=== PATIENT | female | born 1965 | race Caucasian/White ===

== ENCOUNTER → 2020-05-11 14:03 | Outpatient (BNVA) | payer OTHER, SELFPAY | PROVIDERS: PCP Internal Medicine Geriatric Medicine; Referring Provider Internal Medicine Geriatric Medicine; Visit Provider Nurse Practitioner | DX: K31.84 Gastroparesis (principal); K21.9 Gastro-esophageal reflux disease without esophagitis; K58.2 Mixed irritable bowel syndrome; R13.10 Dysphagia, unspecified; R63.4 Abnormal weight loss; R63.0 Anorexia; Z79.899 Other long term (current) drug therapy | CPT/HCPCS: 99213 ==

== ENCOUNTER → 2020-06-22 12:51 | Outpatient (BNVA) | payer OTHER, SELFPAY | PROVIDERS: PCP Internal Medicine Geriatric Medicine; Visit Provider Nurse Practitioner | DX: K31.84 Gastroparesis (principal); K21.9 Gastro-esophageal reflux disease without esophagitis; K58.2 Mixed irritable bowel syndrome; F12.90 Cannabis use, unspecified, uncomplicated; F17.200 Nicotine dependence, unspecified, uncomplicated; Z86.73 Personal history of transient ischemic attack (TIA), and cerebral infarction without residual deficits | CPT/HCPCS: Q3014 ==

== ENCOUNTER → 2020-09-20 15:29 | Outpatient (BNVA) | payer OTHER, SELFPAY | PROVIDERS: PCP Internal Medicine Geriatric Medicine; Visit Provider Nurse Practitioner | DX: Z76.89 Persons encountering health services in other specified circumstances (principal) | CPT/HCPCS: Q3014 ==

== ENCOUNTER → 2021-02-01 14:52 | Outpatient (BNVA) | payer OTHER, SELFPAY | PROVIDERS: PCP Internal Medicine Geriatric Medicine; Visit Provider Surgery | DX: K80.20 Calculus of gallbladder without cholecystitis without obstruction (principal) | CPT/HCPCS: 99202 ==

== ENCOUNTER 2021-02-13 13:33 | Outpatient (REF) | payer OTHER, SELFPAY ==
--- NOTE | ~2021-02-13 | US_ITS ---
EXAMINATION: US ABDOMEN LIMITED CLINICAL INFORMATION: Calculus of gallbladder without cholecystitis. COMPARISON: CT abdomen pelvis 10/12/2014. Ultrasound abdomen 05/07/2010 and 04/29/2008. TECHNIQUE: Real-time imaging of the right upper quadrant abdominal viscera. FINDINGS: PANCREAS: Normal. LIVER: Normal. The liver is normal in size. The liver contour is normal. Parenchymal echogenicity is normal. No focal hepatic lesion. There is no intrahepatic biliary duct dilatation seen. GALLBLADDER: There is minimal echogenic debris or sludge seen in the gallbladder. The gallbladder is physiologically distended without evidence of stones, sludge, polyps, or wall thickening. COMMON BILE DUCT: Upper normal in caliber measuring 0.76 cm in diameter. RIGHT KIDNEY: Normal. No hydronephrosis. No renal calculi or focal parenchymal lesions. The kidney measures 10.3 cm in maximum dimension. FREE FLUID: None. US/US abdomen limited IMPRESSION: No gallstones seen. Minimal echogenic debris or sludge seen in the gallbladder. Upper normal-size common bile duct.
== END 2021-02-13 13:34 | disposition home or self-care (01) ==
LOC: HO.HMGCX 13:33
PROVIDERS: PCP Internal Medicine Geriatric Medicine; Visit Provider Surgery
DX: K80.20 Calculus of gallbladder without cholecystitis without obstruction (principal)
CPT/HCPCS: 76705

== ENCOUNTER → 2021-02-27 13:34 | Outpatient (BNVA) | payer OTHER, SELFPAY | PROVIDERS: PCP Internal Medicine Geriatric Medicine; Referring Provider Internal Medicine Geriatric Medicine; Visit Provider Surgery | DX: K92.1 Melena (principal); R11.0 Nausea | CPT/HCPCS: 99212 ==

== ENCOUNTER 2021-08-24 13:07 | Outpatient (REF) | payer OTHER, SELFPAY | END 2021-08-24 13:08 | disposition home or self-care (01) | LOC: HO.LAB 13:07 | PROVIDERS: PCP Internal Medicine Geriatric Medicine; Referring Provider Internal Medicine Geriatric Medicine; Visit Provider Nurse Practitioner | DX: K21.9 Gastro-esophageal reflux disease without esophagitis (principal); K31.84 Gastroparesis; K58.2 Mixed irritable bowel syndrome; K80.20 Calculus of gallbladder without cholecystitis without obstruction; Z80.0 Family history of malignant neoplasm of digestive organs | CPT/HCPCS: 99212 ==

== ENCOUNTER 2021-08-25 09:04 | Outpatient (REF) | payer OTHER, SELFPAY ==
[2021-08-25 09:15] LABS: MANUAL DIFF FLAG NO
[2021-08-25 09:46] LABS: Basophils Percent Auto 0.6 % (0-2); Eosinophils Absolute Auto 0.8 X10*3/uL (0.0-0.4); Eosinophils Percent Auto 11.4 % (0-4); Hematocrit 41.8 % (37.0-47.0); Hemoglobin 13.6 g/dl (12.0-16.0); Imm Gran Abs Auto 0.02 X10*3/uL (0.00-0.03); Imm Gran Pct Auto 0.3 % (0.0-0.4); Lymphocytes Absolute Auto 1.2 X10*3/uL (1.2-4.9); Lymphocytes Percent Auto 17.7 % (20-40); Mean Corpuscular HGB Conc 32.5 g/dl (31.0-35.0); Mean Corpuscular Volume 101.5 fL (80.0-98.0); Mean Platelet Volume 10.6 fL (9.4-12.3); Monocytes Absolute Auto 0.7 X10*3/uL (0.1-1.2); Monocytes Percent Auto 10.4 % (2-11); Neutrophils Absolute Auto 4.1 x10*3/uL (2.0-8.3); Neutrophils Percent Auto 59.6 % (45-73); Platelet Count 184 X10*3/uL (160-400); Red Blood Count 4.12 X10*6/uL (4.20-5.50); White Blood Count 6.9 X10*3/uL (4.8-10.8)
[2021-08-25 10:12] LABS: Alanine Aminotransferase 10 U/L (0-31); Alkaline Phosphatase 94 U/L (39-117); Anion Gap 12 (12-20); Aspartate Amino Transferase 16 U/L (5-31); Bilirubin Total < 0.2 mg/dL (0.0-1.0); Blood Urea Nitrogen 22 mg/dL (9-16); Calcium 9.4 mg/dL (8.4-10.2); Carbon Dioxide 34 mmol/L (22-29); Chloride 101 mmol/L (96-108); Estimated Glomerular Filt Rate > 60; Glucose Random 90 mg/dL (60-115); Potassium 4.8 mmol/L (3.3-5.1); Sodium 142 mmol/L (135-145); Total Protein 7.1 g/dL (6.5-8.0)
== END 2021-08-25 09:05 | disposition home or self-care (01) ==
LOC: HO.LAB 09:04
PROVIDERS: PCP Internal Medicine Geriatric Medicine; Visit Provider Nurse Practitioner
DX: Z80.0 Family history of malignant neoplasm of digestive organs (principal)
CPT/HCPCS: 36415; 80053; 85025

== ENCOUNTER 2021-09-13 09:16 | Outpatient (REF) | payer OTHER, SELFPAY ==
--- NOTE | ~2021-09-13 | XR_ITS ---
EXAMINATION: XR ABDOMEN KUB CLINICAL INDICATION: Irritable bowel syndrome COMPARISON: None TECHNIQUE: 2 views of the abdomen. FINDINGS: Large volume of stool present throughout the right colon and transverse colon. Less stool present within the left colon and rectum. No obstruction. No unusual soft tissue calcifications. No acute or suspicious osseous abnormalities. XR/XR KUB IMPRESSION: Moderate constipation, predominantly right and transverse colon. No evidence of obstruction.
== END 2021-09-13 09:17 | disposition home or self-care (01) ==
LOC: HO.XRAY 09:16
PROVIDERS: PCP Internal Medicine Geriatric Medicine; Visit Provider Nurse Practitioner
DX: K58.2 Mixed irritable bowel syndrome (principal)
CPT/HCPCS: 74018

== ENCOUNTER 2021-12-21 13:49 | Outpatient (REF) | payer OTHER, SELFPAY ==
--- NOTE | ~2021-12-21 | CT_ITS ---
EXAMINATION: CT CHEST SCREENING CLINICAL INFORMATION: Nicotine dependence. COMPARISON: None. TECHNIQUE: Multidetector volumetric CT imaging of the chest is performed without contrast using low dose technique. Additional 2D coronal and sagittal reformatted images and axial 3D maximum intensity projection (MIP) images are generated on the CT workstation. This CT examination was performed using dose optimization techniques as appropriate, variously including the following: *Automated exposure control *Adjustment of mA and/or kV according to patient size (this includes techniques or standardized protocols for targeted exams where dose is matched to indication/reason for exam; i.e. extremities or head) *Use of iterative reconstruction technique DLP: 230 mGy-cm FINDINGS: LUNGS: There is centrilobular emphysematous changes with groundglass density right medial apex and bandlike atelectasis left lower lobe and right upper lobe anterior segment. 2 mm calcified nodule left lung apex image 64/7. No additional pulmonary nodules visualized. There is no acute consolidation or mass seen. MEDIASTINUM: The thyroid lobes are symmetrical and normal. The central trachea and the bronchi are widely patent. The heart size and the great vessels are normal caliber. There are small shotty pretracheal lymph nodes. There is no pericardial effusion. PLEURA: There is no pleural effusion. No pleural mass or thickening. AXILLA: Small shotty lymph nodes are seen in bilateral axilla. UPPER ABDOMEN: Visualized liver, spleen, pancreas and bilateral adrenal glands are unremarkable. OSSEOUS STRUCTURES: There is a compression fracture deformity T8 vertebra with approximately 50% loss of height. There is cement augmentation of T6 vertebra for compression fracture. Mild superior endplate deformity of T5, T4 and T3 vertebra is noted, question age. CT/CT lung screening IMPRESSION: Centrilobular emphysema with a punctate calcified 2 mm nodule left lung apex. Atelectatic changes left lower lobe and right upper lobe with small bilateral apical parenchymal scarring. Compression fractures of thoracic spine as described above. ASSESSMENT: Lung-RADS category 2: Benign RECOMMENDATION: Low-dose annual CT chest
== END 2021-12-21 13:50 | disposition home or self-care (01) ==
LOC: HO.CT 13:49
PROVIDERS: PCP Internal Medicine Geriatric Medicine; Visit Provider Physician Assistant Medical
DX: Z12.2 Encounter for screening for malignant neoplasm of respiratory organs (principal); F17.210 Nicotine dependence, cigarettes, uncomplicated
CPT/HCPCS: 71271; G0296

== ENCOUNTER 2022-03-14 08:02 | Day surgery (SDC) | payer OTHER, SELFPAY ==
[2022-03-07 14:23] VITALS: BMI 31.0
[2022-03-07 14:45] VITALS: BMI 31.0
--- NOTE | 2022-03-13 12:49 | HO.ANESPROP2 ---
Documented by User: Annelise Garcia NP 03/13/22 12:50 HPI - Anesthesia Eval Consult details Narrative: 56yo F for Colonoscopy MS on Ticfed[employer] PMFSH Active Problems Active Problems: All Active Problems (Updated 03/07/22 @ 14:59 by Elvia Nunez RN) GERD (gastroesophageal reflux disease) (Acute) Gastroparesis (Acute) Irritable bowel syndrome with both constipation and diarrhea (Acute) Depression with anxiety (Acute) PTSD (post-traumatic stress disorder) (Acute) Fibromyalgia (Acute) Dementia (Acute) NIDDY (non-insulin dependent diabetes mellitus in young) (Acute) Spinal stenosis (Acute) Dysphagia (Acute) Cholelithiasis (Acute) Family history of colon cancer (Acute) Chronic idiopathic constipation (Acute) Multiple sclerosis (Acute ~2009) Personal history of nicotine dependence (Acute) Osteoporosis (Acute ~2018) Past Medical History Medical History COPD (chronic obstructive pulmonary disease) History of CVA (cerebrovascular accident) Hyperlipidemia Menorrhagia Multiple sclerosis (~2009) Osteoporosis (~2017) Personal history of nicotine dependence Pulmonary emphysema Seizure disorder Family History Family History Mother Stroke Colon cancer Father Stroke Surgical History Surgical History History of colonoscopy History of ear surgery History of total hysterectomy with bilateral salpingo-oophorectomy (BSO) (~2006) Social History Social History (Updated 03/14/22 @ 08:57 by Paty Clifton MD) Alcohol intake: current Alcohol intake frequency: does not drink Patient Tobacco Use Status: Current everyday Tobacco user Tobacco use type: Cigarette Cigarettes Per Day: 15 Years Smoked: 41 Smoked in Last 30 Days: Yes Substance Use Type: Marijuana Substance Use Frequency: Daily Last Used Substance: Hours (ago) Advance Directives: Yes Advance Directives Information Provided: Yes Advance Directives on File: Yes Advance Directives Date on File: 11/20/19 Meds Allergies Allergy/AdvReac Type Severity Reaction Status Date / Time fingolimod [From Gilenya] Allergy Severe brain Verified 03/07/22 14:54 swelling glatiramer (copolymer 1) Allergy Intermediate Nausea and Verified 03/07/22 14:54 [From Copaxone] Vomiting alendronate sodium AdvReac Intermediate Gastrointestinal Verified 03/07/22 14:54 Upset Home Medications Medication Instructions Recorded Confirmed Last Taken Type aspirin 81 mg tablet,delayed 81 mg PO DAILY 05/11/20 03/07/22 Unknown History release (Adult Aspirin Regimen) clonazepam 1 mg tablet 1 mg PO QID 05/11/20 03/07/22 03/14/22 History polyethylene glycol 3350 17 17 g PO DAILY 05/11/20 03/07/22 Unknown History gram/dose oral powder (Miralax) acetaminophen 500 mg tablet 1,000 mg PO Q6H PRN pain 09/20/20 03/07/22 Unknown History atorvastatin 20 mg tablet 20 mg PO DAILY 09/20/20 03/07/22 Unknown History cholecalciferol (vitamin D3) 25 25 mcg PO BID 09/20/20 03/07/22 Unknown History mcg (1,000 unit) tablet clonazepam 2 mg tablet 2 mg PO BID PRN Anxiety 09/20/20 03/07/22 Unknown History dimethyl fumarate 240 mg 240 mg PO BID 09/20/20 02/02/21 Unknown History capsule,delayed release divalproex 250 mg tablet,delayed 500 mg PO BID 09/20/20 03/07/22 03/14/22 History release furosemide 20 mg tablet 20 mg PO DAILY 09/20/20 03/07/22 Unknown History gabapentin 600 mg tablet 600 mg PO TID 09/20/20 03/07/22 03/14/22 History oxycodone 15 mg tablet,crush 15 mg PO BID 09/20/20 03/07/22 03/14/22 History resistant,extended release 12 hr perphenazine 8 mg tablet 8 mg PO BID 09/20/20 03/07/22 Unknown History sertraline 100 mg tablet 300 mg PO Q OTHER DAY 09/20/20 03/07/22 Unknown History simethicone 180 mg capsule 180 mg PO TID 09/20/20 03/07/22 Unknown History umeclidinium 62.5 mcg/actuation 1 inh inhalation DAILY 09/20/20 03/07/22 Unknown History blister powder for inhalation Exam Exam Date and Time: March 13, 2022 1249 Height,Weight and Vital Signs: Height 5 ft 4 in Weight 82.1 kg Pertinent Lab Results Pertinent Lab Results: Laboratory Tests 08/25/21 08/25/21 09:13 09:13 WBC 6.9 Hgb 13.6 Hct 41.8 Plt Count 184 Sodium 142 Potassium 4.8 Chloride 101 Carbon Dioxide 34 H BUN 22 H Creatinine 0.77 Assessment and Plan Assessment Anesthesia Assessment: Chart Reviewed Documented by User: Paty Clifton MD 03/14/22 09:01 HPI - Anesthesia Eval Consult details Narrative: 56yo F for Colonoscopy MS on Tecfider[employer] PMFSH Active Problems Active Problems: All Active Problems (Updated 03/07/22 @ 14:59 by Elvia Nunez RN) GERD (gastroesophageal reflux disease) (Acute) Gastroparesis (Acute) Irritable bowel syndrome with both constipation and diarrhea (Acute) Depression with anxiety (Acute) PTSD (post-traumatic stress disorder) (Acute) Fibromyalgia (Acute) Dementia (Acute) NIDDY (non-insulin dependent diabetes mellitus in young) (Acute) Spinal stenosis (Acute) Dysphagia (Acute) Cholelithiasis (Acute) Family history of colon cancer (Acute) Chronic idiopathic constipation (Acute) Multiple sclerosis (Acute ~2009). Recent flare ups due to heat Personal history of nicotine dependence (Acute) Osteoporosis (Acute ~2018) Denies STEPHANIE O2 sats at base line down to 87%. Lungs CTAB. Increased to 96% with deep breathing Past Medical History Medical History COPD (chronic obstructive pulmonary disease) History of CVA (cerebrovascular accident) Hyperlipidemia Menorrhagia Multiple sclerosis (~2009) Osteoporosis (~2018) Personal history of nicotine dependence Pulmonary emphysema Seizure disorder Functional capacity: uses cane/walker Family History Family History Mother Stroke Colon cancer Father Stroke Family history of problems with anesthesia: No Surgical History Surgical History History of colonoscopy History of ear surgery History of total hysterectomy with bilateral salpingo-oophorectomy (BSO) (~2006) History of Problems with Anesthesia: No Social History Social History (Updated 03/14/22 @ 08:57 by Paty Clifton MD) Alcohol intake: current Alcohol intake frequency: does not drink Patient Tobacco Use Status: Current everyday Tobacco user Tobacco use type: Cigarette Cigarettes Per Day: 15 Years Smoked: 41 Smoked in Last 30 Days: Yes Substance Use Type: Marijuana Substance Use Frequency: Daily Last Used Substance: Hours (ago) Advance Directives: Yes Advance Directives Information Provided: Yes Advance Directives on File: Yes Advance Directives Date on File: 11/20/19 Meds Allergies Allergy/AdvReac Type Severity Reaction Status Date / Time fingolimod [From Gilenya] Allergy Severe brain Verified 03/07/22 14:54 swelling glatiramer (copolymer 1) Allergy Intermediate Nausea and Verified 03/07/22 14:54 [From Copaxone] Vomiting alendronate sodium AdvReac Intermediate Gastrointestinal Verified 03/07/22 14:54 Upset Home Medications Medication Instructions Recorded Confirmed Last Taken Type aspirin 81 mg tablet,delayed 81 mg PO DAILY 05/11/20 03/07/22 Unknown History release (Adult Aspirin Regimen) clonazepam 1 mg tablet 1 mg PO QID 05/11/20 03/07/22 03/14/22 History polyethylene glycol 3350 17 17 g PO DAILY 05/11/20 03/07/22 Unknown History gram/dose oral powder (Miralax) acetaminophen 500 mg tablet 1,000 mg PO Q6H PRN pain 09/20/20 03/07/22 Unknown History atorvastatin 20 mg tablet 20 mg PO DAILY 09/20/20 03/07/22 Unknown History cholecalciferol (vitamin D3) 25 25 mcg PO BID 09/20/20 03/07/22 Unknown History mcg (1,000 unit) tablet clonazepam 2 mg tablet 2 mg PO BID PRN Anxiety 09/20/20 03/07/22 Unknown History dimethyl fumarate 240 mg 240 mg PO BID 09/20/20 02/02/21 Unknown History capsule,delayed release divalproex 250 mg tablet,delayed 500 mg PO BID 09/20/20 03/07/22 03/14/22 History release furosemide 20 mg tablet 20 mg PO DAILY 09/20/20 03/07/22 Unknown History gabapentin 600 mg tablet 600 mg PO TID 09/20/20 03/07/22 03/14/22 History oxycodone 15 mg tablet,crush 15 mg PO BID 09/20/20 03/07/22 03/14/22 History resistant,extended release 12 hr perphenazine 8 mg tablet 8 mg PO BID 09/20/20 03/07/22 Unknown History sertraline 100 mg tablet 300 mg PO Q OTHER DAY 09/20/20 03/07/22 Unknown History simethicone 180 mg capsule 180 mg PO TID 09/20/20 03/07/22 Unknown History umeclidinium 62.5 mcg/actuation 1 inh inhalation DAILY 09/20/20 03/07/22 Unknown History blister powder for inhalation Exam Height,Weight and Vital Signs: Height 5 ft 4 in Weight 82.1 kg Vital Signs Temp Pulse Resp BP Pulse Ox O2 Del Method 03/14/22 08:36 97.4 F 72 16 97/47 L 89 L Room Air Airway Mallampati Class: II TM Dist: >3cm Neck ROM: Full Partial: Upper and Lower Loose/Missing/Broken Teeth: No (No broken or loose) Heart: RRR Lungs: CTAB Assessment and Plan Assessment Anesthesia Assessment: Anesthesia Plan Discussed Final Anesthetic Review Family History of Problems with Anesthesia: No History of Problems with Anesthesia: No NPO: Yes ASA Class: III Final Preanesthetic Review: No Changes in Pt Med Stat, Meds/Allgs Chart Reviewed, Consent Obtained/Reviewed and Anes Risks/Benef Reviewed Patient Risk: Intermediate Procedure Risk: Low Assessment/Block/Sedation in SS: Assess/Block/Sedation-SS Anesthetic Plan Anesthetic Plan: MAC: Disposition: Standard PACU
[2022-03-14 08:36] VITALS: BP 97/47; PULSE 72; RESP 16; TEMP 36.3; O2SAT 89
--- NOTE | 2022-03-14 08:38 | MHC.SHP ---
Pre-Procedural Eval Section A Date of Service: 03/14/22 Section B Chief Complaint: screening Details of Present Illness: maternal hx of CRC Relevant Family History (Specify if Yes): Yes Relevant Social History: Other (specify) (THC use and smoker) Present Medications: see Short Stay Collaborative assessment Medical History: Significant History (History of CVA (cerebrovascular accident) Hyperlipidemia Menorrhagia Multiple sclerosis (~2009) Osteoporosis (~2018) Personal history of nicotine dependence Pulmonary emphysema Seizure disorder) History of Previous Operations: Relevant previous surgery/procedure and date(s) (History of colonoscopy History of ear surgery History of total hysterectomy with bilateral salpingo-oophorectomy (BSO) (~2006)) Allergies: Allergies Allergy/AdvReac Type Severity Reaction Status Date / Time fingolimod [From Gilenya] Allergy Severe brain Verified 03/07/22 14:54 swelling glatiramer (copolymer 1) Allergy Intermediate Nausea and Verified 03/07/22 14:54 [From Copaxone] Vomiting alendronate sodium AdvReac Intermediate Gastrointestinal Verified 03/07/22 14:54 Upset Review of Systems Sugical H&P ROS: Negative: Constitution, Cardiovascular, Respiratory, Neurological, Psychiatric, Hem-Onc, Allergic/Immunologic, Gastrointestinal, Genitourinary, Musculoskeletal, Integumentary, Endocrine and Eyes/Ears/Nose/Throat Exam Surgical H&P Exam: Normal: HEENT, Normal: Heart, Normal: Lungs, Normal: Extremities, Normal: Abdomen, Normal: Skin and Normal: Neurological Plan Diagnosis/Plan: Unchanged I have reviewed the history and physical and performed a pertinent physical examination on my patient. No changes have occurred unless specified.
[2022-03-14] MEDS: Lactated Ringers 1,000 ML 100 ML IVCONT (08:47)
--- NOTE | 2022-03-14 09:19 | P.OP_ITS ---
Operative Note Operative Note Date of Service: 03/14/22 Narrative: Operative Information Procedure Description: Colonoscopy Indication: FH of CRC, screening Anesthesia: MAC COLONOSCOPY Instrument: Olympus variable stiffness pediatric scope 190L Colonoscopy Monitoring: Vital signs and clinical assessment, continuous EKG monitoring, Pulse oximetry, Carbon Dioxide monitoring and blood pressure monitoring were done throughout the procedure. Colon withdrawal time was 13 minutes. Procedure: The patient was placed in the left lateral decubitis position and pre-procedure medications were administered. After a digital rectal examination of the ano-rectum, the video colonoscope was inserted into the rectum and advanced through the colon to the cecum/TI. The colonoscope was slowly withdrawn in a retrograde panoramic fashion and the colon mucosa was carefully examined including a retroflexed view of the rectum. Findings and interventions are described below. Procedure Difficulty: mdoerate due to looping, reduced motility of colonic mucosa noted Findings: Terminal Ileum- superficially intubated and normal Cecum: 3-4 mm sessile polyp removed with cold forceps Ascending Colon: normal, prior tattoo jasmin noted, nothing abnormal noted Transverse Colon -normal Descending Colon: 8-10 mm sessile polyp removed with cold snare Sigmoid Colon: midl diverticulosis noted Rectum: Retroflexion with small internal hemorrhoids, grade I Anorectum - normal Colon preparation: [place] Bowel Preparation Scale Right colon; 2 Transverse colon: 1-2 Left colon; 1-2 (0 = Unprepared colon segment with mucosa not seen due to solid stool that cannot be cleared. 1 = Portion of mucosa of the colon segment seen, but other areas of the colon segment not well seen due to staining, residual stool and/or opaque liquid. 2 = Minor amount of residual staining, small fragments of stool and/or opaque liquid, but mucosa of colon segment seen well. 3 = Entire mucosa of colon segment seen well with no residual staining, small fragments of stool or opaque liquid) Impression and Post Procedure Diagnosis: polyps internal hemorrhoids diverticular disease Plan: High fiber diet leaflet Avoid straining at stool, epsom salts and sitz bath, anusol supps or cream Repeat Colonoscopy in 3 years due to fair prep or earlier if clinically indicated Above findings were reviewed with the patient and relevant handouts were provided if indicated.
[2022-03-14 09:20] VITALS: BP 92/53; PULSE 66; RESP 16; TEMP 36.1; O2SAT 95
[2022-03-14 09:35] VITALS: BP 82/62; PULSE 70; RESP 18; TEMP 36.1; O2SAT 93
[2022-03-14 09:50] VITALS: BP 102/51; PULSE 64; RESP 18; TEMP 36.1; O2SAT 95
--- NOTE | 2022-03-14 10:38 | PC.NURSE ---
PATIENT LEFT AND WENT DOWNSTAIRS BY HERSELF. THIS RN CALLED AND PATIENT STATED HER MANDATE [employer]CH[employer] WAS DOWNSTAIRS AND WAS BRINGING HER HOME. THIS RN SPOKE WITH THE MANDATE [employer]AIL SERVICE MERCHANDISER, MICHELE DIAZ, WHO STATED HE WAS THE MANDATE RETAIL SERVICE MERCH[employer]ER AND WAS WITH THE PATIENT DOWNSTAIRS. PT LEFT WITHOUT HER DC PAPERS AND ANOTHER RN BROUGHT THE DC PAPERS DOWNSTAIRS TO THE MANDATE RETAIL SERVICE MERCHANDISER.
== END 2022-03-14 10:56 | disposition home or self-care (01) ==
PROVIDERS: PCP Internal Medicine Geriatric Medicine; Visit Provider Internal Medicine Gastroenterology
PROC: 0DJD8ZZ Inspection of Lower Intestinal Tract, Via Natural or Artificial Opening Endoscopic (ICD-10-PCS; CPT 45378; principal; 2022-03-14 08:50)
DX: Z12.11 Encounter for screening for malignant neoplasm of colon (principal); Z86.010 Personal history of colon polyps; Z80.0 Family history of malignant neoplasm of digestive organs; D12.4 Benign neoplasm of descending colon; K63.5 Polyp of colon; K57.30 Diverticulosis of large intestine without perforation or abscess without bleeding; K64.0 First degree hemorrhoids; K58.2 Mixed irritable bowel syndrome; K21.9 Gastro-esophageal reflux disease without esophagitis; K31.84 Gastroparesis; G35 Multiple sclerosis; G40.909 Epilepsy, unspecified, not intractable, without status epilepticus; E78.5 Hyperlipidemia, unspecified; J43.9 Emphysema, unspecified; M81.0 Age-related osteoporosis without current pathological fracture; N92.0 Excessive and frequent menstruation with regular cycle; Z79.899 Other long term (current) drug therapy; Z88.8 Allergy status to other drugs, medicaments and biological substances; Z86.73 Personal history of transient ischemic attack (TIA), and cerebral infarction without residual deficits; Z90.710 Acquired absence of both cervix and uterus; F17.210 Nicotine dependence, cigarettes, uncomplicated; F12.90 Cannabis use, unspecified, uncomplicated
CPT/HCPCS: 45385; 45380; 88305

== ENCOUNTER → 2022-03-29 09:58 | Outpatient (BNVA) | payer OTHER, SELFPAY | PROVIDERS: PCP Internal Medicine Geriatric Medicine; Visit Provider Nurse Practitioner | DX: K21.9 Gastro-esophageal reflux disease without esophagitis (principal); D12.6 Benign neoplasm of colon, unspecified; K31.84 Gastroparesis; K58.2 Mixed irritable bowel syndrome; D75.89 Other specified diseases of blood and blood-forming organs; Z80.0 Family history of malignant neoplasm of digestive organs | CPT/HCPCS: 99212 ==

== ENCOUNTER → 2022-09-27 10:21 | Outpatient (BNVA) | payer OTHER, SELFPAY | PROVIDERS: PCP Internal Medicine Geriatric Medicine; Visit Provider Nurse Practitioner | DX: K21.9 Gastro-esophageal reflux disease without esophagitis (principal); K31.84 Gastroparesis; K58.2 Mixed irritable bowel syndrome | CPT/HCPCS: 99212 ==

== ENCOUNTER → 2022-10-18 11:01 | Outpatient (BNVA) | payer OTHER, SELFPAY | PROVIDERS: PCP Internal Medicine Geriatric Medicine; Visit Provider Nurse Practitioner | DX: K58.2 Mixed irritable bowel syndrome (principal); K21.9 Gastro-esophageal reflux disease without esophagitis; K31.84 Gastroparesis | CPT/HCPCS: 99212 ==

== ENCOUNTER 2022-11-11 11:00 | Outpatient (REF) | payer OTHER, SELFPAY ==
--- NOTE | ~2022-11-11 | XR_ITS ---
EXAMINATION: XR HIP, RIGHT CLINICAL INFORMATION: Pain. COMPARISON: None available. TECHNIQUE: AP and frog-leg lateral views of the right hip. FINDINGS: Bones and soft tissues are normal. No fracture. Alignment is anatomic. Hip joint space is maintained. XR/XR hip RT min 2V IMPRESSION: Normal right hip.
== END 2022-11-11 11:01 | disposition home or self-care (01) ==
LOC: HO.XRAY 11:00
PROVIDERS: PCP Internal Medicine Geriatric Medicine; Visit Provider Internal Medicine Geriatric Medicine
DX: M25.551 Pain in right hip (principal)
CPT/HCPCS: 73502

== ENCOUNTER 2022-12-23 09:56 | Outpatient (REF) | payer OTHER, SELFPAY ==
--- NOTE | ~2022-12-23 | CT_ITS ---
EXAMINATION: CT CHEST SCREENING CLINICAL INFORMATION: Current smoker. 40 pack year history. COMPARISON: Previous chest CT most recent December 2021 TECHNIQUE: Multidetector volumetric CT imaging of the chest is performed without contrast using low dose technique. Additional 2D coronal and sagittal reformatted images and axial 3D maximum intensity projection (MIP) images are generated on the CT workstation. This CT examination was performed using dose optimization techniques as appropriate, variously including the following: *Automated exposure control *Adjustment of mA and/or kV according to patient size (this includes techniques or standardized protocols for targeted exams where dose is matched to indication/reason for exam; i.e. extremities or head) *Use of iterative reconstruction technique DLP: 48 mGy-cm FINDINGS: LUNGS: Paraseptal emphysema. Mild scarring or chronic subsegmental atelectasis at the lung bases. The lungs are otherwise Clear. No pulmonary nodule. MEDIASTINUM: The mediastinum is normal. CORONARY ARTERY CALCIFICATION: None visualized on this study. PLEURA: There is no pleural effusion. No pleural mass or thickening. AXILLA: No lymphadenopathy. UPPER ABDOMEN: Unremarkable OSSEOUS STRUCTURES: T6 kyphoplasty. Multiple old compression fractures of the thoracic spine similar to previous exam. CT/CT lung screening IMPRESSION: Paraseptal emphysema. ASSESSMENT: Lung-RADS category 1: Negative RECOMMENDATION: Annual low-dose chest CT follow-up recommended
== END 2022-12-23 09:57 | disposition home or self-care (01) ==
LOC: HO.CT 09:56
PROVIDERS: PCP Internal Medicine Geriatric Medicine; Visit Provider Physician Assistant Medical
DX: Z12.2 Encounter for screening for malignant neoplasm of respiratory organs (principal); F17.210 Nicotine dependence, cigarettes, uncomplicated
CPT/HCPCS: 71271

== ENCOUNTER → 2022-12-27 09:03 | Outpatient (BNVA) | payer OTHER, SELFPAY | PROVIDERS: PCP Internal Medicine Geriatric Medicine; Visit Provider Nurse Practitioner | DX: K58.2 Mixed irritable bowel syndrome (principal); K21.9 Gastro-esophageal reflux disease without esophagitis; K31.84 Gastroparesis; Z79.899 Other long term (current) drug therapy | CPT/HCPCS: 99212 ==

== ENCOUNTER 2023-01-24 07:23 | Outpatient (REF) | payer OTHER, SELFPAY | END 2023-01-24 07:24 | disposition home or self-care (01) | LOC: HO.HOSX 07:23 | PROVIDERS: Visit Provider Physician Assistant | DX: Z13.89 Encounter for screening for other disorder (principal) ==

== ENCOUNTER → 2023-02-19 10:39 | Outpatient (BNVA) | payer OTHER, SELFPAY | PROVIDERS: PCP Internal Medicine Geriatric Medicine; Visit Provider Nurse Practitioner | DX: K21.9 Gastro-esophageal reflux disease without esophagitis (principal); K58.2 Mixed irritable bowel syndrome; K31.84 Gastroparesis; D12.6 Benign neoplasm of colon, unspecified | CPT/HCPCS: 99212 ==

== ENCOUNTER 2023-02-19 10:40 | Outpatient (AMB) | payer OTHER, SELFPAY ==
--- NOTE | 2023-02-19 10:39 | MHC.OFFVIS ---
Intake Vital Signs 02/19/23 10:47 Height 5 ft 4 in Weight 180 lb 5.41 oz BMI 31.0 BP 112/55 L Blood Pressure Location Lt brachial Position Sitting Pulse 68 Intake Visit Reasons: 8 week follow up Intake Note: Patient follow up for GERD and constipation. Patient cc: Patient states she continues to have some bloating and constipation but the fiber helps. She states she no longer have the leaky bowel and that the medication she gave me helped with that . Denies other GI symptoms today. 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 Accompanied by: Self / Same As Patient Allergies fingolimod [From Gilenya] Allergy (Severe, Verified 02/19/23 10:51) brain swelling glatiramer (copolymer 1) [From Copaxone] Allergy (Intermediate, Verified 02/19/23 10:51) Nausea and Vomiting alendronate sodium Adverse Reaction (Intermediate, Verified 02/19/23 10:51) Gastrointestinal Upset HPI 8 week follow up HPI Details Assessment & Plan (1) Irritable bowel syndrome with both constipation and diarrhea: ?Code(s): K58.2 - Mixed irritable bowel syndrome ?Plan: The changing weather and season is hard on her, she is very fatigued and has more pain. However, the bentyl has helped with her fecal incontinence. She is finding that she is having a lot of flatulence and gas. We had stopped the creon in the past because she thought it was not doing anything but I think we need to restart it. The lansoprazole twice a day is still still working well for her GERD, she is taking fiber bid. We will keep the simethicone 180mg tid in the mix. She IS having some CIC with her oxycodone but she finds it resolves with eating oatmeal in the am.? I let her know that if this fails we can talk about other strategies to manage constipation but the natural ways best as long as he keeps working. ROV 8 weeks to evaluate the Creon. 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 ?Code(s): K31.84 - Gastroparesis ? ? ? Medications: New oxkhrc-asvntzma-iw ylase 36,000-114,0 00- 180,000 unit ( Creon) ?? administ er with meals and/ or snacks 1 cap? PO QID 120 caps 6RF K58.2 - Mixed irri table bowel syndro me ? Refilled dicyclomine 20 mg? PO .after B M in am 30 days 30 tabs 6RF K58.2 - Mixed irri table bowel syndro me ? lansoprazole 30 mg? PO BID 60 c aps 6RF K21.9 - Gastro-eso phageal reflux dis ease without esoph agitis ? simethicone 180 mg? PO TID 90 caps 6RF ? ? Resumed methylcellulose (l axative) 1,000 mg (2 x 500 mg) PO DAILY 60 ta bs 11RF ? ? TODAY'S VISIT She asks her PCP RE: weight loss pill and it is not practical in terms of insurance coverage but may be a future option for her. She is now doing well with the addition of the creon to her bentyl, lansoprazole and simethicone. She is happy with her GI regimen and has had no more episodes. ROV 3 mos. PFSH Medical History COPD (chronic obstructive pulmonary disease) History of CVA (cerebrovascular accident) Hyperlipidemia Menorrhagia Multiple sclerosis (~2009) Osteoporosis (~2018) Personal history of nicotine dependence Pulmonary emphysema Seizure disorder Surgical History History of colonoscopy History of ear surgery History of total hysterectomy with bilateral salpingo-oophorectomy (BSO) (~2006) Family History Mother Stroke Colon cancer Father Stroke Social History Alcohol intake: current Alcohol intake frequency: does not drink Patient Tobacco Use Status: Current everyday Tobacco user Tobacco use type: Cigarette Cigarettes Per Day: 15 Years Smoked: 41 Substance Use Type: Marijuana Advance Directives Date on File: 11/20/19 Review of Systems Const Denies fatigue, Denies fever(s), Denies night sweats, Denies poor appetite and Denies weight loss Eyes Details: glasses Reports requires corrective lenses ENT Reports Normal hearing present, Denies dental pain, Denies dysphagia, Denies hearing loss, Denies mouth pain, Denies odynophagia, Denies throat swelling, Denies tongue swelling and Reports other (Dentition adequate) Card Reports no additional complaints Resp Reports no additional complaints GI Denies abdominal pain, Denies melena, Reports bloating, Denies hematochezia, Reports constipation, Denies GI cramping, Denies dysphagia, Denies excessive flatus, Reports early satiety, Reports heartburn, Reports diarrhea, Denies nausea, Denies odynophagia, Denies vomiting and Denies hematemesis Musc Reports abnormal gait Skin/Breast Denies pruritus, Denies lesions, Denies rash and Denies jaundice Neuro Reports Normal hearing present, Denies Abnormal speech present and Reports abnormal gait Endo Denies fatigue Aller/Immun Denies throat swelling and Denies tongue swelling Physical Exam Vital Signs: Last Vital Signs Pulse 68 02/19/23 10:47 BP 112/55 L 02/19/23 10:47 BMI result Body Mass Index 31.0 Const General: cooperative, no acute distress, well developed and well groomed Nutritional Appearance: well nourished and overweight Orientation/consciousness: oriented to person, oriented to place and oriented to time Limitations: No language barrier and ambulation with cane HEENT Head: Yes normocephalic and Yes atraumatic Eyes General: appearance normal, both eyes and all related structures Pupils: Equal, round and reactive pupils present Neck Neck: Yes normal visual inspection and Yes no lymphadenopathy Thyroid: Thyroid normal Resp Effort & Inspection: normal respiratory effort and able to speak in complete sentences Auscultation: clear to auscultation bilaterally Cardio Rate: regular rate Rhythm: regular rhythm Heart sounds: Normal, physiologic split S2 sound present Peripheral pulses: radial pulses present and posterior tibial pulses present GI Inspection: No distended, No Abdominal panniculus present and Yes obesity Palpation (GI): Soft to palpation, nontender, no guarding, not rigid and No hepatosplenomegaly present Percussion: Yes normal to percussion Auscultation: normal bowel sounds Rectal Exam - Female: deferred Skin General skin exam: no rashes or lesions noted, turgor normal, skin not dry, no jaundice, No spider nevi and no striae Rashes: no rashes Nails: normal Neuro General: oriented to person, oriented to place and oriented to time Cranial nerves: Yes Equal, round and reactive pupils present and Yes Normal hearing present Speech: No Abnormal speech present Extrem General: Yes normal to inspection, No clubbing, No cyanosis and No edema Psych Appearance: grossly normal and well kempt Mental Status: mental status grossly normal Speech and movement: Normal speech and movement present Affect: normal affect Attitude: cooperative Thought process: Normal thought process present and not confabulating Thought content: Normal thought content present Insight: Limited insight present (Psych) Judgement: Limited judgement present (Psych) Assessment & Plan Assessment & Plan (1) GERD (gastroesophageal reflux disease): Code(s): K21.9 - Gastro-esophageal reflux disease without esophagitis Plan: She asks her PCP RE: weight loss pill and it is not practical in terms of insurance coverage but may be a future option for her. She is now doing well with the addition of the creon to her bentyl, lansoprazole and simethicone. She is happy with her GI regimen and has had no more episodes. ROV 3 mos. 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 Code(s): K31.84 - Gastroparesis (4) Cholelithiasis: Comment: Minimal debris as of US 02/2021, she saw surgeries we did not think cholecystectomy was indicated Code(s): K80.20 - Calculus of gallbladder without cholecystitis without obstruction (5) Tubular adenoma of colon: Comment: 2021 scope= multiple large TA is a repeat in 3 years he aeb Code(s): D12.6 - Benign neoplasm of colon, unspecified Medications: Refilled methylcellulose (laxative) 1,000 mg (2 x 500 mg) PO DAILY 60 tabs 11RF Coding Level of Care Code Est Pt Level 3 (73754) Diagnoses GERD (gastroesophageal reflux disease) K21.9 Irritable bowel syndrome with both constipation and diarrhea K58.2 Gastroparesis K31.84 Cholelithiasis K80.20 Tubular adenoma of colon D12.6
[2023-02-19 10:47] VITALS: BP 112/55; PULSE 68; BMI 31.0
== END 2023-02-19 11:28 | disposition home or self-care (01) ==
PROVIDERS: PCP Internal Medicine Geriatric Medicine; Visit Provider Nurse Practitioner
DX: K21.9 Gastro-esophageal reflux disease without esophagitis (principal); K58.2 Mixed irritable bowel syndrome; K31.84 Gastroparesis; K80.20 Calculus of gallbladder without cholecystitis without obstruction; D12.6 Benign neoplasm of colon, unspecified
CPT/HCPCS: 99213

== ENCOUNTER 2023-03-07 | Outpatient (REF) | payer OTHER, SELFPAY ==
--- NOTE | ~2023-03-07 | XR_ITS ---
EXAMINATION: XR PELVIS CLINICAL INFORMATION: Pain COMPARISON: 11/11/2022 TECHNIQUE: AP view of the pelvis. FINDINGS: No fracture. Hip joint spaces are maintained. Alignment is anatomic. Sacroiliac joints and pubic symphysis are normal. No abnormal soft tissue calcifications. XR/XR pelvis 1-2V IMPRESSION: Normal pelvis.
== END 2023-03-07 00:01 | disposition home or self-care (01) ==
LOC: HO.HOSX
PROVIDERS: Visit Provider Physician Assistant
DX: M70.61 Trochanteric bursitis, right hip (principal)
CPT/HCPCS: 20610; 72170; 99202; J1040

== ENCOUNTER 2023-03-07 11:25 | Outpatient (AMB) | payer OTHER, SELFPAY ==
--- NOTE | 2023-03-07 11:28 | A.OFFVIS_ITS ---
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 Patient reports ongoing pain for many years and it has gotten worse these couple months. She states that her pain is on the lateral aspect of the hip. Hx of injections. Hx of PT. Pain is worse when sleeping, walking, standing and using stairs. 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 The patient chronic pain for many years, which has increased in the last few months. She confirms her pain is on the lateral aspect of the right hip. She reports an increase in pain when sleeping, ambulating, standing, and with use of stairs. Patient has a history of cortisone injections. [facility] Medical History COPD (chronic obstructive pulmonary disease) History of CVA (cerebrovascular accident) Hyperlipidemia Menorrhagia Multiple sclerosis (~2009) Osteoporosis (~2018) Personal history of nicotine dependence Pulmonary emphysema Seizure disorder Surgical History History of colonoscopy History of ear surgery History of total hysterectomy with bilateral salpingo-oophorectomy (BSO) (~2006) Family History Mother Stroke Colon cancer Father Stroke Social History Alcohol intake: current Alcohol intake frequency: does not drink Patient Tobacco Use Status: Current everyday Tobacco user Tobacco use type: Cigarette Cigarettes Per Day: 15 Years Smoked: 41 Substance Use Type: Marijuana Advance Directives Date on File: 11/20/19 Review of Systems Const All systems reviewed & are unremarkable except as noted in HPI and below Physical Exam Const General: cooperative and no acute distress Orientation/consciousness: patient oriented x3 Resp Effort & Inspection: normal respiratory effort and able to speak in complete sentences Cardio Peripheral pulses: Peripheral pulses 2+ throughout Skin General skin exam: no rashes or lesions noted Neuro General: patient oriented x3 Extrem Other: Right hip: Able to perform straight leg raise with weakness. Tenderness to palpation over the greater trochanteric bursa. Good internal and external rotation. Baseline weakness due to a stroke that affects her right side. Office Procedures Joint Injection/Drain Joint Injection/Drain Primary Site: other (right hip greater trochanteric bursa ) Prep: site was prepped using aseptic technique, ethochloride spray was applied and injection warnings given Injected: 80 mg of, DepoMedrol, with 8 mL of (2% plain lido ) and other (greater troch bursa ) Approach Used: other (lateral) Procedure: The patient tolerated the procedure well, but had some pain with the injection and there was some relief with the local anesthesia Coding 18996 - Glenohumeral/Tronchanteric Bursa/Intraarticular Procedure code (CPT) selection complete Results Reviewed Results Reviewed: 03/07/23 11:46 Lidocaine HCl 2 % MPF [Xylocaine 2 % MPF] 5 ml .ROUTE .STK-MED ONE methylPREDNISolone acetate [DEPO-MedroL] 80 mg .ROUTE .STK-MED ONE Assessment & Plan Assessment & Plan (1) Greater trochanteric bursitis of right hip: Code(s): M70.61 - Trochanteric bursitis, right hip Plan Ms. Edgar is a 57-year-old female who presents in the office today, as a new patient, for an evaluation of right hip pain. The patient chronic pain for many years, which has increased in the last few months. She confirms her pain is on the lateral aspect of the right hip. She reports an increase in pain when sleeping, ambulating, standing, and with use of stairs. Patient has a history of cortisone injections. The patient was offered a cortisone injection in the right greater trochanteric with 80 mg of DepoMedrol. The patient was explained the risk, benefits, and alternatives to receiving this injection. After receiving consent for the injection, the patient had the procedure done while in office today. The patient tolerated the procedure well with no complications. X-rays of the right hip which were obtained while in the office today and were reviewed by me, Michelle Reyes PA-C, revealed no evidence of acute fracture or dislocation. Orders: Orders XR pelvis 1-2V Today M25.559 - Pain in unspecified hip Patient Instructions: Scribed for Michelle Reyes PA-C by Chrissie Martinez adjunct faculty for medical terminology, on 03/07/2023 at 11:25 am, EST. Coding Level of Care Code New Pt Level 3 (02991) Diagnoses Greater trochanteric bursitis of right hip M70.61 CPT Codes Coding - Joint 7: 35838 - Glenohumeral/Tronchanteric Bursa/Intraarticular ([id number])
== END 2023-03-07 11:59 | disposition home or self-care (01) ==
LOC: HO.HOS 11:25
PROVIDERS: PCP Internal Medicine Geriatric Medicine; Visit Provider Physician Assistant
DX: M70.61 Trochanteric bursitis, right hip (principal)
CPT/HCPCS: 20610; 99203

== ENCOUNTER 2023-05-20 10:19 | Outpatient (AMB) | payer OTHER, SELFPAY ==
--- NOTE | 2023-05-20 10:24 | A.OFFVIS_ITS ---
Intake Vital Signs 05/20/23 10:26 Height 5 ft 4 in Weight 175 lb 7.807 oz BMI 30.1 BP 107/43 L Blood Pressure Location Rt brachial Position Sitting Pulse 71 Intake Visit Reasons: 3 month ibs gerd Intake Note: Patient follow up for GERD and constipation. CC: Patient reports doing well today and denies having any new GI symptoms or concerns today. 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 Accompanied by: Self / Same As Patient Allergies fingolimod [From Gilenya] Allergy (Severe, Verified 05/20/23 10:28) brain swelling glatiramer (copolymer 1) [From Copaxone] Allergy (Intermediate, Verified 05/20/23 10:28) Nausea and Vomiting alendronate sodium Adverse Reaction (Intermediate, Verified 05/20/23 10:28) Gastrointestinal Upset PFSH Medical History COPD (chronic obstructive pulmonary disease) Pulmonary emphysema Seizure disorder Hyperlipidemia History of CVA (cerebrovascular accident) Personal history of nicotine dependence Menorrhagia Osteoporosis (~2017) Multiple sclerosis (~2009) Surgical History History of colonoscopy History of ear surgery History of total hysterectomy with bilateral salpingo-oophorectomy (BSO) (~2006) Family History Mother Stroke Colon cancer Father Stroke Social History Alcohol intake: current Alcohol intake frequency: does not drink Patient Tobacco Use Status: Current everyday Tobacco user Tobacco use type: Cigarette Cigarettes Per Day: 15 Years Smoked: 41 Substance Use Type: Marijuana Advance Directives Date on File: 11/20/19 Coding
--- NOTE | 2023-05-20 10:24 | MHC.OFFVIS ---
Intake Vital Signs 05/20/23 10:26 Height 5 ft 4 in Weight 175 lb 7.807 oz BMI 30.1 BP 107/43 L Blood Pressure Location Rt brachial Position Sitting Pulse 71 Intake Visit Reasons: 3 month ibs gerd Allergies fingolimod [From Gilenya] Allergy (Severe, Verified 05/20/23 10:28) brain swelling glatiramer (copolymer 1) [From Copaxone] Allergy (Intermediate, Verified 05/20/23 10:28) Nausea and Vomiting alendronate sodium Adverse Reaction (Intermediate, Verified 05/20/23 10:28) Gastrointestinal Upset HPI 3 month ibs gerd HPI Details Assessment & Plan (1) GERD (gastroesophageal reflux disease): Code(s): K21.9 - Gastro-esophageal reflux disease without esophagitis Plan: She asks her PCP RE: weight loss pill and it is not practical in terms of insurance coverage but may be a future option for her. She is now doing well with the addition of the creon to her bentyl, lansoprazole and simethicone. She is happy with her GI regimen and has had no more episodes. ROV 3 mos. 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 Code(s): K31.84 - Gastroparesis (4) Cholelithiasis: Comment: Minimal debris as of US 02/2021, she saw surgeries we did not think cholecystectomy was indicated Code(s): K80.20 - Calculus of gallbladder without cholecystitis without obstruction (5) Tubular adenoma of colon: Comment: 2021 scope= multiple large TA is a repeat in 3 years he aeb Code(s): D12.6 - Benign neoplasm of colon, unspecified Medications: Refilled methylcellulose (l axative) 1,000 mg (2 x 500 mg) PO DAILY 60 ta bs 11RF TODAY'S VISIT She continues to do well. doing well with the addition of the creon to her bentyl, lansoprazole and simethicone and fiber. My leaky gut is no longer leaky! She is very satisfied with her GI regimen. Her MS makes her always subjectively cold. She saw a concert with Sandoval Chakraborty and Santosh Finn! She likes the song Chao. ROV 6 mos. [facility] Medical History COPD (chronic obstructive pulmonary disease) Pulmonary emphysema Seizure disorder Hyperlipidemia History of CVA (cerebrovascular accident) Personal history of nicotine dependence Menorrhagia Osteoporosis (~2017) Multiple sclerosis (~2009) Surgical History (Updated 05/20/23 @ 10:42 by HILDA Alfaro) History of colonoscopy History of ear surgery History of total hysterectomy with bilateral salpingo-oophorectomy (BSO) (~2006) Family History Mother Stroke Colon cancer Father Stroke Social History Alcohol intake: current Alcohol intake frequency: does not drink Patient Tobacco Use Status: Current everyday Tobacco user Tobacco use type: Cigarette Cigarettes Per Day: 15 Years Smoked: 41 Substance Use Type: Marijuana Advance Directives Date on File: 11/20/19 Review of Systems Const Denies fatigue, Denies fever(s), Denies night sweats, Denies poor appetite and Denies weight loss Eyes Details: glasses Reports requires corrective lenses ENT Reports Normal hearing present, Denies dental pain, Denies dysphagia, Denies hearing loss, Denies mouth pain, Denies odynophagia, Denies throat swelling, Denies tongue swelling and Reports other (Dentition adequate) Card Reports no additional complaints Resp Reports no additional complaints GI Denies abdominal pain, Denies melena, Denies bloating, Denies hematochezia, Reports constipation, Denies GI cramping, Denies dysphagia, Denies excessive flatus, Denies early satiety, Reports heartburn, Denies diarrhea, Denies nausea, Denies odynophagia, Denies vomiting and Denies hematemesis Skin/Breast Denies pruritus, Denies lesions, Denies rash and Denies jaundice Neuro Reports Normal hearing present, Denies Abnormal speech present, Reports focal weakness and Reports paresthesias Endo Reports cold intolerance and Denies fatigue Aller/Immun Denies throat swelling and Denies tongue swelling Physical Exam Vital Signs: Last Vital Signs Pulse 71 05/20/23 10:26 BP 107/43 L 05/20/23 10:26 BMI result Body Mass Index 30.1 Const General: cooperative, no acute distress, well developed and well groomed Nutritional Appearance: well nourished and obese Orientation/consciousness: oriented to person, oriented to place and oriented to time Limitations: No language barrier and ambulation with cane HEENT Head: Yes normocephalic and Yes atraumatic Eyes General: appearance normal, both eyes and all related structures Pupils: Equal, round and reactive pupils present Neck Neck: Yes normal visual inspection and Yes no lymphadenopathy Thyroid: Thyroid normal Resp Effort & Inspection: normal respiratory effort and able to speak in complete sentences Auscultation: clear to auscultation bilaterally Cardio Rate: regular rate Rhythm: regular rhythm Heart sounds: Normal, physiologic split S2 sound present Peripheral pulses: radial pulses present and posterior tibial pulses present GI Inspection: No distended, No Abdominal panniculus present and Yes obesity Palpation (GI): Soft to palpation, nontender, no guarding, not rigid and No hepatosplenomegaly present Percussion: Yes normal to percussion Auscultation: normal bowel sounds Rectal Exam - Female: deferred Skin General skin exam: no rashes or lesions noted, turgor normal, skin not dry, no jaundice, No spider nevi and no striae Rashes: no rashes Nails: normal Neuro General: oriented to person, oriented to place and oriented to time Cranial nerves: Yes Equal, round and reactive pupils present and Yes Normal hearing present Speech: No Abnormal speech present Extrem General: Yes normal to inspection, No clubbing, No cyanosis and No edema Psych Appearance: grossly normal and well kempt Mental Status: mental status grossly normal Speech and movement: Normal speech and movement present Affect: normal affect Attitude: cooperative Thought process: Normal thought process present and not confabulating Thought content: Normal thought content present Insight: Limited insight present (Psych) Judgement: Limited judgement present (Psych) Assessment & Plan Assessment & Plan (1) GERD (gastroesophageal reflux disease): Code(s): K21.9 - Gastro-esophageal reflux disease without esophagitis Plan: She continues to do well. doing well with the addition of the creon to her bentyl, lansoprazole and simethicone and fiber. My leaky gut is no longer leaky! She is very satisfied with her GI regimen. Her MS makes her always subjectively cold. She saw a concert with Sandoval Chakraborty and Santosh Finn! She likes the song [employer]. ROV 6 mos. 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 Code(s): K31.84 - Gastroparesis (4) Tubular adenoma of colon: Comment: 2021 scope= multiple large TA is a repeat in 3 years he aeb Code(s): D12.6 - Benign neoplasm of colon, unspecified Coding Level of Care Code Est Pt Level 3 (87517) Diagnoses GERD (gastroesophageal reflux disease) K21.9 Irritable bowel syndrome with both constipation and diarrhea K58.2 Gastroparesis K31.84 Tubular adenoma of colon D12.6
[2023-05-20 10:26] VITALS: BP 107/43; PULSE 71; BMI 30.1
== END 2023-05-20 10:48 | disposition home or self-care (01) ==
PROVIDERS: PCP Internal Medicine Geriatric Medicine; Visit Provider Nurse Practitioner
DX: K21.9 Gastro-esophageal reflux disease without esophagitis (principal); K58.2 Mixed irritable bowel syndrome; K31.84 Gastroparesis; D12.6 Benign neoplasm of colon, unspecified
CPT/HCPCS: 99213

== ENCOUNTER → 2023-05-20 10:19 | Outpatient (BNVA) | payer OTHER, SELFPAY | PROVIDERS: PCP Internal Medicine Geriatric Medicine; Visit Provider Nurse Practitioner | DX: K21.9 Gastro-esophageal reflux disease without esophagitis (principal); K58.2 Mixed irritable bowel syndrome; K31.84 Gastroparesis; K80.20 Calculus of gallbladder without cholecystitis without obstruction; D12.6 Benign neoplasm of colon, unspecified | CPT/HCPCS: 99212 ==

== ENCOUNTER 2023-11-19 09:53 | Outpatient (AMB) | payer OTHER, SELFPAY ==
[2023-11-19 09:54] VITALS: BP 106/60; PULSE 63; BMI 27.1
--- NOTE | 2023-11-19 09:54 | A.OFFVIS_ITS ---
Intake Vital Signs 11/19/23 09:54 Height 5 ft 4 in Weight 157 lb 13.616 oz BMI 27.1 BP 106/60 Blood Pressure Location Lt brachial Position Sitting Pulse 63 Intake Visit Reasons: 6 month follow up Gerd Intake Note: pt reports having a lump on the inside of her left mouth cheek. 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 doing well with the addition of the creon to her bentyl, lansoprazole and simethicone and fiber. My leaky gut is no longer leaky! She is very satisfied with her GI regimen. Her MS makes her always subjectively cold. She saw a concert with Sandoval Chakraborty and Santosh Finn! She likes the song [employer]. ROV 6 mos. 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 Code(s): K31.84 - Gastroparesis (4) Tubular adenoma of colon: Comment: 2021 scope= multiple large TA is a repea t in 3 years he aeb Code(s): D12.6 - Benign neoplasm of colon, unspecified TODAY'S VISIT She continues to do well on her GI regimen. She continues on her creon to her bentyl, lansoprazole and simethicone and fiber. ROV 6 mos, she is going to see Sandoval Chakraborty again at [facility]. [facility] Medical History COPD (chronic obstructive pulmonary disease) Pulmonary emphysema Seizure disorder Hyperlipidemia History of CVA (cerebrovascular accident) Personal history of nicotine dependence Menorrhagia Osteoporosis (~2017) Multiple sclerosis (~2009) Surgical History History of colonoscopy History of ear surgery History of total hysterectomy with bilateral salpingo-oophorectomy (BSO) (~2006) Family History Mother Stroke Colon cancer Father Stroke Social History Alcohol intake: current Alcohol intake frequency: does not drink Patient Tobacco Use Status: Current everyday Tobacco user Tobacco use type: Cigarette Cigarettes Per Day: 15 Years Smoked: 41 Substance Use Type: Marijuana Advance Directives Date on File: 11/20/19 Review of Systems Const Denies fatigue, Denies fever(s), Denies night sweats, Denies poor appetite and Denies weight loss ENT Reports Normal hearing present, Denies dysphagia, Denies odynophagia, Denies throat swelling and Denies tongue swelling Card Reports no additional complaints Resp Reports no additional complaints GI Details: Denies abdominal pain, Denies melena, Reports bloating, Denies hematochezia, Reports constipation, Reports GI cramping, Denies dysphagia, Denies excessive flatus, Denies early satiety, Reports heartburn, Denies diarrhea, Denies nausea, Denies odynophagia, Denies vomiting and Denies hematemesis Musc Reports abnormal gait Skin/Breast Denies pruritus, Denies lesions, Denies rash and Denies jaundice Neuro Reports Normal hearing present, Denies Abnormal speech present, Reports abnormal gait, Reports focal weakness and Reports paresthesias Endo Denies fatigue Aller/Immun Denies throat swelling and Denies tongue swelling Physical Exam Vital Signs: Last Vital Signs Pulse 63 11/19/23 09:54 BP 106/60 11/19/23 09:54 BMI result Body Mass Index 27.1 Const General: cooperative, no acute distress, well developed and well groomed Nutritional Appearance: well nourished and overweight Orientation/consciousness: oriented to person, oriented to place and oriented to time Limitations: No language barrier and ambulation with cane HEENT Head: Yes normocephalic and Yes atraumatic Eyes General: appearance normal, both eyes and all related structures Pupils: Equal, round and reactive pupils present Neck Neck: Yes normal visual inspection and Yes no lymphadenopathy Thyroid: Thyroid normal Resp Effort & Inspection: normal respiratory effort and able to speak in complete sentences Auscultation: clear to auscultation bilaterally Cardio Rate: regular rate Rhythm: regular rhythm Heart sounds: Normal, physiologic split S2 sound present Peripheral pulses: radial pulses present and posterior tibial pulses present GI Inspection: No distended and No Abdominal panniculus present Palpation (GI): Soft to palpation, nontender, no guarding, not rigid and No hepatosplenomegaly present Percussion: Yes normal to percussion Auscultation: normal bowel sounds Rectal Exam - Female: deferred Skin General skin exam: no rashes or lesions noted, turgor normal, skin not dry, no jaundice, No spider nevi and no striae Rashes: no rashes Nails: normal Neuro General: oriented to person, oriented to place and oriented to time Cranial nerves: Yes Equal, round and reactive pupils present and Yes Normal hearing present Speech: No Abnormal speech present Extrem General: Yes normal to inspection, No clubbing, No cyanosis and No edema Psych Appearance: grossly normal and well kempt Mental Status: mental status grossly normal Speech and movement: Normal speech and movement present Affect: normal affect Attitude: cooperative Thought process: Normal thought process present and not confabulating Thought content: Normal thought content present Insight: Limited insight present (Psych) Judgement: Limited judgement present (Psych) Assessment & Plan Assessment & Plan (1) GERD (gastroesophageal reflux disease): Code(s): K21.9 - Gastro-esophageal reflux disease without esophagitis (2) Gastroparesis: Comment: DX 2011 with gastric emptying study, patient went off of Reglan because she said it caused her appetite to be too good and she gained too much weight, she has adamantly declined to be put back on this medication very much limiting my ability to control her GERD since 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 Code(s): K31.84 - Gastroparesis (3) Irritable bowel syndrome with both constipation and diarrhea: Code(s): K58.2 - Mixed irritable bowel syndrome Plan She continues to do well on her GI regimen. She continues on her creon to her bentyl, lansoprazole and simethicone and fiber. ROV 6 mos, she is going to see Sandoval Chakraborty again at [facility]. Medications: Refilled [id number] 36,000-114,000- 180,000 unit (Creon) 1 cap PO QID 120 caps 6RF K58.2 - Mixed irritable bowel syndrome methylcellulose (laxative) 1,000 mg (2 x 500 mg) PO DAILY 60 tabs 11RF simethicone 180 mg PO TID 90 caps 6RF calcium polycarbophil (Fiber-Lax) 1,250 mg (2 x 625 mg) PO DAILY 60 tabs 7RF dicyclomine 20 mg PO QAM 30 tabs 6RF K58.2 - Mixed irritable bowel syndrome lansoprazole 30 mg PO BID 60 caps 6RF K21.9 - Gastro-esophageal reflux disease without esophagitis Coding Level of Care Code Est Pt Level 3 (06974) Diagnoses GERD (gastroesophageal reflux disease) K21.9 Gastroparesis K31.84 Irritable bowel syndrome with both constipation and diarrhea K58.2
== END 2023-11-19 10:12 | disposition home or self-care (01) ==
PROVIDERS: PCP Internal Medicine Geriatric Medicine; Visit Provider Nurse Practitioner
DX: K21.9 Gastro-esophageal reflux disease without esophagitis (principal); K31.84 Gastroparesis; K58.2 Mixed irritable bowel syndrome
CPT/HCPCS: 99213

== ENCOUNTER → 2023-11-19 09:53 | Outpatient (BNVA) | payer OTHER, SELFPAY | PROVIDERS: PCP Internal Medicine Geriatric Medicine; Visit Provider Nurse Practitioner | DX: K21.9 Gastro-esophageal reflux disease without esophagitis (principal); K31.84 Gastroparesis; K58.2 Mixed irritable bowel syndrome | CPT/HCPCS: 99212 ==

== ENCOUNTER 2024-03-29 13:37 | Outpatient (REF) | payer OTHER, SELFPAY ==
[2024-03-29 16:43] LABS: Anion Gap 13 (12-20); Blood Urea Nitrogen 14 mg/dL (9-16); Calcium 9.2 mg/dL (8.4-10.2); Carbon Dioxide 24 mmol/L (22-29); Chloride 108 mmol/L (96-108); Estimated Glomerular Filt Rate > 60; Glucose Random 90 mg/dL (60-115); Potassium 4.3 mmol/L (3.3-5.1); Sodium 141 mmol/L (135-145)
== END 2024-03-29 13:38 | disposition home or self-care (01) ==
LOC: HO.HHCL 13:37
PROVIDERS: Visit Provider Family Medicine
DX: E87.6 Hypokalemia (principal); Z91.81 History of falling
CPT/HCPCS: 36415; 80048

== ENCOUNTER 2024-05-19 10:15 | Outpatient (AMB) | payer OTHER, SELFPAY ==
[2024-05-19 10:27] VITALS: BP 84/49; PULSE 66; O2SAT 97; BMI 23.9
--- NOTE | 2024-05-19 10:27 | A.OFFVIS_ITS ---
Vital Signs 05/19/24 10:27 Height 5 ft 4 in Weight 139 lb BMI 23.9 BP 84/49 L Blood Pressure Location Lt brachial Position Sitting Pulse 66 Pulse Source Pulse Oximeter Pulse Oximetry (%) 97 Oxygen Delivery Method Room Air Intake Visit Reasons: 6 months IBS, Gerd Intake Note: Patient in 6 months follow up of IBS and GERD. CC: Patient reports that the lansoprazole works good for her symptoms. She states that sometimes when she has a BM she gets rectal pain and is hard for the stool to come out. 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 Accompanied by: Self / Same As Patient Allergies fingolimod [From Gilenya] Allergy (Severe, Verified 05/19/24 10:30) brain swelling glatiramer (copolymer 1) [From Copaxone] Allergy (Intermediate, Verified 05/19/24 10:30) Nausea and Vomiting alendronate sodium Adverse Reaction (Intermediate, Verified 05/19/24 10:30) Gastrointestinal Upset HPI HPI 6 months IBS, Gerd: Details: Assessment & Plan (1) GERD (gastroesophageal reflux disease): Code(s): K21.9 - Gastro-esophageal reflux disease without esophagitis (2) Gastroparesis: Comment: DX 2011 with gastric emptying study, patient went off of Reglan because she said it caused her appetite to be too good and she gained too much weight, she has adamantly declined to be put back on this medication very much limiting my ability to control her GERD since 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 Code(s): K31.84 - Gastroparesis (3) Irritable bowel syndrome with both constipation and diarrhea: Code(s): K58.2 - Mixed irritable bowel syndrome Plan She continues to do well on her GI regimen. She continues on her creon to her bentyl, lansoprazole and simethicone and fiber. ROV 6 mos, she is going to see Sandoval Chakraborty again at [facility]. Medications: Refilled [id number] 36,000-114,000- 180,000 unit (Creon) 1 cap PO QID 120 caps 6RF K58.2 - Mixed irritable bowel syndrome methylcellulose (laxative) 1,000 mg (2 x 500 mg) PO DAILY 60 tabs 11RF simethicone 180 mg PO TID 90 caps 6RF calcium polycarbophil (Fiber-Lax) 1,250 mg (2 x 625 mg) PO DAILY 60 tabs 7RF dicyclomine 20 mg PO QAM 30 tabs 6RF K58.2 - Mixed irritable bowel syndrome lansoprazole 30 mg PO BID 60 caps 6RF K21.9 - Gastro-esophageal reflux disease without esophagitis TODAY'S VISIT She says she has a lot of negative energy in my living situation. She says she has a lack of appetite and is losing weight. She has confirmed gastroparesis but declines reglan because it gave me too good of an appetite. She does not want any more pills right now, so I encourage smaller more frequent meals as she does report early satiety. She has lost about 35lbs over the past year. She is reporting loose stools and fecal smearing and rectal incontinence. We discuss medication for decreasing stool frequency vs pelvis floor therapy as she says my muscles are loose. She opts for medication. We will start with 1/2 2mg imodium a day and see if this helps. She is also struggling with urinary incontinence that is r/t her MS. She just had a MRI of the brain at [facility] r/t gait problems. It has not yet been read. She continues on her creon to her bentyl, lansoprazole and simethicone and fiber. ROV 6 weeks. [facility] Medical History (Updated 05/19/24 @ 17:50 by HILDA Alfaro) Nicotine dependence, cigarettes, uncomplicated COPD (chronic obstructive pulmonary disease) Pulmonary emphysema Seizure disorder Hyperlipidemia History of CVA (cerebrovascular accident) Menorrhagia Osteoporosis (~2017) Multiple sclerosis (~2009) Surgical History History of colonoscopy History of ear surgery History of total hysterectomy with bilateral salpingo-oophorectomy (BSO) (~2006) Family History Mother Stroke Colon cancer Father Stroke Social History Alcohol intake: current Alcohol intake frequency: does not drink Patient Tobacco Use Status: Current everyday Tobacco user Tobacco use type: Cigarette Cigarettes Per Day: 15 Years Smoked: 41 Substance Use Type: Marijuana Advance Directives Date on File: 11/20/19 Review of Systems Const Denies fatigue, Denies fever(s), Denies night sweats, Reports poor appetite and Reports weight loss ENT Reports Normal hearing present, Denies dental pain, Denies dysphagia, Denies hearing loss, Denies mouth pain, Denies odynophagia, Denies throat swelling, Denies tongue swelling and Reports other (Dentition adequate) Card Reports no additional complaints Resp Reports no additional complaints GI Details: fecal incontince Denies abdominal pain, Denies melena, Denies bloating, Denies hematochezia, Denies constipation, Denies GI cramping, Denies dysphagia, Denies excessive flatus, Denies early satiety, Reports heartburn, Denies diarrhea, Reports loose stools, Denies nausea, Denies odynophagia, Denies vomiting and Denies hematemesis Reports urinary incontinence Musc Reports abnormal gait, Reports myalgias, Reports arthralgias and Reports muscle weakness Skin/Breast Denies pruritus, Denies lesions, Denies rash and Denies jaundice Neuro Reports Normal hearing present, Denies Abnormal speech present and Reports abnormal gait Psych Reports difficulty concentrating Endo Denies fatigue Aller/Immun Denies throat swelling and Denies tongue swelling Physical Exam Vital Signs: Last Vital Signs Pulse 66 05/19/24 10:27 BP 84/49 L 05/19/24 10:27 Pulse Ox 97 05/19/24 10:27 Oxygen Delivery Method Room Air 05/19/24 10:27 BMI result Body Mass Index 23.9 Const General: cooperative, no acute distress, well developed and well groomed Nutritional Appearance: well nourished and thin Orientation/consciousness: oriented to person, oriented to place and oriented to time Limitations: No language barrier, ambulation with cane and other limitations HEENT Head: Yes normocephalic and Yes atraumatic Eyes General: appearance normal, both eyes and all related structures Pupils: Equal, round and reactive pupils present Neck Neck: Yes normal visual inspection and Yes no lymphadenopathy Thyroid: Thyroid normal Resp Effort & Inspection: normal respiratory effort and able to speak in complete sentences Auscultation: clear to auscultation bilaterally Cardio Rate: regular rate Rhythm: regular rhythm Heart sounds: Normal, physiologic split S2 sound present Peripheral pulses: radial pulses present and posterior tibial pulses present GI Inspection: No distended and No Abdominal panniculus present Palpation (GI): Soft to palpation, nontender, no guarding, not rigid and No hepatosplenomegaly present Percussion: Yes normal to percussion Auscultation: normal bowel sounds Rectal Exam - Female: deferred Skin General skin exam: no rashes or lesions noted, turgor normal, skin not dry, no jaundice, No spider nevi and no striae Rashes: no rashes Nails: normal Neuro General: oriented to person, oriented to place and oriented to time Cranial nerves: Yes Equal, round and reactive pupils present and Yes Normal hearing present Speech: No Abnormal speech present Extrem General: Yes normal to inspection, No clubbing, No cyanosis and No edema Psych Appearance: grossly normal and well kempt Mental Status: mental status grossly normal Speech and movement: Slowed speech present (Psych) Affect: Labile affect present Attitude: cooperative Thought process: not confabulating and Tangential thought process present Thought content: Normal thought content present Insight: Limited insight present (Psych) Judgement: Limited judgement present (Psych) Assessment & Plan Assessment & Plan (1) GERD (gastroesophageal reflux disease): Code(s): K21.9 - Gastro-esophageal reflux disease without esophagitis Category: Medical (2) Irritable bowel syndrome with both constipation and diarrhea: Code(s): K58.2 - Mixed irritable bowel syndrome Category: Medical (3) Fecal incontinence: Comment: Most likely some element of pelvic floor dysfunction related to MS but the patient has declined pelvic floor physical therapy for now Code(s): R15.9 - Full incontinence of feces Category: Medical (4) Gastroparesis: Comment: DX 2011 with gastric emptying study, patient went off of Reglan because she said it caused her appetite to be too good and she gained too much weight, she has adamantly declined to be put back on this medication very much limiting my ability to control her GERD since 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 Code(s): K31.84 - Gastroparesis Category: Medical (5) Weight loss, unintentional: Code(s): R63.4 - Abnormal weight loss Category: Medical Plan She says she has a lot of negative energy in my living situation. She says she has a lack of appetite and is losing weight. She has confirmed gastroparesis but declines reglan because it gave me too good of an appetite. She does not want any more pills right now, so I encourage smaller more frequent meals as she does report early satiety. She has lost about 35lbs over the past year. I let her know that we will try to do it her way for now but if she loses too much weight we will probably have to reconsider and revisit the Reglan therapy. She is reporting loose stools and fecal smearing and rectal incontinence. We discuss medication for decreasing stool frequency vs pelvis floor therapy as she says my muscles are loose. She opts for medication. We will start with 1/2 2mg imodium a day and see if this helps. She is also struggling with urinary incontinence that is r/t her MS. She just had a MRI of the brain at [facility] r/t gait problems. It has not yet been read. She continues on her creon to her bentyl, lansoprazole and simethicone and fiber. ROV 6 weeks. Medications: New loperamide (Imodium A-D) 1 mg (1/2 x 2 mg) PO DAILY 30 tabs 3RF loose stool K58.2 - Mixed irritable bowel syndrome Refilled [id number] 36,000-114,000- 180,000 unit (Creon) 1 cap PO QID 120 caps 6RF K58.2 - Mixed irritable bowel syndrome simethicone 180 mg PO TID 90 caps 6RF lansoprazole 30 mg PO BID 60 caps 6RF K21.9 - Gastro-esophageal reflux disease without esophagitis dicyclomine 20 mg PO QAM 30 tabs 6RF K58.2 - Mixed irritable bowel syndrome methylcellulose (laxative) 1,000 mg (2 x 500 mg) PO DAILY 60 tabs 11RF Coding Level of Care Code Est Pt Level 4 (09439) Diagnoses GERD (gastroesophageal reflux disease) K21.9 Irritable bowel syndrome with both constipation and diarrhea K58.2 Fecal incontinence R15.9 Gastroparesis K31.84 Weight loss, unintentional R63.4 Time Spent (min) 38
== END 2024-05-19 11:13 | disposition home or self-care (01) ==
PROVIDERS: PCP Internal Medicine Geriatric Medicine; Visit Provider Nurse Practitioner
DX: K21.9 Gastro-esophageal reflux disease without esophagitis (principal); K58.2 Mixed irritable bowel syndrome; R15.9 Full incontinence of feces; K31.84 Gastroparesis; R63.4 Abnormal weight loss
CPT/HCPCS: 99214

== ENCOUNTER → 2024-05-19 10:15 | Outpatient (BNVA) | payer OTHER, SELFPAY | PROVIDERS: PCP Internal Medicine Geriatric Medicine; Visit Provider Nurse Practitioner | DX: K21.9 Gastro-esophageal reflux disease without esophagitis (principal); K58.2 Mixed irritable bowel syndrome; K31.84 Gastroparesis; R15.9 Full incontinence of feces; R63.4 Abnormal weight loss | CPT/HCPCS: 99212 ==

== ENCOUNTER 2024-05-31 10:30 | Outpatient (REF) | payer OTHER, SELFPAY | END 2024-05-31 10:31 | disposition home or self-care (01) | LOC: HO.CT 10:30 | PROVIDERS: PCP Internal Medicine Geriatric Medicine; Visit Provider Physician Assistant Medical | DX: Z12.2 Encounter for screening for malignant neoplasm of respiratory organs (principal); F17.210 Nicotine dependence, cigarettes, uncomplicated | CPT/HCPCS: 71271 ==

== ENCOUNTER 2024-06-30 10:06 | Outpatient (AMB) | payer OTHER, SELFPAY ==
--- NOTE | 2024-06-30 10:10 | MHC.OFFVIS ---
Vital Signs 06/30/24 10:11 Height 5 ft 4 in Weight 135 lb 5.821 oz BMI 23.2 BP 101/50 L Blood Pressure Location Lt brachial Position Sitting Pulse 63 Intake Visit Reasons: IBS/GERD Allergies fingolimod [From Gilenya] Allergy (Severe, Verified 06/30/24 10:15) brain swelling glatiramer (copolymer 1) [From Copaxone] Allergy (Intermediate, Verified 06/30/24 10:15) Nausea and Vomiting Seasonal Allergies Allergy (Intermediate, Verified 06/30/24 10:15) Cough alendronate sodium Adverse Reaction (Intermediate, Verified 06/30/24 10:15) Gastrointestinal Upset HPI HPI IBS/GERD: Details: Assessment & Plan (1) GERD (gastroesophageal reflux disease): Code(s): K21.9 - Gastro-esophageal reflux disease without esophagitis Category: Medical (2) Irritable bowel syndrome with both constipation and diarrhea: Code(s): K58.2 - Mixed irritable bowel syndrome Category: Medical (3) Fecal incontinence: Comment: Most likely some element of pelvic floor dysfunction related to MS but the patient has declined pelvic floor physical therapy for now Code(s): R15.9 - Full incontinence of feces Category: Medical (4) Gastroparesis: Comment: DX 2011 with gastric emptying study, patient went off of Reglan because she said it caused her appetite to be too good and she gained too much weight, she has adamantly declined to be put back on this medication very much limiting my ability to control her GERD since 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 Code(s): K31.84 - Gastroparesis Category: Medical (5) Weight loss, unintentional: Code(s): R63.4 - Abnormal weight loss Category: Medical Plan She says she has a lot of negative energy in my living situation. She says she has a lack of appetite and is losing weight. She has confirmed gastroparesis but declines reglan because it gave me too good of an appetite. She does not want any more pills right now, so I encourage smaller more frequent meals as she does report early satiety. She has lost about 35lbs over the past year. I let her know that we will try to do it her way for now but if she loses too much weight we will probably have to reconsider and revisit the Reglan therapy. She is reporting loose stools and fecal smearing and rectal incontinence. We discuss medication for decreasing stool frequency vs pelvis floor therapy as she says my muscles are loose. She opts for medication. We will start with 1/2 2mg imodium a day and see if this helps. She is also struggling with urinary incontinence that is r/t her MS. She just had a MRI of the brain at [facility] r/t gait problems. It has not yet been read. She continues on her creon to her bentyl, lansoprazole and simethicone and fiber. ROV 6 weeks. Medications: New loperamide (Imodium A-D) 1 mg (1/2 x 2 mg) PO DAILY 30 tabs 3RF loose stool K58.2 - Mixed irritable bowel syndrome Refilled [id number] 36,000-114,000- 180,000 unit (Creon) 1 cap PO QID 120 caps 6RF K58.2 - Mixed irritable bowel syndrome simethicone 180 mg PO TID 90 caps 6RF lansoprazole 30 mg PO BID 60 caps 6RF K21.9 - Gastro-esophageal reflux disease without esophagitis dicyclomine 20 mg PO QAM 30 tabs 6RF K58.2 - Mixed irritable bowel syndrome methylcellulose (laxative) 1,000 mg (2 x 500 mg) PO DAILY 60 tabs 11RF TODAYS VISIT She continues on her creon to her bentyl, lansoprazole and simethicone and fiber. She no longer has a visiting nurse to do her medications and she is trying to convert everything to a pill pack via [employer] but this is a work in progress. She is unsure if she is getting her loperimide. We will bring her back with her pill pack. She continues on her creon to her bentyl, lansoprazole and simethicone and fiber - at least so far as we can tell. Her fecal incontinence continues. ROV 8 weeks. [facility] Medical History (Updated 06/30/24 @ 10:11 by HILDA Alfaro) Family history of colon cancer Nicotine dependence, cigarettes, uncomplicated COPD (chronic obstructive pulmonary disease) Pulmonary emphysema Seizure disorder Hyperlipidemia History of CVA (cerebrovascular accident) Menorrhagia Osteoporosis (~2017) Multiple sclerosis (~2009) Surgical History History of colonoscopy History of ear surgery History of total hysterectomy with bilateral salpingo-oophorectomy (BSO) (~2006) Family History Mother Stroke Colon cancer Father Stroke Social History Alcohol intake: current Alcohol intake frequency: does not drink Patient Tobacco Use Status: Current everyday Tobacco user Tobacco use type: Cigarette Cigarettes Per Day: 15 Years Smoked: 41 Substance Use Type: Marijuana Advance Directives Date on File: 11/20/19 Review of Systems Const Denies fatigue, Denies fever(s), Denies night sweats, Denies poor appetite and Denies weight loss ENT Reports Normal hearing present, Denies dental pain, Denies dysphagia, Denies hearing loss, Denies mouth pain, Denies odynophagia, Denies throat swelling, Denies tongue swelling and Reports other (Dentition adequate) Card Reports no additional complaints Resp Reports no additional complaints GI Details: Denies abdominal pain, Denies melena, Reports bloating, Denies hematochezia, Denies constipation, Denies GI cramping, Denies dysphagia, Denies excessive flatus, Denies early satiety, Reports heartburn, Reports diarrhea, Reports loose stools, Denies nausea, Denies odynophagia, Denies vomiting and Denies hematemesis Musc Reports abnormal gait Skin/Breast Denies pruritus, Denies lesions, Denies rash and Denies jaundice Neuro Reports Normal hearing present, Denies Abnormal speech present, Reports abnormal gait, Reports lack of coordination and Reports memory loss Psych Reports memory loss Endo Denies fatigue Aller/Immun Denies throat swelling and Denies tongue swelling Physical Exam Vital Signs: Last Vital Signs Pulse 63 06/30/24 10:11 BP 101/50 L 06/30/24 10:11 BMI result Body Mass Index 23.2 Const General: cooperative, no acute distress, well developed and well groomed Nutritional Appearance: average body habitus and well nourished Orientation/consciousness: oriented to person, oriented to place and oriented to time Limitations: No language barrier and ambulation with cane HEENT Head: Yes normocephalic and Yes atraumatic Eyes General: appearance normal, both eyes and all related structures Pupils: Equal, round and reactive pupils present Neck Neck: Yes normal visual inspection and Yes no lymphadenopathy Thyroid: Thyroid normal Resp Effort & Inspection: normal respiratory effort and able to speak in complete sentences Auscultation: clear to auscultation bilaterally Cardio Rate: regular rate Rhythm: regular rhythm Heart sounds: Normal, physiologic split S2 sound present Peripheral pulses: radial pulses present and posterior tibial pulses present GI Inspection: No distended and No Abdominal panniculus present Palpation (GI): Soft to palpation, nontender, no guarding, not rigid and No hepatosplenomegaly present Percussion: Yes normal to percussion Auscultation: normal bowel sounds Rectal Exam - Female: deferred Skin General skin exam: no rashes or lesions noted, turgor normal, skin not dry, no jaundice, No spider nevi and no striae Rashes: no rashes Nails: normal Neuro General: oriented to person, oriented to place and oriented to time Cranial nerves: Yes Equal, round and reactive pupils present and Yes Normal hearing present Speech: No Abnormal speech present Gait exam (Neuro): Ataxic gait present Extrem General: Yes normal to inspection, No clubbing, No cyanosis and No edema Psych Appearance: grossly normal and well kempt Mental Status: mental status grossly normal Speech and movement: Normal speech and movement present Affect: normal affect Attitude: cooperative Thought process: Circumstantial thought process present and not confabulating Thought content: Normal thought content present Insight: Limited insight present (Psych) Judgement: Limited judgement present (Psych) Assessment & Plan Assessment & Plan (1) Fecal incontinence: Comment: Most likely some element of pelvic floor dysfunction related to MS but the patient has declined pelvic floor physical therapy for now Code(s): R15.9 - Full incontinence of feces Category: Medical (2) Irritable bowel syndrome with both constipation and diarrhea: Code(s): K58.2 - Mixed irritable bowel syndrome Category: Medical (3) GERD (gastroesophageal reflux disease): Code(s): K21.9 - Gastro-esophageal reflux disease without esophagitis Category: Medical (4) Gastroparesis: Comment: DX 2011 with gastric emptying study, patient went off of Reglan because she said it caused her appetite to be too good and she gained too much weight, she has adamantly declined to be put back on this medication very much limiting my ability to control her GERD since 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 Code(s): K31.84 - Gastroparesis Category: Medical Plan She continues on her creon to her bentyl, lansoprazole and simethicone and fiber. She no longer has a visiting nurse to do her medications and she is trying to convert everything to a pill pack via [facility] but this is a work in progress. She is unsure if she is getting her loperimide. We will bring her back with her pill pack. She continues on her creon to her bentyl, lansoprazole and simethicone and fiber - at least so far as we can tell. Her fecal incontinence continues. ROV 8 weeks. Coding Level of Care Code Est Pt Level 3 (23855) Diagnoses Fecal incontinence R15.9 Irritable bowel syndrome with both constipation and diarrhea K58.2 GERD (gastroesophageal reflux disease) K21.9 Gastroparesis K31.84
[2024-06-30 10:11] VITALS: BP 101/50; PULSE 63; BMI 23.2
--- NOTE | 2024-06-30 10:11 | A.OFFVIS_ITS ---
Vital Signs 06/30/24 10:11 Height 5 ft 4 in Weight 135 lb 5.821 oz BMI 23.2 BP 101/50 L Blood Pressure Location Lt brachial Position Sitting Pulse 63 Intake Visit Reasons: IBS/GERD Intake Note: Eva presents in office today in follow up of GERD. CC: Patient continues to have fecal incontinence and it happens about 3 times a month per Pt. She also states that she can't eat too much because she gets full quickly. Counseling Program Leader Required: No Accompanied by: Self / Same As Patient Allergies fingolimod [From Gilenya] Allergy (Severe, Verified 06/30/24 10:15) brain swelling glatiramer (copolymer 1) [From Copaxone] Allergy (Intermediate, Verified 06/30/24 10:15) Nausea and Vomiting Seasonal Allergies Allergy (Intermediate, Verified 06/30/24 10:15) Cough alendronate sodium Adverse Reaction (Intermediate, Verified 06/30/24 10:15) Gastrointestinal Upset PFSH Medical History (Updated 06/30/24 @ 10:11 by HILDA Alfaro) Family history of colon cancer Nicotine dependence, cigarettes, uncomplicated COPD (chronic obstructive pulmonary disease) Pulmonary emphysema Seizure disorder Hyperlipidemia History of CVA (cerebrovascular accident) Menorrhagia Osteoporosis (~2017) Multiple sclerosis (~2009) Surgical History History of colonoscopy History of ear surgery History of total hysterectomy with bilateral salpingo-oophorectomy (BSO) (~2006) Family History Mother Stroke Colon cancer Father Stroke Social History Alcohol intake: current Alcohol intake frequency: does not drink Patient Tobacco Use Status: Current everyday Tobacco user Tobacco use type: Cigarette Cigarettes Per Day: 15 Years Smoked: 41 Substance Use Type: Marijuana Advance Directives Date on File: 11/20/19 Coding
== END 2024-06-30 11:59 | disposition home or self-care (01) ==
PROVIDERS: PCP Internal Medicine Geriatric Medicine; Visit Provider Nurse Practitioner
DX: R15.9 Full incontinence of feces (principal); K58.2 Mixed irritable bowel syndrome; K21.9 Gastro-esophageal reflux disease without esophagitis; K31.84 Gastroparesis
CPT/HCPCS: 99213

== ENCOUNTER → 2024-06-30 10:06 | Outpatient (BNVA) | payer OTHER, SELFPAY | PROVIDERS: PCP Internal Medicine Geriatric Medicine; Visit Provider Nurse Practitioner | DX: K58.2 Mixed irritable bowel syndrome (principal); K21.9 Gastro-esophageal reflux disease without esophagitis; K31.84 Gastroparesis; R15.9 Full incontinence of feces | CPT/HCPCS: 99212 ==

== ENCOUNTER 2024-10-13 12:19 | Outpatient (REF) | payer OTHER, SELFPAY ==
[2024-10-13 13:54] LABS: Appearance Urine Cloudy; Color Urine Yellow; Glucose Urine UA Negative (Negative); Leukocyte Esterase Urine Large (3+) (Negative); Nitrite Urine Negative (Negative); PH 7.5 (5.0-9.0); Specific Gravity - Urine 1.015 (1.005-1.025); UMIC TRIGGER UACC YES; Urine Blood Negative (Negative); Urine Ketones Negative (Negative); Urine Protein Negative (Neg-Trace)
[2024-10-13 14:13] LABS: Bacteria Urine 1+ (None Seen); Hyaline Casts Urine 0-2 /LPF (0-2); RBC Urine 0-2 /HPF (0-2); Squamous Epithelial Cell Urine >20 /HPF (0-2); UACC Culture Trigger YES; WBC Urine 21-50 /HPF (0-5)
== END 2024-10-13 12:20 | disposition home or self-care (01) ==
LOC: HO.HHCL 12:19
PROVIDERS: Visit Provider Internal Medicine Geriatric Medicine
DX: R82.90 Unspecified abnormal findings in urine (principal)
CPT/HCPCS: 81001; 87086; 87088; 87186

== ENCOUNTER 2024-11-01 12:09 | Outpatient (REF) | payer OTHER, SELFPAY ==
[2024-11-01 13:49] LABS: MANUAL DIFF FLAG NO
--- OUTSIDE RECORDS SUMMARY | 2024-11-01 13:50 | XMS_ITS | Encounter Summary ---
Author Organization [employer] Address [address] [place] [address] [address] [place] [address] Care Team Providers Care Carbon Coater Machine Operator Name Role Phone Name, Rocky CHAUDHARI Primary Care Provider [phone] Jim Ram Unavailable Unavailable Encounter Details Date Type Department Care Team (Late st Contact Info) Description 01/22/2023 Abstract [facility] [address] [place], [place] [phone] Name, MD Rocky [address] [place], [place] [phone] Social History Tobacco Use Types Packs/Day Years Used Date Smoking Tobacco: Every Day Cigarettes Alcohol Use Standard Drinks/Week Comments Not Currently 0 (1 standard drink = 0.6 oz pur e alcohol) Depression Answer Date Recorded Patient Health Questionnaire-9 Score 6 12/24/2022 Depression Answer Date Recorded Patient Health Questionnaire-2 Score 1 12/24/2022 Comments Unknown Sex and Gender Information Value Date Recorded Sex Assigned at Female 06/03/2022 10:16 AM EDT Legal Sex Female 10:16 AM EDT Gender Identity Female 06/03/2022 10:16 AM EDT Sexual Orientation Lesbian or Nieto 06/03/2022 10 :16 AM EDT COVID-19 Exposure Response Date Recorded In the last 10 days, have yo u been in contact with someone who was confirmed or suspected to have Coronavirus/COVID-19? No / Unsure 12/24/2022 11:11 AM EDT documented as of this encounter Plan of Treatment Upcoming Encounters Date Type Department Care Team (Late st Contact Info) Description 12/06/2024 11:00 AM EDT Office Visit [facility] [address] [place] [address] Dara Rock, OD [address] [place] [address] 01/07/2025 9:30 AM EDT Telemedicine [facility] [address] [place] [address] Keri Guan, RN documented as of this encounter Visit Diagnoses Not on filedocumented in this encounter Additional Health Concerns Assessment Noted Time PHQ-9 Depression Total Score: 6 12/25/19 11:32 AM EDT documented as of this encounter Care Teams Carbon Coater Machine Operator Relationship Specialty Start Date End Date Name, MD Rocky [address] [place] [id number] PCP - General Family Medicine 12/03/16 Jim Ram FNP [address] [place] [id number] Nurse Practitioner Family Medicine 07/08/23 documented as of this encounter
--- OUTSIDE RECORDS SUMMARY | 2024-11-01 13:50 | XMS_ITS | Encounter Summary ---
Author Organization [employer] Address [address] [place] [address] [address] [place] [address] Care Team Providers Care Industrial Machine Operator Name Role Phone Name, Rocky CHAUDHARI Primary Care Provider [phone] Jim Ram Unavailable Unavailable Encounter Details Date Type Department Care Team (Late st Contact Info) Description 11/01/2024 11:15 AM EDT Office Visit [facility] [address] [place], [place] [phone] Patience Rodríguez NP [address] [place], [place] [phone] Urinary tract infection symptoms (Primary Dx); Vaginal discharge; Right lower quadrant abdominal pain Social History Tobacco Use Types Packs/Day Years Used Date Smoking Tobacco: Every Day Cigarettes Alcohol Use Standard Drinks/Week Comments Not Currently 0 (1 standard drink = 0.6 oz pur e alcohol) Alcohol Answer Date Recorded Frequency of Alcohol Consumption Not on file 03/05/2024 Average Number of Drinks Not on file 024 Frequency of Binge Drinking Not on file 0809/2023 Score 0 03/05/2024 Depression Answer Date Recorded Patient Health Questionnaire-9 Score 11 01/26/2024 Patient Health Questionnaire-9 Score 11 01/26/2024 Last PHQ-9: Questionnaire Data Not on file 0 01/26/2024 Housing Stability Answer Date Recorded What is your housing situation today? I have destinee chou 10/21/[address] you li ve. Do you have problems with any of the following? None of the above 10/21/2023 Food Insecurity Answer Date Recorded Within the past 12 months, y ou worried that your food would run out before you got money to buy more: Never True 10/21/2023 Within the past 12 months,th e food you bought just didn't last and you didn't have enough money to get more: Never True Transportation Answer Date Recorded In the past 12 months, has l ack of transportation kept you from medical appts, meetings, work or from getting things needed for daily living? No 10/21/2023 Utilities Answer Date Recorded In the past 12 months, has t he electric, gas, oil or water company threatened to shut off services in your home? No 10/21/2023 Depression Answer Date Recorded Patient Health Questionnaire-2 Score 3 01/26/2024 Comments Unknown Sex and Gender Information Value Date Recorded Sex Assigned at Female 06/03/2022 10:16 AM EDT Legal Sex Female 10:16 AM EDT Gender Identity Female 06/03/2022 10:16 AM EDT Sexual Orientation Lesbian or Nieto 06/03/2022 10 :16 AM EDT documented as of this encounter Last Filed Vital Signs Vital Sign Reading Time Taken Comments Blood Pressure 98/60 11/01/2024 11:26 AM EDT Pulse 66 11/01/2024 11:26 AM EDT Temperature 37.7 ??C (99.9 ??F) 11/01/2024 11:26 AM E DT Respiratory Rate 18 11/01/2024 11:26 AM EDT Oxygen Saturation 96% 11/01/2024 11:26 AM EDT Inhaled Oxygen Concentration - - Weight 63 kg (139 lb) 11/01/2024 11:26 AM EDT Height 157.5 cm (5' 2 ) 11/01/2024 11:26 AM EDT Body Mass Index 25.42 11/01/2024 11:26 AM EDT documented in this encounter Plan of Treatment Upcoming Encounters Date Type Department Care Team (Late st Contact Info) Description 12/06/2024 11:00 AM EDT Office Visit [facility] [address] [place] [address] Pranav, Dara, OD [address] [place], [place] [phone] 01/07/2025 9:30 AM EDT Telemedicine [facility] [address] [place] [address] Keri Guan RN Scheduled Orders Name Type Priority Associated Diagnoses Orde r Schedule Culture, Urine, Routine Microbiology Routine Urinary tract infection symptoms Expected: 11/01/2024 (Approximate), Expires: 11/01/2025 Urinalysis Complete Lab Routine Urinary tract infection symptoms Expected: 11/01/2024 (Approximate), Expires: 11/01/2025 Bacterial Vaginosis Microbiology Routine Vaginal discharge Expected: 11/01/2024 (Approximate), Expires: 11/01/2025 CBC auto differential Lab Routine Right lower quadrant abdominal pain Expected: 11/01/2024 (Approximate), Expires: 11/01/2025 Basic Metabolic Panel Lab Routine Right lower quadrant abdominal pain Expected: 11/01/2024 (Approximate), Expires: 11/01/2025 documented as of this encounter Procedures Procedure Name Priority Date/Time Associated Diagnosis Comments POCT URINALYSIS DIPSTICK Routine 11/01/2024 11:40 AM EDT Urinary tract infection symptoms documented in this encounter Results * POCT Urinalysis (11/01/2024 11:40 AM EDT) Color, UA Yellow Clarity, UA Clear Glucose, UA Negative Bilirubin, UA Negative Ketones, UA Negative Spec Grav, UA 1.010 Blood, UA Negative Negative, None Detected pH, UA 7.0 Protein, UA Negative Urobilinogen, UA 0.2 Leukocytes, UA Negative Negative, Rare, Trace Nitrite, UA Negative Negative, None Detected Appearance, UA clear QC Media Lot # [id number] Lot# Expiration Date Urine 11/01/2024 11:4 0 AM EDT us Patience Rodríguez NP POINT OF CARE TEST ENTER/EDIT O RDERABLES Final Result documented in this encounter Visit Diagnoses Diagnosis Urinary tract infection symptoms- Primary Vaginal discharge Leukorrhea, not specified as infective Right lower quadrant abdominal pain documented in this encounter Additional Health Concerns Assessment Noted Time PHQ-9 Depression Total Score: 11 024 11:18 AM EDT documented as of this encounter Care Teams Industrial Machine Operator Relationship Specialty Start Date End Date Name, MD Rocky [address] [place] [address] PCP - General Family Medicine 12/03/16 Jim Ram FNP [address] [place] [address] Nurse Practitioner Family Medicine 07/08/23 documented as of this encounter
--- OUTSIDE RECORDS SUMMARY | 2024-11-01 13:50 | XMS_ITS | Encounter Summary ---
Author Organization [employer] Address [address] [place] [address] [address] [place] [address] Care Team Providers Care Purchaser Name Role Phone Name, Rocky CHAUDHARI Primary Care Provider [phone] Jim Ram Unavailable Unavailable Reason for Visit * Reason Comments Med Refill Encounter Details Date Type Department Care Team (Late st Contact Info) Description 04/16/2023 Refill [facility] [address] [place] [address] Name, MD Rocky [address] [place] [address] Chronic back pain, unspecified back location, unspecified back pain laterality; Multiple sclerosis (CMS/HCC) Social History Tobacco Use Types Packs/Day Years [...] Description 12/06/2024 11:00 AM EDT Office Visit [facility] [address] [place] [address] Dara Rock, OD [address] [place] [address] 01/07/2025 9:30 AM EDT Telemedicine [facility] [address] [place] [address] Keri Guan RN documented as of this encounter Visit Diagnoses Diagnosis Chronic back pain, unspecified back location, unspecified back pain laterality Multiple sclerosis (CMS/HCC) Multiple sclerosis documented in this encounter Additional Health Concerns Assessment Noted Time PHQ-9 Depression Total Score: 6 12/25/19 11:32 AM EDT documented as of this encounter Care Teams Purchaser Relationship Specialty Start Date End Date Name, MD Rocky [address] [place] [id number] PCP - General Family Medicine 12/03/16 Jim Ram FNP [address] [place] [id number] Nurse Practitioner Family Medicine 07/08/23 documented as of this encounter
--- OUTSIDE RECORDS SUMMARY | 2024-11-01 13:50 | XMS_ITS | Data Portability ---
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 Evaluation in the field was performed by my video game programmer colleague, as noted above, I provided real-time direction and supervision for this visit. The evaluation revealed 58y F with recent clelulitis treated with bactrim, finished course today. Redness, warmth gone, no fevers, pain improved. Was supposed to take a second abx but not clear that this is needed given the resolution of sxs. Encouraged to obs, elevate, and f/u w PCP Impression: resolving cellulitis Plan: observation, supportive care Primary care, consider f/u in 3-5 d if possible Disposition: We discussed the diagnostic uncertainty of home visits and the risk associated with this. In this case, the patient and I felt this to be an acceptable and reasonable amount of risk given the benefit of avoiding an ED visit. We discussed the need to seek care urgently/emergen tly in the setting of any new or worsening serious symptoms, particularly fever, worsening pain, redness, discharge, confusion, falls, malalise [email or web address] Not available 06/17/2024 18:06:19 10/06/2024 10/06/2024 Mrs. Leal presents for evaluation of irritative voiding symptoms in the setting of prior UTI, neurogenic bladder and MS. She is afebrile with no signs or symptoms to suggest sepsis, ascending infection or infected stone. Her most recent urine culture and sensitivity data was reviewed from last month revealing pansensitive e. coli. She was treated with cephalexin successfully. Given this I think it is reasonable to treat her with a five-day course of cephalexin. We will also send out a urine culture. She otherwise appears safe to remain at home with outpatient follow-up as needed. I provided real -time medical direction via phone for this encounter, and was available for additional phone based assistance as needed. I have reviewed and agree with the Assessment and Plan as documented by the Internet Researcher. We discussed the diagnostic uncertainty of home visits and the risk associated with this. In this case the patient and I felt this to be an acceptable and reasonable amount of risk given the benefit of avoiding an ED visit. The patient given the opportunity to ask questions. Advised if develops CP/severe SOB/turning blue/uncontrolle d n/v/d or black/bloody emesis or stool/ AMS/ syncope/ hi fever unresponsive to APAP to call 911- verbalized understanding of instruction [email or web address] Not available 10/06/2024 15:43:32 Plan of Treatment Reminders Order Date Submit Date Provider Last Modified By Organization Details Last Modified Time Details Appointments None recorded. Lab BMP, serum or plasma 2024 025 [facility], [address] [place] [address], [id number], 22:09:44 urinalysis, dipstick 2024 025 [facility], [address] [place] [address], [id number], 22:09:43 culture, urine 2024 025 [facility] (Centralized Electronic Ordering - All Locations), Patient Can Go To The Location Of Their Choice, [address] 06:07:50 urinalysis, dipstick 2024 025 [facility], [address] [place] [address], [phone], 17:28:02 culture, urine 2024 025 [facility] (Centralized Electronic Ordering - All Locations), Patient Can Go To The Location Of Their Choice, [address] 01/17/202 5 22:05:50 urinalysis, dipstick 2024 025 [facility], [address] [place] [address], [id number], 5 16:11:34 culture, urine 2023 024 [facility] (Centralized Electronic Ordering - All Locations), Patient Can Go To The Location Of Their Choice, [facility] 4 10:06:19 urinalysis, dipstick 2023 024 [facility], [address] [place], [phone], 4 01:50:26 Referral None recorded. Procedures None recorded. Surgeries None recorded. Imaging None recorded. Medication Orders sodium chloride 0.9 % intravenous solution 2024 025 [id number] [address] [place] [address], [address], 5 22:09:43 cephalexin 500 mg capsule 2024 025 [email or web address] [facility] #[id number], [address] [place] [address], [address], 5 15:37:05 cephalexin 500 mg capsule 2024 025 [facility] #[id number], [address] [place], [address], 5 15:37:08 cephalexin 500 mg capsule 2024 025 [facility] #[id number], [address] [place], [address], 5 13:18:14 cephalexin 500 mg capsule 2024 025 [email or web address] [facility] #[id number], [address] [place], [address], 5 13:18:10 sulfamethox azole 800 mg-trimetho prim 160 mg tablet 2023 024 [email or web address] [id number], [address] [place], [address], 4 11:49:51 Bactrim DS 800 mg-160 mg tablet 2023 024 [facility], [address] [place], [address], 4 11:49:53 Patient TargetsNo targets recorded. Patient InstructionsNo instructions recorded. Reason for Referral None Reported. Results Created Date Observation Date Name Description Value Unit Range Abnormal Flag Note LastModifiedBy Organization Detail LastModifiedTime 06/09/2006/11/2024 URINE CULTU RE,CO MPREH ENSIV E urine culture,comp rehensive Final report Not Available [facility] ([facility]) [address] [place], [address], 06/11/2024 10:06:36 06/09/20 24 06/11/2024 URINE CULTU RE,CO MPREH ENSIV E result 1 COMMEN T More than 3 organ isms recov ered, none predo minan t. Pleas e submi t anoth er cultu re if clini jacqueline indic ated. Not Available [facility] ([facility]) [address] [place], [address], 06/11/2024 10:06:36 07/18/20 24 07/20/2024 URINE CULTU RE,CO MPREH ENSIV E urine culture,comp rehensive Final report Not Available [facility] ([facility]) [address] [place], [address], 07/20/2024 10:06:19 07/18/20 24 07/20/2024 URINE CULTU RE,CO MPREH ENSIV E result 1 COMMEN T Mixed uroge nital annmarie 10,00 0-25, 000 colon y formi ng units per mL Not Available [facility] ([facility]) [address] [place], [address], 07/20/2024 10:06:19 08/19/19 25 08/21/2024 URINE CULTU RE,CO MPREH ENSIV E urine culture,comp rehensive Final report abnormal Not Available [facility] ([facility]) [address] [facility], [place], [address], 08/21/2024 14:06:16 08/19/1908/21/2024 URINE CULTU RE,CO MPREH ENSIV E result 1 Escher ichia coli abnormal Great er than 100,0 00 colon y formi ng units per mL Cefaz jj <=4 ug/mL Cefaz jj with an ARTIS <=16 predi cts susce ptibi lity to the oral agent s cefac yosef, cefdi nataliya, cefpo doxim e, cefpr ozil, cefur oxime , cepha lexin , and lorac arbef when used for thera py of uncom plica nirmala urina ry tract infec tions due to E. coli, Klebs iella pneum oniae , and Prote us mirab ilis. Not Available [facility] ([facility]) [address] [facility], [place], [address], 08/21/2024 14:06:16 08/19/1908/21/2024 URINE CULTU RE,CO MPREH ENSIV E antimicrobia l susceptibili ty Commen t S = Susce ptibl e; I = Inter media te; R = Resis tant P = Posit rona; N = Negat rona MICS are expre ssed in micro grams per mL Antib iotic RSLT# 1 RSLT# 2 RSLT# 3 RSLT# 4 Amoxi cilli n/Cla vulan ic Acid S Ampic illin S Cefep hernan S Ceftr iaxon e S Cefur oxime S Cipro floxa tavon S Ertap enem S Genta micin S Imipe nem S Levof loxac in S Merop enem S Nitro furan toin S Piper acill in/Ta zobac faust S Tetra cycli ne S Tobra mycin S Trime thopr im/Rueda lfa S Not Available [facility] ([facility]) [address] [facility], [place], [address], 08/21/2024 14:06:16 10/07/19 25 10/09/2024 URINE CULTU RE,CO MPREH ENSIV E urine culture,comp rehensive Final report abnormal Not Available [facility] ([facility]) [address] [facility], [place], [address], 10/09/2024 16:05:58 10/07/19 25 10/09/2024 URINE CULTU RE,CO MPREH ENSIV E result 1 Escher ichia coli abnormal Cefaz jj with an ARTIS <=16 predi cts susce ptibi lity to the oral agent s cefac yosef, cefdi nataliya, cefpo doxim e, cefpr ozil, cefur oxime , cepha lexin , and lorac arbef when used for thera py of uncom plica nirmala urina ry tract infec tions due to E. coli, Klebs iella pneum oniae , and Prote us mirab ilis. Great er than 100,0 00 colon y formi ng units per mL Not Available [facility] ([facility]) [address] [facility], [place], [address], 10/09/2024 16:05:58 10/07/19 25 10/09/2024 URINE CULTU RE,CO MPREH ENSIV E antimicrobia l susceptibili ty Commen t S = Susce ptibl e; I = Inter media te; R = Resis tant P = Posit rona; N = Negat rona MICS are expre ssed in micro grams per mL Antib iotic RSLT# 1 RSLT# 2 RSLT# 3 RSLT# 4 Amoxi cilli n/Cla vulan ic Acid S Ampic illin S Cefaz jj S Cefep hernan S Cefox itin S Cefpo doxim e S Ceftr iaxon e S Cipro floxa tavon S Ertap enem S Genta micin S Levof loxac in S Merop enem S Nitro furan toin S Piper acill in/Ta zobac faust S Tetra cycli ne S Tobra mycin S Trime thopr im/Rueda lfa S Not Available [facility] ([facility]) [address] [facility], [place], [address], 10/09/2024 16:05:58 Result Notes None recorded. Problems Name Problem SNOMED Code Status Onset Date Resolution Date Notes Provider Name and Address Organization Details Recorded Time Acute urinary tract infection 537271538 Active 023 Ochoa Banegas MD [address] [facility],[address], [place], [address], [employer] 3 15:54:41 Problem Notes None recorded. Medical Equipment None Reported. Allergies Allergen ID Allergen Name Allergen Category Reaction Reaction Severity Criticality Documentation Date Start Date Code Code System Note Provider Name and Address Organization Details Recorded Time 5816 fingolimo d medicatio n Not available Not available Not available 03/11/2024 26576 92 RxNorm Not Available [facility] 4 16:54:30 5817 alendrona te sodium medicatio n Not available Not available Not available 03/11/2024 64130 2 RxNorm Not Available [facility] 4 16:54:30 5818 glatirame r Not available Not available Not available Not available 03/11/2024 56556 2 RxNorm Not Available [facility] 4 16:54:30 5819 interfero n beta-1a medicatio n Not available Not available Not available 03/11/2024 98024 RxNorm Not Available [facility] 4 16:54:30 Medications Name Sig Start Date Stop Date Status Note LastModified by Organization Details LastModified Time celecoxib 200 mg capsule TAKE 1 CAPSULE BY MOUTH EVERY DAY NEEDED FOR PAIN active Not Available Not Available No t Available Anti-Diarrhe al (loperamide) 2 mg tablet TAKE 1/2 TABLET BY MOUTH DAILY FOR LOOSE STOOL active Not Available Not Available No t Available nystatin 100,000 unit/mL oral suspension active Not Available Not Available N ot Available oxybutynin chloride ER 15 mg tablet,exten ded release 24 hr TAKE 1 TABLET BY MOUTH EVERY DAY active Not Available Not Available No t Available atorvastatin 20 mg tablet TAKE 1 TABLET BY MOUTH EVERY DAY active Not Available Not Available No t Available divalproex 250 mg tablet,delay ed release TAKE 1 TABLET BY MOUTH TWICE DAILY FOR 1 WEEK THEN 1 TABLET ONCE DAILY FOR 1 WEEK active Not Available Not Available No t Available cefpodoxime 200 mg tablet TAKE 1 TABLET BY MOUTH EVERY 12 HOURS FOR 7 DAYS, FOR UTI. active Not Available Not Available No t Available oxybutynin chloride ER 10 mg tablet,exten ded release 24 hr TAKE 1 TABLET BY MOUTH ONCE DAILY active Not Available Not Available No t Available simethicone 180 mg capsule TAKE 1 CAPSULE BY MOUTH TWICE DAILY AFTER MEALS AND AT BEDTIME active Not Available Not Available N ot Available sertraline 100 mg tablet TAKE 1.5 TABLETS BY MOUTH ONCE DAILY active Not Available Not Available No t Available clonazepam 1 mg tablet TAKE 1 TABLET BY MOUTH EVERY 8 HOURS NEEDED FOR ANXIETY active Not Available Not Available No t Available sulfamethoxa zole 800 mg-trimethop rim 160 mg tablet TAKE 1 TABLET BY MOUTH TWICE A DAY FOR 10 DAYS active Not Available Not Available No t Available aspirin 81 mg tablet,delay ed release TAKE 1 TABLET BY MOUTH ONCE DAILY active Not Available Not Available No t Available acetaminophe n 500 mg tablet TAKE 2 TABLETS BY MOUTH EVERY 6 HOURS NEEDED FOR PAIN active Not Available Not Available No t Available triamcinolon e acetonide 0.1 % topical cream APPLY TOPICALLY IF NEEDED IN THE MORNING AND AT BEDTIME (ITCHING AND FLAKING FOR UP TO 14 DAYS). active Not Available Not Available No t Available oxycodone 15 mg tablet TAKE 1 TABLET (15 MG) BY MOUTH EVERY 8 HOURS IF NEEDED FOR SEVERE PAIN FOR UP TO 28 DAYS. active Not Available Not Available No t Available magnesium oxide 400 mg (241.3 mg magnesium) tablet TAKE 1/2 TABLET BY MOUTH ONCE DAILY active Not Available Not Available No t Available dicyclomine 20 mg tablet TAKE 1 TABLET BY MOUTH EVERY MORNING active Not Available Not Available No t Available cephalexin 500 mg capsule TAKE 1 CAPSULE BY MOUTH 4 TIMES A DAY FOR 7 DAYS active Not Available Not Available N ot Available nitrofuranto in macrocrystal 100 mg capsule TAKE 1 CAPSULE BY MOUTH EVERY DAY AFTER SEXUAL ACTIVITY FOR uti prevention active Not Available Not Available N ot Available lansoprazole 30 mg capsule,fahad yed release TAKE 1 CAPSULE BY MOUTH TWICE A DAY active Not Available Not Available No t Available gabapentin 300 mg capsule TAKE 1 CAPSULE BY MOUTH 3 TIMES DAILY active Not Available Not Available Not Available levofloxacin 500 mg tablet TAKE 1 TABLET BY MOUTH EVERY DAY FOR SIX DAYS active Not Available Not Available No t Available albuterol sulfate HFA 90 mcg/actuatio n aerosol inhaler INHALE 2 PUFFS ORALLY EVERY 4-6 HOURS NEEDED active Not Available Not Available No t Available perphenazine 8 mg tablet TAKE 1 TABLET BY MOUTH TWICE DAILY active Not Available Not Available No t Available ketoconazole 2 % topical cream APPLY TOPICALLY ONCE PER DAY FOR 14 DAYS. active Not Available Not Available No t Available clindamycin 1 % lotion APPLY TO AFFECTED AREA TWICE A DAY active Not Available Not Available No t Available Vitamin D3 25 mcg (1,000 unit) tablet TAKE 1 TABLET BY MOUTH 2 TIMES DAILY active Not Available Not Available Not Available Premarin 0.625 mg/gram vaginal cream INSERT 1G INTO THE VAGINA ONCE PER DAY active Not Available Not Available No t Available topiramate 50 mg tablet TAKE 1 TABLET BY MOUTH TWICE A DAY active Not Available Not Available No t Available nitrofuranto in monohydrate/ macrocrystal s 100 mg capsule TAKE 1 CAPSULE BY MOUTH TWICE A DAY FOR 5 DAYS active Not Available Not Available No t Available Advair HFA 230 mcg-21 mcg/actuatio n aerosol inhaler INHALE 2 PUFFS BY MOUTH TWICE DAILY IN THE MORNING AND IN THE EVENING RINSE MOUTH AFTER USING. active Not Available Not Available No t Available Fiber (calcium polycarbophi l) 625 mg tablet TAKE 2 TABLETS BY MOUTH EVERY DAY active Not Available Not Available No t Available diclofenac 1 % topical gel APPLY 2 GRAMS TOPICALLY TO AFFECTED AREA(S) (HIP) TWICE DAILY active Not Available Not Available No t Available Fiber Laxative (methylcellu lose) 500 mg tablet TAKE 2 TABLETS BY MOUTH DAILY active Not Available Not Available Not Available Creon 24,000-76,00 0-120,000 unit capsule,fhaad yed release TAKE 1 CAPSULE BY MOUTH FOUR TIMES DAILY active Not Available Not Available Not Available Myrbetriq 25 mg tablet,exten ded release TAKE 1 TABLET BY MOUTH EVERY DAY. DO NOT BREAK, CRUSH, DISSOLVE OR CHEW active Not Available Not Available No t Available Myrbetriq 50 mg tablet,exten ded release TAKE 1 TABLET BY MOUTH ONCE DAILY active Not Available Not Available No t Available dimethyl fumarate 240 mg capsule,fahad yed release active Not Available Not Available Not Available Crenuiba 36,000 unit-114,000 unit-180,000 unit capsule,fahad yed release TAKE 1 CAPSULE BY MOUTH 4 TIMES A DAY active Not Available Not Available Not Available OxyContin 15 mg tablet,crush resistant,ex tended release TAKE 1 TABLET BY MOUTH EVERY TWELVE HOURS FOR 28 DAYS, DO NOT BREAK, CRUSH, DISSOLVE OR CHEW active Not Available Not Available No t Available naloxone 4 mg/actuation nasal spray FOR SUSPECTED OPIOID OVERDOSE. SPRAY 0.1mL IN ONE NOSTRIL. REPEAT IN ALTERNATE NOSTRIL 2-3 MINUTES IF NEEDED. SEEK MEDICAL ATTENTION IMMEDIATELY EVEN IF PATIENT RESPONDS. active Not Available Not Available No t Available Bafiertam 95 mg capsule,fahad yed release active Not Available Not Available Not Available Vitals Date Recorded Oxygen saturation Oxygen saturation in Arterial blood by Pulse oximetry Body temperature Heart rate Respiratory rate Systolic blood pressure Diastolic blood pressure Provider Name and Address Organization Details Last Updated DateTime 4 97 % 97 % 97.8 [degF] 85 /min 16 /min 132 mm[Hg] 70 mm[Hg] Not Available [facility] 4 17:56:58 Date Recorded Respiratory rate Body weight Body temperature Body height Oxygen saturation Oxygen saturation in Arterial blood by Pulse oximetry Heart rate Systolic blood pressure Diastolic blood pressure Provider Name and Address Organization Details Last Updated DateTime 4 16 /min 81556.9 2 g 98.2 [degF] 154.94 cm 100 % 100 % 65 /min 126 mm[Hg] 61 mm[Hg] Not Available [facility] 4 11:19:29 Date Recorded Heart rate Respiratory rate Body temperature Oxygen saturation Oxygen saturation in Arterial blood by Pulse oximetry Systolic blood pressure Diastolic blood pressure Provider Name and Address Organization Details Last Updated DateTime 5 60 /min 16 /min 98.3 [degF] 97 % 97 % 116 mm[Hg] 62 mm[Hg] Not Available [facility] 5 13:12:15 Date Recorded Body temperature Respiratory rate Oxygen saturation Oxygen saturation in Arterial blood by Pulse oximetry Heart rate Systolic blood pressure Diastolic blood pressure Provider Name and Address Organization Details Last Updated DateTime 5 98.7 [degF] 16 /min 97 % 97 % 74 /min 116 mm[Hg] 62 mm[Hg] Not Available [facility] 15:33:15 Date Recorded Body weight Respiratory rate Body temperature Body height Heart rate Oxygen saturation Oxygen saturation in Arterial blood by Pulse oximetry Systolic blood pressure Diastolic blood pressure Provider Name and Address Organization Details Last Updated DateTime 5 80891.1 44 g 18 /min 98 [degF] 154.94 cm 70 /min 95 % 95 % 105 mm[Hg] 68 mm[Hg] Not Available [facility] 20:06:05 Social History None recorded. Functional Status None recorded. Mental Status None recorded. Family History Nothing Reported. Medical History No medical history recorded. Gynecological HistoryNo gynecological history recorded. Obstetrics History GPAL:G 0 P 0 0 0 0 Past Encounters Encounter ID Performer Location Encounter Start Date Encounter Closed Date Diagnosis/Indication Diagnosis SNOMED-CT Code Diagnosis ICD10 Code Diagnosis Note [id number] Ochoa Banegas MD [facility] [address] [place] [phone] 07/24/2023 15:48:50 07/26/2023 17:08:52 Acute urinary tract infection [id number] N39.0 This 57-year-ol d female who is bedridden has had urinary symptoms for the past week. Her U/A is positive. I ordered a U/C to be sent to [facility] and Levaquin 500 mg daily for five days. She will follow-up with her PCP. The patient agreed with this plan. Urinary symptoms 2723080 08 R39.9 [id number] Kathe Nuno MD [facility] [address] [place] [phone] 10/10/2023 19:27:52 10/12/2023 16:28:29 Thoracic back pain 659790751 M54.6 [id number] Kathe Nuno MD [facility] [address] [place] [id number] 10/17/2023 16:27:41 10/18/2023 12:10:31 Urinary symptoms [id number] R39.9 [id number] Kaci Montero MD [facility] [address] [place] [phone] 11/16/2023 14:32:51 11/17/2023 19:01:31 Acute urinary tract infection 557128198 N39.0 Advised to stay well-hydra nirmala and follow-up with PCP this week. Will treat with same antibiotic that she was treated with the last 2 times. Patient requests prescripti ons go to [facility] in [place] [id number] Julita Bravo MD [facility] [address] [place] [phone] 12/08/2023 20:29:18 12/09/2023 11:57:50 Urinary symptoms [id number] R39.9 [id number] Bonifacio Vincent MD [facility] [address] [place] [phone] 02/15/2024 12:32:16 02/15/2024 22:21:27 Acute urinary tract infection 016208583 N39.0 Acute on chronic UTI symptoms; tolerated Levofloxac in in the past with culture results showing sensitivit y to this. Will give 1x Levo now and rx total of 7 day course with urine culture sent to [facility]. Discussed red flag signs for which to seek higher level of care. [id number] OSMEL OVALLES MD [facility] [address] [place] [phone] 02/26/2024 18:03:49 02/27/2024 08:37:00 Weakness present [id number] M62.81 Low blood pressure 18868 003 I95.9 [id number] Jackson Stokes MD [facility] [address] [place] [phone] 03/09/2024 17:22:38 03/10/2024 11:50:05 Acute urinary tract infection 645431231 N39.0 recurrent within 1 week of treatment. may need urology referral in the future. for now, will treat with cefpodoxim e. [id number] SHELLY CASTILLO MD [facility] [address] [place] [phone] 03/17/2024 16:53:46 03/17/2024 23:58:14 Syncope and collapse [id number] R55 Evaluation in the field was performed by my video game programmer colleague, as noted above. I was called after the patient was en route to [facility] via ambulance. The evaluation revealed a 58-year-ol d female with a history of cerebral and aortic aneurysm, as reported by the patient. She is status post (S/P) an unwitnesse d fall with loss of consciousn ess (tripped) at [facility] 4:00 AM this morning. She woke up around 8:00 AM with complaints of headache, neck/back pain, and right-side d flank/hip pain (the patient is not on anticoagul ation). The patient was favoring her right side but reported that this has been ongoing for a while, along with numbness/t ingling in her hands. Initially, the patient refused to go to the ED when friends advised it, so she contacted [facility]. Per discussion with the video game programmer, the patient was found being assisted into her home by friends. She was conscious, alert, and oriented to person, place, time, and situation (CAOx4). Her airway was open and patent, her breathing was non-labore d, and she was able to speak in full sentences. Her abdomen was soft, non-tender , and non-disten ded. Pupils were equal, round, and reactive to light , and +CMSx4. Her blood glucose was 114. Given her history, presentati on, and loss of consciousn ess, the video game programmer decided to call 911. The patient was transporte d to [facility]. Impression :Fall with LOC Plan:Pt was transporte d to [facility] ER for further evaluation and treatment Primary care, consider__ _ Dispositio n:Pt was transporte d to [facility] ER for further evaluation and treatment [id number] Vince Field MD [facility] [address] [place] [id number] 04/17/2024 13:49:23 04/17/2024 18:23:06 Urinary symptoms [id number] R39.9 [id number] Bonifacio Vincent MD [facility] [address] [place] [phone] 05/09/2024 17:03:40 05/10/2024 13:28:45 Impairment of balance 869056817 R26.89 Stating that has head tilting to one side which is subacute (unclear duration, per history weeks to months), and minor impairment in her balance. BMP unremarkbl e. No unilateral acute weakness, new facial drooping or change in speech to suggest stroke or TIA. Suggested get in touch with neurologis t to expedite MRI (history of MS and due for MRI), and to set up in-person appointmen t with PCP to determine whether musculoske letal etiology for head tilt (no pain, though potentiall y has muscle tightness) . Discussed red flag signs for which to seek higher level of care. [id number] Luisa Slaughter MD Main - [facility] [address] [place] [address] [phone] 06/17/2024 17:56:24 06/17/2024 19:31:04 Cellulitis [id number] L03.90 [id number] Bonifacio Vincent MD Main - [facility] [address] [place] [address] [phone] 07/18/2024 11:13:14 07/19/2024 11:53:57 Urinary symptoms [id number] R39.9 S/s of UTI; leuk positive on U/A though negative nitrite. In the past has had infections with Klebseilla which are pansenstiv e except for Macrobid. Has been rx Cefpoxodim e and Bactrim in the past. Requesting Bactrim. WIll give 1x dose now and send to pharmacy. Will tailor antibiotic s to culture results. Discussed red flag signs and symptoms to present for higher level of care. [id number] Johnathan Viveros MD Main - [facility] [address] [place] [address] [phone] 08/19/2024 13:12:12 08/19/2024 20:15:11 Urinary symptoms [id number] R39.9 As noted, we were called to see this patient regarding concerns of urinary sx in a patient with frequent infections and risk factors including neurogenic bladder. Evaluation in the field was performed by my video game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
--- OUTSIDE RECORDS SUMMARY | 2024-11-01 13:50 | XMS_ITS | Encounter Summary ---
Author Organization [employer] Address [address] [place] [address] [address] [place] [address] Care Team Providers Care Translator Name Role Phone Name, Rocky CHAUDHARI Primary Care Provider [phone] Jim Ram Unavailable Unavailable Reason for Visit * Reason Comments Med Refill Encounter Details Date Type Department Care Team (Late st Contact Info) Description 08/27/2024 Refill [facility] [address] [place] [address] April Marti NP [address] [place], [place] [phone] Major depressive disorder with psychotic features (CMS/HCC) Social History Tobacco Use Types Packs/Day Years Used Date Smoking Tobacco: Every Day Cigarettes Alcohol Use Standard Drinks/Week Comments Not Currently 0 (1 standard drink = 0.6 oz pur e alcohol) Alcohol Answer Date Recorded Frequency of Alcohol Consumption Not on file 03/05/2024 Average Number of Drinks Not on file 024 Frequency of Binge Drinking Not on file 09/2023 Score 0 03/05/2024 Depression Answer Date Recorded [...] Description 12/06/2024 11:00 AM EDT Office Visit [facility] [address] [place] [address] Pranav, Dara, OD 230 [place] [address] 01/07/2025 9:30 AM EDT Telemedicine [facility] [address] [place] [address] Keri Guan, JENNIFER documented as of this encounter Visit Diagnoses Diagnosis Major depressive disorder with psychotic features (CMS/HCC) documented in this encounter Additional Health Concerns Assessment Noted Time PHQ-9 Depression Total Score: 11 024 11:18 AM EDT documented as of this encounter Care Teams Translator Relationship Specialty Start Date End Date Name, MD Rocky 230 [place] [address] PCP - General Family Medicine 12/03/16 Jim Ram FNP [address] [place] [address] Nurse Practitioner Family Medicine 07/08/23 documented as of this encounter
--- OUTSIDE RECORDS SUMMARY | 2024-11-01 13:50 | XMS_ITS | Encounter Summary ---
Author Organization [employer] Address [address] [place] [address] 7 [place] [address] Care Team Providers Care Electrode Cleaner Name Role Phone Name, Rocky CHAUDHARI Primary Care Provider [phone] Jim Ram Unavailable Unavailable Reason for Visit * Reason Comments Med Refill Encounter Details Date Type Department Care Team (Late st Contact Info) Description 12/31/2022 Refill [facility] [address] [place], [place] [phone] Name, MD Rocky [address] [place], [place] [phone] Chronic back pain, unspecified back location, unspecified [...] Description 12/06/2024 11:00 AM EDT Office Visit [facility] [address] [place] [address] Pranav, Dara, OD 230 [place] [address] 01/07/2025 9:30 AM EDT Telemedicine [facility] [address] [place] [address] Keri Guan RN documented as of this encounter Visit Diagnoses Diagnosis Chronic back pain, unspecified back location, unspecified back pain laterality Multiple sclerosis (CMS/HCC) Multiple sclerosis documented in this encounter Additional Health Concerns Assessment Noted Time PHQ-9 Depression Total Score: 6 12/25/19 11:32 AM EDT documented as of this encounter Care Teams Electrode Cleaner Relationship Specialty Start Date End Date Name, MD Rocky [address] [place] [address] PCP - General Family Medicine 12/03/16 Jim Ram FNP [address] [place] [address] Nurse Practitioner Family Medicine 07/08/23 documented as of this encounter
--- OUTSIDE RECORDS SUMMARY | 2024-11-01 13:50 | XMS_ITS | Encounter Summary ---
Author Organization [employer] Address [address] [facility] 7t [place] [address] Care Team Providers Care Admitting Officer Name Role Phone Name, Rocky CHAUDHARI Primary Care Provider [phone] Jim Ram Unavailable Unavailable Encounter Details Date Type Department Care Team (Latest Contact Info) Description 11/01/2024 Travel Social History Tobacco Use Types Packs/Day Years [...] Description 12/06/2024 11:00 AM EDT Office Visit [facility] [address] [place] [address] Dara Rock, OD 230 [place] [address] 01/07/2025 9:30 AM EDT Telemedicine [facility] 230 [place] [address] Keri Guan, JENNIFER documented as of this encounter Visit Diagnoses Not on filedocumented in this encounter Additional Health Concerns Assessment Noted Time PHQ-9 Depression Total Score: 11 024 11:18 AM EDT documented as of this encounter Care Teams Admitting Officer Relationship Specialty Start Date End Date Name, MD Rocky [address] [place] [address] PCP - General Family Medicine 12/03/16 Jim Ram FNP [address] [place] [address] Nurse Practitioner Family Medicine 07/08/23 documented as of this encounter
--- OUTSIDE RECORDS SUMMARY | 2024-11-01 13:50 | XMS_ITS | Clinical Summary ---
Author Organization [facility] Address [address] [place] [address] Care Team Providers Care Thread Milling Machine Set Up Operator Name Role Phone Annika Kessler PA-C Primary Care Provider [phone] Source Comments PLEASE NOTE, if this patient is a minor, it may be UNLAWFUL to discuss sensitive information that is contained in these records (such as FAMILY PLANNING, MENTAL HEALTH or SUBSTANCE ABUSE) with the minor patient's parent or other person without the patient's specific authorization.[facility] Immunizations Immunization Administration Dates Next Due Flu, Multi Dose 0.5 ML 05/12/2017 INFLUENZA, SEASONAL, INJECTABLE 06/20/20 16,08/29/2015,05/23/2014, 3 PNEUMOCOCCAL CONJUGATE PCV 13 03/29/2015 PNEUMOCOCCAL POLYSACCHARIDE PPV23 06/20/2016, TDAP 12/27/2016 Social History Tobacco Use Types Packs/Day Years Used Date Smoking Tobacco: Never Assessed Social Connections Answer Date Recorded Social Connections and Isolation 0 03/28/2019 Financial Resource Strain Answer Date R ecorded Financial Resource Strain 0 2018 Stress Answer Date Recorded Stress 0 03/28/2019 Physical Activity Answer Date Recorded Physical Activity 0 03/28/2019 Food Insecurity Answer Date Recorded Food 0 03/28/2019 Transportation Needs Answer Date Record ed Transportation 0 03/28/2019 Housing Stability Answer Date Recorded Housing 0 03/28/2019 Safety and Environment Answer Date Mando rded Safety 0 03/28/2019 Utilities Answer Date Recorded Utilities 0 03/28/2019 Employment Answer Date Recorded Employment 0 03/28/2019 Comments Unknown Sex and Gender Information Value Date Recorded Sex Assigned at Not on file Legal Sex Female 6:55 AM PDT Gender Identity Not on file Sexual Orientation Not on file Plan of Treatment Not on file Insurance [facility] Member Subscriber Plan / Payer (Ef fective 2016-Present) Name:Eva Edgar Relation to Subscriber:Self Name:Eva Edgar Payer ID:[id number] Group ID:Not on file Type:Indemnisusan Address: [place] [address] [place] [address] Care Teams Thread Milling Machine Set Up Operator Relationship Specialty Start Date End Date Annika Kessler PA-C [address] [place] [address] PCP - General 09/29/18
--- OUTSIDE RECORDS SUMMARY | 2024-11-01 13:50 | XMS_ITS | Encounter Summary ---
Author Organization [employer] Address [address] [place] [address] 7 [place] [address] Care Team Providers Care Bartenders Name Role Phone Name, Rocky CHAUDHARI Primary Care Provider [phone] Jim Ram Unavailable Unavailable Encounter Details Date Type Department Care Team (Late Contact Info) Description 09/12/2022 Abstract [facility] [address] [place] [address] Name, MD Rocky [address] [place] [address] Social History Tobacco Use Types Packs/Day Years Used Date Smoking Tobacco: Never Assessed Comments Unknown Sex and Gender Information Value Date Recorded Sex Assigned at Female 06/03/2022 10:16 AM EDT Legal Sex Female 10:16 AM EDT Gender Identity Female 06/03/2022 10:16 AM EDT Sexual Orientation Lesbian or Nieto 06/03/2022 10 :16 AM EDT documented as of this encounter Plan of Treatment Upcoming Encounters Date Type Department Care Team (Late Contact Info) Description 12/06/2024 11:00 AM EDT Office Visit [facility] [address] [place], [place] [phone] Dara Rock, OD 230 [place] [address] 01/07/2025 9:30 AM EDT Telemedicine [facility] [address] [place] [address] Keri Guan, RN documented as of this encounter Visit Diagnoses Not on filedocumented in this encounter Additional Health Concerns Assessment Noted Time PHQ-9 Depression Total Score: 6 08/22/19 23 10:50 AM EST documented as of this encounter Care Teams Bartenders Relationship Specialty Start Date End Date Name, MD Rocky [address] [place] [address] PCP - General Family Medicine 12/03/16 Jim Ram FNP [address] [place] [address] Nurse Practitioner Family Medicine 07/08/23 documented as of this encounter
--- OUTSIDE RECORDS SUMMARY | 2024-11-01 13:50 | XMS_ITS | Encounter Summary ---
Author Organization [employer] Address [address] [place] [address] 7t [place] [address] Care Team Providers Care Vba Developer Name Role Phone Name, Rocky CHAUDHARI Primary Care Provider [phone] Jim Ram Unavailable Unavailable Reason for Visit * Reason Comments Med Refill Encounter Details Date Type Department Care Team (Late st Contact Info) Description 05/20/2023 Refill [facility] [address] [place], [place] [phone] Name, MD Rocky [address] [place], [place] [phone] Chronic back pain, unspecified back location, unspecified back pain laterality; Multiple sclerosis (CMS/HCC) Social History Tobacco Use Types Packs/Day Years Used Date Smoking Tobacco: Every Day Cigarettes Alcohol Use Standard Drinks/Week Comments Not Currently 0 (1 standard drink = 0.6 oz pur e alcohol) Depression Answer Date Recorded Patient Health Questionnaire-9 Score 6 12/24/2022 Housing Stability Answer Date Recorded What is your housing situation today? I have destinee chou 05/20/[address] you li ve. Do you have problems with any of the following? None of the above 05/20/2023 Food Insecurity Answer Date Recorded Within the past 12 months, y ou worried that your food would run out before you got money to buy more: Never True 05/20/2023 Within the past 12 months,th e food you bought just didn't last and you didn't have enough money to get more: Never True Transportation Answer Date Recorded In the past 12 months, has l ack of transportation kept you from medical appts, meetings, work or from getting things needed for daily living? No 05/20/2023 Utilities Answer Date Recorded In the past 12 months, has t he electric, gas, oil or water company threatened to shut off services in your home? No 05/20/2023 Depression Answer Date Recorded Patient Health Questionnaire-2 Score 1 12/24/2022 Comments Unknown Sex and Gender Information Value Date Recorded Sex Assigned at Female 06/03/2022 10:16 AM EDT Legal Sex Female 10:16 AM EDT Gender Identity Female 06/03/2022 10:16 AM EDT Sexual Orientation Lesbian or Nieto 06/03/2022 10 :16 AM EDT documented as of this encounter Miscellaneous Notes * Telephone Encounter - Rocky Jain MD - 05/20/2023 12:51 PM EDT I send this already * Telephone Encounter - Maureen King RN - 05/20/2023 12:46 PM EDT Med. Que to PCP for approval. documented in this encounter Plan of Treatment Upcoming Encounters Date Type Department Care Team (Late st Contact Info) Description 12/06/2024 11:00 AM EDT Office Visit [facility] [address] [place] [address] Dara Rock, OD [address] [place] [address] 01/07/2025 9:30 AM EDT Telemedicine [facility] [address] [place] [address] Keri Guan RN documented as of this encounter Visit Diagnoses Diagnosis Chronic back pain, unspecified back location, unspecified back pain laterality Multiple sclerosis (CMS/HCC) Multiple sclerosis documented in this encounter Additional Health Concerns Assessment Noted Time PHQ-9 Depression Total Score: 6 12/25/19 11:32 AM EDT documented as of this encounter Care Teams Vba Developer Relationship Specialty Start Date End Date Name, MD Rocky [address] [place] [address] PCP - General Family Medicine 12/03/16 Jim Ram FNP [address] [place] [address] Nurse Practitioner Family Medicine 07/08/23 documented as of this encounter
--- OUTSIDE RECORDS SUMMARY | 2024-11-01 13:50 | XMS_ITS | Encounter Summary ---
Author Organization [employer] Address [address] [place] [address] 7t [place] [address] Care Team Providers Care Solar Water Heater Installer Name Role Phone Name, Rocky CHAUDHARI Primary Care Provider [phone] Jim Ram Unavailable Unavailable Reason for Visit * Reason Comments Med Refill Encounter Details Date Type Department Care Team (Late st Contact Info) Description 04/08/2024 Refill [facility] [address] [place], [place] [phone] Name, MD Rocky [address] [place], [place] [phone] Chronic back pain, unspecified back location, unspecified back pain laterality Social History Tobacco Use Types Packs/Day Years [...] Description 12/06/2024 11:00 AM EDT Office Visit [facility] [address] [place] [address] Pranav, Dara, OD [address] [place] [address] 01/07/2025 9:30 AM EDT Telemedicine [facility] [address] [place] [address] Keri Guan RN documented as of this encounter Visit Diagnoses Diagnosis Chronic back pain, unspecified back location, unspecified back pain laterality documented in this encounter Additional Health Concerns Assessment Noted Time PHQ-9 Depression Total Score: 11 024 11:18 AM EDT documented as of this encounter Care Teams Solar Water Heater Installer Relationship Specialty Start Date End Date Name, MD Rocky 230 [place] [address] PCP - General Family Medicine 12/03/16 Jim Ram FNP [address] [place] [address] Nurse Practitioner Family Medicine 07/08/23 documented as of this encounter
--- OUTSIDE RECORDS SUMMARY | 2024-11-01 13:50 | XMS_ITS | Encounter Summary ---
Author Organization [employer] Address [address] [place] [address] 7 [place] [address] Care Team Providers Care Welder/Fabricator Name Role Phone Name, Rocky CHAUDHARI Primary Care Provider [phone] Jim Ram Unavailable Unavailable Encounter Details Date Type Department Care Team (Late Contact Info) Description 09/16/2022 Abstract [facility]INE [address] [place] [address] Name, MD Rocky [address] [place] [address] Social History Tobacco Use Types Packs/Day Years [...] Description 12/06/2024 11:00 AM EDT Office Visit [facility] [address] [place], [place] [phone] Dara Rock, OD [address] [place] [address] 01/07/2025 9:30 AM EDT Telemedicine [facility] [address] [place] [address] Keri Guan, RN documented as of this encounter Visit Diagnoses Not on filedocumented in this encounter Additional Health Concerns Assessment Noted Time PHQ-9 Depression Total Score: 6 08/22/19 23 10:50 AM EST documented as of this encounter Care Teams Welder/Fabricator Relationship Specialty Start Date End Date Name, MD Rocky [address] [place] [address] PCP - General Family Medicine 12/03/16 Jim Ram FNP [address] [place] [address] Nurse Practitioner Family Medicine 07/08/23 documented as of this encounter
--- OUTSIDE RECORDS SUMMARY | 2024-11-01 13:50 | XMS_ITS | Encounter Summary ---
Author Organization [employer] Address [address] [place] [address] 7 [place] [address] Care Team Providers Care Senior Unix Administrator Name Role Phone Name, Rocky CHAUDHARI Primary Care Provider [phone] Jim Ram Unavailable Unavailable Reason for Visit * Reason Onset Date Comments Med Refill 07/01/2023 Encounter Details Date Type Department Care Team (Late st Contact Info) Description 07/01/2023 Telephone [facility] [address] [place], [place] [phone] Name, MD Rocky [address] [place], [place] [phone] Med Refill Social History Tobacco Use Types Packs/Day Years Used Date Smoking Tobacco: Every Day Cigarettes Alcohol Use Standard Drinks/Week Comments Not Currently 0 (1 standard drink = 0.6 oz pur e alcohol) Depression Answer Date Recorded Patient Health Questionnaire-9 Score 6 05/26/2023 Patient Health Questionnaire-9 Score 6 05/26/2023 Last PHQ-9: Questionnaire Data Not on file 1 Housing Stability Answer Date Recorded What is [...] Answer Date Recorded Patient Health Questionnaire-2 Score 0 05/26/2023 Comments Unknown Sex and Gender Information Value Date Recorded Sex Assigned at Female 06/03/2022 10:16 AM EDT Legal Sex Female 10:16 AM EDT Gender Identity Female 06/03/2022 10:16 AM EDT Sexual Orientation Lesbian or Nieto 06/03/2022 10 :16 AM EDT documented as of this encounter Miscellaneous Notes * Telephone Encounter - Chyna Orozco LPN - 07/01/2023 2:45 PM EST Medication pended to PCP. * Telephone Encounter - Joy Dougherty - 07/01/2023 2:39 PM EST Tc from pt requesting medication refill on celecoxib (CeleBREX) 200 MG capsule to be sent to [facility] - [place], [place] - [address] [place] [address] documented in this encounter Plan of Treatment Upcoming Encounters Date Type Department Care Team (Late st Contact Info) Description 12/06/2024 11:00 AM EDT Office Visit [facility] [address] [place] [address] Dara Rock, TUSHAR [address] [place] [address] 01/07/2025 9:30 AM EDT Telemedicine [facility] [address] [place], [place] [phone] Keri Guan RN documented as of this encounter Visit Diagnoses Not on filedocumented in this encounter Additional Health Concerns Assessment Noted Time PHQ-9 Depression Total Score: 6 05/26/20 23 11:14 AM EDT documented as of this encounter Care Teams Senior Unix Administrator Relationship Specialty Start Date End Date Name, MD Rocky [address] [place] [address] PCP - General Family Medicine 12/03/16 Jim Ram FNP [address] [place] [address] Nurse Practitioner Family Medicine 07/08/23 documented as of this encounter
--- OUTSIDE RECORDS SUMMARY | 2024-11-01 13:50 | XMS_ITS | Encounter Summary ---
Author Organization [employer] Address [address] [place] [address] [address]t [place] [address] Care Team Providers Care Boiler Out Name Role Phone Name, Rocky CHAUDHARI Primary Care Provider [phone] Jim Ram Unavailable Unavailable Reason for Visit * Reason Comments Med Refill Encounter Details Date Type Department Care Team (Late st Contact Info) Description 08/02/2024 Refill [facility] [address] [place], [place] [phone] Name, MD Rocky [address] [place], [place] [phone] Major depressive disorder with psychotic features (CMS/HCC) [...] Description 12/06/2024 11:00 AM EDT Office Visit [facility] OPT[facility] [address] [place] [address] Pranav, Dara, OD [address] [place] [address] 01/07/2025 9:30 AM EDT Telemedicine [facility] [address] [place] [address] Keri Guan, JENNIFER documented as of this encounter Visit Diagnoses Diagnosis Major depressive disorder with psychotic features (CMS/HCC) documented in this encounter Additional Health Concerns Assessment Noted Time PHQ-9 Depression Total Score: 11 024 11:18 AM EDT documented as of this encounter Care Teams Boiler Out Relationship Specialty Start Date End Date Name, MD Rocky [address] [place] [address] PCP - General Family Medicine 12/03/16 Jim Ram FNP [address] [place] [address] Nurse Practitioner Family Medicine 07/08/23 documented as of this encounter
--- OUTSIDE RECORDS SUMMARY | 2024-11-01 13:50 | XMS_ITS | Clinical Summary ---
Author Organization [employer] Address [address] [place] [address] [address] [place] [address] Care Team Providers Care Campaign Management Specialist Name Role Phone Name, Rocky CHAUDHARI Primary Care Provider [phone] Jim Ram Unavailable Unavailable Allergies Active Allergy Reactions Criticality Noted Date Comments Alendronate 09/20/2021 Other reaction(s): Epigastric discomfort Fingolimod High 10/05/2018 Other reaction(s): brain swelling Glatiramer 10/05/2018 Other reaction(s): Nausea / Vomiting Interferon Beta-1a 08/22/2022 Medications Dimethyl Fumarate 240 MG capsule delayed-release Take 1 capsule by mouth every 12 (twelve) hours. 10/03/19 19 Active famotidine (Pepcid) 40 MG tablet Take 1 tablet by mouth every 12 (twelve) hours. 01/31/20 20 Active Methylcellulose , Laxative, (Citrucel) 500 MG tablet Take by mouth every 12 (twelve) hours. 08/24/19 20 Active Umeclidinium [place] (Incruse Ellipta) 62.5 MCG/ACT aerosol powder Inhale 1 puff at bed time. 06/04/20 21 Active naloxone (Narcan) 4 mg/0.1 mL nasal sprayIndication s:Chronic, continuous use of opioids Administer 1 spray (4 mg) into affected nostril(s) if needed for opioid reversal. 2 each 1 08/22/19 23 Active Fiber-Lax 625 MG tablet Take 2 tablets by mouth in the morning. 02/15/20 23 Active dicyclomine (Bentyl) 20 MG tablet TAKE 1 TABLET BY MOUTH DAILY IN THE MORNING AFTER BOWEL MOVEMENT 02/14/20 23 Active Myrbetriq 50 MG 24 hr tablet Take 50 mg by mouth in the morning. 02/01/20 23 Active Creon 11827-046514 units capsule delayed-release particles capsule TAKE 1 CAPSULE FOUR TIMES DAILY WITH MEALS OR SNACKS 02/26/20 23 Active perphenazine 8 MG tabletIndicatio ns:Major depressive disorder with psychotic features (CMS/HCC) Take 1 tablet (8 mg) by mouth 2 times daily. 180 tablet 3 01/26/20 24 Active sertraline (Zoloft) 100 MG tabletIndicatio ns:Major depressive disorder with psychotic features (CMS/HCC) Take 1.5 tablets (150 mg) by mouth Once daily. 135 tablet 3 01/26/20 24 Active magnesium oxide (Mag-Ox) 400 (240 Mg) MG tablet Take 0.5 tablets by mouth Once per day. 02/10/20 24 Active nitrofurantoin (Macrodantin) 100 MG capsule Take 1 capsule by mouth Once per day. After sexual activity for UTI prevention Active oxybutynin XL (Ditropan-XL) 10 MG 24 hr tablet Take 1 tablet by mouth Once per day. 01/20/20 24 Active fluticasone-luly meterol (Advair HFA) 230-21 MCG/ACT inhalerIndicati ons:Pulmonary emphysema, unspecified emphysema type (CMS/HCC) Inhale 2 puffs in the morning and at bedtime. Rinse mouth with water after use to reduce aftertaste and incidence of candidiasis. Do not swallow. 12 g 1 03/17/20 24 Active aspirin (Aspirin Adult Low Strength) 81 MG EC tabletIndicatio ns:Chronic back pain, unspecified back location, unspecified back pain laterality Take 1 tablet (81 mg) by mouth Once per day. 90 tablet 3 03/17/20 24 Active Diclofenac Sodium 1 % gelIndications: Chronic back pain, unspecified back location, unspecified back pain laterality APPLY 2 GRAMS TOPICALLY TO THE affected HIP TWICE DAILY 100 g 1 03/17/20 24 Active gabapentin (Neurontin) 300 MG capsuleIndicati ons:Chronic back pain, unspecified back location, unspecified back pain laterality,Weig ht gain Take 1 capsule (300 mg) by mouth 3 times daily. 90 capsule 11 03/17/20 24 Active atorvastatin (Lipitor) 20 MG tabletIndicatio ns:High cholesterol TAKE 1 TABLET BY MOUTH ONCE DAILY 90 tablet 1 04/19/20 24 Active dextran 70-hypromellose (artificial tears) 0.1-0.3 % ophthalmic solution Administer 1 drop into both eyes 3 times daily. 15 mL 11 06/07/20 24 025 Active cholecalciferol (Vitamin D-3) 25 MCG tabletIndicatio ns:Age-related osteoporosis with current pathological fracture, initial encounter Take 1 tablet (25 mcg) by mouth 2 times daily. 180 tablet 3 06/10/20 24 Active topiramate 50 MG tablet TAKE 1 TABLET BY MOUTH TWICE DAILY 168 tablet 1 06/16/20 24 Active albuterol 108 (90 Base) MCG/ACT inhalerIndicati ons:Pulmonary emphysema, unspecified emphysema type (CMS/HCC) INHALE 2 PUFFS ORALLY EVERY 4-6 HOURS NEEDED 8.5 g 3 06/16/20 24 Active triamcinolone (Kenalog) 0.1 % creamIndication s:Eczema intertrigo Apply topically if needed in the morning and at bedtime (itching and flaking for up to 14 days). 30 g 2 07/05/20 24 Active acetaminophen (Tylenol) 500 MG tabletIndicatio ns:Chronic low back pain, unspecified back pain laterality, unspecified whether sciatica present Take 2 tablets (1,000 mg) by mouth every 6 (six) hours if needed for mild pain. 112 tablet 08/02/20 24 Active simethicone (Simethicone Ultra Strength) 180 MG capsuleIndicati ons:Chronic back pain, unspecified back location, unspecified back pain laterality TAKE 1 CAPSULE BY MOUTH TWICE DAILY AFTER MEALS AND AT BEDTIME 180 capsule 1 08/02/20 24 Active lansoprazole (Prevacid) [address] capsule TAKE 1 CAPSULE BY MOUTH TWICE A DAY 168 capsule 2 08/30/19 25 Active clindamycin (Cleocin T) 1 % lotion Apply topically 2 times daily. 60 mL 5 10/14/19 25 026 Active Monomethyl Fumarate (Bafiertam) 95 MG capsule delayed-release Take by mouth. Active oxyCODONE (Roxicodone) 15 MG immediate release tabletIndicatio ns:Chronic back pain, unspecified back location, unspecified back pain laterality,Mult iple sclerosis (CMS/HCC) Take 1 tablet (15 mg) by mouth every 8 (eight) hours if needed (severe pain) for up to 28 days. Do not start before October 21, 2024. 84 tablet 10/22/19 25 025 Active celecoxib (CeleBREX) 200 MG capsuleIndicati ons:Chronic back pain, unspecified back location, unspecified back pain laterality TAKE 1 CAPSULE BY MOUTH EVERY DAY NEEDED FOR PAIN 28 capsule 1 10/30/19 25 Active clonazePAM (KlonoPIN) 1 MG tabletIndicatio ns:Major depressive disorder with psychotic features (CMS/HCC) Take 1 tablet (1 mg) by mouth every 8 (eight) hours if needed for anxiety for up to 28 days. 84 tablet 11/02/19 25 025 Active celecoxib (CeleBREX) 200 MG capsuleIndicati ons:Chronic back pain, unspecified back location, unspecified back pain laterality TAKE 1 CAPSULE BY MOUTH EVERY DAY NEEDED FOR BACK PAIN 28 capsule 1 08/27/19 25 025 Discontinued clonazePAM (KlonoPIN) 1 MG tabletIndicatio ns:Major depressive disorder with psychotic features (CMS/HCC) TAKE 1 TABLET (1 MG) BY MOUTH EVERY 8 (EIGHT) HOURS IF NEEDED FOR ANXIETY FOR UP TO 28 DAYS. 84 tablet 09/07/19 25 025 Discontinued oxyCODONE (Roxicodone) 15 MG immediate release tabletIndicatio ns:Chronic back pain, unspecified back location, unspecified back pain laterality,Mult iple sclerosis (CMS/HCC) Take 1 tablet (15 mg) by mouth every 8 (eight) hours if needed (severe pain) for up to 28 days. 84 tablet 09/22/19 25 025 Discontinued(R eorder (will not trigger notification to Pharmacy)) clonazePAM (KlonoPIN) 1 MG tabletIndicatio ns:Major depressive disorder with psychotic features (CMS/HCC) Take 1 tablet (1 mg) by mouth every 8 (eight) hours if needed for anxiety for up to 28 days. Do not start before October 07, 2024. 84 tablet 10/08/19 25 025 Discontinued(R eorder (will not trigger notification to Pharmacy)) sulfamethoxazol e-trimethoprim (Bactrim DS) 800-160 MG tablet Take 1 tablet by mouth 2 times daily for 10 days. 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 10/02 Long-term current use of benzodiazepine 10/16/19 25 Edema 07/05/2024 Assessment & Plan (07/10/2024 2:04 PM EST): Yaritza's negative, Encouraged elevation, edema improves in morning No constitutional symptoms Compression stockings ordered Eczema intertrigo 07/05/2024 Assessment & Plan (07/10/2024 2:04 PM EST): Encouraged hydration, emollient cream Prn topical steroid for itch, Treat groin with ketoconazole nightly Cellulitis and abscess of right lower extremity 06/14/2024 Assessment & Plan (06/14/2024 12:12 PM EST): R extremity is erythematous, edematous, and is warm today, pt is afebrile however an infection is evidently present. Pt will receive IM 500 mg Ceftriaxone today Pt will continue on cephalexin as prescribed and will start Bactrim TID with meals. Educated pt on GI side effects associated with antibx treatment and encouraged to take each med with food. Also encouraged pt initiating probiotics to protect gut while being treated on antibx. Pt will have f/u call with nurses on 06/16 to assess response to treatment, at this time will consider pt need to be seen in the office. Acute urinary tract infection 07/24/2023 Class 1 obesity 02/17/2023 Current smoker 02/17/2023 Gastroesophageal reflux disease 02/17/2023 Hypothyroidism 02/17/2023 Post traumatic stress disorder (PTSD) 02/17/2023 History of hysterectomy 10/14/2022 Major depression with psychotic features 023 Cholelithiasis without obstruction 07/15/2022 Mixed incontinence 07/15/2022 Tubular adenoma 03/18/2022 Overview (10/14/2022): 03/2022 Repeat in 3 years recommended [place] [facility] [place] Chronic back pain 11/06/2018 Mean red blood cell volume increased 11/06/2018 Other spondylosis with radiculopathy, lumbar reg ion 08/04/2018 06/11/2023 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 Continues with Oxycontin 15 mg BID (has Narcan available). She is doing well emotionally, and will continue current medications: Perphenazine 8 mg BID, Sertraline 100 mg 1.5 tabs daily, Clonazepam 1 mg TID. She also has Topiramate 50 mg BID from Neuro, and Gabapentin 300 mg TID from PCP. She is still not interested in counseling. As this provider will be retiring, patient is now referred back to her PCP for further medication management. She is also followed by [facility]. Any issues or concerns, contact [facility]. All her questions were answered and I have wished her well. She agrees with the plan. Assessment & Plan (11/24/2023 1:43 PM EDT): Pt has complicated psychiatric and medical picture with significant risk for drug-drug, and drug-disease interactions. Continues with Oxycontin 15 mg BID (has Narcan available). She is doing well emotionally, and will continue current medications: Perphenazine 8 mg BID, Sertraline 100 mg 1.5 tabs daily, Clonazepam 1 mg TID. She also has Topiramate 50 mg BID from Neuro, and Gabapentin 300 mg TID from PCP. She is still not interested in counseling. This provider will be retiring soon, so we will have one final visit in 2 months, at which time we will review plans for continuity of care. She agrees with the plan. Assessment & Plan (09/23/2023 12:43 PM EST): Pt has complicated psychiatric and medical picture with significant risk for drug-drug, and drug-disease interactions. Continues with Oxycontin 15 mg BID (has Narcan available). She is doing well emotionally, and will continue current medications: Perphenazine 8 mg BID, Sertraline 100 mg 1.5 tabs daily, Clonazepam 1 mg TID. She also has Topiramate 50 mg BID from Neuro, and Gabapentin 300 mg TID from PCP. She is still not interested in counseling. On 05/26/2023 provider informed pt that I would be retiring within the next year or so, but we would make every effort to ensure smooth transition of care. Meanwhile, F/U with me in 2 months. She agrees with the plan.. Assessment & Plan (07/22/2023 11:39 AM EST): Pt has complicated psychiatric and medical picture with significant risk for drug-drug, and drug-disease interactions. Continues with Oxycontin 15 mg BID (has Narcan available). She is doing very well emotionally, and will continue current medications: Perphenazine 8 mg BID, Sertraline 100 mg 1.5 tabs daily, Clonazepam 1 mg TID. She also has Topiramate 50 mg BID from Neuro, and Gabapentin 300 mg TID from PCP. She is still not interested in counseling. On 05/26/2023 provider informed pt that I would be retiring within the next year or so, but we would make every effort to ensure smooth transition of care. Meanwhile, F/U with me in 2 months. She agrees with the plan.. Assessment & Plan (05/26/2023 12:15 PM EDT): Pt has complicated psychiatric and medical picture with significant risk for drug-drug, and drug-disease interactions. Continues with Oxycontin 15 mg BID (has Narcan available). She will continue current medications: Perphenazine 8 mg BID, Sertraline 100 mg 1.5 tabs daily, Clonazepam 1 mg TID. She also has Topiramate 50 mg BID from Neuro.. Today 05/26/2023 provider informed pt that I would be retiring within the next year or so, but we would make every effort to ensure smooth transition of care. F/U with me in 2 months. She agrees with the plan.. Assessment & Plan (03/10/2023 12:34 PM EDT): Pt has complicated psychiatric and medical picture with significant risk for drug-drug, and drug-disease interactions. Continues with Oxycontin 15 mg BID (has Narcan available). She will continue current medications: Perphenazine 8 mg BID, Sertraline 100 mg 1.5 tabs daily, Clonazepam 1 mg TID. She also has Topiramate 50 mg BID from Neuro.. F/U with me in 2 months. She agrees with the plan.. Assessment & Plan (12/24/2022 12:42 PM EDT): Pt has complicated psychiatric and medical picture with significant risk for drug-drug, and drug-disease interactions. Continues with Oxycontin 15 mg BID (has Narcan available). She will continue current medications: Perphenazine 8 mg BID, Sertraline 100 mg 1.5 tabs daily, Clonazepam 1 mg TID. She also has Topiramate 50 mg BID from Neuro.. F/U with me in 2 months. She agrees with the plan.. Assessment & Plan (10/22/2022 4:28 PM EDT): Pt has complicated psychiatric and medical picture with significant risk for drug-drug, and drug-disease interactions. Continues with Oxycontin 15 mg BID (has Narcan available). She will continue current medications. F/U with me in 2 months. She agrees with the plan.. Assessment & Plan (08/22/2022 12:18 PM EST): Pt has complicated psychiatric and medical picture with significant risk for drug-drug, and drug-disease interactions. Continues with Oxycontin 15 mg BID (has Narcan available). She will continue current medications. F/U with me in 2 months. She agrees with the plan.. F/U with me in 2 months. She agrees with the plan Weight gain 03/10/2018 Irritable bowel syndrome without diarrhea 2017 Osteoporosis 11/05/2017 Venous insufficiency (chronic) (peripheral) 03/04 Abnormal mammogram 02/28/2017 Left leg pain 12/09/2016 Other amnesia 12/09/2016 Multiple sclerosis 12/09/2016 Paraparesis 12/09/2016 Emphysema, unspecified 12/09/2016 Epilepsy, unspecified, not i ntractable, without status epilepticus 12/09/2016 Prsnl hx of TIA (TIA), and cereb infrc w/o resid deficits 12/09/2016 06/11/2023 Resolved Problems Problem Noted Date Diagnosed Date Resolved Date Recurrent major depression i n partial remission 12/09/2016 08/22/2022 Encounters Date Type Department Care Team Description 11/01/2024 11:15 AM EDT Office Visit [facility] [address] [place] [address] Patience Rodríguez NP Urinary tract infection symptoms (Primary Dx); Vaginal discharge; Right lower quadrant abdominal pain 11/01/2024 Travel 10/29/2024 Refill [facility] [address] [place] [address] Rocky Jain MD Major depressive disorder with psychotic features (CMS/HCC) 10/29/2024 Refill [facility] [address] [place] [address] Rocky Jain MD Major depressive disorder with psychotic features (CMS/HCC); Chronic back pain, unspecified back location, unspecified back pain laterality 10/25/2024 Refill [facility] [address] [place] [address] Rocky Jain MD Major depressive disorder with psychotic features (CMS/HCC); Chronic back pain, unspecified back location, unspecified back pain laterality 10/25/2024 Telephone [facility] [address] [place] [address] Rocky Jain MD Nurse Triage 10/23/2024 Refill [facility] [address] [place] [address] Rocky Jain MD Major depressive disorder with psychotic features (CMS/HCC); Chronic back pain, unspecified back location, unspecified back pain laterality 10/22/2024 Refill [facility] [address] [place] [address] Rocyk Jain MD Chronic back pain, unspecified back location, unspecified back pain laterality 10/19/2024 Refill [facility] [address] [place] [address] Keri Guan RN Chronic back pain, unspecified back location, unspecified back pain laterality; Multiple sclerosis ([facility]) 10/15/2024 9:30 AM EDT Telemedicine [address] [address] Keri Guan RN Chronic back pain, unspecified back location, unspecified back pain laterality (Primary Dx); terminal carman (current) use of opiate analgesic; Long-term current use of benzodiazepine 10/15/[address] [address] Rocky Jain MD Call Back Request; POt to bring in police report of oxycodone theft 10/15/[address] [address] Keri Guan RN Oxy count discrepany, BPI & YEE scoring 10/15/2024 Travel 10/14/[address] [address] Lola Spears RN 10/14/[address] [address] Lola Spears, JENNIFER 10/13/2024 11:00 AM EDT Office Visit [address] [address] Rocky Jain MD Foul smelling urine (Primary Dx); Scalp pain; Multiple sclerosis ([facility]) 10/13/2024 Travel 10/06/2024 Refill [facility] [address] [place] [address] Rocky Jain MD Major depressive disorder with psychotic features ([facility]) 09/21/2024 Refill [facility] [address] [place] [phone] Rocky Jain MD Chronic back pain, unspecified back location, unspecified back pain laterality; Multiple sclerosis ([facility]) 09/03/2024 Refill [facility] [address] [place] [phone] April Marti, MEIR Major depressive disorder with psychotic features ([facility]/HCC) 08/30/2024 Refill [facility] [address] [place] [address] Rocky Jain MD 08/30/2024 Refill [facility] [address] [place] [address] Rocky Jain MD Chronic back pain, unspecified back location, unspecified back pain laterality; Multiple sclerosis ([facility]) 08/27/2024 Refill [facility] [address] [facility] [place] [address] Rocky Jain MD Chronic back pain, unspecified back location, unspecified back pain laterality; Multiple sclerosis ([facility]) 08/27/2024 Refill [facility] [address] [place] [address] April Marti, MEIR Major depressive disorder with psychotic features (CMS/HCC) 08/27/2024 Refill [facility] [address] [place] [address] Rocky Jain MD Chronic back pain, unspecified back location, unspecified back pain laterality 08/17/2024 Telephone [facility] [address] [place] [address] Rocky Jain MD Durable Medical Equipment 08/10/2024 Telephone [facility] [address] [place] [address] Hamida Rivera MA Feb recalls 08/05/2024 Refill [facility] [address] [place] [address] Rocky Jain MD Major depressive disorder with psychotic features ([facility]) from Last 3 Months Immunizations Name Administration Dates Next Due Influenza injectable quadriv alent IIV4 with preservative 05/31/2019,05/05/2018,05/12/2017 Influenza injectable quadriv alent preservative free 06/11/2023,04/12/2022,09/11/2021,08/11 Influenza, IIV3, injectable 06/20/2016,0 08/29/2015,05/23/2014,06/17 Influenza, seasonal, injecta ble, preservative free 06/04/2024 Moderna Covid-19 Vaccine 12+ 01/15/2022, 09/11/2021,02/06/2021,01/09 Pfizer Covid-19 Vaccine 12+ 06/04/2024, Pneumococcal Conjugate PCV 13 03/29/2015 Pneumococcal Polysaccharide PPSV23 06/20/2016, Rabies Immune Globulin 06/17/2021 Rabies, IM Diploid Cell Culture 07/01/20 21,06/24/2021,06/20/2021,06/17 Tdap 06/17/2021,12/27/2016 Zoster, Recombinant 12/24/2022,10/22/2022 Family History Medical History Relation Name Comments Melanoma Father Colon cancer Mother Relation Name Status Comments Father Mother Social History Tobacco Use Types Packs/Day Years Used Date Smoking Tobacco: Every Day Cigarettes Tobacco Cessation:Ready to Q uit: Not Asked; Counseling Given: Not Answered Alcohol Use Standard Drinks/Week Comments Not Currently 0 (1 standard drink = 0.6 oz pur e alcohol) Alcohol Answer Date Recorded Frequency of Alcohol Consumption Not on file 03/05/2024 Average Number of Drinks Not on file Frequency of Binge Drinking Not on file [...] or Nieto 06/03/2022 10 :16 AM EDT Last Filed Vital Signs Vital Sign Reading [...] Mass Index 25.42 11/01/2024 11:26 AM EDT Plan of Treatment Upcoming Encounters Date Type Department Care Team (Late st Contact Info) Description 12/06/2024 11:00 AM EDT Office Visit [facility] [address] [place] [address] Dara Rock, OD [address] [place] [address] 01/07/2025 9:30 AM EDT Telemedicine [facility] [address] [place] [address] Keri Guan, RN Health Maintenance Due Date Last Done Comments CT Colonography 1966 FIT DNA/Cologuard 1966 FIT 1966 FOBT 1966 HIV Screening 1966 Sigmoidoscopy 1966 Hepatitis B Vaccines (1 of 3 - 19+ 3-dose series) 1985 Pneumococcal Vaccine: 50+ Years (3 of 3 - PCV20 or PCV21) 06/20/2021 06/20/2016, 03/29/2015, 03/29/2015 Depression Monitoring (PHQ-9) 07/27/2024 01/26/2024, 01/26/2024 SDOH Screening 10/20/2024 10/21/2023 Pap Smear 11/26/2024 11/26/2021 Depression Screening 01/25/2025 01/26/2024, 01/26/20 Alcohol/Substance Use Screening 03/05/2025 03/05/2024 Colonoscopy 03/13/2025 03/13/2022 Colorectal Cancer Screening 03/13/2025 Mammogram 05/03/2025 05/03/2024, 04/05, 05/03/2022 Tobacco Screening 11/01/2025 11/01/2024 Cervical Cancer Screening 11/26/2026 HPV/Cotest 11/26/2026 11/26/2021 Lipid Panel 10/15/2027 10/14/2022, 10/23/2021 DTaP/Tdap/Td Vaccines (3 - Td or Tdap) 06/17/2031 06/17/2021, 12/27/2016 RSV Patients and Patients Aged 60 years or older (1 - 1-dose 75+ series) 2041 Hepatitis C Screening Completed 01/26/2015 Zoster Vaccines Completed 12/24/2022, 10/22/2022 COVID-19 Vaccine Completed 06/04/2024, 03/2023, 06/26/2022, Additional history exists Influenza Vaccine Completed 06/04/2024, , 04/12/2022, Additional history exists HIB Vaccines Aged Out No longer eligi ble based on patient's age to complete this topic HPV Vaccines Aged Out No longer eligi ble based on patient's age to complete this topic Hepatitis A Vaccines Aged Out No long er eligible based on patient's age to complete this topic IPV Vaccines Aged Out No longer eligi ble based on patient's age to complete this topic Meningococcal Vaccine Aged Out No asia aruna eligible based on patient's age to complete this topic RSV under 20 months Aged Out No longe r eligible based on patient's age to complete this topic Rotavirus Vaccines Aged Out No longer eligible based on patient's age to complete this topic Procedures Procedure Name Priority Date/Time Associated Diagnosis Comments POCT URINALYSIS DIPSTICK Routine 11/01/2024 11:40 AM EDT Urinary tract infection symptoms URINALYSIS, COMPLETE, WITH REFLEX TO CULTURE Routine 10/13/2024 12:22 PM EDT Foul smelling urine CULTURE, URINE, ROUTINE Routine 10/13/2024 12:00 AM EDT HM MAMMOGRAPHY Routine 05/03/2024 LIPID PANEL, STANDARD Routine 10/14/2022 12:17 PM EDT Screening for diabetes mellitus On statin therapy COLONOSCOPY Routine 03/13/2022 THINPREP IMAGING PAP AND HPV MRNA E6/E7 WITH REFLEX TO HPV 16,18/45 Routine 11/26/2021 9:41 AM EDT HEPATITIS C ANTIBODY Routine 01/26/2015 from Last 3 Months or Most Recently Relevant to Health Maintenance Results * POCT Urinalysis (11/01/2024 11:40 AM [...] 11/01/2024 11:4 0 AM EDT us Patience Rodrgíuez NP POINT OF CARE TEST ENTER/EDIT O RDERABLES Final Result * (ABNORMAL) Urinalysis, Complete, with Reflex to Culture (10/13/2024 12:22 PM EDT) Color Urine Yellow [facility] Appearance Urine Cloudy [facility] PH 7.5 5.0 - 9.0 [facility] Glucose Urine UA Negative Negative mg/dL [facility] Urine Blood Negative Negative [facility] Specific [place] - Urine 1.015 1.005 - 1.025 [facility] Urine Protein Negative Neg-Trace mg/dL [facility] Urine Ketones Negative Negative mg/dL [facility] Nitrite Urine Negative Negative [facility] Leukocyte Esterase Urine Large (3+)(A) Negative [facility] RBC Urine 0-2 0 - 2 /HPF [facility] Urine WBC 21-50(A) 0 - 5 /HPF [facility] Urine Squamous Epithelial Cell >20 0 - 2 /HPF [facility] Urine Bacteria 1+ None Seen [facility] Hyaline Casts, Urine 0-2 0 - 2 /LPF [facility] Urine 10/13/2024 12:2 2 PM EDT 10/13/2024 1:27 PM EDT Narrative [facility] - 10/13/2024 2:13 PM EDT Urine, Clean Catch us Rocky Name MD LAB URINE ORDERABLES Final Resul t [facility] [address] [place] [phone] * Culture, Urine, Routine (10/13/2024 12:00 AM EDT) Urine Urine specimen obtained by clean catch procedure / Unknown 10/13/2024 10/13/2024 Comment:[facility] - 10/15/2024 7:41 AM EDT Escherichia coli Quant > 100,000 cfu/mL Escherichia coli: Ampicillin <=2(S) Escherichia coli: Cefazolin (Urine) <=1(S) Escherichia coli: Cefepime <=0.12(S) Escherichia coli: Ceftriaxone <=0.25(S) Escherichia coli: Ciprofloxacin <=0.06(S) Escherichia coli: Gentamicin <=1(S) Escherichia coli: Nitrofurantoin <=16(S) Escherichia coli: Trimethoprim/Sulfamethoxazole <=20(S) Specimen Source: Urine clean catch us Rocky Jain MD LAB MICROBIOLOGY - GENERAL ORDER DAVE Final Result [facility] [address] [place] [phone] * Mammography (05/03/2024) Mammogram Normal Normal, Abnormal, BIRADS 1 , BIRADS 2 Anatomical Region Laterality Modality Other 05/03/2024 us Rocky Jain MD HEALTH MAINTENANCE Final Result * (ABNORMAL) Lipid Panel, Standard (10/14/2022 12:17 PM EDT) Pathologist [facility] Cholesterol, Total 143 <200 mg/dL [facility] HDL Cholesterol 46(L) > OR = 50 mg/dL [facility] Triglycerides 101 <150 mg/dL [facility] LDL Cholesterol 79 mg/dL (calc) [facility] [employer] [facility] Comment: Reference range: <100 Desirable range <100 mg/dL for primary prevention; ?? <70 mg/dL for patients with CHD or diabetic patients with > or = 2 CHD risk factors. LDL-C is now calculated using the Steve-Sudarshan calculation, which is a validated novel method providing better accuracy than the Friedewald equation in the estimation of LDL-C. Steve PEREIRA et al. MARY JO. 2013;310(19): 3342-3032 (http://education.The [employer] (AMI)/faq/HQH281) Chol/HDLC Ratio 3.1 <5.0 (calc) [facility] [employer] [facility] [facility] Non-HDL Cholesterol 97 <130 mg/dL (calc) [facility] Comment: For patients with diabetes plus 1 major ASCVD risk factor, treating to a non-HDL-C goal of <100 mg/dL (LDL-C of <70 mg/dL) is considered a therapeutic option. Blood Venous blood specimen / Unknown 10/14/2022 12:17 PM EDT 10/14/2022 12:18 PM EDT Narrative [facility] - 10/15/2022 1:11 AM EDT FASTING:NO FASTING: NO us Rockytejas Jain MD LAB BLOOD ORDERABLES Final Resul t [facility] [address], [place] [address] [facility] [address] [place] [address] * (ABNORMAL) Hm Colonoscopy (03/13/2022) Colonoscopy Abnormal( A) Normal Comment:repeat 3 years Historical Provider HEALTH MAINTENANCE Final Result * THINPREP TIS PAP AND HPV mRNA E6/E7 WITH REFLEX TO HPV 16,18/45 (11/26/2021 9:41 AM EDT) Clinical Information: S/P HYST [facility] COMMENT SEE COMMENT [facility] Comment: EXPLANATORY NOTE: ? The Pap is a screening test for cervical cancer. It is ?? not a diagnostic test and is subject to false negative ?? and false positive results. It is most reliable when a ?? satisfactory sample, regularly obtained, is submitted ?? with relevant clinical findings and history, and when ?? the Pap result is evaluated along with historic and ?? current clinical information. ?? COMMENT: This Pap test has been evaluated with computer assisted technology. [facility] Body Straightener: SEE COMMENT [facility] Comment: [facility], CT(ASCP) CT screening location: [address] ??[address] HPV nRNA E6/E7 Not Detected Not Detected [facility] Comment: Methodology: Oyster Harvester-Mediated Amplification This assay detects E6/E7 viral messenger RNA (mRNA) from 14 high-risk HPV types (16,18,31,33,35,39,45,51,52,56,58,59,66,68). ? The analytical performance characteristics of this assay have been determined by [facility]. The modifications have not been cleared or approved by the FDA. This assay has been validated pursuant to the CLIA regulations and is used for clinical purposes. ?? For additional information, please refer to http://education.MyRefers/faq/KYU253a6 (This link if provided for information/ educational purposes only.) Interpretation/Re sult: Negative for intraepithelial lesion or malignancy. [facility] LMP: NONE GIVEN [facility] Prev. BX: BSO @ 4O BC CX DYSPLASIA [facility] Prev. PAP: NONE GIVEN [facility] SOURCE: None given [facility] Statement Of Adequacy: SATISFACTORY FOR EVALUATION [facility] 11/26/2021 9:41 AM EDT Cristiana Villegas CNM LAB PATHOLOGY ORDERABLES Final Result Performing Organization Address City/State/[facility] Co de Phone Number [facility] [address] * HM Hepatitis C Antibody (01/26/2015) Hepatitis C Antibody Nonreactive Blood Rocky Jain MD HEALTH MAINTENANCE Final Result from Last 3 Months or Most Recently Relevant to Health Maintenance Insurance [facility] Care Teams Campaign Management Specialist Relationship Specialty Start Date End Date Name, MD Rocky [address] [place] [address] PCP - General Family Medicine 12/03/16 Jim Ram FNP [address] [place] [address] Nurse Practitioner Family Medicine 07/08/23
--- OUTSIDE RECORDS SUMMARY | 2024-11-01 13:50 | XMS_ITS | Encounter Summary ---
Author Organization [employer] Address [address] [place] [address] 7 [place] [address] Care Team Providers Care Doctor Of Optometry Name Role Phone Name, Rocky CHAUDHARI Primary Care Provider [phone] Jim Ram Unavailable Unavailable Reason for Visit * Reason Onset Date Comments Durable Medical Equipment 12/03/2022 Encounter Details Date Type Department Care Team (Late st Contact Info) Description 12/03/2022 Telephone [facility] [address] [place], [place] [phone] Name, MD Rocky [address] [place], [place] [phone] Durable Medical Equipment Social History Tobacco Use Types Packs/Day Years Used Date Smoking Tobacco: Every Day Cigarettes Alcohol Use Standard Drinks/Week Comments Not Currently 0 (1 standard drink = 0.6 oz pur e alcohol) Comments Unknown Sex and Gender Information Value Date Recorded Sex Assigned at Female 06/03/2022 10:16 AM EDT Legal Sex Female 10:16 AM EDT Gender Identity Female 06/03/2022 10:16 AM EDT Sexual Orientation Lesbian or Nieto 06/03/2022 10 :16 AM EDT documented as of this encounter Miscellaneous Notes * Telephone Encounter - Zofia Bonds - 12/03/2022 1:40 PM EDT Scripts for briefs and gloves generated for signature * Telephone Encounter - Yisel Lilly - 12/03/2022 12:00 PM EDT Tc from Jasmyne at [facility] requesting a new script for incontinence brief size XL, patient uses 2 a dayand is requesting 56 a month for 3 months. Goves size M/L 2 boxes a month for 3 months. Any furtherquestions please call [phone] or email: [email or web address]. documented in this encounter Plan of Treatment Upcoming Encounters Date Type Department Care Team (Late st Contact Info) Description 12/06/2024 11:00 AM EDT Office Visit [facility] OPTOMETRY [address] [place] [address] Dara Rock, OD [address] [place] [address] 01/07/2025 9:30 AM EDT Telemedicine [facility] [address] [place] [address] Keri Guan, JENNIFER documented as of this encounter Visit Diagnoses Not on filedocumented in this encounter Additional Health Concerns Assessment Noted Time PHQ-9 Depression Total Score: 8 10/23/19 23 3:20 PM EDT documented as of this encounter Care Teams Doctor Of Optometry Relationship Specialty Start Date End Date Name, MD Rocky [address] [place] [address] PCP - General Family Medicine 12/03/16 Jim Ram FNP [address] [place] [address] Nurse Practitioner Family Medicine 07/08/23 documented as of this encounter
--- OUTSIDE RECORDS SUMMARY | 2024-11-01 13:50 | XMS_ITS | Encounter Summary ---
Author Organization [employer] Address [address] [place] [address] 7t [place] [address] Care Team Providers Care Booth Manager Name Role Phone Name, Rocky CHAUDHARI Primary Care Provider [phone] Jim Ram Unavailable Unavailable Reason for Visit * Reason Comments Med Refill Encounter Details Date Type Department Care Team ([facility] st Contact Info) Description 01/09/2024 Refill [facility] MED & PEDS [address] [place] [address] Name, MD Rocky [address] [place], [place] [phone] Social History Tobacco Use Types Packs/Day Years Used Date Smoking Tobacco: Every Day Cigarettes Alcohol Use Standard Drinks/Week Comments Not Currently 0 (1 standard drink = 0.6 oz pur e alcohol) Depression Answer Date Recorded Patient Health Questionnaire-9 Score 5 11/24/2023 Patient Health Questionnaire-9 Score 5 11/24/2023 Last PHQ-9: Questionnaire Data Not on file 0 11/24/2023 Housing Stability Answer Date Recorded What is your housing situation today? I have destinee josé antonio 10/21/[address] you li [...] Date Recorded Patient Health Questionnaire-2 Score 1 11/24/2023 Comments Unknown Sex and Gender Information Value [...] 11:00 AM EDT Office Visit [facility] OPTOMETRY [address] [place] [address] Pranav, Dara, OD 230 [place] [address] 01/07/2025 9:30 AM EDT Telemedicine [facility] MEDICINE [address] [place] [address] Keri Guan, JENNIFER documented as of this encounter Visit Diagnoses Not on filedocumented in this encounter Additional Health Concerns Assessment Noted Time PHQ-9 Depression Total Score: 5 11/24/19 24 11:19 AM EDT documented as of this encounter Care Teams Booth Manager Relationship Specialty Start Date End Date Name, MD Rocky [address] [place] [address] PCP - General Family Medicine 12/03/16 Jim Ram FNP [address] [place] [address] Nurse Practitioner Family Medicine 07/08/23 documented as of this encounter
--- OUTSIDE RECORDS SUMMARY | 2024-11-01 13:50 | XMS_ITS | Encounter Summary ---
Author Organization [employer] Address [address] [facility] 7t [place] [address] Care Team Providers Care Aerospace Project Manager Name Role Phone Name, Rocky CHAUDHARI Primary Care Provider Jim Ram Unavailable Unavailable Reason for Visit * Reason Comments Med Refill Encounter Details Date Type Department Care Team ([facility] st Contact Info) Description 09/05/2023 Refill [facility] MED & PEDS [address] [place] [address] Name, MD Rocky 230 [place], [place] [phone] Chronic back pain, unspecified back location, unspecified [...] Description 12/06/2024 11:00 AM EDT Office Visit [facility] OPTOMETRY [address] [place] [address] Pranav, Dara, OD 230 [place] [address] 01/07/2025 9:30 AM EDT Telemedicine [facility] MEDICINE 230 [place] [address] Keri Guan RN documented as of this encounter Visit Diagnoses Diagnosis Chronic back pain, unspecified back location, unspecified back pain laterality Multiple sclerosis (CMS/HCC) Multiple sclerosis documented in this encounter Additional Health Concerns Assessment Noted Time PHQ-9 Depression Total Score: 6 05/26/20 11:14 AM EDT documented as of this encounter Care Teams Aerospace Project Manager Relationship Specialty Start Date End Date Name, MD Rocky [address] [place] [address] PCP - General Family Medicine 12/03/16 Jim Ram FNP [address] [place] [address] Nurse Practitioner Family Medicine 07/08/23 documented as of this encounter
--- OUTSIDE RECORDS SUMMARY | 2024-11-01 13:50 | XMS_ITS | Encounter Summary ---
Author Organization [employer] Address [address] [place] [address] 7t [place] [address] Care Team Providers Care Stitch Wheeler Name Role Phone Name, Rocky CHAUDHARI Primary Care Provider [phone] Jim Ram Unavailable Unavailable Reason for Visit * Reason Onset Date Comments Medication Question 10/29/2024 Encounter Details Date Type Department Care Team (Late st Contact Info) Description 10/29/2024 Refill [facility] [address] [place], [place] [phone] Name, MD Rocky [address] [place], [place] [phone] Major depressive disorder with psychotic features (CMS/HCC) [...] encounter Miscellaneous Notes * Telephone Encounter - Lary Smallwood RN - 10/30/2024 9:24 AM EDT Tc from pt requesting a call back. Pt stated she was advised by [facility] pharmacy script for clonazePAM (KlonoPIN) 1 MG tablet was denied. Contact pt at [phone] TC placed to [facility] to inquire why Rx was denied, pharmacy staff report that there is no refills on medication and they need a new Rx. TC placed to pt informed her that a med refill request will be sentto PCP. * Telephone Encounter - Arabella Patel - 10/29/2024 4:11 PM EDT Tc from pt requesting a call back. Pt stated she was advised by [facility] pharmacy script for clonazePAM (KlonoPIN) 1 MG tablet was denied. Contact pt at [phone] documented in this encounter Plan of Treatment Upcoming Encounters Date Type Department Care Team (Late st Contact Info) Description 12/06/2024 11:00 AM EDT Office Visit [facility] OPTOMETRY [address] [place] [address] Dara Rock, OD [address] [place], [place] 01/07/2025 9:30 AM EDT Telemedicine [facility] MED[facility]INE [address] [place] [address] Keri Guan, JENNIFER documented as of this encounter Visit Diagnoses Diagnosis Major depressive disorder with psychotic features (CMS/HCC) documented in this encounter Additional Health Concerns Assessment Noted Time PHQ-9 Depression Total Score: 11 024 11:18 AM EDT documented as of this encounter Care Teams Stitch Wheeler Relationship Specialty Start Date End Date Name, MD Rocky [address] [place] [address] PCP - General Family Medicine 12/03/16 Jim Ram FNP [address] [place] [address] Nurse Practitioner Family Medicine 07/08/23 documented as of this encounter
--- OUTSIDE RECORDS SUMMARY | 2024-11-01 13:50 | XMS_ITS | Encounter Summary ---
Author Organization [employer] Address [address] [place] [address] 7t [place] [address] Care Team Providers Care Good Humor Vendor Name Role Phone Name, Rocky CHAUDHARI Primary Care Provider [phone] Jim Ram Unavailable Unavailable Reason for Visit * Reason Comments Med Refill Encounter Details Date Type Department Care Team (Late st Contact Info) Description 07/29/2024 Refill [facility] MED[facility] [address] [place], [place] [phone] Name, MD Rocky [address] [place], [place] [phone] Chronic back pain, unspecified back location, unspecified back pain laterality; Major depressive disorder with psychotic features (CMS/HCC) [...] Description 12/06/2024 11:00 AM EDT Office Visit [facility] OPTOMETRY [address] [place] [address] Pranav, Dara, OD 230 [place] [address] 01/07/2025 9:30 AM EDT Telemedicine [facility] [address] [place] [address] Keri Guan RN documented as of this encounter Visit Diagnoses Diagnosis Chronic back pain, unspecified back location, unspecified back pain laterality Major depressive disorder with psychotic features (CMS/HCC) documented in this encounter Additional Health Concerns Assessment Noted Time PHQ-9 Depression Total Score: 11 024 11:18 AM EDT documented as of this encounter Care Teams Good Humor Vendor Relationship Specialty Start Date End Date Name, MD Rocky [address] [place] [address] PCP - General Family Medicine 12/03/16 Jim Ram FNP [address] [place] [address] Nurse Practitioner Family Medicine 07/08/23 documented as of this encounter
--- OUTSIDE RECORDS SUMMARY | 2024-11-01 13:50 | XMS_ITS | Encounter Summary ---
Author Organization [employer] Address [address] [place] [address] 7 [place] [address] Care Team Providers Care Spring Assembler Supervisor Name Role Phone Name, Rocky CHAUDHARI Primary Care Provider [phone] Jim Ram Unavailable Unavailable Reason for Visit * Reason Onset Date Comments Call Back Request 11/18/2023 Verbal Orders 11/18/2023 Encounter Details Date Type Department Care Team (Late st Contact Info) Description 11/18/2023 Telephone [facility] [address] [place], [place] [phone] Name, MD Rocky [address] [place], [place] [phone] Call Back Request; Verbal Orders Social History Tobacco Use Types Packs/Day Years Used Date Smoking Tobacco: Every Day Cigarettes Alcohol Use Standard Drinks/Week Comments Not Currently 0 (1 standard drink = 0.6 oz pur e alcohol) Depression Answer Date Recorded Patient Health Questionnaire-9 Score 9 09/23/2023 Patient Health Questionnaire-9 Score 9 09/23/2023 Last PHQ-9: Questionnaire Data Not on file 0 09/23/2023 Housing Stability Answer Date Recorded What is [...] Answer Date Recorded Patient Health Questionnaire-2 Score 2 09/23/2023 Comments Unknown Sex and Gender Information Value Date Recorded Sex Assigned at Female 06/03/2022 10:16 AM EDT Legal Sex Female 10:16 AM EDT Gender Identity Female 06/03/2022 10:16 AM EDT Sexual Orientation Lesbian or Nieto 06/03/2022 10 :16 AM EDT documented as of this encounter Miscellaneous Notes * Telephone Encounter - Maureen King RN - 11/21/2023 10:35 AM EDT T/C to S[facility]a [phone] for below message, No answer. LVM to call back on [phone]. * Telephone Encounter - Maureen King RN - 11/19/2023 2:39 PM EDT Please review and advise for verbal orders for Fdc visits 2x a week for 9 weeks. Medication records affiliation was completed. * Telephone Encounter - Edwin Pugh - 11/18/2023 3:47 PM EDT Tc from [facility] calling to request verbal orders for Fdc visits 2x a week for 9 weeks and would like a call back for medication records affiliations please call Saima at [phone] documented in this encounter Plan of Treatment Upcoming Encounters Date Type Department Care Team (Late st Contact Info) Description 12/06/2024 11:00 AM EDT Office Visit [facility] OPTOMETRY [address] [place], [place] [phone] Pranav Dara, OD [address] [place] [address] 01/07/2025 9:30 AM EDT Telemedicine [facility] [address] [place] [address] Keri Guan, JENNIFER documented as of this encounter Visit Diagnoses Not on filedocumented in this encounter Additional Health Concerns Assessment Noted Time PHQ-9 Depression Total Score: 9 09/23/19 24 11:22 AM EST documented as of this encounter Care Teams Spring Assembler Supervisor Relationship Specialty Start Date End Date Name, MD Rocky [address] [place] [address] PCP - General Family Medicine 12/03/16 Jim Ram FNP [address] [place] [address] Nurse Practitioner Family Medicine 07/08/23 documented as of this encounter
--- OUTSIDE RECORDS SUMMARY | 2024-11-01 13:50 | XMS_ITS | Encounter Summary ---
Author Organization [employer] Address [address] [place] [address] 7t [place] [address] Care Team Providers Care Video Journalist Name Role Phone Name, Rocky CHAUDHARI Primary Care Provider [phone] Jim Ram Unavailable Unavailable Reason for Visit * Reason Onset Date Comments Med Refill 04/02/2024 Encounter Details Date Type Department Care Team (Late st Contact Info) Description 04/02/[address] [facility] MED[facility]INE [address] [place], [place] [phone] Name, MD Rocky [address] [place], [place] [phone] Chronic back pain, unspecified back location, unspecified [...] Telephone Encounter - Chyna Orozco LPN - 04/02/2024 1:30 PM EDT PCP VAC. Next appointment 04/07/24. * Telephone Encounter - Edwin Pugh - 04/02/2024 1:19 PM EDT TC from pt requesting medication refill. Medications needing refill : celecoxib (CeleBREX) 200 MG capsule [facility] [place] [place] [facility] [address] [place] [address] documented in this encounter Plan of Treatment Upcoming Encounters Date Type Department Care Team (Late st Contact Info) Description 12/06/2024 11:00 AM EDT Office Visit [facility] OPTOMETRY [address] [place] [address] Dara Rock, OD [address] [place] [address] 01/07/2025 9:30 AM EDT Telemedicine [facility] MEDICINE [address] [place] [address] Keri Guan, JENNIFER documented as of this encounter Visit Diagnoses Diagnosis Chronic back pain, unspecified back location, unspecified back pain laterality documented in this encounter Additional Health Concerns Assessment Noted Time PHQ-9 Depression Total Score: 11 024 11:18 AM EDT documented as of this encounter Care Teams Video Journalist Relationship Specialty Start Date End Date Name, [place] [address] PCP - General Family Medicine 12/03/16 Jim Ram FNP [address] [place] [address] Nurse Practitioner Family Medicine 07/08/23 documented as of this encounter
--- OUTSIDE RECORDS SUMMARY | 2024-11-01 13:50 | XMS_ITS | Encounter Summary ---
Author Organization [employer] Address [address] [place] [address] 7 [place] [address] Care Team Providers Care Oven Dumper Name Role Phone Name, Rocky CHAUDHARI Primary Care Provider [phone] Jim Ram Unavailable Unavailable Encounter Details Date Type Department Care Team (Late st Contact Info) Description 08/01/2022 Orders Only [facility] MEDICINE [address] [place] [address] Alexandrea Barnard, JENNIFER Social History Tobacco Use Types Packs/Day Years [...] Description 12/06/2024 11:00 AM EDT Office Visit [facility] OPTOMETRY [address] [place], [place] [phone] Dara Rock, OD [address] [place], [place] [phone] 01/07/2025 9:30 AM EDT Telemedicine [facility] MEDICINE [address] [place] [address] Keri Guan, RN documented as of this encounter Visit Diagnoses Not on filedocumented in this encounter Additional Health Concerns Assessment Noted Time PHQ-9 Depression Total Score: 7 07/23/20 22 2:17 PM EST documented as of this encounter Care Teams Oven Dumper Relationship Specialty Start Date End Date Name, MD Rocky [address] [place] [address] PCP - General Family Medicine 12/03/16 Jim Ram FNP [address] [place] [address] Nurse Practitioner Family Medicine 07/08/23 documented as of this encounter
--- OUTSIDE RECORDS SUMMARY | 2024-11-01 13:51 | XMS_ITS | Encounter Summary ---
Author Organization [employer] Address [address] [place] [address] 7 [place] [address] Care Team Providers Care Supervisor Inspection And Testing Name Role Phone Name, Rocky CHAUDHARI Primary Care Provider [phone] Jim Ram Unavailable Unavailable Reason for Visit * Reason Onset Date Comments Nurse Triage 10/25/2024 Encounter Details Date Type Department Care Team (Late st Contact Info) Description 10/25/2024 Telephone [facility] MEDICINE [address] [place], [place] [phone] Name, MD Rocky 230 [place], [place] [phone] Nurse Triage Social History Tobacco Use Types Packs/Day Years [...] encounter Miscellaneous Notes * Telephone Encounter - Alana Pat RN - 10/25/2024 2:30 PM EDT Triage call Pt reports being seen by insted 10/22/24 and advised to have f/u apt with provider for possible kidney stones. Pt was seen in OV 10/13/24 for UTI. Pt has been taking prescribed Bactrim DS 2x/daily for 10 days finishing 10/24/24. Pt is calling due to RLQ cramps with urination and is wantingto check if any residual UTI present. Pt reports blood in urine has not been present since 10/22/24.Pt is advised to continue to drink 6-8 glasses liquid daily and agrees. Pt agrees with disposition.ASK apt 11/01/24 @ 1115am. Pt is offered apt this week of 10/25/24 but, is unable to come to apts this week. Insurance is verified as active prior to booking. Protocol Used: Urinary Symptoms (Adult) Protocol-Based Disposition: See in Office or Video Visit within 2 Weeks Positive Triage Question: * All other urine symptoms * All higher-acuity triage questions were negative Care Advice Discussed: * Reasons To Call Back - Fever occurs - Pain or burning with urination - You become worse * Telephone Encounter - Neptali Wilder - 10/25/2024 1:47 PM EDT Symptoms: Urine - Blood In, Abdominal Pain - Female - Not Outcome: Schedule an urgent appointment (within 1 hour) or talk to a nurse or provider soon Reason: Caller denied all higher acuity questions The caller accepted this outcome. Pt did talk to [facility] and they did go to her house to Take some blood for test and a Urine Sample. If any more questions contact pt at [phone] documented in this encounter Plan of Treatment Upcoming Encounters Date Type Department Care Team (Late st Contact Info) Description 12/06/2024 11:00 AM EDT Office Visit [facility] OPTOMETRY [address] [facility], [place] [phone] Dara Rock, OD 230 [place] [address] 01/07/2025 9:30 AM EDT Telemedicine [facility] MEDICINE [address] [place] [address] Keri Guan, JENNIFER documented as of this encounter Visit Diagnoses Not on filedocumented in this encounter Additional Health Concerns Assessment Noted Time PHQ-9 Depression Total Score: 11 024 11:18 AM EDT documented as of this encounter Care Teams Supervisor Inspection And Testing Relationship Specialty Start Date End Date Name, MD Rocky [address] [place] [address] PCP - General Family Medicine 12/03/16 Jim Ram FNP [address] [place] [address] Nurse Practitioner Family Medicine 07/08/23 documented as of this encounter
--- OUTSIDE RECORDS SUMMARY | 2024-11-01 13:51 | XMS_ITS | Encounter Summary ---
Author Organization [employer] Address [address] [place] [address] 7t [place] [address] Care Team Providers Care Melter Supervisor Electric Arc Furnace Name Role Phone Name, Rocky CHAUDHARI Primary Care Provider [phone] Jim Ram Unavailable Unavailable Reason for Visit * Reason Comments Med Refill Encounter Details Date Type Department Care Team (Late st Contact Info) Description 10/29/2024 Refill [facility] MEDICINE 230 [place], [place] [phone] Name, MD Rocky 230 [place], [place] [phone] Major depressive disorder with psychotic features (CMS/HCC); [...] 10:16 AM EDT Sexual Orientation Lesbian or Ineto 06/03/2022 10 :16 AM EDT documented as of this encounter Plan of Treatment Upcoming Encounters Date Type Department Care Team (Late st Contact Info) Description 12/06/2024 11:00 AM EDT Office Visit [facility] OPTOMETRY [address] [place] [address] Pranav, Dara, OD 230 [place] [address] 01/07/2025 9:30 AM EDT Telemedicine [facility] MEDICINE [address] [place] [address] Keri Guan RN documented as of this encounter Visit Diagnoses Diagnosis Major depressive disorder with psychotic features (CMS/HCC) Chronic back pain, unspecified back location, unspecified back pain laterality documented in this encounter Additional Health Concerns Assessment Noted Time PHQ-9 Depression Total Score: 11 024 11:18 AM EDT documented as of this encounter Care Teams Melter Supervisor Electric Arc Furnace Relationship Specialty Start Date End Date Name, MD Rocky [address] [place] [address] PCP - General Family Medicine 12/03/16 Jim Ram FNP [address] [place] [address] Nurse Practitioner Family Medicine 07/08/23 documented as of this encounter
--- OUTSIDE RECORDS SUMMARY | 2024-11-01 13:51 | XMS_ITS | Encounter Summary ---
Author Organization [employer] Address [address] [place] [address] 7 [place] [address] Care Team Providers Care Securities Teller Name Role Phone Name, Rocky CHAUDHARI Primary Care Provider [phone] Jim Ram Unavailable Unavailable Encounter Details Date Type Department Care Team (Late Contact Info) Description 05/05/2023 Abstract [facility] MEDICINE [address] [place] [address] Name, MD Rocky [address] [place] [address] Social History Tobacco Use Types Packs/Day Years [...] 12/06/2024 11:00 AM EDT Office Visit [facility] OPTOMETRY [address] [place] [address] Dara Rock, OD 230 [place] [address] 01/07/2025 9:30 AM EDT Telemedicine [facility] MEDICINE [address] [place] [address] Keri Guan, JENNIFER documented as of this encounter Procedures Procedure Name Priority Date/Time Associated Diagnosis Comments MAMMOGRAPHY Routine 04/30/2023 11:35 AM EDT documented in this encounter Results * Mammography (04/30/2023 11:35 AM EDT) Mammogram Bi-rads 2 Benign Comment:Bi-rads 2 Benign, re peat 1 year Anatomical Region Laterality Modality Other Rocky Jain MD HEALTH MAINTENANCE Final Result documented in this encounter Visit Diagnoses Not on filedocumented in this encounter Additional Health Concerns Assessment Noted Time PHQ-9 Depression Total Score: 6 12/25/19 11:32 AM EDT documented as of this encounter Care Teams Securities Teller Relationship Specialty Start Date End Date Name, MD Rocky [address] [place] [address] PCP - General Family Medicine 12/03/16 [place] [address] Nurse Practitioner Family Medicine 07/08/23 documented as of this encounter
--- OUTSIDE RECORDS SUMMARY | 2024-11-01 13:51 | XMS_ITS | Encounter Summary ---
Author Organization [employer] Address [address] [facility] 7t [place] [address] Care Team Providers Care Drainlayer Name Role Phone Name, Rocky CHAUDHARI Primary Care Provider [phone] Jim Ram Unavailable Unavailable Reason for Visit * Reason Onset Date Comments Call Back Request 10/15/2024 POt to bring in police report of oxycodone theft 10/15/2024 Encounter Details Date Type Department Care Team (Late st Contact Info) Description 10/15/2024 Telephone [facility] MEDICINE 230 [place], [place] [phone] Name, MD Rocky 230 [place], [place] [phone] Call Back Request; POt to bring in police report of oxycodone theft Social History Tobacco Use Types Packs/Day Years [...] encounter Miscellaneous Notes * Telephone Encounter - Keri Guan RN - 10/15/2024 3:24 PM EDT Return TC to patient, reviewed with her over the phone her police report. Explained again to pt, she would need to provide [facility] a copy of the police report before any consideration of early refill of her oxycodone. Pt states she will bring paperwork Friday or Friday. * Telephone Encounter - Neptali Wilder - 10/15/2024 3:21 PM EDT Tc from pt requesting a call back to Speak with Keri regarding something that was Mentioned in the Morning. Contact pt at [phone] documented in this encounter Plan of Treatment Upcoming Encounters Date Type Department Care Team (Late st Contact Info) Description 12/06/2024 11:00 AM EDT Office Visit [facility] OPTOMETRY [address] [place] [address] Dara Rock, OD 230 [place] [address] 01/07/2025 9:30 AM EDT Telemedicine [facility] MEDICINE [address] [place] [address] eKri Gaun, JENNIFER documented as of this encounter Visit Diagnoses Not on filedocumented in this encounter Additional Health Concerns Assessment Noted Time PHQ-9 Depression Total Score: 11 024 11:18 AM EDT documented as of this encounter Care Teams Drainlayer Relationship Specialty Start Date End Date Name, MD Rocky [address] [place] [address] PCP - General Family Medicine 12/03/16 Jim Ram FNP [address] [place] [address] Nurse Practitioner Family Medicine 07/08/23 documented as of this encounter
--- OUTSIDE RECORDS SUMMARY | 2024-11-01 13:51 | XMS_ITS | Encounter Summary ---
Author Organization [employer] Address [address] [place] [address] 7t [place] [address] Care Team Providers Care Program Services Assistant Name Role Phone Name, Rocky CHAUDHARI Primary Care Provider [phone] Jim Ram Unavailable Unavailable Reason for Visit * Reason Comments Med Refill Encounter Details Date Type Department Care Team (Late st Contact Info) Description 10/25/[address] [facility] MEDICINE 230 [place], [place] [phone] Name, MD Rocky [address] [place], [place] [phone] Major depressive disorder with psychotic features (CMS/HCC); [...] encounter Miscellaneous Notes * Telephone Encounter - Ciarra Herrmann - 10/26/2024 1:21 PM EDT Tc from [facility] requesting med refill. documented in this encounter Plan of Treatment Upcoming Encounters Date Type Department Care Team (Late st Contact Info) Description 12/06/2024 11:00 AM EDT Office [address] [facility] OPTOMETRY [address] [place] [address] Dara Rock, OD 230 [place] [address] 01/07/2025 9:[address] [facility] MEDICINE [address] [place] [address] Krei Guan RN documented as of this encounter Visit Diagnoses Diagnosis Major depressive disorder with psychotic features (CMS/HCC) Chronic back pain, unspecified back location, unspecified back pain laterality documented in this encounter Additional Health Concerns Assessment Noted Time PHQ-9 Depression Total Score: 11 024 11:18 AM EDT documented as of this encounter Care Teams Program Services Assistant Relationship Specialty Start Date End Date Name, MD Rocky 230 [place] [address] PCP - General Family Medicine 12/03/16 Jim Ram FNP [address] [place] [address] Nurse Practitioner Family Medicine 07/08/23 documented as of this encounter
--- OUTSIDE RECORDS SUMMARY | 2024-11-01 13:51 | XMS_ITS | Encounter Summary ---
Author Organization [employer] Address [address] [place] [address] 7t [place] [address] Care Team Providers Care Internist Medical Doctor Md Name Role Phone Name, Rocky CHAUDHARI Primary Care Provider Jim Ram Unavailable Unavailable Reason for Visit * Reason Comments Med Refill Encounter Details Date Type Department Care Team (Late st Contact Info) Description 10/23/2024 Refill [facility] MEDICINE [address] [place], [place] [phone] Name, MD Rocky 230 [place], [place] [phone] Major depressive disorder with psychotic features (CMS/HCC); [...] Description 12/06/2024 11:00 AM EDT Office Visit [facility] OPTOMETRY [address] [place] [address] Pranav, Dara, OD 230 [place] [address] 01/07/2025 9:30 AM EDT Telemedicine [facility] MEDICINE 230 [place] [address] Keri Guan RN documented as of this encounter Visit Diagnoses Diagnosis Major depressive disorder with psychotic features (CMS/HCC) Chronic back pain, unspecified back location, unspecified back pain laterality documented in this encounter Additional Health Concerns Assessment Noted Time PHQ-9 Depression Total Score: 11 024 11:18 AM EDT documented as of this encounter Care Teams Internist Medical Doctor Md Relationship Specialty Start Date End Date Name, MD Rocky [address] [place] [address] PCP - General Family Medicine 12/03/16 Jim Ram FNP [address] [place] [address] Nurse Practitioner Family Medicine 07/08/23 documented as of this encounter
--- OUTSIDE RECORDS SUMMARY | 2024-11-01 13:51 | XMS_ITS | Encounter Summary ---
Author Organization [employer] Address [address] [place] [address] 7t [place] [address] Care Team Providers Care Roof Panel Hanger Name Role Phone Name, Rocky CHAUDHARI Primary Care Provider [phone] Jim Ram Unavailable Unavailable Reason for Visit * Reason Comments Med Refill Encounter Details Date Type Department Care Team (Late st Contact Info) Description 10/22/2024 Refill [facility] MEDICINE [address] [place], [place] [phone] Name, MD Rocky 230 [place], [place] [phone] Chronic back pain, unspecified back location, unspecified [...] Description 12/06/2024 11:00 AM EDT Office Visit [facility] OPTOMETRY [address] [place] [address] Pranav, Dara, OD 230 [place] [address] 01/07/2025 9:30 AM EDT Telemedicine [facility] MEDICINE 230 [place] [address] Keri Guan RN documented as of this encounter Visit Diagnoses Diagnosis Chronic back pain, unspecified back location, unspecified back pain laterality documented in this encounter Additional Health Concerns Assessment Noted Time PHQ-9 Depression Total Score: 11 024 11:18 AM EDT documented as of this encounter Care Teams Roof Panel Hanger Relationship Specialty Start Date End Date Name, MD Rocky 230 [place] [address] PCP - General Family Medicine 12/03/16 Jim Ram FNP 230 [place] [address] Nurse Practitioner Family Medicine 07/08/23 documented as of this encounter
--- OUTSIDE RECORDS SUMMARY | 2024-11-01 13:51 | XMS_ITS | Encounter Summary ---
Author Organization [employer] Address [address] [place] [address] 7 [place] [address] Care Team Providers Care Accordion Maker Name Role Phone Name, Rocky CHAUDHARI Primary Care Provider [phone] Jim Ram Unavailable Unavailable Reason for Visit * Reason Onset Date Comments Medication Question 06/30/2024 Encounter Details Date Type Department Care Team ([facility] st Contact Info) Description 06/30/2024 Telephone [facility] MEDICINE 230 [place], [place] [phone] Name, MD Rocky 230 [place], [place] [phone] Medication Question Social History Tobacco Use Types Packs/Day Years [...] encounter Miscellaneous Notes * Telephone Encounter - Neptali Wilder - 06/30/2024 2:44 PM EST Tc from pt requesting for a nurse to call Pharmacy regarding med clonazePAM (KlonoPIN) 1 MG tablet Instructions If any questions Contact pt at [phone] documented in this encounter Plan of Treatment Upcoming Encounters Date Type Department Care Team (Late st Contact Info) Description 12/06/2024 11:00 AM EDT Office Visit [facility] OPTOMETRY [address] [place] [address] Pranav, Dara, OD 230 [place], [place] [phone] 01/07/2025 9:30 AM EDT Telemedicine [facility] MEDICINE 230 [place], [place] [phone] Keri Guan RN documented as of this encounter Visit Diagnoses Not on filedocumented in this encounter Additional Health Concerns Assessment Noted Time PHQ-9 Depression Total Score: 11 024 11:18 AM EDT documented as of this encounter Care Teams Accordion Maker Relationship Specialty Start Date End Date Name, MD Rocky 230 [place] [place] [address] PCP - General Family Medicine 12/03/16 Jim Ram FNP [address] [place] [address] Nurse Practitioner Family Medicine 07/08/23 documented as of this encounter
[2024-11-01 13:57] LABS: Basophils Percent Auto 0.4 % (0-2); Eosinophils Absolute Auto 0.2 X10*3/uL (0.0-0.4); Eosinophils Percent Auto 2.4 % (0-4); Hematocrit 37.8 % (37.0-47.0); Hemoglobin 12.2 g/dl (12.0-16.0); Imm Gran Abs Auto 0.03 X10*3/uL (0.00-0.03); Imm Gran Pct Auto 0.4 % (0.0-0.4); Lymphocytes Absolute Auto 1.1 X10*3/uL (1.2-4.9); Lymphocytes Percent Auto 13.9 % (20-40); Mean Corpuscular HGB Conc 32.3 g/dl (31.0-35.0); Mean Corpuscular Volume 99.2 fL (80.0-98.0); Mean Platelet Volume 10.3 fL (9.4-12.3); Monocytes Absolute Auto 0.5 X10*3/uL (0.1-1.2); Monocytes Percent Auto 6.7 % (2-11); Neutrophils Absolute Auto 5.8 x10*3/uL (2.0-8.3); Neutrophils Percent Auto 76.2 % (45-73); Platelet Count 200 X10*3/uL (160-400); Red Blood Count 3.81 X10*6/uL (4.20-5.50); Red Cell Distribution Width 14.6 % (11.0-16.0); White Blood Count 7.6 X10*3/uL (4.8-10.8)
[2024-11-01 14:37] LABS: Anion Gap 11 (12-20); Blood Urea Nitrogen 18 mg/dL (9-16); Calcium 8.8 mg/dL (8.4-10.2); Carbon Dioxide 25 mmol/L (22-29); Chloride 111 mmol/L (96-108); Estimated Glomerular Filt Rate > 60; Glucose Random 64 mg/dL (60-115); Potassium 3.7 mmol/L (3.3-5.1); Sodium 143 mmol/L (135-145)
[2024-11-01 18:21] LABS: Appearance Urine Clear; Color Urine Yellow; Glucose Urine UA Negative (Negative); Leukocyte Esterase Urine Negative (Negative); Nitrite Urine Negative (Negative); Urine Blood Negative (Negative); Urine Ketones Negative (Negative); Urine Protein Negative (Neg-Trace)
[2024-11-01 18:31] LABS: Bacteria Urine None Seen (None Seen); Hyaline Casts Urine 0-2 /LPF (0-2); RBC Urine 0-2 /HPF (0-2); Squamous Epithelial Cell Urine 0-2 /HPF (0-2); WBC Urine 0-5 /HPF (0-5)
[2024-11-02 13:44] LABS: Bacterial Vaginosis PCR NEGATIVE (Negative); Candida Group PCR NOT DETECTED (Not Detect); Candida glab krusei PCR NOT DETECTED (Not Detect); Trichomonas vaginalis PCR NOT DETECTED (Not Detect)
== END 2024-11-01 12:10 | disposition home or self-care (01) ==
LOC: HO.HHCL 12:09
PROVIDERS: Visit Provider Nurse Practitioner
DX: R10.31 Right lower quadrant pain (principal); R39.9 Unspecified symptoms and signs involving the genitourinary system; N89.8 Other specified noninflammatory disorders of vagina
CPT/HCPCS: 36415; 80048; 81001; 81515; 85025; 87086

== ENCOUNTER 2024-11-15 06:24 | Outpatient (REF) | payer OTHER, SELFPAY ==
--- NOTE | ~2024-11-15 | CT_ITS ---
EXAMINATION: CT ABDOMEN PELVIS WITH IV CONTRAST HISTORY: post void pain COMPARISON: Comparison is made with the prior examination dated 10/12/2014. TECHNIQUE: CT scan of the abdomen and pelvis was performed following administration of 85 mL Omnipaque 350 using standard departmental protocol. Coronal and sagittal reformatted images were generated and reviewed. The patient received oral contrast material. This CT exam was performed with one or more of the following dose reduction techniques: automated exposure control, adjustment of the mA and/or kV according to patient size, use of iterative reconstruction technique. DLP: 278 mGy-cm FINDINGS: LOWER CHEST: The visualized lung bases are clear. There is no pleural effusion. CARDIOVASCULATURE: The heart is normal in size. There is no pericardial effusion. LIVER: The liver is normal in size and contour. No liver mass is identified. The hepatic and portal veins are patent. GALLBLADDER / BILE DUCTS: The gallbladder is unremarkable. There is no intra or extrahepatic biliary ductal dilatation. SPLEEN: The spleen is normal in size. No focal splenic lesion is identified. PANCREAS: The pancreas is unremarkable in appearance. ADRENAL GLANDS: Within normal limits. KIDNEYS/RETROPERITONEUM: No renal calculi are identified. There is no hydronephrosis. No renal masses are identified. LYMPH NODES: No abdominal or pelvic lymphadenopathy. VASCULATURE: The abdominal aorta demonstrates atherosclerotic calcification, but is normal in caliber. MESENTERY/PERITONEUM: No free fluid. No masses. There is no free intraperitoneal gas. STOMACH: The stomach is distended with oral contrast material and debris. SMALL BOWEL: The small bowel is normal in caliber. COLON: There is a large amount of stool throughout the colon. APPENDIX: Normal. URINARY BLADDER/PELVIC ORGANS: The urinary bladder is collapsed, limiting evaluation. The patient is status post hysterectomy. BONES / SOFT TISSUES: There is severe degenerative disc disease at the L4-5 and L5-S1 levels. There is a severe compression fracture of T12, which was present on a chest CT dated 05/31/2024. CT/CT abdomen pelvis w IV con IMPRESSION: Large amount of stool throughout the colon. Electronically signed by: Lopez Matta MD 11/15/2024 10:09 AM EDT
--- OUTSIDE RECORDS SUMMARY | 2024-11-15 06:26 | XMS_ITS | Encounter Summary ---
Author Organization [employer] Address [address] [place] [address] 7t [place] [address] Care Team Providers Care Stone Setter Metal Optical Frames Name Role Phone Name, Rocky CHAUDHARI Primary Care Provider [phone] Jim Ram Unavailable Unavailable Reason for Visit * Reason Comments Med Refill Encounter Details Date Type Department Care Team (Late st Contact Info) Description 08/02/2024 Refill [facility] MEDICINE 230 [place], [place] [phone] Name, MD Rocky [address] [place], [place] [phone] Major depressive disorder with psychotic features (CMS/HCC) [...] Description 12/06/2024 11:00 AM EDT Office Visit [facility] OPTOMETRY [address] [place] [address] Dara Rock, OD 230 [place] [address] 01/07/2025 9:30 AM EDT Telemedicine [facility] MEDICINE [address] [place] [address] Keri Guan, JENNIFER 02/16/2025 11:15 AM EDT Office Visit [facility] MEDICINE [address] [place] [address] Name, MD Rocky [address] [place] [address] documented as of this encounter Visit Diagnoses Diagnosis Major depressive disorder with psychotic features (CMS/HCC) documented in this encounter Additional Health Concerns Assessment Noted Time PHQ-9 Depression Total Score: 11 024 11:18 AM EDT documented as of this encounter Care Teams Stone Setter Metal Optical Frames Relationship Specialty Start Date End Date Name, MD Rocky [address] [place] [address] PCP - General Family Medicine 12/03/16 Jim Ram FNP [address] [place] [address] Nurse Practitioner Family Medicine 07/08/23 documented as of this encounter
--- OUTSIDE RECORDS SUMMARY | 2024-11-15 06:26 | XMS_ITS | Encounter Summary ---
Author Organization [employer] Address [address] [facility] 7t [place] [address] Care Team Providers Care Provider Enrollment Specialist Name Role Phone Name, Rocky CHAUDHARI Primary Care Provider [phone] Jim Ram Unavailable Unavailable Reason for Visit * Reason Comments Med Refill Encounter Details Date Type Department Care Team ([facility] st Contact Info) Description 09/05/2023 Refill [facility] MED & PEDS [address] [place] [address] Name, MD Rocky [address] [place], [place] [phone] Chronic back pain, unspecified back location, unspecified [...] Description 12/06/2024 11:00 AM EDT Office Visit [facility] OPTOMETRY [address] [place] [address] Pranav, Dara, OD 230 [place] [address] 01/07/2025 9:30 AM EDT Telemedicine [facility] MEDICINE [address] [place] [address] Keri Guan RN 02/16/2025 11:15 AM EDT Office Visit [facility] MEDICINE [address] [place] [address] Rocky Jain MD [address] [place] [address] documented as of this encounter Visit Diagnoses Diagnosis Chronic back pain, unspecified back location, unspecified back pain laterality Multiple sclerosis (CMS/HCC) Multiple sclerosis documented in this encounter Additional Health Concerns Assessment Noted Time PHQ-9 Depression Total Score: 6 05/26/20 11:14 AM EDT documented as of this encounter Care Teams Provider Enrollment Specialist Relationship Specialty Start Date End Date Rocky Jain MD [address] [place] [address] PCP - General Family Medicine 12/03/16 Jim Ram FNP [address] [place] [address] Nurse Practitioner Family Medicine 07/08/23 documented as of this encounter
--- OUTSIDE RECORDS SUMMARY | 2024-11-15 06:26 | XMS_ITS | Encounter Summary ---
Author Organization [employer] Address [address] [place] [address] 7t [place] [address] Care Team Providers Care Trim Stencil Maker Name Role Phone Name, Rocky CHAUDHARI Primary Care Provider [phone] Jim Ram Unavailable Unavailable Reason for Visit * Reason Comments Med Refill Encounter Details Date Type Department Care Team (Late st Contact Info) Description 05/20/2023 Refill [facility] MEDICINE 230 [place], [place] [phone] Name, MD Rocky [address] [place], [place] [phone] Chronic back pain, unspecified back location, unspecified [...] Description 12/06/2024 11:00 AM EDT Office Visit [facility] OPTOMETRY 267 [place] [address] Dara Rock, OD 230 [place] [address] 01/07/2025 9:30 AM EDT Telemedicine [facility] MEDICINE [address] [place] [address] Keri Guan RN 02/16/2025 11:15 AM EDT Office Visit [facility] MEDICINE [address] [place] [address] Rocky Jain MD [address] [place] [address] documented as of this encounter Visit Diagnoses Diagnosis Chronic back pain, unspecified back location, unspecified back pain laterality Multiple sclerosis (CMS/HCC) Multiple sclerosis documented in this encounter Additional Health Concerns Assessment Noted Time PHQ-9 Depression Total Score: 6 12/25/19 23 11:32 AM EDT documented as of this encounter Care Teams Trim Stencil Maker Relationship Specialty Start Date End Date Name, MD Rocky [address] [place] [address] PCP - General Family Medicine 12/03/16 Jim Ram FNP [address] [place] [address] Nurse Practitioner Family Medicine 07/08/23 documented as of this encounter
--- OUTSIDE RECORDS SUMMARY | 2024-11-15 06:26 | XMS_ITS | Encounter Summary ---
Author Organization [employer] Address [address] [place] [address] 7t [place] [address] Care Team Providers Care Chief Drafter Name Role Phone Name, Rocky CHAUDHARI Primary Care Provider [phone] Jim Ram Unavailable Unavailable Reason for Visit * Reason Comments Med Refill Encounter Details Date Type Department Care Team (Late st Contact Info) Description 07/29/2024 Refill [facility] MEDICINE 230 [place], [place] [phone] Name, MD Rocky [address] [place], [place] [phone] Chronic back pain, unspecified back location, unspecified [...] 12/06/2024 11:00 AM EDT Office Visit [facility] OPTOMETRY [address] [place] [address] Pranav, Dara, OD 230 [place] [address] 01/07/2025 9:30 AM EDT Telemedicine [facility] MEDICINE [address] [place] [address] Keri Guan RN 02/16/2025 11:15 AM EDT Office Visit [facility] MEDICINE [address] [place] [address] Name, MD Rocky [address] [place] [address] documented as of this encounter Visit Diagnoses Diagnosis Chronic back pain, unspecified back location, unspecified back pain laterality Major depressive disorder with psychotic features (CMS/HCC) documented in this encounter Additional Health Concerns Assessment Noted Time PHQ-9 Depression Total Score: 11 024 11:18 AM EDT documented as of this encounter Care Teams Chief Drafter Relationship Specialty Start Date End Date Name, MD Rocky 230 [place] [address] PCP - General Family Medicine 12/03/16 Jim Ram FNP [address] [place] [address] Nurse Practitioner Family Medicine 07/08/23 documented as of this encounter
--- OUTSIDE RECORDS SUMMARY | 2024-11-15 06:26 | XMS_ITS | Encounter Summary ---
Author Organization [employer] Address [address] [place] [address] 7t [place] [address] Care Team Providers Care Satellite Instruction Facilitator Name Role Phone Name, Rocky CHAUDHARI Primary Care Provider [phone] Jim Ram Unavailable Unavailable Encounter Details Date Type Department Care Team (Late st Contact Info) Description 11/10/2024 Orders Only [facility] [address] [place], [place] [phone] Patience Rodríguez NP 230 [place], [place] [phone] Right lower quadrant abdominal pain (Primary Dx) Social History Tobacco Use Types Packs/Day Years [...] 11:00 AM EDT Office Visit [facility] [address] [place] [address] Dara Rock, OD 230 [place] [address] 01/07/2025 9:30 AM EDT Telemedicine [facility] [address] [place] [address] Keri Guan, JENNIFER 02/16/2025 11:15 AM EDT Office Visit [facility] [address] [place] [address] Name, MD Rocky [address] [place] [address] documented as of this encounter Visit Diagnoses Diagnosis Right lower quadrant abdominal pain- Primary documented in this encounter Additional Health Concerns Assessment Noted Time PHQ-9 Depression Total Score: 11 024 11:18 AM EDT documented as of this encounter Care Teams Satellite Instruction Facilitator Relationship Specialty Start Date End Date Name, MD Rocky 230 [place] [address] PCP - General Family Medicine 12/03/16 Jim Ram FNP 230 [place] [address] Nurse Practitioner Family Medicine 07/08/23 documented as of this encounter
--- OUTSIDE RECORDS SUMMARY | 2024-11-15 06:26 | XMS_ITS | Encounter Summary ---
Author Organization [employer] Address [address] [place] [address] 7t [place] [address] Care Team Providers Care Demo Coordinator Name Role Phone Name, Rocky CHAUDHARI Primary Care Provider [phone] Jim Ram Unavailable Unavailable Encounter Details Date Type Department Care Team (Late st Contact Info) Description 11/10/2024 Telephone [facility] 230 [place], [place] [phone] Name, MD Rocky 230 [place], [place] [phone] Social History Tobacco Use Types Packs/Day Years [...] Description 12/06/2024 11:00 AM EDT Office Visit [facility] OPTOMETRY [address] [place] [address] Dara Rock, OD 230 [place] [address] 01/07/2025 9:30 AM EDT Telemedicine [facility] [address] [place] [address] Keri Guan RN 02/16/2025 11:15 AM EDT Office Visit [facility] [address] [place] [address] Rocky Jain MD [address] [place] [address] documented as of this encounter Visit Diagnoses Not on filedocumented in this encounter Additional Health Concerns Assessment Noted Time PHQ-9 Depression Total Score: 11 024 11:18 AM EDT documented as of this encounter Care Teams Demo Coordinator Relationship Specialty Start Date End Date Rocky Jain MD [address] [place] [address] PCP - General Family Medicine 12/03/16 Jim Ram FNP [address] [place] [address] Nurse Practitioner Family Medicine 07/08/23 documented as of this encounter
--- OUTSIDE RECORDS SUMMARY | 2024-11-15 06:26 | XMS_ITS | Encounter Summary ---
Author Organization [employer] Address [address] [place] [address] 7 [place] [address] Care Team Providers Care Coordinator Of Placement Name Role Phone Name, Rocky CHAUDHARI Primary Care Provider [phone] Jim Ram Unavailable Unavailable Reason for Visit * Reason Onset Date Comments Medication Question 11/10/2024 Encounter Details Date Type Department Care Team (Late st Contact Info) Description 11/10/2024 Telephone [facility] 230 [place], [place] [phone] Name, MD Rocky 230 [place], [place] [phone] Medication Question Social History Tobacco Use Types [...] encounter Miscellaneous Notes * Telephone Encounter - Patience Rodríguez NP - 11/10/2024 8:05 PM EDT Thank you * Telephone Encounter - Zuri Campos RN - 11/10/2024 1:25 PM EDT TC placed to pt regarding oral contrast. Pt states she was advised to call her PCP office and request an order be sent for oral contrast due to pt being unable to come in earlier for contrast for CT due to transportation. Pt requesting oral contrast be sent to [facility] pharmacy on [facility] in [place], [place]. Message forwarded to ordering provider for review. Medical Transcription Supervisor spoke with ordering provider regarding pt. Provider does not feel comfortable prescribing the oral contrast due to possible risk for allergy. Provider asked if pt would be able to go to appointment if we provided uber. Medical Transcription Supervisor spoke with Olivia Jasso who got it approved. Olivia Jasso spoke with pt and pt declined uber services as they did not want to leave the house that early. Olivia Vasquezvised insurance underwriter sales to call [facility] radiology to see if they are able to provide pt with oral contrast the day before the procedure. TC placed to [facility] radiology to see if they can provide oral contrast the daybefore. [facility] states she needs to come in for the contrast and they are unable to provide oral contrast. TC placed to pt to inform of above messages. Asked pt again if they would like uber services. Ptstates I will use the uber since I don't really have any other choice. Advised pt a message will be sent to her phone at the confirmed number [phone]. Address confirmed with pt. Advised pt to click the link received to set up uber. Pt requesting transportation both ways as they do not have aride home. Pt denies further questions at this time. Medical Transcription Supervisor does not have uber access. Medical Transcription Supervisor consulted with Ronna Begum RN to set up uber for pt. * Telephone Encounter - Kevan Sullivanarez - 11/10/2024 12:20 PM EDT TC from pt reports having a CT scheduled for 11/15/24 at 8:30am . Pt reports facility wanting her to come in at 6:30am for oral contrast but pt unable to do so due to having to schedule transportation . Ct Facility recommended her tyo call pcp office to get oral contrast prescribed so she may picker at pharmacy, so she may drink it prior to her visit time . documented in this encounter Plan of Treatment Upcoming Encounters Date Type Department Care Team (Late st Contact Info) Description 12/06/2024 11:00 AM EDT Office Visit [facility] OPTOMET[facility] [address] [place] [address] Dara Rock, OD 230 [place] [address] 01/07/2025 9:30 AM EDT Telemedicine [facility] [address] [place] [address] Keri Guan RN 02/16/2025 11:15 AM EDT Office Visit [facility] [address] [place] [address] NameRocky MD 230 [place] [address] documented as of this encounter Visit Diagnoses Not on filedocumented in this encounter Additional Health Concerns Assessment Noted Time PHQ-9 Depression Total Score: 11 024 11:18 AM EDT documented as of this encounter Care Teams Coordinator Of Placement Relationship Specialty Start Date End Date Rocky Jain MD [address] [place] [address] PCP - General Family Medicine 12/03/16 Jim Ram FNP [address] [place] [address] Nurse Practitioner Family Medicine 07/08/23 documented as of this encounter
--- OUTSIDE RECORDS SUMMARY | 2024-11-15 06:27 | XMS_ITS | Encounter Summary ---
Author Organization [employer] Address [address] [place] [address] 7t [place] [address] Care Team Providers Care Licensed Optical Dispenser Name Role Phone Name, Rocky CHAUDHARI Primary Care Provider [phone] Jim Ram Unavailable Unavailable Reason for Visit * Reason Comments Med Refill Encounter Details Date Type Department Care Team (Late st Contact Info) Description 08/27/2024 Refill [facility] 230 [place] [address] April Marti NP 230 [place], [place] [phone] Major depressive disorder with psychotic features (CMS/HCC) [...] Description 12/06/2024 11:00 AM EDT Office Visit [facility] OPTOMETRY [address] [place] [address] Dara Rock, OD 230 [place] [address] 01/07/2025 9:30 AM EDT Telemedicine [facility] [address] [place] [address] Keri Guan, JENNIFER 02/16/2025 11:15 AM EDT Office Visit [facility] [address] [place] [phone] Name, MD Rocky 230 [place] [address] documented as of this encounter Visit Diagnoses Diagnosis Major depressive disorder with psychotic features (CMS/HCC) documented in this encounter Additional Health Concerns Assessment Noted Time PHQ-9 Depression Total Score: 11 024 11:18 AM EDT documented as of this encounter Care Teams Licensed Optical Dispenser Relationship Specialty Start Date End Date Name, MD Rocky 230 [place] [address] PCP - General Family Medicine 12/03/16 Jim Ram FNP 230 [place] [address] Nurse Practitioner Family Medicine 07/08/23 documented as of this encounter
--- OUTSIDE RECORDS SUMMARY | 2024-11-15 06:27 | XMS_ITS | Encounter Summary ---
Author Organization [employer] Address [address] [place] [address] 7 [place] [address] Care Team Providers Care Fly Finisher Name Role Phone Name, Rocky CHAUDHARI Primary Care Provider [phone] Jim Ram Unavailable Unavailable Reason for Visit * Reason Onset Date Comments Nurse Triage 10/25/2024 Encounter Details Date Type Department Care Team (Late st Contact Info) Description 10/25/2024 Telephone [facility]INE 230 [place], [place] [phone] Name, MD Rocky [address] [place], [place] [phone] Nurse Triage Social History Tobacco Use Types [...] If any more questions contact pt at [phone] documented in this encounter Plan of Treatment Upcoming Encounters Date Type Department Care Team (Late st Contact Info) Description 12/06/2024 11:00 AM EDT Office Visit [facility] OPTOMETRY [address] [place], [place] [phone] Dara Rock, OD 230 [place] [address] 01/07/2025 9:30 AM EDT Telemedicine [facility] MEDICINE [address] [place] [address] Keri Guan RN 02/16/2025 11:15 AM EDT Office Visit [facility] MEDICINE [address] [place] [address] NameRocky MD [address] [place] [address] documented as of this encounter Visit Diagnoses Not on filedocumented in this encounter Additional Health Concerns Assessment Noted Time PHQ-9 Depression Total Score: 11 024 11:18 AM EDT documented as of this encounter Care Teams Fly Finisher Relationship Specialty Start Date End Date Rocky Jain MD [address] [place] [address] PCP - General Family Medicine 12/03/16 Jim Ram FNP [address] [place] [address] Nurse Practitioner Family Medicine 07/08/23 documented as of this encounter
--- OUTSIDE RECORDS SUMMARY | 2024-11-15 06:27 | XMS_ITS | Encounter Summary ---
Author Organization [employer] Address [address] [place] [address] 7 [place] [address] Care Team Providers Care Switch Repairer Name Role Phone Name, Rocky CHAUDHARI Primary Care Provider [phone] Jim Ram Unavailable Unavailable Reason for Visit * Reason Onset Date Comments Durable Medical Equipment 12/03/2022 Encounter Details Date Type Department Care Team (Late st Contact Info) Description 12/03/2022 Telephone [facility] 230 [place], [place] [phone] Name, MD Rocky [address] [place], [place] [phone] Durable Medical Equipment Social History Tobacco Use [...] 12:00 PM EDT Tc from Jasmyne at [facility] requesting a new script for incontinence brief size XL, patient uses 2 a dayand is requesting 56 a month for 3 months. Goves size M/L 2 boxes a month for 3 months. Any furtherquestions please call [phone] or email: [email or web address]. documented in this encounter Plan of Treatment Upcoming Encounters Date Type Department Care Team (Late st Contact Info) Description 12/06/2024 11:00 AM EDT Office Visit [facility] OPTOMETRY [address] [place] [address] Dara Rock, OD 230 [place] [address] 01/07/2025 9:30 AM EDT Telemedicine [facility] [address] [place] [address] Keri Guan, JENNIFER 02/16/2025 11:15 AM EDT Office Visit [facility] [address] [place] [address] Name, MD Rocky [address] [place] [address] documented as of this encounter Visit Diagnoses Not on filedocumented in this encounter Additional Health Concerns Assessment Noted Time PHQ-9 Depression Total Score: 8 10/23/19 23 3:20 PM EDT documented as of this encounter Care Teams Switch Repairer Relationship Specialty Start Date End Date Name, MD Rocky [address] [place] [address] PCP - General Family Medicine 12/03/16 Jim Ram FNP [address] [place] [address] Nurse Practitioner Family Medicine 07/08/23 documented as of this encounter
--- OUTSIDE RECORDS SUMMARY | 2024-11-15 06:27 | XMS_ITS | Encounter Summary ---
Author Organization [employer] Address [address] [place] [address] 7 [place] [address] Care Team Providers Care Senior Fire Protection Engineer Name Role Phone Name, Rocky CHAUDHARI Primary Care Provider Jim Ram Unavailable Unavailable Encounter Details Date Type Department Care Team (Late Contact Info) Description 05/05/2023 Abstract [facility] [address] [place] [address] Name, MD Rocky 230 [place] [address] Social History Tobacco Use Types Packs/Day Years [...] Description 12/06/2024 11:00 AM EDT Office Visit [facility] OPTOMETRY [address] [place] [address] Dara Rock, OD [address] [place] [address] 01/07/2025 9:30 AM EDT Telemedicine [facility] [place] [phone] Keri Guan RN 02/16/2025 11:15 AM EDT Office Visit [facility] [place] [address] Name, MD Rocky [address] [facility] [place] [address] documented as of this encounter Procedures Procedure [...] as of this encounter Care Teams Senior Fire Protection Engineer Relationship Specialty Start Date End Date Name, MD Rocky [place] [facility] [place] [address] PCP - General Family Medicine 12/03/16 Jim [place] [address] Nurse Practitioner Family Medicine 07/08/23 documented as of this encounter
--- OUTSIDE RECORDS SUMMARY | 2024-11-15 06:27 | XMS_ITS | Encounter Summary ---
Author Organization [employer] Address [address] [place] [address] 7 [place] [address] Care Team Providers Care Supervisor Printing Shop Name Role Phone Name, Rocky CHAUDHARI Primary Care Provider [phone] Jim Ram Unavailable Unavailable Encounter Details Date Type Department Care Team (Late Contact Info) Description 09/12/2022 Abstract [facility] MED[facility] [address] [place] [address] Name, MD Rocky [address] [place] [address] Social History Tobacco Use Types Packs/Day Years [...] Visit [facility] OPTOMETRY [address] [place], [place] [phone] Dara Rock, OD 230 [place] [address] 01/07/2025 9:30 AM EDT Telemedicine [facility] [address] [place] [address] Keri Guan, RN 02/16/2025 11:15 AM EDT Office Visit [facility] 230 [place] [address] Name, [place] [address] documented as of this encounter Visit Diagnoses Not on filedocumented in this encounter Additional Health Concerns Assessment Noted Time PHQ-9 Depression Total Score: 6 08/22/19 23 10:50 AM EST documented as of this encounter Care Teams Supervisor Printing Shop Relationship Specialty Start Date End Date Name, [place] [address] PCP - General Family Medicine 12/03/16 Jim Ram FNP [address] [place] [address] Nurse Practitioner Family Medicine 07/08/23 documented as of this encounter
--- OUTSIDE RECORDS SUMMARY | 2024-11-15 06:27 | XMS_ITS | Encounter Summary ---
Author Organization [employer] Address [address] [place] [address] 7t [place] [address] Care Team Providers Care Resident Services Director Name Role Phone Name, Rocky CHAUDHARI Primary Care Provider [phone] Jim Ram Unavailable Unavailable Reason for Visit * Reason Comments Med Refill Encounter Details Date Type Department Care Team (Late st Contact Info) Description 04/08/2024 Refill [facility] 230 [place], [place] [phone] Name, MD Rocky 230 [place], [place] [phone] Chronic back pain, unspecified back location, unspecified [...] [facility] [address] [place] [address] Pranav, Dara, OD 230 [place] [address] 01/07/2025 9:30 AM EDT Telemedicine [facility] MED[facility] [address] [place] [address] Keri Guan RN 02/16/2025 11:15 AM EDT Office Visit [facility] [address] [place] [address] Name, MD Rocky 230 [place] [address] documented as of this encounter Visit Diagnoses Diagnosis Chronic back pain, unspecified back location, unspecified back pain laterality documented in this encounter Additional Health Concerns Assessment Noted Time PHQ-9 Depression Total Score: 11 024 11:18 AM EDT documented as of this encounter Care Teams Resident Services Director Relationship Specialty Start Date End Date Name, MD Rocky [address] [place] [address] PCP - General Family Medicine 12/03/16 Jim Ram FNP [address] [facility] [place] [address] Nurse Practitioner Family Medicine 07/08/23 documented as of this encounter
--- OUTSIDE RECORDS SUMMARY | 2024-11-15 06:27 | XMS_ITS | Data Portability ---
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 [employer]; Unable to interpret urine dip due to hematuria. [facility] consulted and orders Normal Saline 1 liter [...] flags discussed. Pt has no further questions. [facility] Lab Orders: BMP, serum or plasma: Performed [facility] Medication Orders: sodium chloride 0.9 % intravenous solution: Administered .................... .................... .................... .................... .................... .................... .................... . [facility] Consulted: Shelly Castillo .................... .................... .................... .................... .................... .................... .................... . Disposition: Dimas CASTILLO MD [address] [facility],[address], [place], [address], ARLINE - [employer] [facility] SolutionsEVELYN GARCIA 10/22/2024 22:10:34 OBGyn Episode No OBEpisode recorded.
--- OUTSIDE RECORDS SUMMARY | 2024-11-15 06:27 | XMS_ITS | Encounter Summary ---
Author Organization [employer] Address [address] [facility] 7t [place] [address] Care Team Providers Care Tank Cleaning Supervisor Name Role Phone Name, Rocky CHAUDHARI Primary Care Provider [phone] Jim Ram Unavailable Unavailable Reason for Visit * Reason Comments Med Refill Encounter Details Date Type Department Care Team ([facility] st Contact Info) Description 01/09/2024 Refill [facility] MED & PEDS [address] [place] Juarez [address] Name, MD Rocky 230 [place], [place] [phone] Social History Tobacco Use Types Packs/Day Years [...] Description 12/06/2024 11:00 AM EDT Office Visit [facility] OPTOMETRY [address] [place] [address] Dara Rock, OD 230 [place] [address] 01/07/2025 9:30 AM EDT Telemedicine [facility] MEDICINE [address] [place] [address] Keri Guan RN 02/16/2025 11:15 AM EDT Office Visit [facility] MEDICINE [address] [place] [address] NameRocky MD [address] [place] [address] documented as of this encounter Visit Diagnoses Not on filedocumented in this encounter Additional Health Concerns Assessment Noted Time PHQ-9 Depression Total Score: 5 11/24/19 24 11:19 AM EDT documented as of this encounter Care Teams Tank Cleaning Supervisor Relationship Specialty Start Date End Date Rocky Jain MD [address] [place] [address] PCP - General Family Medicine 12/03/16 Jim Ram FNP 230 [place] [address] Nurse Practitioner Family Medicine 07/08/23 documented as of this encounter
--- OUTSIDE RECORDS SUMMARY | 2024-11-15 06:27 | XMS_ITS | Encounter Summary ---
Author Organization [employer] Address [address] [place] [address] 7 [place] [address] Care Team Providers Care Processing Supervisor Name Role Phone Name, Rocky CHAUDHARI Primary Care Provider [phone] Jim Ram Unavailable Unavailable Reason for Visit * Reason Onset Date Comments Medication Question 06/30/2024 Encounter Details Date Type Department Care Team ([facility] st Contact Info) Description 06/30/2024 Telephone [facility] MEDICINE 230 [place], [place] [phone] Name, MD Rocky 230 [place], [place] [phone] Medication Question Social History Tobacco Use Types [...] Instructions If any questions Contact pt at [phone] documented in this encounter Plan of Treatment Upcoming Encounters Date Type Department Care Team (Late st Contact Info) Description 12/06/2024 11:00 AM EDT Office Visit [facility] OPTOMETRY [address] [place] [address] Dara Rock, OD 230 [place] [address] 01/07/2025 9:30 AM EDT Telemedicine [facility] MEDICINE [address] [place] [address] Keri Guan RN 02/16/2025 11:15 AM EDT Office Visit [facility] MEDICINE [address] [place] [address] Name, MD Rocky 230 [place] [address] documented as of this encounter Visit Diagnoses Not on filedocumented in this encounter Additional Health Concerns Assessment Noted Time PHQ-9 Depression Total Score: 11 024 11:18 AM EDT documented as of this encounter Care Teams Processing Supervisor Relationship Specialty Start Date End Date Name, [place] [address] PCP - General Family Medicine 12/03/16 Jim Ram FNP [address] [place] [address] Nurse Practitioner Family Medicine 07/08/23 documented as of this encounter
--- OUTSIDE RECORDS SUMMARY | 2024-11-15 06:27 | XMS_ITS | Encounter Summary ---
Author Organization [employer] Address [address] [place] [address] 7t [place] [address] Care Team Providers Care Acid Conditioning Worker Name Role Phone Name, Rocky CHAUDHARI Primary Care Provider [phone] Jim Ram Unavailable Unavailable Reason for Visit * Reason Comments Med Refill Encounter Details Date Type Department Care Team (Late st Contact Info) Description 10/22/2024 Refill [facility] MEDICINE 230 [place], [place] [phone] Name, MD Rocky 230 [place], [place] [phone] Chronic back pain, unspecified back location, unspecified [...] 12/06/2024 11:00 AM EDT Office Visit [facility] OPTOMETRY [address] [place] [address] Pranav, Dara, OD 230 [place] [address] 01/07/2025 9:30 AM EDT Telemedicine [facility] MEDICINE [address] [place] [address] Keri Guan RN 02/16/2025 11:15 AM EDT Office Visit [facility] MEDICINE [address] [place] [address] Name, MD Rocky 230 [place] [address] documented as of this encounter Visit Diagnoses Diagnosis Chronic back pain, unspecified back location, unspecified back pain laterality documented in this encounter Additional Health Concerns Assessment Noted Time PHQ-9 Depression Total Score: 11 024 11:18 AM EDT documented as of this encounter Care Teams Acid Conditioning Worker Relationship Specialty Start Date End Date Name, MD Rocky [address] [place] [address] PCP - General Family Medicine 12/03/16 Jim Ram FNP [address] [facility] [place] [address] Nurse Practitioner Family Medicine 07/08/23 documented as of this encounter
--- OUTSIDE RECORDS SUMMARY | 2024-11-15 06:27 | XMS_ITS | Encounter Summary ---
Author Organization [employer] Address [address] [place] [address] 7 [place] [address] Care Team Providers Care Soil Science Professor Name Role Phone Name, Rocky CHAUDHARI Primary Care Provider [phone] Jim Ram Unavailable Unavailable Encounter Details Date Type Department Care Team (Late Contact Info) Description 09/16/2022 Abstract [facility] MEDICINE [address] [place] [address] Name, MD Rocky [address] [place] [address] Social History Tobacco Use Types Packs/Day Years [...] Description 12/06/2024 11:00 AM EDT Office Visit [facility] OPTOMETRY [address] [place], [place] [phone] Dara Rock, OD 230 [place] [address] 01/07/2025 9:30 AM EDT Telemedicine [facility] MEDICINE [address] [place] [address] Keri Guan, RN 02/16/2025 11:15 AM EDT Office Visit [facility] MEDICINE 230 [place] [address] Name, [place] [address] documented as of this encounter Visit Diagnoses Not on filedocumented in this encounter Additional Health Concerns Assessment Noted Time PHQ-9 Depression Total Score: 6 08/22/19 23 10:50 AM EST documented as of this encounter Care Teams Soil Science Professor Relationship Specialty Start Date End Date Name, [place] [address] PCP - General Family Medicine 12/03/16 Jim Ram FNP [address] [place] [address] Nurse Practitioner Family Medicine 07/08/23 documented as of this encounter
--- OUTSIDE RECORDS SUMMARY | 2024-11-15 06:27 | XMS_ITS | Encounter Summary ---
Author Organization [employer] Address [address] [place] [address] 7 [place] [address] Care Team Providers Care Antisubmarine Weapons Officer Name Role Phone Name, Rocky CHAUDHARI Primary Care Provider [phone] Jim Ram Unavailable Unavailable Reason for Visit * Reason Comments Med Refill Encounter Details Date Type Department Care Team (Late st Contact Info) Description 04/16/2023 Refill [facility] MEDICINE 230 [place] [address] Name, MD Rocky 230 [place] [address] Chronic back pain, unspecified back location, unspecified [...] Description 12/06/2024 11:00 AM EDT Office Visit [facility] OPTOMETRY [address] [place] [address] PranavDara fernandez, OD 230 [place] [address] 01/07/2025 9:30 AM EDT Telemedicine [facility] MEDICINE [address] [place] [address] Keri Guan RN 02/16/2025 11:15 AM EDT Office Visit [facility] MEDICINE [address] [place] [address] Name, MD Rocky 230 [place] [address] documented as of this encounter Visit Diagnoses Diagnosis Chronic back pain, unspecified back location, unspecified back pain laterality Multiple sclerosis (CMS/HCC) Multiple sclerosis documented in this encounter Additional Health Concerns Assessment Noted Time PHQ-9 Depression Total Score: 6 12/25/19 11:32 AM EDT documented as of this encounter Care Teams Antisubmarine Weapons Officer Relationship Specialty Start Date End Date Name, MD Rocky [address] [place] [address] PCP - General Family Medicine 12/03/16 Jim Ram FNP [address] [place] [address] Nurse Practitioner Family Medicine 07/08/23 documented as of this encounter
--- OUTSIDE RECORDS SUMMARY | 2024-11-15 06:27 | XMS_ITS | Encounter Summary ---
Author Organization [employer] Address [address] [place] [address] 7t [place] [address] Care Team Providers Care Nurse Assessor Name Role Phone Name, Rocky CHAUDHARI Primary Care Provider [phone] Jim Ram Unavailable Unavailable Reason for Visit * Reason Onset Date Comments Med Refill 04/02/2024 Encounter Details Date Type Department Care Team (Late st Contact Info) Description 04/02/2024 Refill [facility] MEDICINE 230 [place], [place] [phone] Name, MD Rocky 230 [place], [place] [phone] Chronic back pain, unspecified back location, unspecified [...] 200 MG capsule [facility]: [facility] [place], [place] - [address] [place] [address] documented in this encounter Plan of Treatment Upcoming Encounters Date Type Department Care Team (Late st Contact Info) Description 12/06/2024 11:00 AM EDT Office Visit [facility] OPTOMETRY [address] [place] [address] Dara Rock, OD [address] [place] [address] 01/07/2025 9:30 AM EDT Telemedicine [facility] MEDICINE [address] [place] [address] [phone] Keri Guan, JENNIFER 02/16/2025 11:15 AM EDT Office Visit [address] [address] Name, MD Rocky [address] [place] [address] documented as of this encounter Visit Diagnoses Diagnosis Chronic back pain, unspecified back location, unspecified back pain laterality documented in this encounter Additional Health Concerns Assessment Noted Time PHQ-9 Depression Total Score: 11 024 11:18 AM EDT documented as of this encounter Care Teams Nurse Assessor Relationship Specialty Start Date End Date Name, MD Rocky [address] [place] [address] PCP - General Family Medicine 12/03/16 Jim Ram FNP [address] [place] [address] Nurse Practitioner Family Medicine 07/08/23 documented as of this encounter
--- OUTSIDE RECORDS SUMMARY | 2024-11-15 06:27 | XMS_ITS | Encounter Summary ---
Author Organization [employer] Address [address] [place] [address] 7t [place] [address] Care Team Providers Care [place] Rug Stretcher Name Role Phone Name, Rocky CHAUDHARI Primary Care Provider [phone] Jim Ram Unavailable Unavailable Encounter Details Date Type Department Care Team (Late st Contact Info) Description 01/22/2023 Abstract [facility] MEDICINE 230 [place], [place] [phone] Name, MD Rocky 230 [place], [place] [phone] Social History Tobacco Use Types Packs/Day Years [...] Description 12/06/2024 11:00 AM EDT Office Visit [facility] OPTOMETRY [address] [place] [address] Dara Rock, OD 230 [place] [address] 01/07/2025 9:30 AM EDT Telemedicine [facility] MEDICINE [address] [place] [address] Keri Guan, JENNIFER 02/16/2025 11:15 AM EDT Office Visit [facility] MEDICINE 230 [place] [address] Name, MD Rocky [address] [place] [address] documented as of this encounter Visit Diagnoses Not on filedocumented in this encounter Additional Health Concerns Assessment Noted Time PHQ-9 Depression Total Score: 6 12/25/19 11:32 AM EDT documented as of this encounter Care Teams [place] Rug Stretcher Relationship Specialty Start Date End Date Name, MD Rocky [address] [place] [address] PCP - General Family Medicine 12/03/16 Jim Ram FNP [address] [place] [address] Nurse Practitioner Family Medicine 07/08/23 documented as of this encounter
--- OUTSIDE RECORDS SUMMARY | 2024-11-15 06:27 | XMS_ITS | Encounter Summary ---
Author Organization [employer] Address [address] [place] [address] 7 [place] [address] Care Team Providers Care Die Repairer Trimmer Dies Name Role Phone Name, Rocky CHAUDHARI Primary Care Provider [phone] Jim Ram Unavailable Unavailable Reason for Visit * Reason Onset Date Comments Call Back Request 11/18/2023 Verbal Orders 11/18/2023 Encounter Details Date Type Department Care Team (Late st Contact Info) Description 11/18/2023 Telephone [facility] MEDICINE [address] [place], [place] [phone] Name, MD Rocky 230 [place], [place] [phone] Call Back Request; Verbal Orders Social History [...] 11/21/2023 10:35 AM EDT T/C to Saima [phone] for below message, No answer. LVM to call back on [phone]. * Telephone Encounter - Maureen King RN - 11/19/2023 2:39 PM EDT Please review and advise for verbal orders for Jail visits 2x a week for 9 weeks. Medication records affiliation was completed. * Telephone Encounter - Edwin Pugh - 11/18/2023 3:47 PM EDT Tc from [facility] calling to request verbal orders for Jail visits 2x a week for 9 weeks and would like a call back for medication records affiliations please call Saima at [phone] documented in this encounter Plan of Treatment Upcoming Encounters Date Type Department Care Team (Late st Contact Info) Description 12/06/2024 11:00 AM EDT Office Visit [facility] OPTOMETRY [address] [place], [place] [phone] Pranav Dara, OD 230 [place] [address] 01/07/2025 9:30 AM EDT Telemedicine [facility] MEDICINE [address] [place] [address] Keri Guan, JENNIFER 02/16/2025 11:15 AM EDT Office Visit [facility] MEDICINE [address] [place] [address] Name, MD Rocky 230 [place] [address] documented as of this encounter Visit Diagnoses Not on filedocumented in this encounter Additional Health Concerns Assessment Noted Time PHQ-9 Depression Total Score: 9 09/23/19 24 11:22 AM EST documented as of this encounter Care Teams Die Repairer Trimmer Dies Relationship Specialty Start Date End Date Name, MD Rocky [address] [place] [address] PCP - General Family Medicine 12/03/16 Jim Ram FNP [address] [place] [address] Nurse Practitioner Family Medicine 07/08/23 documented as of this encounter
--- OUTSIDE RECORDS SUMMARY | 2024-11-15 06:27 | XMS_ITS | Encounter Summary ---
Author Organization [employer] Address [address] [place] [address] 7 [place] [address] Care Team Providers Care Giver Name Role Phone Name, Rocky CHAUDHARI Primary Care Provider [phone] Jim Ram Unavailable Unavailable Reason for Visit * Reason Comments Med Refill Encounter Details Date Type Department Care Team (Late st Contact Info) Description 12/31/2022 Refill [facility] MEDICINE [address] [place], [place] [phone] Name, MD Rocky 230 [place], [place] [phone] Chronic back pain, unspecified back location, unspecified [...] 12/06/2024 11:00 AM EDT Office Visit [facility] OPTOMETRY [address] [place] [address] Pranav, Dara, OD 230 [place] [address] 01/07/2025 9:30 AM EDT Telemedicine [facility] MEDICINE [address] [place] [address] Keri Guan, JENNIFER 02/16/2025 11:15 AM EDT Office Visit [facility] MEDICINE [address] [place] [address] Name, MD Rocky [address] [place] [address] documented as of this encounter Visit Diagnoses Diagnosis Chronic back pain, unspecified back location, unspecified back pain laterality Multiple sclerosis (CMS/HCC) Multiple sclerosis documented in this encounter Additional Health Concerns Assessment Noted Time PHQ-9 Depression Total Score: 6 12/25/19 11:32 AM EDT documented as of this encounter Care Teams Giver Relationship Specialty Start Date End Date Rocky Jain MD [address] [place] [address] PCP - General Family Medicine 12/03/16 Jim Ram FNP [address] [place] [address] Nurse Practitioner Family Medicine 07/08/23 documented as of this encounter
--- OUTSIDE RECORDS SUMMARY | 2024-11-15 06:27 | XMS_ITS | Encounter Summary ---
Author Organization [employer] Address [address] [place] [address] 7t [place] [address] Care Team Providers Care Conference Center Manager Name Role Phone Name, Rocky CHAUDHARI Primary Care Provider [phone] Jim Ram Unavailable Unavailable Reason for Visit * Reason Comments Med Refill Encounter Details Date Type Department Care Team (Late st Contact Info) Description 10/25/2024 Refill [facility] MEDICINE 230 [place], [place] [phone] Name, MD Rocky 230 [place], [place] [phone] Major depressive disorder with psychotic features (CMS/HCC); [...] - 10/26/2024 1:21 PM EDT Tc from [facility] requesting med refill. documented in this encounter Plan of Treatment Upcoming Encounters Date Type Department Care Team (Late st Contact Info) Description 12/06/2024 11:00 AM EDT Office Visit [facility] OPTOMETRY [address] [place] [address] Dara Rock, OD 230 [place] [address] 01/07/2025 9:30 AM EDT Telemedicine [facility] MEDICINE 230 [place] [address] Keri Guan RN 02/16/2025 11:15 AM EDT Office Visit [facility] MEDICINE [address] [place] [address] Name, MD Rocky 230 [place] [address] documented as of this encounter Visit Diagnoses Diagnosis Major depressive disorder with psychotic features (CMS/HCC) Chronic back pain, unspecified back location, unspecified back pain laterality documented in this encounter Additional Health Concerns Assessment Noted Time PHQ-9 Depression Total Score: 11 024 11:18 AM EDT documented as of this encounter Care Teams Conference Center Manager Relationship Specialty Start Date End Date Name, MD Rocky 230 [place] [address] PCP - General Family Medicine 12/03/16 Jim Ram FNP 230 [place] [address] Nurse Practitioner Family Medicine 07/08/23 documented as of this encounter
--- OUTSIDE RECORDS SUMMARY | 2024-11-15 06:27 | XMS_ITS | Encounter Summary ---
Author Organization [employer] Address [address] [place] [address] 7 [place] [address] Care Team Providers Care Sprinkling Truck Driver Name Role Phone Name, Rocky CHAUDHARI Primary Care Provider Jim Ram Unavailable Unavailable Encounter Details Date Type Department Care Team (Late Contact Info) Description 08/01/2022 Orders Only [facility] MEDICINE [address] [place] [address] Alexandrea Barnard, JENNIFER Social History Tobacco Use [...] 11:00 AM EDT Office Visit [facility] OPTOMETRY [address] [place] [address] Dara Rock, OD 230 [place], [place] [phone] 01/07/2025 9:30 AM EDT Telemedicine [facility] MEDICINE [address] [place] [address] Keri Guan, JENNIFER 02/16/2025 11:15 AM EDT Office Visit [facility] MEDICINE 230 [place] [address] Name, MD [place] [address] documented as of this encounter Visit Diagnoses Not on filedocumented in this encounter Additional Health Concerns Assessment Noted Time PHQ-9 Depression Total Score: 7 07/23/20 22 2:17 PM EST documented as of this encounter Care Teams Sprinkling Truck Driver Relationship Specialty Start Date End Date Name, MD [place] [address] PCP - General Family Medicine 12/03/16 Jim Ram FNP [address] [place] [address] Nurse Practitioner Family Medicine 07/08/23 documented as of this encounter
--- OUTSIDE RECORDS SUMMARY | 2024-11-15 06:27 | XMS_ITS | Clinical Summary ---
Author Organization [facility] Address [address] [place] [address] Care Team Providers Care Staff Nurse Name Role Phone Annika Kessler PA-C Primary Care Provider [phone] Source Comments PLEASE NOTE, if this patient [...] Plan of Treatment Not on file Insurance [facility] Member Subscriber Plan / Payer (Ef fective 2016-Present) Name:Eva Edgar Relation to Subscriber:Self Name:Eva Edgar Payer ID:[id number] Group ID:Not on file Type:Indemnisusan Address: [place] [address] [place] [id number] Care Teams Staff Nurse Relationship Specialty Start Date End Date Annika Kessler PA-C [address] [place] [address] PCP - General 09/29/18
--- OUTSIDE RECORDS SUMMARY | 2024-11-15 06:27 | XMS_ITS | Clinical Summary ---
Author Organization [employer] Address [address] [place] [address] 7t [place] [address] Care Team Providers Care Laser/Electro Optics Technician Name Role Phone Name, Rocky CHAUDHARI Primary Care Provider [phone] Jim Ram Unavailable Unavailable Allergies Active Allergy [...] 12 (twelve) hours. 08/24/19 20 Active Umeclidinium Shelby (Incruse Ellipta) 62.5 MCG/ACT aerosol powder Inhale [...] in the morning. 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 She is also followed by [facility]. Any issues or concerns, contact [facility]. All her questions were answered and [...] Encounters Date Type Department Care Team Description 11/10/2024 Telephone [facility] [place] [address] Rocky Jain MD 11/10/2024 Orders Only [facility] [place] [address] Patience Rodríguez NP Right lower quadrant abdominal pain (Primary Dx) 11/10/2024 Telephone [facility] [place] [address] Rocky Jain MD Medication Question 11/02/2024 Telephone [facility] [place] [address] Lola Spears RN 11/01/2024 11:15 AM EDT Office Visit [facility] [address] [place] [address] Patience Rodríguez NP Right lower quadrant abdominal pain (Primary Dx); Urinary tract infection symptoms; Vaginal discharge 11/01/2024 Travel 10/29/2024 Refill [facility] [place] [address] Rocky Jain MD Major depressive disorder with psychotic features (CMS/HCC) 10/29/2024 Refill [facility] [place] [address] Rocky Jain MD Major depressive disorder with psychotic features (CMS/HCC); Chronic back pain, unspecified back location, unspecified back pain laterality 10/25/2024 Refill [facility] [place] [address] Rocky Jain MD Major depressive disorder with psychotic features (CMS/HCC); Chronic back pain, unspecified back location, unspecified back pain laterality 10/25/2024 Telephone [facility] [place] [address] Rocky Jain MD Nurse Triage 10/23/2024 Refill [facility] [place] [address] Rocky Jain MD Major depressive disorder with psychotic features (CMS/HCC); Chronic back pain, unspecified back location, unspecified back pain laterality 10/22/2024 Refill [facility] [address] [place] [address] Rocky Jain MD Chronic back pain, unspecified back location, unspecified back pain laterality 10/19/[address] [address] Keri Guan RN Chronic back pain, unspecified back location, unspecified back pain laterality; Multiple sclerosis ([facility]) 10/15/2024 9:30 AM EDT Telemedicine [address] [address] Keri Guan RN Chronic back pain, unspecified back location, unspecified back pain laterality (Primary Dx); jail (current) use of opiate analgesic; Long-term current use of benzodiazepine 10/15/[address] [address] Rocky Jain MD Call Back Request; POt to bring in police report of oxycodone theft 10/15/[address] [address] Keri Guan, JENNIFER Oxy count discrepany, BPI & YEE scoring 10/15/2024 Travel 10/14/[address] [address] Lola Spears, JENNIFER 10/14/[address] [address] Lola Spears RN 10/13/2024 11:00 AM EDT Office Visit [address] [address] Rocky Jain MD Foul smelling urine (Primary Dx); Scalp pain; Multiple sclerosis ([facility]) 10/13/2024 Travel 10/06/2024 Refill [facility] [address] [place] [address] Rocky Jain MD Major depressive disorder with psychotic features ([facility]/HCC) 09/21/2024 Refill [facility] [address] [place] [address] Rocky Jain MD Chronic back pain, unspecified back location, unspecified back pain laterality; Multiple sclerosis ([facility]) 09/03/2024 Refill [facility] [address] [place] [address] April Marti, TECHNICAL MANAGER Major depressive disorder with psychotic features ([facility]) 08/30/2024 Refill [facility] [address] [place] [address] Rocky Jani MD 08/30/2024 Refill [facility] [address] [place] [address] Rocky Jain MD Chronic back pain, unspecified back location, unspecified back pain laterality; Multiple sclerosis ([facility]) 08/27/2024 Refill [facility] [address] [place] [address] Rocky Jain MD Chronic back pain, unspecified back location, unspecified back pain laterality; Multiple sclerosis ([facility]) 08/27/2024 Refill [facility] [address] [place] [address] April Marti, TECHNICAL MANAGER Major depressive disorder with psychotic features ([facility]) 08/27/2024 Refill [facility] [address] [place] [address] Rocky Jain MD Chronic back pain, unspecified back location, unspecified back pain laterality 08/17/2024 Telephone [facility] [address] [place] [address] Rocky Jain MD Durable Medical Equipment from Last 3 Months Immunizations Name Administration [...] Description 12/06/2024 11:00 AM EDT Office Visit [facility] [address] [place] [address] Dara Rock, OD [address] [place] [address] 01/07/2025 9:30 AM EDT Telemedicine [facility] [address] [place] [address] Keri Guan RN 02/16/2025 11:15 AM EDT Office Visit [facility] [address] [place] [address] Name, MD Rocky [address] [place] [address] Health Maintenance Due Date Last Done Comments CT Colonography 1966 FIT DNA/Cologuard 1966 FIT 1966 FOBT 1966 HIV Screening 1966 Sigmoidoscopy 1966 Hepatitis B Vaccines (1 of 3 - 19+ 3-dose series) 1985 Pneumococcal Vaccine: 50+ Years (3 of 3 - PCV20 or PCV21) 06/20/2021 06/20/2016, 03/29/2015, 03/29/2015 Depression Monitoring 07/27/2024 01/26/2024, 024 SDOH Screening 10/20/2024 10/21/2023 Pap Smear 11/26/2024 11/26/2021 Depression Screening 01/25/2025 01/26/2024, 01/26/20 Alcohol/Substance Use Screening 03/05/2025 03/05/2024 Colonoscopy 03/13/2025 03/13/2022 Colorectal Cancer Screening 03/13/2025 Mammogram 05/03/2025 05/03/2024, 04/05, 05/03/2022 Tobacco Screening 11/02/2025 11/02/2024 Cervical Cancer Screening 11/26/2026 HPV/Cotest 11/26/2026 11/26/2021 [...] Procedure Name Priority Date/Time Associated Diagnosis Comments BACTERIAL VAGINOSIS PANEL Routine 11/01/2024 12:48 PM EDT CULTURE, URINE, ROUTINE Routine 11/01/2024 12:48 PM EDT Urinary tract infection symptoms BASIC METABOLIC PANEL Routine 11/01/2024 12:11 PM EDT Right lower quadrant abdominal pain CBC WITH AUTO DIFFERENTIAL Routine 11/01/2024 12:11 PM EDT Right lower quadrant abdominal pain POCT URINALYSIS DIPSTICK Routine 11/01/2024 11:40 AM EDT Urinary tract infection symptoms URINALYSIS, COMPLETE Routine 11/01/2024 12:00 AM EDT Urinary tract infection symptoms URINALYSIS, COMPLETE, WITH REFLEX TO CULTURE Routine 10/13/2024 12:22 PM EDT Foul smelling urine CULTURE, URINE, ROUTINE Routine 10/13/2024 12:00 AM EDT HM MAMMOGRAPHY Routine 05/03/2024 LIPID PANEL, STANDARD Routine 10/14/2022 12:17 PM EDT Screening for diabetes mellitus On statin therapy HM COLONOSCOPY Routine 03/13/2022 THINPREP IMAGING PAP AND HPV MRNA E6/E7 WITH REFLEX TO HPV 16,18/45 Routine 11/26/2021 9:41 AM EDT HM HEPATITIS C ANTIBODY Routine 01/26/2015 from Last 3 Months or Most Recently Relevant to Health Maintenance Results * Bacterial Vaginosis (11/01/2024 12:48 PM EDT) TRICHOMONAS VAGINALIS DETECTION BY PCR NOT DETECTED Not Detect [facility] BACTERIAL VAGINOSIS DETECTION BY PCR NEGATIVE Negative [facility] Comment:The BV organism targ ets of the Xpert Xpress MVP test can becommensal in women; Xpert Xpress MVP positive results forbacterial vaginosis should be considered in conjunction withother clinical and patient information to determine thedisease status. Organisms that are not detected by the XpertXpress MVP test have also been reported to be associatedwith BV and aerobic vaginitis.The Xpert Xpress MVP test performance has not been evaluatedin patients under the age of 14. AIDEE GROUP DETECTION BY PCR NOT DETECTED Not Detect [facility] Aidee glab krusei PCR NOT DETECTED Not Detect [facility] 11/01/2024 12:4 8 PM EDT 11/01/2024 6:10 PM EDT [facility] LAB MICROBIOLOGY - GENERAL ORDE RABAINSLEY Final Result Performing Organization Address [facility] Co de Phone Number [facility] [address] [place] [phone] * Culture, Urine, Routine (11/01/2024 12:48 PM EDT) Only the most recent of2 resultswithin the time period is included. Urine Urine specimen obtained by clean catch procedure / Unknown 11/01/2024 12:48 PM EDT 11/01/2024 6:11 PM EDT Comment:UACC Narrative [facility] - 11/03/2024 10:56 AM EDT Urine Culture No growth. Specimen Source: Urine clean catch [facility] LAB MICROBIOLOGY - GENERAL ORDE RABLES Final Result Performing Organization Address City/[facility]/ZIP Co de Phone Number [facility] [address] [place] [phone] * (ABNORMAL) CBC auto differential (11/01/2024 12:11 PM EDT) White Blood Count 7.6 4.8 - 10.8 X10*3/uL [facility] Red Blood Count 3.81(L) 4.20 - 5.50 X10*6/uL [facility] Hemoglobin 12.2 12.0 - 16.0 g/dl [facility] Hematocrit 37.8 37.0 - 47.0 % [facility] Mean Corpuscular Volume 99.2(H) 80.0 - 98.0 fL [facility] Mean Corpuscular Hemoglobin 32.0 27.0 - 33.0 pg [facility] Mean Corpuscular HGB Conc 32.3 31.0 - 35.0 g/dl [facility] Red Cell Distribution Width 14.6 11.0 - 16.0 % [facility] Platelet Count 200 160 - 400 X10*3/uL [facility] Mean Platelet Volume 10.3 9.4 - 12.3 fL [facility] Neutrophils Percent Auto 76.2(H) 45 - 73 % [facility] Imm Gran Pct Auto 0.4 0.0 - 0.4 % [facility] Lymphocytes Percent Auto 13.9(L) 20 - 40 % [facility] Monocytes Percent Auto 6.7 2 - 11 % [facility] Eosinophils Percent Auto 2.4 0 - 4 % [facility] Basophils Percent Auto 0.4 0 - 2 % [facility] NRBC Pct Auto 0.0 0.0 - 0.2 /100WBC [facility] Neutrophils Absolute Auto 5.8 2.0 - 8.3 x10*3/uL [facility] Imm Gran Abs Auto 0.03 0.00 - 0.03 X10*3/uL [facility] Lymphocytes Absolute Auto 1.1(L) 1.2 - 4.9 X10*3/uL [facility] Monocytes Absolute Auto 0.5 0.1 - 1.2 X10*3/uL [facility] Eosinophils Absolute Auto 0.2 0.0 - 0.4 X10*3/uL [facility] Basophils Absolute Auto 0.0 0.0 - 0.2 X10*3/uL [facility] NRBC Abs Auto 0.000 0.0 - 0.012 X10*3/uL [facility] Blood Venous blood specimen / Unknown 11/01/2024 12:11 PM EDT 11/01/2024 1:44 PM EDT [facility] BLOOD ORDERABLES Final Resu lt [facility] [address] [place] [phone] * (ABNORMAL) Basic Metabolic Panel (11/01/2024 12:11 PM EDT) Sodium 143 135 - 145 mmol/L [facility] Potassium 3.7 3.3 - 5.1 mmol/L [facility] Chloride 111(H) 96 - 108 mmol/L [facility] Carbon Dioxide 25 22 - 29 mmol/L [facility] Anion Gap 11(L) 12 - 20 [facility] Urea Nitrogen (BUN) 18(H) 9 - 16 mg/dL [facility] Creatinine, Serum 0.64 0.5 - 1.4 mg/dL [facility] Estimated Glomerular Filt Rate >60 [facility] Comment:Chronic Kidney Disea se: Estimated GFR < 60 mL/min/1.88r3Hofvem Kidney Disease: Estimated GFR < 15 mL/min/1.73m2 Glucose 64 60 - 115 mg/dL [facility] Calcium 8.8 8.4 - 10.2 mg/dL [facility] Blood Venous blood specimen / Unknown 11/01/2024 12:11 PM EDT 11/01/2024 1:[address] [facility] TECHNICAL MANAGER LAB BLOOD ORDERABLES Final Resu lt [facility] [address] [place] [phone] [phone] * POCT Urinalysis (11/01/2024 11:40 AM EDT) [...] Date Urine 11/01/2024 11:[address] [facility] TECHNICAL MANAGER POINT OF CARE TEST ENTER/EDIT O RDERABLES Final Result * Urinalysis Complete (11/01/2024 12:00 AM EDT) Color Urine Yellow [facility] Appearance Urine Clear [facility] PH 7.0 5.0 - 9.0 [facility] Glucose Urine UA Negative Negative mg/dL [facility] Urine Blood Negative Negative [facility] Specific [place] - Urine 1.010 1.005 - 1.025 [facility] Urine Protein Negative Neg-Trace mg/dL [facility] Urine Ketones Negative Negative mg/dL [facility] Nitrite Urine Negative Negative [facility] Leukocyte Esterase Urine Negative Negative [facility] RBC Urine 0-2 0 - 2 /HPF [facility] Urine WBC 0-5 0 - 5 /HPF [facility] Urine Squamous Epithelial Cell 0-2 0 - 2 /HPF [facility] Urine Bacteria None Seen None Seen [facility] Hyaline Casts, Urine 0-2 0 - 2 /LPF [facility] Urine Urine specimen obtained by clean catch procedure / Unknown 11/01/2024 11/01/2024 us Patience Rodríguez TECHNICAL MANAGER LAB URINE ORDERABLES Final Resu lt Performing Organization Address City/[facility]/ZIP Co de Phone Number [facility] [address] [place] [phone] [phone] * (ABNORMAL) Urinalysis, Complete, with Reflex to Culture (10/13/2024 12:22 PM EDT) Color Urine Yellow [facility] Appearance Urine Cloudy [facility] PH 7.5 5.0 - 9.0 [facility] Glucose Urine UA Negative Negative mg/dL [facility] Urine Blood Negative Negative [facility] Specific [place] - Urine 1.015 1.005 - 1.025 [facility] Urine Protein Negative Neg-Trace mg/dL [facility] Urine Ketones Negative Negative mg/dL [facility] Nitrite Urine Negative Negative [facility] Leukocyte Esterase Urine Large (3+)(A) Negative [facility] RBC Urine 0-2 0 - 2 /HPF [facility] Urine WBC 21-50(A) 0 - 5 /HPF [facility] Urine Squamous Epithelial Cell >20 0 - 2 /HPF [facility] Urine Bacteria 1+ None Seen [facility] Hyaline Casts, Urine 0-2 0 - 2 /LPF [facility] Urine 10/13/2024 12:2 2 PM EDT 10/13/2024 1:27 PM EDT Narrative [facility] - 10/13/2024 2:13 PM EDT Urine, Clean Catch us Rocky Jain MD LAB URINE ORDERABLES Final Resul t Performing Organization Address [facility] Co de Phone Number [facility] [address] [place] [phone] * Mammography (05/03/2024) Mammogram Normal Normal, Abnormal, BIRADS 1 , BIRADS 2 Anatomical Region Laterality Modality Other 05/03/2024 us Rocky Jain MD HEALTH MAINTENANCE Final Result * (ABNORMAL) Lipid Panel, Standard (10/14/2022 12:17 PM EDT) Cholesterol, Total 143 <200 mg/dL [employer] [place] [employer] HDL Cholesterol 46(L) > OR = 50 mg/dL [facility] [employer] [place] [employer] Triglycerides 101 <150 mg/dL [employer] [employer] [place] [employer] LDL Cholesterol 79 mg/dL (calc) [employer] [employer] [place] [employer] Comment: Reference range: <100 Desirable range <100 mg/dL for primary prevention; ?? <70 mg/dL for patients with CHD or diabetic patients with > or = 2 CHD risk factors. LDL-C is now calculated using the Lenny calculation, which is a validated novel method providing better accuracy than the Friedewald equation in the estimation of LDL-C. Steve SS et al. MARY JO. 2013;310(19): 3362-5599 (http://education.MyVR/faq/APO058) Chol/HDLC Ratio 3.1 <5.0 (calc) [facility] [employer] [place] [employer] Non-HDL Cholesterol 97 <130 mg/dL (calc) [employer] [employer] [place] [employer] Comment: For patients with diabetes plus 1 major ASCVD risk factor, treating to a non-HDL-C goal of <100 mg/dL (LDL-C of <70 mg/dL) is considered a therapeutic option. Blood Venous blood specimen / Unknown 10/14/2022 12:17 PM EDT 10/14/2022 12:18 PM EDT Narrative [facility] - 10/15/2022 1:11 AM EDT FASTING:NO FASTING: NO us Rocky Jain MD LAB BLOOD ORDERABLES Final Resul t [facility] [address], [place] [address] [employer] [place] [employer] [address] [place] [address] * (ABNORMAL) Hm Colonoscopy (03/13/2022) Colonoscopy Abnormal( A) Normal Comment:repeat 3 years us Historical Provider HEALTH MAINTENANCE Final Result * THINPREP TIS PAP AND HPV mRNA E6/E7 WITH REFLEX TO HPV 16,18/45 (11/26/2021 9:41 AM EDT) Clinical Information: S/P [facility] COMMENT SEE COMMENT [facility] [...] has been evaluated with computer assisted technology. [facility] Steel Inspector: SEE COMMENT [facility] Comment: BJ, CT(ASCP) CT screening location: [address] ??[id number] HPV nRNA E6/E7 Not Detected Not Detected [facility] Comment: Methodology: Psychologist Experimental-Mediated Amplification This assay detects E6/E7 viral messenger RNA (mRNA) from 14 high-risk HPV types (16,18,31,33,35,39,45,51,52,56,58,59,66,68). ? The analytical performance characteristics of this assay have been determined by [employer] The modifications have not been cleared or approved by the FDA. This assay has been validated pursuant to the CLIA regulations and is used for clinical purposes. ?? For additional information, please refer to http://education.Purer Skin.RoommateFit/faq/QJR655q4 (This link if provided for information/ educational purposes only.) Interpretation/Re sult: Negative for intraepithelial lesion or malignancy. [facility] LMP: NONE [facility]IVEN [facility] Prev. BX: BSO @ 4O BC CX DYSPLASIA [facility] Prev. PAP: NONE GIVEN [facility] SOURCE: None given [facility] Statement Of Adequacy: SATISFACTORY FOR EVALUATION [facility] 11/26/2021 9:41 AM EDT Cristiana Villegas CNM LAB PATHOLOGY ORDERABLES Final Result [facility] [address] * Hepatitis C Antibody (01/26/2015) Hepatitis C Antibody Nonreactive Blood Rocky Jain MD HEALTH MAINTENANCE Final Result from Last 3 Months or Most Recently Relevant to Health Maintenance Insurance * Guarantor: Elvis Eva Q Account Type Relation to Patient Date of Phone Billing Address Personal/Family Self 65 [address]13 Care Teams Laser/Electro Optics Technician Relationship Specialty Start Date End Date Name, MD Rocky [address] [place] [phone] PCP - General Family Medicine 12/03/16 Jim Ram FNP [address] [place] [phone] Nurse Practitioner Family Medicine 07/08/23
--- OUTSIDE RECORDS SUMMARY | 2024-11-15 06:27 | XMS_ITS | Encounter Summary ---
Author Organization [employer] Address [address] [facility] [address]t [place] [address] Care Team Providers Care Torpedo Shooter Name Role Phone Name, Rocky CHAUDHARI Primary Care Provider [phone] Jim Ram Unavailable Unavailable Reason for Visit * Reason Onset Date Comments Call Back Request 10/15/2024 POt to bring in police report of oxycodone theft 10/15/2024 Encounter Details Date Type Department Care Team (Late st Contact Info) Description 10/15/2024 Telephone [facility] [address] [place], [place] [phone] Name, MD Rocky [address] [place], [place] [phone] Call Back Request; POt to bring in [...] to pt, she would need to provide [facility] a copy of the police report before any consideration of early refill of her oxycodone. Pt states she will bring paperwork Friday or Friday. * Telephone Encounter - Neptali Wilder - 10/15/2024 3:21 PM EDT Tc from pt requesting a call back to Speak with Keri regarding something that was Mentioned in the Morning. Contact pt at [phone] documented in this encounter Plan of Treatment Upcoming Encounters Date Type Department Care Team (Late st Contact Info) Description 12/06/2024 11:00 AM EDT Office Visit [facility] OPTOMETRY [address] [place] [address] Dara Rock, OD [address] [place] [address] 01/07/2025 9:30 AM EDT Telemedicine [facility] [address] [place] [address] Keri Guan, JENNIFER 02/16/2025 11:15 AM EDT Office Visit [facility] [address] [place] [phone] Name, MD Rocky [address] [place] [phone] documented as of this encounter Visit Diagnoses Not on filedocumented in this encounter Additional Health Concerns Assessment Noted Time PHQ-9 Depression Total Score: 11 024 11:18 AM EDT documented as of this encounter Care Teams Torpedo Shooter Relationship Specialty Start Date End Date Name, MD Rocky [address] [place] [phone] PCP - General Family Medicine 12/03/16 Jim Ram FNP [address] [place] [phone] Nurse Practitioner Family Medicine 07/08/23 documented as of this encounter
--- OUTSIDE RECORDS SUMMARY | 2024-11-15 06:27 | XMS_ITS | Encounter Summary ---
Author Organization [employer] Address [address] [place] [address] [address]t [place] [address] Care Team Providers Care In Store Demonstrator Name Role Phone Name, Rocky CHAUDHARI Primary Care Provider [phone] Jim Ram Unavailable Unavailable Reason for Visit * Reason Comments Med Refill Encounter Details Date Type Department Care Team (Late st Contact Info) Description 10/23/2024 Refill [facility] [address] [place], [place] [phone] Name, MD Rocky [address] [place], [place] [phone] Major depressive disorder with psychotic features (CMS/HCC); [...] AM EDT Office Visit [facility] OPTOM[facility]RY [address] [place] [phone] Pranav, Dara, OD [address] [place] [address] 01/07/2025 9:30 AM EDT Telemedicine [facility] [address] [place] [phone] Keri Guan RN 02/16/2025 11:15 AM EDT Office Visit [facility] [address] [place] [phone] Name, MD Rocky [address] [place] [phone] documented as of this encounter Visit Diagnoses Diagnosis Major depressive disorder with psychotic features (CMS/HCC) Chronic back pain, unspecified back location, unspecified back pain laterality documented in this encounter Additional Health Concerns Assessment Noted Time PHQ-9 Depression Total Score: 11 024 11:18 AM EDT documented as of this encounter Care Teams In Store Demonstrator Relationship Specialty Start Date End Date Name, MD Rocky [address] [place] [address] PCP - General Family Medicine 12/03/16 Jim Ram FNP [address] [place] [address] Nurse Practitioner Family Medicine 07/08/23 documented as of this encounter
[2024-11-15] MEDS: Barium Sulfate Oral (Mocha) 450 ML ORAL.SUSP 900 ML PO (09:42)
[2024-11-15] MEDS: iohexoL 350 MG/ML 75 ML INFUS..BTL 85 ML IV (09:42)
== END 2024-11-15 06:25 | disposition home or self-care (01) ==
LOC: HO.CT 06:24
PROVIDERS: PCP Internal Medicine Geriatric Medicine; Visit Provider Nurse Practitioner
DX: R10.31 Right lower quadrant pain (principal)
CPT/HCPCS: 74177; Q9967

== ENCOUNTER → 2024-11-15 06:27 | Outpatient (BNV) | payer OTHER, SELFPAY | PROVIDERS: PCP Internal Medicine Geriatric Medicine; Visit Provider Radiology Diagnostic Radiology | DX: K59.00 Constipation, unspecified (principal) | CPT/HCPCS: 74177 ==

== ENCOUNTER 2025-02-25 10:22 | Outpatient (AMB) | payer OTHER, SELFPAY ==
--- NOTE | 2025-02-25 10:24 | MHC.OFFVIS ---
Vital Signs 02/25/25 10:25 Height 5 ft 4 in Weight 125 lb 3.561 oz BMI 21.5 BP 108/55 L Blood Pressure Location Lt brachial Position Sitting Pulse 61 Intake Visit Reasons: 8 months follow up Intake Note: Patient in 8 months follow up of IBS and GERD. CC: Patient reports that she continues to soil her underwear sometimes, about 3 times per month. Patient also c/o occasional nausea. 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 Accompanied by: Self / Same As Patient Allergies fingolimod (From Gilenya) Allergy (Severe, Verified 02/25/25 10:35) brain swelling glatiramer (copolymer 1) (From Copaxone) Allergy (Intermediate, Verified 02/25/25 10:35) Nausea and Vomiting Seasonal Allergies Allergy (Intermediate, Verified 02/25/25 10:35) Cough alendronate sodium Adverse Reaction (Intermediate, Verified 02/25/25 10:35) Gastrointestinal Upset HPI HPI 8 months follow up: Details: Assessment & Plan (1) Fecal incontinence: Comment: Most likely some element of pelvic floor dysfunction related to MS but the patient has declined pelvic floor physical therapy for now Code(s): R15.9 - Full incontinence of feces Category: Medical (2) Irritable bowel syndrome with both constipation and diarrhea: Code(s): K58.2 - Mixed irritable bowel syndrome Category: Medical (3) GERD (gastroesophageal reflux disease): Code(s): K21.9 - Gastro-esophageal reflux disease without esophagitis Category: Medical (4) Gastroparesis: Comment: DX 2011 with gastric emptying study, patient went off of Reglan because she said it caused her appetite to be too good and she gained too much weight, she has adamantly declined to be put back on this medication very much limiting my ability to control her GERD since 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 Code(s): K31.84 - Gastroparesis Category: Medical Plan She continues on her creon to her bentyl, lansoprazole and simethicone and fiber. She no longer has a visiting nurse to do her medications and she is trying to convert everything to a pill pack via [facility] but this is a work in progress. She is unsure if she is getting her loperimide. We will bring her back with her pill pack. She continues on her creon to her bentyl, lansoprazole and simethicone and fiber - at least so far as we can tell. Her fecal incontinence continues. ROV 8 weeks. TODAY'S VISIT She continues on her creon to her bentyl, lansoprazole and simethicone and fiber. She does NOT have diarrhea, but she will have fecal incontinence about 3 times a month with solid stools. I explain that this is likely r/t her MS, and/or pelvic floor weakness and offer to refer her to PT for this and biofeedback therapy, but she declines. She is not convinced that she can learn to control this muscle. I explain that there is no medicine therapy or surgery for this problem. ROV 6 mos. [facility] Medical History Family history of colon cancer Nicotine dependence, cigarettes, uncomplicated COPD (chronic obstructive pulmonary disease) Pulmonary emphysema Seizure disorder Hyperlipidemia History of CVA (cerebrovascular accident) Menorrhagia Osteoporosis (~2017) Multiple sclerosis (~2009) Surgical History History of colonoscopy History of ear surgery History of total hysterectomy with bilateral salpingo-oophorectomy (BSO) (~2006) Family History Mother Stroke Colon cancer Father Stroke Social History Alcohol intake: current Alcohol intake frequency: does not drink Patient Tobacco Use Status: Current everyday Tobacco user Tobacco use type: Cigarette Cigarettes Per Day: 15 Years Smoked: 41 Substance Use Type: Marijuana Advance Directives Date on File: 11/20/19 Review of Systems Const Denies fatigue, Denies fever(s), Denies night sweats, Denies poor appetite and Denies weight loss ENT Reports Normal hearing present, Denies dental pain, Denies dysphagia, Denies hearing loss, Denies mouth pain, Denies odynophagia, Denies throat swelling, Denies tongue swelling and Reports other (Dentition adequate) Card Reports no additional complaints Resp Reports no additional complaints GI Details: Denies abdominal pain, Denies melena, Denies bloating, Denies hematochezia, Denies constipation, Denies GI cramping, Denies dysphagia, Denies excessive flatus, Denies early satiety, Reports heartburn, Reports fecal incontinence, Denies diarrhea, Denies nausea, Denies odynophagia, Denies vomiting and Denies hematemesis Musc Reports abnormal gait Skin/Breast Denies pruritus, Denies lesions, Denies rash and Denies jaundice Neuro Reports Normal hearing present, Denies Abnormal speech present, Reports abnormal gait, Reports lack of coordination and Reports memory loss Psych Reports memory loss Endo Denies fatigue Aller/Immun Denies throat swelling and Denies tongue swelling Physical Exam Vital Signs: Last Vital Signs Pulse 61 02/25/25 10:25 BP 108/55 L 02/25/25 10:25 BMI result Body Mass Index 21.5 Const General: cooperative, no acute distress, well developed and well groomed Nutritional Appearance: well nourished and thin Orientation/consciousness: oriented to person, oriented to place and oriented to time Limitations: No language barrier and ambulation with cane HEENT Head: Yes normocephalic and Yes atraumatic Eyes General: appearance normal, both eyes and all related structures Pupils: Equal, round and reactive pupils present Neck Neck: Yes normal visual inspection and Yes no lymphadenopathy Thyroid: Thyroid normal Resp Effort & Inspection: normal respiratory effort and able to speak in complete sentences Auscultation: clear to auscultation bilaterally Cardio Rate: regular rate Rhythm: regular rhythm Heart sounds: Normal, physiologic split S2 sound present Peripheral pulses: radial pulses present and posterior tibial pulses present GI Inspection: No distended and No Abdominal panniculus present Palpation (GI): Soft to palpation, nontender, no guarding, not rigid and No hepatosplenomegaly present Percussion: Yes normal to percussion Auscultation: normal bowel sounds Rectal Exam - Female: deferred Skin General skin exam: no rashes or lesions noted, turgor normal, skin not dry, no jaundice, No spider nevi and no striae Rashes: no rashes Nails: normal Neuro General: oriented to person, oriented to place and oriented to time Cranial nerves: Yes Equal, round and reactive pupils present and Yes Normal hearing present Speech: No Abnormal speech present Extrem General: Yes normal to inspection, No clubbing, No cyanosis and No edema Psych Appearance: grossly normal and well kempt Mental Status: mental status grossly normal Speech and movement: Slowed speech present (Psych) Affect: normal affect Attitude: cooperative Thought process: not confabulating and Impoverished thought process present Thought content: Normal thought content present Insight: Limited insight present (Psych) Judgement: Limited judgement present (Psych) Assessment & Plan Assessment & Plan (1) GERD (gastroesophageal reflux disease): Code(s): K21.9 - Gastro-esophageal reflux disease without esophagitis Category: Medical (2) Gastroparesis: Comment: DX 2011 with gastric emptying study, patient went off of Reglan because she said it caused her appetite to be too good and she gained too much weight, she has adamantly declined to be put back on this medication very much limiting my ability to control her GERD since 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 Code(s): K31.84 - Gastroparesis Category: Medical (3) Irritable bowel syndrome with both constipation and diarrhea: Code(s): K58.2 - Mixed irritable bowel syndrome Category: Medical (4) Fecal incontinence: Comment: Most likely some element of pelvic floor dysfunction related to MS but the patient has declined pelvic floor physical therapy for now Code(s): R15.9 - Full incontinence of feces Category: Medical Plan She continues on her creon to her bentyl, lansoprazole and simethicone and fiber. She does NOT have diarrhea, but she will have fecal incontinence about 3 times a month with solid stools. I explain that this is likely r/t her MS, and/or pelvic floor weakness and offer to refer her to PT for this and biofeedback therapy, but she declines. She is not convinced that she can learn to control this muscle. I explain that there is no medicine therapy or surgery for this problem. ROV 6 mos. Medications: Refilled [id number] 36,000-114,000- 180,000 unit (Creon) 1 cap PO QID 120 caps 6RF K58.2 - Mixed irritable bowel syndrome lansoprazole 30 mg PO BID 60 caps 6RF K21.9 - Gastro-esophageal reflux disease without esophagitis simethicone 180 mg PO TID 90 caps 6RF Coding Level of Care Code Est Pt Level 3 (34761) Diagnoses GERD (gastroesophageal reflux disease) K21.9 Gastroparesis K31.84 Irritable bowel syndrome with both constipation and diarrhea K58.2 Fecal incontinence R15.9
[2025-02-25 10:25] VITALS: BP 108/55; PULSE 61; BMI 21.5
--- OUTSIDE RECORDS SUMMARY | 2025-02-25 10:36 | XMS_ITS | Data Portability ---
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 .................... .................... .................... . [facility] Consulted: Oscar South .................... .................... .................... .................... .................... .................... .................... . Disposition: Dimas OSCAR SOUTH MD [address] [place] [address],[address], [place], [address], [employer] 10/06/2024 16:38:37 10/22/2024 text/html ROS as noted in the [facility] CRC Nurse Triage Notes (Alanis Watkins): Reason [...] Ischemic Attack (TIA) PMH Reviewed at 10/22/2024 - 19:08 Allergies Reviewed at 10/22/2024 - 19:08 Comments: c/o lower abdominal pain that started [...] s/s and seek emergency treatment if needed. Graphic Artist Organization Information for Lyndsay Blackburn Business Legal Name: [employer]. Address: [address] [place] [id number], Annealer: Elier Weaver MD CLIA No.: [id number] Graphic Artist POC Test Results from Blackburn, Lyndsay - ALS iSTAT Chem8+ (20:30:23) Na: 141 mEq/L K: 4.5 mEq/L Cl: 108 mEq/L iCa: 1.19 mmol/L TCO2: 25 mmol/L Glu: 98 mg/dL BUN: 20 mg/dL Crea: 1.0 mg/dL Hct: 41 % Hb: 13.9 g/dL A mmol/L Cartridge Number: [id number] Attachments uploaded as part of this test result can be found under Documents section. .................... .................... .................... .................... .................... .................... .................... . Graphic Artist Note From Lyndsay Blackburn: Sent to a [...] unremarkable; Extremities: unremarkable; Skin: pink, warm, dry; [facility] consulted and orders BMP and urine dip. IV access/venous blood draw performed; bloodwork results: uploaded to [employer] [place]; Unable to interpret urine dip due to hematuria. C consulted and orders Normal Saline 1 liter [...] flags discussed. Pt has no further questions. [facility] Lab Orders: BMP, serum or plasma: Performed [facility] Medication Orders: sodium chloride 0.9 % intravenous solution: Administered .................... .................... .................... .................... .................... .................... .................... . [facility] Consulted: Shelly Castillo .................... .................... .................... .................... .................... .................... .................... . Disposition: Dimas CASTILLO MD [address] [facility],[address], [place], [address], [employer] 10/22/2024 22:10:34 11/20/2024 text/html HPI: mbr with hx of uti s states experiencing frequency foul smelling urine, abdominal cramping, denies any fevers back pain no cp/n/v. requesting [facility] visit for evaluation .................... .................... .................... .................... .................... .................... .................... . CRC Nurse Triage Notes (Micah Doherty): Chief Complaints: Abdominal Pain, Urinary Symptoms PMH: Para or Quadriplegia, Anxiety Disorder, Depression, Emphysema, Epilepsy/Seizure Disorder, Multiple Sclerosis, Osteoporosis, Schizophrenia, Transient Ischemic Attack (TIA) PMH Reviewed at 11/20/2024:13 Allergies Reviewed at 11/20/2024:13 Comments: HPI reviewed by this RN, no further information needed to process visit -Kel Doherty RN Graphic Artist Organization Information for Maximiliano Ruano [employer] Legal Name: [employer] Address: [address] [place] [address], [place]aler: Elier Weaver MD IA No.: [id number] Graphic Artist POC Test Results from Maximiliano Ruano Urine Dipstick (17:03:38) Urine leukocytes: 70+ LATRICIA Urine nitrites: - NIT Urine urobilinogen: 0.2 3.5 URO Urine protein: 15+- 0.15 PRO Urine pH: 6.0 pH Urine blood: - BLO Urine specific gravity: 1.015 SG Urine ketones: 5 +- 0.5 KET Urine bilirubin: - ALISHA Urine glucose: - GLU Attachments uploaded as part of this test result can be found under Documents section. .................... .................... .................... .................... .................... .................... .................... . Graphic Artist Note From Maximiliano Ruano: Encountered patient, conscious alert and ambulatory. Patient reports approximately 24 hours of abdominal cramping, painful burning urination, as well as an increase in urinary frequency. Patient denies any recent fevers, nausea, vomiting, or dizziness. Urinalysis performed, values uploaded via [facility] for [facility]. Skin warm, dry and of appropriate color for ethnicity. Head and neck, free of trauma and edema-JVD. Breath sounds present, clear and equal bilaterally. Abdomen is soft, tender, and non-distended. Extremities are free of trauma edema. [facility] contacted: states given patient s urinalysis results patient will be placed on antibiotics to treat a suspected urinary tract infection with a following prescription at patient s pharmacy of choice to follow. [facility] additionally orders for a culture. Patient urge to seek further medical attention including 911 if she begins developing chest, pain and shortness of breath or acute changes and vision. Patient verbalizes understanding and is comfortable with the plan of remaining at home at this time. [facility] Lab Orders: culture, urine: Performed urinalysis, dipstick: Performed [facility] Medication Orders: sulfamethoxazole 800 mg-trimethoprim 160 mg tablet: Administered .................... .................... .................... .................... .................... .................... .................... . [facility] Consulted: Julita Bravo .................... .................... .................... .................... .................... .................... .................... . Disposition: Fulfilled Julita Bravo MD [address] [facility],[address], [place], [address], [employer] GARCIA 11/20/2024 17:34:44 OBGyn Episode No OBEpisode recorded.
--- OUTSIDE RECORDS SUMMARY | 2025-02-25 10:36 | XMS_ITS | Encounter Summary ---
Author Organization [employer] Address [address] [place] [address] [address] [place] [address] Care Team Providers Care Ink Blender Name Role Phone Name, Rocky CHAUDHARI Primary Care Provider [phone] Jim Ram MINIBUS DRIVER Unavailable Unavailable Reason for Visit * Reason Onset Date Comments Med Refill 07/01/2023 Encounter Details Date Type Department Care Team (Late st Contact Info) Description 07/01/2023 Telephone [facility] [address] [place], [place] [phone] Name, MD Rocky [address] [place], [place] [id number] Med Refill Social History Tobacco Use Types [...] 200 MG capsule to be sent to [facility] [place], [place] - [address] [facility] documented in this encounter Plan of Treatment Upcoming Encounters Date Type Department Care Team (Late st Contact Info) Description 04/08/2025 10:00 AM EDT Telemedicine [facility] [address] [place], [place] [phone] Keri Guan RN 08/19/2025 10:30 AM EST Office Visit [facility] [address] [place] [address] Dara Rock, OD [address] [place] [address] documented as of this encounter Visit Diagnoses Not on filedocumented in this encounter Additional Health Concerns Assessment Noted Time PHQ-9 Depression Total Score: 6 05/26/20 23 11:14 AM EDT documented as of this encounter Care Teams Ink Blender Relationship Specialty Start Date End Date Name, MD Rocky [address] [place] [address] PCP - General Family Medicine 12/03/16 Jim Ram FNP [address] [place] [address] Nurse Practitioner Family Medicine 07/08/23 documented as of this encounter
--- OUTSIDE RECORDS SUMMARY | 2025-02-25 10:36 | XMS_ITS | Clinical Summary ---
Author Organization [facility] Address [address] [place] [address] Care Team Providers Care Cream Tester Name Role Phone Annika Kessler PA-C Primary Care Provider [phone] Source Comments PLEASE NOTE, if this patient is a minor, it may be UNLAWFUL to discuss sensitive information that is contained in these records (such as FAMILY PLANNING, MENTAL HEALTH or SUBSTANCE ABUSE) with the minor patient's parent or other person without the patient's specific authorization.[facility] Immunizations Immunization Administration Dates Next Due Flu, Multi Dose 0.5 ML 05/12/2017 INFLUENZA, SEASONAL, INJECTABLE 06/20/20 16,08/29/2015,05/23/2014,06/17 PNEUMOCOCCAL CONJUGATE PCV 13 03/29/2015 PNEUMOCOCCAL POLYSACCHARIDE PPV23 (Pneumovax 23) 06/20/2016,03/29/2015 TDAP 12/27/2016 Social History Tobacco Use Types [...] Plan of Treatment Not on file Insurance [employer] [place] [id number] Care Teams Cream Tester Relationship Specialty Start Date End Date Annika Kessler PA-C [address] [place] [address] PCP - General 09/29/18
== END 2025-02-25 10:53 | disposition home or self-care (01) ==
LOC: HO.HGI 10:23
PROVIDERS: PCP Internal Medicine Geriatric Medicine; Visit Provider Nurse Practitioner
DX: K21.9 Gastro-esophageal reflux disease without esophagitis (principal); K31.84 Gastroparesis; K58.2 Mixed irritable bowel syndrome; R15.9 Full incontinence of feces
CPT/HCPCS: 99213

== ENCOUNTER → 2025-02-25 10:22 | Outpatient (BNVA) | payer OTHER, SELFPAY | PROVIDERS: PCP Internal Medicine Geriatric Medicine; Visit Provider Nurse Practitioner | DX: K21.9 Gastro-esophageal reflux disease without esophagitis (principal); K31.84 Gastroparesis; K58.2 Mixed irritable bowel syndrome; R15.9 Full incontinence of feces | CPT/HCPCS: 99212 ==

== ENCOUNTER 2025-03-30 11:59 | Emergency (ER) | payer OTHER, SELFPAY ==
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
[2025-03-30 12:02] VITALS: BP 106/74; PULSE 56; O2SAT 98
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
[2025-03-30 12:49] VITALS: BP 111/53; PULSE 67; RESP 16; TEMP 36.7; O2SAT 98; BMI 22.5
--- OUTSIDE RECORDS SUMMARY | 2025-03-30 16:58 | XMS_ITS | Encounter Summary ---
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 Unavailable Reason for Visit * Reason Comments Med Refill Encounter Details Date Type Department Care Team (Late st Contact Info) Description 01/09/2024 Refill [facility] [address] [address] Name, MD Rocky [address] [place], [place] [phone] Social History Tobacco Use Types Packs/Day Years [...] Info) Description 04/08/2025 10:00 AM EDT Telemedicine [facility] [address] [place] [address] Keri Guan RN 04/22/2025 10:15 AM EDT Office Visit [facility] [address] [place] [address] Name, MD Rocky [address] [place] [address] 08/19/2025 10:30 AM EST Office Visit [facility] [address] [place] [address] Dara Rock, OD [address] [place] [address] documented as of this encounter Visit Diagnoses Not on filedocumented in this encounter Additional Health Concerns Assessment Noted Time PHQ-9 Depression Total Score: 5 11/24/19 24 11:19 AM EDT documented as of this encounter Care Teams Seed Packer Relationship Specialty Start Date End Date Rocky Jain MD [address] [place] [address] PCP - General Family Medicine 12/03/16 Jim Ram FNP [address] [place] [address] Nurse Practitioner Family Medicine 07/08/23 documented as of this encounter
--- OUTSIDE RECORDS SUMMARY | 2025-03-30 16:58 | XMS_ITS | Encounter Summary ---
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 I have destineegabby chou 05/20/[address] you [...] Info) Description 04/08/2025 10:00 AM EDT Telemedicine [facility] [address] [place] [address] Keri Guan RN 04/22/2025 10:15 AM EDT Office Visit [facility] [address] [place] [address] Rocky Jain MD [address] [place] [address] 08/19/2025 10:30 AM EST Office Visit [facility] [address] [place] [address] Dara Rock, OD [address] [place] [address] documented as of this encounter Visit Diagnoses Diagnosis Chronic back pain, unspecified back location, unspecified back pain laterality Multiple sclerosis (CMS/HCC) Multiple sclerosis documented in this encounter Additional Health Concerns Assessment Noted Time PHQ-9 Depression Total Score: 6 12/25/19 11:32 AM EDT documented as of this encounter Care Teams Strategy Manager Relationship Specialty Start Date End Date Name, MD Rocky [address] [place] [address] PCP - General Family Medicine 12/03/16 Jim Ram FNP [address] [place] [address] Nurse Practitioner Family Medicine 07/08/23 documented as of this encounter
--- OUTSIDE RECORDS SUMMARY | 2025-03-30 16:58 | XMS_ITS | Encounter Summary ---
Author Organization [employer] Address [address] [place] [address] 7t [place] [address] Care Team Providers Care Paper Guillotine Operator Name Role Phone Name, Rocky CHAUDHARI Primary Care Provider [phone] Jim Ram DROP TESTER Unavailable Unavailable Reason for Visit * Reason Comments Med Refill Encounter Details Date Type Department Care Team ([facility] st Contact Info) Description 08/02/[address] [facility] [address] [place], [place] [phone] Name, MD Rocky [address] [place], [place] [phone] Major depressive disorder with psychotic features (CMS/HCC) [...] the past 12 months, has t he [employer] gas, oil or water company threatened to [...] Info) Description 04/08/2025 10:00 AM EDT Telemedicine [facility] [address] [place] [address] Keri Guan RN 04/22/2025 10:15 AM EDT Office Visit [facility] [address] [place] [address] Name, MD Rocky [address] [place] [address] 08/19/2025 10:30 AM EST Office Visit [facility] [address] [place] [address] Dara Rock, TUSHAR [address] [place] [address] documented as of this encounter Visit Diagnoses Diagnosis Major depressive disorder with psychotic features (CMS/HCC) documented in this encounter Additional Health Concerns Assessment Noted Time PHQ-9 Depression Total Score: 11 024 11:18 AM EDT documented as of this encounter Care Teams Paper Guillotine Operator Relationship Specialty Start Date End Date Name, MD Rocky [address] [place] [address] PCP - General Family Medicine 12/03/16 Jim Ram FNP [address] [place] [address] Nurse Practitioner Family Medicine 07/08/23 documented as of this encounter
--- OUTSIDE RECORDS SUMMARY | 2025-03-30 16:58 | XMS_ITS | Encounter Summary ---
Author Organization [employer] Address [address] [place] [address] 7t [place] [address] Care Team Providers Care Supervisor Green End Department Name Role Phone Name, Rocky CHAUDHARI Primary Care Provider [phone] Jim Ram PANEL FITTER Unavailable Unavailable Reason for Visit * Reason Onset Date Comments Call Back Request 11/18/2023 Verbal Orders 11/18/2023 Encounter Details Date Type Department Care Team (Late st Contact Info) Description 11/18/2023 Telephone [facility] [address] [place] [address] Name, MD Rocky [address] [place], [place] [phone] Call Back Request; Verbal Orders Social History [...] 11/21/2023 10:35 AM EDT T/C to [facility] [phone] for below message, No answer. LVM to call back on [phone]. * Telephone Encounter - Maureen King RN - 11/19/2023 2:39 PM EDT Please review and advise for verbal orders for [facility] visits 2x a week for 9 weeks. Medication records affiliation was completed. * Telephone Encounter - Edwin Pugh - 11/18/2023 3:47 PM EDT Tc from [facility] calling to request verbal orders for [facility] visits 2x a week for 9 weeks and would like a call back for medication records affiliations please call [facility] [phone] documented in this encounter Plan of Treatment Upcoming Encounters Date Type Department Care Team (Late st Contact Info) Description 04/08/2025 10:00 AM EDT Telemedicine [facility] [address] [place] [address] Keri Guan, RN 04/22/2025 10:15 AM EDT Office Visit [facility] [address] [place] [address] Name, MD Rocky [address] [place], [place] 08/19/2025 10:30 AM EST Office Visit [facility] [address] [place] [address] Dara Rock, OD [address] [place] [address] documented as of this encounter Visit Diagnoses Not on filedocumented in this encounter Additional Health Concerns Assessment Noted Time PHQ-9 Depression Total Score: 9 09/23/19 24 11:22 AM EST documented as of this encounter Care Teams Supervisor Green End Department Relationship Specialty Start Date End Date Name, MD Rocky [address] [place] [address] PCP - General Family Medicine 12/03/16 Jim Ram FNP [address] [place] [address] Nurse Practitioner Family Medicine 07/08/23 documented as of this encounter
--- OUTSIDE RECORDS SUMMARY | 2025-03-30 16:58 | XMS_ITS | Encounter Summary ---
Author Organization [employer] Address [address] [place] [address] 7t [place] [address] Care Team Providers Care Tuber Operator Name Role Phone Name, Rocky CHAUDHARI Primary Care Provider [phone] Jim Ram Unavailable Unavailable Reason for Visit * Reason Comments Med Refill Encounter Details Date Type Department Care Team (Late st Contact Info) Description 07/29/2024 Refill [facility] [address] [place], [place] [phone] Name, MD Rocky [address] [place], [place] [phone] Chronic back pain, unspecified back location, unspecified [...] Info) Description 04/08/2025 10:00 AM EDT Telemedicine [facility] [address] [place] [address] Keri Guan RN 04/22/2025 10:15 AM EDT Office Visit [facility] [address] [place] [address] Name, MD Rocky [address] [place] [address] 08/19/2025 10:30 AM EST Office Visit [facility] [address] [place], [place] [phone] Dara Rock, TUSHAR [address] [place] [address] documented as of this encounter Visit Diagnoses Diagnosis Chronic back pain, unspecified back location, unspecified back pain laterality Major depressive disorder with psychotic features (CMS/HCC) documented in this encounter Additional Health Concerns Assessment Noted Time PHQ-9 Depression Total Score: 11 024 11:18 AM EDT documented as of this encounter Care Teams Tuber Operator Relationship Specialty Start Date End Date Name, MD Rocky [address] [place] [address] PCP - General Family Medicine 12/03/16 Jim Ram FNP [address] [place] [address] Nurse Practitioner Family Medicine 07/08/23 documented as of this encounter
--- OUTSIDE RECORDS SUMMARY | 2025-03-30 16:58 | XMS_ITS | Continuity of Care Document ---
Author Name [facility] Address [address] [place] [address] Organization Unknown Address [address] [place] [address] Medications No known medications Problems No known problems
--- OUTSIDE RECORDS SUMMARY | 2025-03-30 16:58 | XMS_ITS | Clinical Summary ---
Author Organization [facility] Address [address] [place] [address] Care Team Providers Care Tile Classifier Name Role Phone Annika Kessler PA-C Primary Care Provider [phone] Source Comments PLEASE NOTE, if this patient [...] file Insurance [employer] [place] [id number] Care Teams Tile Classifier Relationship Specialty Start Date End Date Annika Kessler PA-C [address] [place] [address] PCP - General 09/29/18
--- OUTSIDE RECORDS SUMMARY | 2025-03-30 16:58 | XMS_ITS | Clinical Summary ---
Author Organization [employer] Address [address] [place] [address] 7[address] [place] [address] Care Team Providers Care Clinical Trial Coordinator Name Role Phone Name, Rocky CHAUDHARI Primary Care Provider [phone] Jim Ram Unavailable Unavailable Allergies Active Allergy [...] 12 (twelve) hours. 08/24/19 20 Active Umeclidinium Caro (Incruse Ellipta) 62.5 MCG/ACT aerosol powder Inhale [...] in the morning. 02/01/20 23 Active Creon 93750-672549 units capsule delayed-release particles capsule TAKE 1 CAPSULE FOUR TIMES DAILY WITH MEALS OR SNACKS 02/26/20 23 Active magnesium oxide (Mag-Ox) 400 (240 Mg) [...] swallow. 12 g 1 03/17/20 24 Active Diclofenac Sodium 1 % gelIndications: Chronic back pain, unspecified back location, unspecified back pain laterality APPLY 2 GRAMS TOPICALLY TO THE affected HIP TWICE DAILY 100 g 1 03/17/20 24 Active dextran 70-hypromellose (artificial tears) 0.1-0.3 % ophthalmic solution Administer 1 drop into both eyes 3 times daily. 15 mL 11 06/07/20 24 025 Active cholecalciferol (Vitamin D-3) 25 MCG tabletIndicatio ns:Age-related osteoporosis with current pathological fracture, initial encounter Take 1 tablet (25 mcg) by mouth 2 times daily. 180 tablet 3 06/10/20 24 Active triamcinolone (Kenalog) 0.1 % creamIndication [...] mild pain. 112 tablet 08/02/20 24 Active lansoprazole (Prevacid) [address] capsule TAKE 1 CAPSULE BY MOUTH TWICE A DAY 168 capsule 2 08/30/19 25 Active clindamycin (Cleocin T) 1 % lotion Apply topically 2 times daily. 60 mL 5 10/14/19 25 026 Active Monomethyl Fumarate (Bafiertam) 95 MG capsule delayed-release Take by mouth. Active simethicone (Simethicone Ultra Strength) 180 MG capsuleIndicati ons:Chronic back pain, unspecified back location, unspecified back pain laterality TAKE 1 CAPSULE BY MOUTH TWICE DAILY AFTER MEALS AND AT BEDTIME 180 capsule 1 11/20/19 25 Active atorvastatin (Lipitor) 20 MG tabletIndicatio ns:High cholesterol TAKE 1 TABLET BY MOUTH EVERY DAY 90 tablet 1 11/24/19 25 Active topiramate 50 MG tablet Take 1 tablet (50 mg) by mouth 2 times daily. 168 tablet 1 12/18/19 25 Active sertraline (Zoloft) 100 MG tabletIndicatio ns:Major depressive disorder with psychotic features (CMS/HCC) TAKE 1 1/2 TABLETS BY MOUTH EVERY DAY 135 tablet 01/13/20 25 Active Aspirin Low Dose 81 MG EC tabletIndicatio ns:Chronic back pain, unspecified back location, unspecified back pain laterality TAKE 1 TABLET BY MOUTH ONCE DAILY 90 tablet 3 02/10/20 25 Active celecoxib (CeleBREX) 200 MG capsuleIndicati ons:Chronic back pain, unspecified back location, unspecified back pain laterality TAKE 1 CAPSULE BY MOUTH EVERY DAY NEEDED FOR PAIN 28 capsule 1 02/11/20 25 Active perphenazine 8 MG tabletIndicatio ns:Major depressive disorder with psychotic features (CMS/HCC) TAKE 1 TABLET BY MOUTH TWICE A DAY 180 tablet 3 02/11/20 25 Active albuterol 108 (90 Base) MCG/ACT inhalerIndicati ons:Pulmonary emphysema, unspecified emphysema type (CMS/HCC) INHALE 2 PUFFS ORALLY EVERY 4-6 HOURS NEEDED 8.5 g 3 02/12/20 25 Active clonazePAM (KlonoPIN) 1 MG tabletIndicatio ns:Major depressive disorder with psychotic features (CMS/HCC) TAKE 1 TABLET BY MOUTH EVERY 8 HOURS NEEDED FOR ANXIETY. Do not start before March 08, 2025. 84 tablet 03/08/20 25 Active oxyCODONE (Roxicodone) 15 MG immediate release tabletIndicatio ns:Chronic back pain, unspecified back location, unspecified back pain laterality,Mult iple sclerosis (CMS/HCC) Take 1 tablet (15 mg) by mouth every 8 (eight) hours if needed (severe pain) for up to 28 days. Do not start before March 13, 2025. 84 tablet 03/13/20 25 025 Active gabapentin (Neurontin) 300 MG capsuleIndicati ons:Chronic back pain, unspecified back location, unspecified back pain laterality,Weig ht gain TAKE 1 CAPSULE BY MOUTH 3 TIMES DAILY 90 capsule 11 03/11/20 25 Active gabapentin (Neurontin) 300 MG capsuleIndicati ons:Chronic back pain, unspecified back location, unspecified back pain laterality,Weig ht gain Take 1 capsule (300 mg) by mouth 3 times daily. 90 capsule 03/17/20 24 025 Discontinued clonazePAM (KlonoPIN) 1 MG tabletIndicatio ns:Major depressive disorder with psychotic features (CMS/HCC) TAKE 1 TABLET BY MOUTH EVERY 8 HOURS NEEDED FOR ANXIETY. DONT START BEFORE 12/29 84 tablet 02/08/20 25 025 Discontinued(R eorder (will not trigger notification to Pharmacy)) oxyCODONE (Roxicodone) 15 MG immediate release tabletIndicatio ns:Chronic back pain, unspecified back location, unspecified back pain laterality,Mult iple sclerosis (CMS/HCC) Take 1 tablet (15 mg) by mouth every 8 (eight) hours if needed (severe pain) for up to 28 days. Do not start before February 16, 2025. 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 She is also followed by [facility]. Any issues or concerns, contact [facility]. All her questions were answered and [...] Encounters Date Type Department Care Team Description 03/29/2025 Telephone [facility] MEDICINE [address] [place] [address] Rocky Jain MD Nurse Triage 03/11/2025 Refill [facility] [address] [place] [address] Rocky Jain MD Chronic back pain, unspecified back location, unspecified back pain laterality; Weight gain 03/10/2025 Refill [facility]INE [address] [place] [address] Rocky Jain MD Chronic back pain, unspecified back location, unspecified back pain laterality; Multiple sclerosis ([facility]/HCC) 03/07/2025 Refill [facility] MED[facility]INE [address] [place] [address] Rocky Jain MD Major depressive disorder with psychotic features ([facility]/HCC) 03/04/2025 Refill [facility]INE [address] [place] [address] Rocky Jain MD Age-related osteoporosis with current pathological fracture, initial encounter 02/15/2025 Telephone [facility] MED[facility]INE [address] [place] [address] Rocky Jain MD Chart Prep 02/14/2025 3:30 PM EDT Office Visit [facility] OPTOMETRY [address] [place] [address] Pranav, Dara, OD Multiple sclerosis ([facility]) (Primary Dx); History of stroke 02/14/2025 Travel 02/11/2025 Refill [facility] MEDICINE [address] [place] [address] Rocky Jain MD Chronic back pain, unspecified back location, unspecified back pain laterality; Multiple sclerosis ([facility]/HCC) 02/10/2025 Refill [facility] MEDICINE [address] [place] [address] Patience Rodríguez NP Pulmonary emphysema, unspecified emphysema type ([facility]/HCC) 02/10/2025 Refill [facility] [address] [place] [address] Rocky Jain MD Major depressive disorder with psychotic features ([facility]/HCC) 02/10/2025 Refill [facility] MEDICINE [address] [place] [address] Rocky Jain MD Chronic back pain, unspecified back location, unspecified back pain laterality 02/08/2025 Refill [facility]INE [address] [place] [address] Rocky Jain MD Chronic back pain, unspecified back location, unspecified back pain laterality 02/03/2025 Refill [facility]INE [address] [place] [address] Rocky Jain MD Major depressive disorder with psychotic features (CMS/HCC) 01/19/2025 Telephone [facility]INE [address] [place] [address] Rocky Jain MD Medication Question 01/19/2025 Telephone [facility]INE [address] [place] [address] Rocky Jain MD Medication Question 01/17/2025 Refill [facility] [address] [place] [address] Rocky Jain MD Chronic back pain, unspecified back location, unspecified back pain laterality; Multiple sclerosis (CMS/HCC) 01/15/2025 Refill [facility]INE [address] [place] [address] Rocky Jain MD Major depressive disorder with psychotic features ([facility]/HCC) 01/14/2025 Refill [facility] MED[facility]INE [address] [place] [address] Rocky Jain MD Major depressive disorder with psychotic features ([facility]/HCC) 01/12/2025 Refill [facility] [address] [place], [place] [phone] Rocky Jain MD Major depressive disorder with psychotic features ([facility]/HCC) 01/07/2025 9:30 AM EDT Telemedicine [facility] MEDICINE [address] [place] [address] Keri Guan RN 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 01/07/2025 Travel from Last 3 Months Immunizations Immunization Administration Dates Next Due Influenza injectable quadriv [...] 66 11/01/2024 11:26 AM EDT Temperature 37.7 C (99.9 F) 11/01/2024 11:26 AM EDT Respiratory Rate 18 11/01/2024 11:26 AM EDT [...] 04/08/2025 10:00 AM EDT Telemedicine [facility] MEDICINE [address] [place] [address] Keri Guan RN 04/22/2025 10:15 AM EDT Office Visit [facility] MEDICINE [address] [place] [address] Name, MD Rocky [address] [place] [address] 08/19/2025 10:30 AM EST Office Visit [facility] OPTOMETRY [address] [place] [address] Dara Rock, OD [address] [place] [address] Health Maintenance Due Date Last Done Comments CT Colonography 1966 FIT DNA/Cologuard 1966 FIT 1966 FOBT 1966 HIV Screening 1966 Sigmoidoscopy 1966 Alcohol/Substance Use Screening 1978 Hepatitis B Vaccines (1 of 3 - 19+ 3-dose series) 1985 Pneumococcal Vaccine: 50+ Years (3 of 3 - PCV20 or PCV21) 06/20/2021 06/20/2016, 03/29/2015, 03/29/2015 Depression Monitoring 07/27/2024 01/26/2024, 024 SDOH Screening 10/20/2024 10/21/2023 Pap Smear 11/26/2024 11/26/2021 Colonoscopy 03/13/2025 03/13/2022 Colorectal Cancer Screening 03/13/2025 Influenza Vaccine (#1) 2025 , 06/11/2023, 04/12/2022, Additional history exists Mammogram 05/03/2025 05/03/2024, 04/05, 05/03/2022 Disability Screening 11/01/2025 11/01/2024 Tobacco Screening 03/02/2026 03/02/2025 Cervical Cancer Screening 11/26/2026 HPV/Cotest 11/26/2026 11/26/2021 Lipid Panel 10/15/2027 10/14/2022, 10/23/2021 DTaP/Tdap/Td Vaccines (3 - Td or Tdap) 06/17/2031 06/17/2021, 12/27/2016 RSV Patients and Patients Aged 60 years or older (1 - 1-dose 75+ series) 2041 Hepatitis C Screening Completed 01/26/2015 Zoster Vaccines Completed 12/24/2022, 10/22/2022 COVID-19 Vaccine Completed 06/04/2024, 03/2023, 06/26/2022, Additional history exists HIB Vaccines Aged Out [...] patient's age to complete this topic Meningococcal B Vaccine Aged Out No l onger eligible based on patient's age to complete [...] Procedure Name Priority Date/Time Associated Diagnosis Comments AUTOMATED VISUAL FIELD, EXTENDED - OU - BOTH EYES Routine 02/14/2025 3:30 PM EDT Multiple sclerosis (CMS/HCC) History of stroke MAMMOGRAPHY Routine 05/03/2024 LIPID PANEL, STANDARD Routine 10/14/2022 12:17 PM EDT Screening for diabetes mellitus On statin therapy COLONOSCOPY Routine 03/13/2022 THINPREP IMAGING PAP AND HPV MRNA E6/E7 WITH REFLEX TO HPV 16,18/45 Routine 11/26/2021 9:41 AM EDT HEPATITIS C ANTIBODY Routine 01/26/2015 from Last 3 Months or Most Recently Relevant to Health Maintenance Results * Automated Visual Field, Extended - OU - Both Eyes (02/14/2025 3:30 PM EDT) Narrative Dara Rock, OD - 03/03/2025 3:04 PM EDT VISUAL FIELD INTERPRETATION Visual Field Interpretation Test Details: Octopus 32P Pulsar / 200 /TOP Reliability Indices: False positive errors OD: 0/7 OS: 0/7 False negative errors OD: 0/8 OS: 3/8 Statistical Indices: MS [src]: OD: 18.8 OS: 17.7 MD [< 2.0 src]: OD: 2.2 OS: 3.3 sLV [< 2.5 src]: OD: 1.8 OS: 2.6 Impression: Reason for testing: Annual monitoring of visual field secondary to history of stroke and Multiple Sclerosis. Test Reliability: good reliability right eye, adequate reliability left eye due to few false negatives Impression: Right eye: Overall clear field with a single shallow superior nasal defect. Left eye: several nasal defects respecting the vertical meridian with mixed depth, more prominent inferiorly. Progression: Right eye: much improved from previous field, no repeated defects Left eye: few repeated inferior nasal defects, but overall improved from previous field. Management Plan: Monitor with repeat visual field test in 1 year. Dara Rock OD OPHTH VISUAL FIELD Final Resu lt * Mammography (05/03/2024) Pathologist [facility] Mammogram Normal Normal, Abnormal, BIRADS 1 , BIRADS 2 Anatomical Region Laterality Modality Other 05/03/2024 Rocky Jain MD HEALTH MAINTENANCE Final Result * (ABNORMAL) Lipid Panel, Standard (10/14/2022 12:17 PM EDT) [facility] Cholesterol, Total 143 <200 mg/dL [facility] HDL Cholesterol 46(L) > OR = 50 mg/dL [facility] [place] [facility] Triglycerides 101 <150 mg/dL [facility] [place] [facility] LDL Cholesterol 79 mg/dL (calc) [facility] Comment: Reference range: <100 Desirable range <100 mg/dL for primary prevention; <70 mg/dL for patients with CHD or diabetic patients with > or = 2 CHD risk factors. LDL-C is now calculated using the Steve-Sudarshan calculation, which is a validated novel method providing better accuracy than the Friedewald equation in the estimation of LDL-C. Steve SS et al. MARY JO. 2013;310(19): 9569-7524 (http://education.BioSeek/faq/NRO935) Chol/HDLC Ratio 3.1 <5.0 (calc) [facility] Non-HDL Cholesterol 97 <130 mg/dL (calc) [facility] Comment: For patients with diabetes plus 1 major ASCVD risk factor, treating to a non-HDL-C goal of <100 mg/dL (LDL-C of <70 mg/dL) is considered a therapeutic option. Blood Venous blood specimen / Unknown 10/14/2022 12:17 PM EDT 10/14/2022 12:18 PM EDT Narrative [facility] - 10/15/2022 1:11 AM EDT FASTING:NO FASTING: NO us Rocky Name LAB BLOOD ORDERABLES Final Resul t [facility] [address] [place] [address], [place] [address] [facility] [address] [place] [address] * (ABNORMAL) Hm Colonoscopy (03/13/2022) Colonoscopy Abnormal( A) Normal Comment:repeat 3 years Historical Provider HEALTH MAINTENANCE Final Result * THINPREP TIS PAP AND HPV mRNA E6/E7 WITH REFLEX TO HPV 16,18/45 (11/26/2021 9:41 AM EDT) Clinical Information: S/P HYST [facility] COMMENT SEE COMMENT [facility] Comment: EXPLANATORY NOTE: The Pap is a screening test for cervical cancer. It is not a diagnostic test and is subject to false negative and false positive results. It is most reliable when a satisfactory sample, regularly obtained, is submitted with relevant clinical findings and history, and when the Pap result is evaluated along with historic and current clinical information. COMMENT: This Pap test has been evaluated with computer assisted technology. [facility] Director Business Travel: SEE COMMENT [facility] Comment: [facility], CT(ASCP) CT screening location: [address] [address] HPV nRNA E6/E7 Not Detected Not Detected [facility] Comment: Methodology: Caretaker-Mediated Amplification This assay detects E6/E7 viral messenger RNA (mRNA) from 14 high-risk HPV types (16,18,31,33,35,39,45,51,52,56,58,59,66,68). The analytical performance characteristics of this assay have been determined by [facility]. The modifications have not been cleared or approved by the FDA. This assay has been validated pursuant to the CLIA regulations and is used for clinical purposes. For additional information, please refer to http://education.eTec/faq/GIK426n1 (This link if provided for information/ educational [...] PATHOLOGY ORDERABLES Final Result Performing Organization Address City/State/[facility] Co de Phone Number [facility] [address] * HM Hepatitis C Antibody (01/26/2015) Hepatitis C Antibody Nonreactive Blood Rocky Jain MD HEALTH MAINTENANCE Final Result from Last 3 Months or Most Recently Relevant to Health Maintenance Insurance [facility] ONE CARE < [address] [place] [id number] Care Teams Clinical Trial Coordinator Relationship Specialty Start Date End Date Name, MD Rocky [address] [place] [address] PCP - General Family Medicine 12/03/16 Jim Ram FNP [address] [place] [address] Nurse Practitioner Family Medicine 07/08/23
--- OUTSIDE RECORDS SUMMARY | 2025-03-30 16:58 | XMS_ITS | Encounter Summary ---
Author Organization [employer] Address [address] [place] [address] 7 [place] [address] Care Team Providers Care Surgical Services Asst Name Role Phone Name, Rocky CHAUDHARI Primary Care Provider [phone] Jim Ram B2B OUTSIDE SALES REPRESENTATIVE Unavailable Unavailable Reason for Visit * Reason Onset Date Comments Med Refill 07/01/2023 Encounter Details Date Type Department Care Team (Late st Contact Info) Description 07/01/2023 Telephone [facility] MEDICINE [address] [place], [place] [phone] Name, MD Rocky [address] [place], [place] [phone] Med Refill Social History Tobacco Use Types [...] 200 MG capsule to be sent to [facility] - [place], [place] - [address] [place] [address] documented in this encounter Plan of Treatment Upcoming Encounters Date Type Department Care Team (Late st Contact Info) Description 04/08/2025 10:00 AM EDT Telemedicine [facility] MEDICINE [address] [place] [address] Keri Guan RN 04/22/2025 10:15 AM EDT Office Visit [facility] MED[facility] [address] [place] [address] Name, MD Rocky [address] [place] [address] 08/19/2025 10:30 AM EST Office Visit [facility] OPTOMETRY [address] [place] [address] Dara Rock, OD [address] [place] [address] documented as of this encounter Visit Diagnoses Not on filedocumented in this encounter Additional Health Concerns Assessment Noted Time PHQ-9 Depression Total Score: 6 05/26/20 23 11:14 AM EDT documented as of this encounter Care Teams Surgical Services Asst Relationship Specialty Start Date End Date Name, MD Rocky [address] [place] [address] PCP - General Family Medicine 12/03/16 Jim Ram FNP [address] [place] [address] Nurse Practitioner Family Medicine 07/08/23 documented as of this encounter
--- OUTSIDE RECORDS SUMMARY | 2025-03-30 16:58 | XMS_ITS | Encounter Summary ---
Author Organization [employer] Address [address] [place] [address] 7 [place] [address] Care Team Providers Care Destination Imagination Coordinator Name Role Phone Name, Rocky CHAUDHARI Primary Care Provider [phone] Jim aRm DECAL CUTTER Unavailable Unavailable Reason for Visit * Reason Onset Date Comments Med Refill 04/02/2024 Encounter Details Date Type Department Care Team (Late st Contact Info) Description 04/02/2024 Refill [facility] [address] [place], [place] [phone] Name, MD Rocky [address] [place], [place] [phone] Chronic back pain, unspecified back location, unspecified [...] 200 MG capsule [facility] [place] [place] - [address] [place] [address] documented in this encounter Plan of Treatment Upcoming Encounters Date Type Department Care Team (Late st Contact Info) Description 04/08/2025 10:00 AM EDT Telemedicine [facility] [address] [place] [phone] Keri Guan RN 04/22/2025 10:15 AM EDT Office Visit [facility] [address] [place] [address] Name, MD Rocky [address] [place] [address] 08/19/2025 10:30 AM EST Office Visit [facility] [address] [place] [address] Pranav, Dara, OD [address] [place] [address] documented as of this encounter Visit Diagnoses Diagnosis Chronic back pain, unspecified back location, unspecified back pain laterality documented in this encounter Additional Health Concerns Assessment Noted Time PHQ-9 Depression Total Score: 11 024 11:18 AM EDT documented as of this encounter Care Teams Destination Imagination Coordinator Relationship Specialty Start Date End Date Name, [place] [address] PCP - General Family Medicine 12/03/16 Jim Ram FNP [address] [place] [address] Nurse Practitioner Family Medicine 07/08/23 documented as of this encounter
--- OUTSIDE RECORDS SUMMARY | 2025-03-30 16:58 | XMS_ITS | Encounter Summary ---
Author Organization [employer] Address [address] [place] [address] [address] [place] [address] Care Team Providers Care Librarian Name Role Phone Name, Rocky CHAUDHARI Primary Care Provider [phone] Jim Ram Unavailable Unavailable Reason for Visit * Reason Comments Med Change Request Encounter Details Date Type Department Care Team (Late st Contact Info) Description 03/04/2025 Refill [facility] MEDIC[facility] [address] [place], [place] [phone] Name, MD Rocky [address] [place], [place] [phone] Age-related osteoporosis with current pathological fracture, initial encounter Social History Tobacco Use Types Packs/Day Years [...] t he electric, gas, oil or water [employer] (formerly [employer]) threatened to shut off services in your [...] Info) Description 04/08/2025 10:00 AM EDT Telemedicine [facility] MEDICINE [address] [place] [address] Keri Guan RN 04/22/2025 10:15 AM EDT Office Visit [facility] MED[facility] [address] [place] [address] Name, MD Rocky [address] [place] [address] 08/19/2025 10:30 AM EST Office Visit [facility] OPTOMETRY [address] [place] [address] Dara Rock, TUSHAR [address] [place] [address] documented as of this encounter Visit Diagnoses Diagnosis Age-related osteoporosis with current pathological fracture, initial encounter documented in this encounter Additional Health Concerns Assessment Noted Time PHQ-9 Depression Total Score: 11 024 11:18 AM EDT documented as of this encounter Care Teams Librarian Relationship Specialty Start Date End Date Name, MD Rocky [address] [place] [address] PCP - General Family Medicine 12/03/16 Jim Ram FNP [address] [place] [address] Nurse Practitioner Family Medicine 07/08/23 documented as of this encounter
--- OUTSIDE RECORDS SUMMARY | 2025-03-30 16:58 | XMS_ITS | Encounter Summary ---
Author Organization [email or web address] Address [address] [place] [address] 7t [place] [address] Care Team Providers Care Produce Service Team Member Name Role Phone Name, Rocky CHAUDHARI Primary Care Provider [phone] Jim Ram MANAGER HEART Unavailable Unavailable Reason for Visit * Reason Comments Med Refill Encounter Details Date Type Department Care Team ([facility] st Contact Info) Description 09/05/[address] [facility] CHC MED & PEDS [address] [place] [phone] Name, MD Rocky [address] [place], [place] [phone] Chronic back pain, unspecified back location, unspecified [...] 10:00 AM EDT Telemedicine [facility] MEDICINE [address] [place] [address] Keri Guan RN 04/22/2025 10:15 AM EDT Office Visit [facility] MEDICINE [address] [place] [address] Rocky Jain MD [address] [place] [address] 08/19/2025 10:30 AM EST Office Visit [facility] OPTOMETRY [address] [place] [address] Pranav, Dara, OD [address] [place] [address] documented as of this encounter Visit Diagnoses Diagnosis Chronic back pain, unspecified back location, unspecified back pain laterality Multiple sclerosis (CMS/HCC) Multiple sclerosis documented in this encounter Additional Health Concerns Assessment Noted Time PHQ-9 Depression Total Score: 6 05/26/20 23 11:14 AM EDT documented as of this encounter Care Teams Produce Service Team Member Relationship Specialty Start Date End Date Rocky Jain MD [address] [place] [address], [place] [address] PCP - General Family Medicine 12/03/16 Jim Ram FNP [address] [place] [address] Nurse Practitioner Family Medicine 07/08/23 documented as of this encounter
--- OUTSIDE RECORDS SUMMARY | 2025-03-30 16:58 | XMS_ITS | Encounter Summary ---
Author Organization [employer] Address [address] [place] [address] 7t [place] [address] Care Team Providers Care Automotive Designer Name Role Phone Name, Rocky CHAUDHARI Primary Care Provider [phone] Jim Ram Unavailable Unavailable Reason for Visit * Reason Comments Med Refill Encounter Details Date Type Department Care Team (Late st Contact Info) Description 08/27/2024 Refill [facility] MEDICINE [address] [place], [place] [phone] April Marti NP [address] [place], [place] [phone] Major depressive disorder with psychotic features (CMS/HCC) [...] the past 12 months, has t he [employer], gas, oil or water company threatened to [...] Info) Description 04/08/2025 10:00 AM EDT Telemedicine [facility] MEDICINE [address] [place] [address] Keri Guan RN 04/22/2025 10:15 AM EDT Office Visit [facility] MEDICINE [address] [place] [address] Name, MD Rocky 230 [place] [address] 08/19/2025 10:30 AM EST Office Visit [facility] OPTOMETRY [address] [place] [address] Dara Rock, TUSHAR [address] [place] [address] documented as of this encounter Visit Diagnoses Diagnosis Major depressive disorder with psychotic features (CMS/HCC) documented in this encounter Additional Health Concerns Assessment Noted Time PHQ-9 Depression Total Score: 11 024 11:18 AM EDT documented as of this encounter Care Teams Automotive Designer Relationship Specialty Start Date End Date Name, MD Rocky [address] [place] [address] PCP - General Family Medicine 12/03/16 Jim Ram FNP [address] [place] [address] Nurse Practitioner Family Medicine 07/08/23 documented as of this encounter
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
--- OUTSIDE RECORDS SUMMARY | 2025-03-30 16:58 | XMS_ITS | Patient Health Record ---
Author Organization [facility] Address [address] [place] [id number] Care Team Providers Care Ornamental Bronze Worker Name Role Phone Evelin Dumas MD Primary Care Provider Unavail able Patel Fierro Jr [phone] Reason For Referral No Information Plan Of Treatment No Information
--- OUTSIDE RECORDS SUMMARY | 2025-03-30 16:58 | XMS_ITS | Encounter Summary ---
Author Organization [employer] Address [address] [place] [address] 7t [place] [address] Care Team Providers Care Account Technician Name Role Phone Name, Rocky CHAUDHARI Primary Care Provider Jim Ram Unavailable Unavailable Encounter Details Date Type Department Care Team (Late st Contact Info) Description 11/10/2024 Orders Only [facility] MEDICINE [address] [place], [place] [phone] Patience Rodríguez NP [address] [place], [place] [phone] Right lower quadrant abdominal pain (Primary Dx) [...] Info) Description 04/08/2025 10:00 AM EDT Telemedicine [facility] MEDICINE [address] [place] [address] Keri Guan RN 04/22/2025 10:15 AM EDT Office Visit [facility] MEDICINE [address] [place] [address] Rocky Jain MD [address] [place] [address] 08/19/2025 10:30 AM EST Office Visit [facility] OPTOMETRY [address] [place] [address] Dara Rock, OD [address] [place] [address] documented as of this encounter Visit Diagnoses Diagnosis Right lower quadrant abdominal pain- Primary documented in this encounter Additional Health Concerns Assessment Noted Time PHQ-9 Depression Total Score: 11 024 11:18 AM EDT documented as of this encounter Care Teams Account Technician Relationship Specialty Start Date End Date Rocky Jain MD [address] [place] [address] PCP - General Family Medicine 12/03/16 Jim Ram FNP [address] [place] [address] Nurse Practitioner Family Medicine 07/08/23 documented as of this encounter
--- OUTSIDE RECORDS SUMMARY | 2025-03-30 16:59 | XMS_ITS | Encounter Summary ---
Author Organization [employer] Address [address] [place] [address] 7 [place] [address] Care Team Providers Care Home Health Care Coordinator Name Role Phone Name, Rocky CHAUDHARI Primary Care Provider [phone] Jim Ram CAFE LEAD Unavailable Unavailable Encounter Details Date Type Department Care Team (Late st Contact Info) Description 08/01/2022 Orders Only [facility] MEDICINE [address] [place] [address] Alexandrea Barnard, JENNIFER Social History Tobacco Use [...] Department Care Team (Late Contact Info) Description 04/08/2025 10:00 AM EDT Telemedicine [facility] MEDICINE [address] [place] [address] Keri Guan, RN 04/22/2025 10:15 AM EDT Office Visit [facility] MEDICINE [address] [place] [address] [phone] Rocky Jain MD [address] [place] [address] 08/19/2025 10:30 AM EST Office Visit [facility] OPTOMETRY [address] [place] [address] Pranav, Dara, OD 230 [place] [address] documented as of this encounter Visit Diagnoses Not on filedocumented in this encounter Additional Health Concerns Assessment Noted Time PHQ-9 Depression Total Score: 7 07/23/20 22 2:17 PM EST documented as of this encounter Care Teams Home Health Care Coordinator Relationship Specialty Start Date End Date Name, MD Rocky [address] [place] [address] PCP - General Family Medicine 12/03/16 Jim Ram FNP [address] [place] [address] Nurse Practitioner Family Medicine 07/08/23 documented as of this encounter
--- OUTSIDE RECORDS SUMMARY | 2025-03-30 16:59 | XMS_ITS | Encounter Summary ---
Author Organization [employer] Address [address] [place] [address] 7t [place] [address] Care Team Providers Care Supervisor Contingents Name Role Phone Name, Rocky CHAUDHARI Primary Care Provider Jim Ram Unavailable Unavailable Reason for Visit * Reason Comments Med Refill Encounter Details Date Type Department Care Team (Late st Contact Info) Description 10/22/2024 Refill [facility] MEDICINE [address] [place], [place] [phone] Name, MD Rocky [address] [place], [place] [phone] Chronic back pain, unspecified back location, unspecified [...] Info) Description 04/08/2025 10:00 AM EDT Telemedicine [facility] MEDICINE [address] [place] [address] Keri Guan RN 04/22/2025 10:15 AM EDT Office Visit [facility] MEDICINE [address] [place] [address] Name, MD Rocky [address] [place] [address] 08/19/2025 10:30 AM EST Office Visit [facility] OPTOMETRY [address] [place] [address] Dara Rock, TUSHAR [address] [place] [address] documented as of this encounter Visit Diagnoses Diagnosis Chronic back pain, unspecified back location, unspecified back pain laterality documented in this encounter Additional Health Concerns Assessment Noted Time PHQ-9 Depression Total Score: 11 024 11:18 AM EDT documented as of this encounter Care Teams Supervisor Contingents Relationship Specialty Start Date End Date Name, MD Rocky [address] [place] [address] PCP - General Family Medicine 12/03/16 Jim Ram FNP [address] [place] [address] Nurse Practitioner Family Medicine 07/08/23 documented as of this encounter
--- OUTSIDE RECORDS SUMMARY | 2025-03-30 16:59 | XMS_ITS | Encounter Summary ---
Author Organization [employer] Address [address] [place] [address] 7 [place] [address] Care Team Providers Care Outpatient Surgery Rn Name Role Phone Name, Rocky CHAUDHARI Primary Care Provider [phone] Jim Ram Unavailable Unavailable Reason for Visit * Reason Onset Date Comments Medication Question 06/30/2024 Encounter Details Date Type Department Care Team (Late st Contact Info) Description 06/30/2024 Telephone [facility] MEDICINE [address] [place], [place] [phone] Name, MD Rocky [address] [place], [place] [phone] Medication Question Social History Tobacco Use Types [...] the past 12 months, has t he [employer], gas, oil or water company threatened to [...] Instructions If any questions Contact pt at [phone] documented in this encounter Plan of Treatment Upcoming Encounters Date Type Department Care Team (Late st Contact Info) Description 04/08/2025 10:00 AM EDT Telemedicine [facility] MEDICINE [address] [place] [address] Keri Guan RN 04/22/2025 10:15 AM EDT Office Visit [facility] MEDICINE [address] [place] [address] [phone] Name, MD Rocky [address] [place] [address] 08/19/2025 10:30 AM EST Office Visit [facility] OPTOMETRY [address] [place] [address] Dara Rock, OD 230 [place] [address] documented as of this encounter Visit Diagnoses Not on filedocumented in this encounter Additional Health Concerns Assessment Noted Time PHQ-9 Depression Total Score: 11 024 11:18 AM EDT documented as of this encounter Care Teams Outpatient Surgery Rn Relationship Specialty Start Date End Date Name, MD Rocky 230 [place] [address] PCP - General Family Medicine 12/03/16 Jim Ram FNP [address] [place] [address] Nurse Practitioner Family Medicine 07/08/23 documented as of this encounter
--- OUTSIDE RECORDS SUMMARY | 2025-03-30 16:59 | XMS_ITS | Encounter Summary ---
Author Organization [employer] Address [address] [place] [address] 7t [place] [address] Care Team Providers Care Oyster Shipper Name Role Phone Name, Rocky CHAUDHARI Primary Care Provider [phone] Jim Ram SPINDLE PLUMBER Unavailable Unavailable Encounter Details Date Type Department Care Team ([facility] Contact Info) Description 01/22/2023 Abstract [facility] MEDICINE [address] [place], [place] [phone] Name, MD Rocky [address] [place] [address] Social History Tobacco Use Types Packs/Day Years [...] Upcoming Encounters Date Type Department Care Team ([facility] Contact Info) Description 04/08/2025 10:00 AM EDT Telemedicine [facility] MEDICINE [address] [place] [address] Keri Guan RN 04/22/2025 10:15 AM EDT Office Visit [facility] MEDICINE [address] [place] [address] Name, MD Rocky [address] [place] [address] 08/19/2025 10:30 AM EST Office Visit [facility] OPTOMETRY [address] [place] [address] Dara Rock, OD 230 [place] [address] documented as of this encounter Visit Diagnoses Not on filedocumented in this encounter Additional Health Concerns Assessment Noted Time PHQ-9 Depression Total Score: 6 12/25/19 23 11:32 AM EDT documented as of this encounter Care Teams Oyster Shipper Relationship Specialty Start Date End Date Name, [place] [address] PCP - General Family Medicine 12/03/16 Jim Ram FNP [address] [place] [address] Nurse Practitioner Family Medicine 07/08/23 documented as of this encounter
--- OUTSIDE RECORDS SUMMARY | 2025-03-30 16:59 | XMS_ITS | Encounter Summary ---
Author Organization [employer] Address [address] [place] [address] 7t [place] [address] Care Team Providers Care Buttonhole Maker Name Role Phone Name, Rocky CHAUDHARI Primary Care Provider [phone] Jim Ram Unavailable Unavailable Encounter Details Date Type Department Care Team (Late st Contact Info) Description 11/15/2024 Orders Only [facility] MEDICINE 230 [place], [place] [phone] Patience Rodríguez NP [address] [place], [place] [phone] Other constipation (Primary Dx) Social History Tobacco Use Types [...] the past 12 months, has t he [employer], gas, oil or water company threatened to [...] Info) Description 04/08/2025 10:00 AM EDT Telemedicine [facility] MEDICINE [address] [place] [address] Keri Guan RN 04/22/2025 10:15 AM EDT Office Visit [facility] MEDICINE [address] [place] [address] Rocky Jain MD 230 [place] [address] 08/19/2025 10:30 AM EST Office Visit [facility] OPTOMETRY [address] [place] [address] Dara Rock, OD [address] [place] [address] documented as of this encounter Visit Diagnoses Diagnosis Other constipation- Primary documented in this encounter Additional Health Concerns Assessment Noted Time PHQ-9 Depression Total Score: 11 024 11:18 AM EDT documented as of this encounter Care Teams Buttonhole Maker Relationship Specialty Start Date End Date Rocky Jain MD [address] [place] [address] PCP - General Family Medicine 12/03/16 Jim Ram FNP [address] [place] [address] Nurse Practitioner Family Medicine 07/08/23 documented as of this encounter
--- OUTSIDE RECORDS SUMMARY | 2025-03-30 16:59 | XMS_ITS | Encounter Summary ---
Author Organization [employer] Address [address] [place] [address] 7 [place] [address] Care Team Providers Care Dope Weigh Operator Name Role Phone Name, Rocky CHAUDHARI Primary Care Provider [phone] Jim Ram Unavailable Unavailable Reason for Visit * Reason Onset Date Comments Durable Medical Equipment 12/03/2022 Encounter Details Date Type Department Care Team (Late st Contact Info) Description 12/03/2022 Telephone [facility] MEDICINE [address] [place], [place] [phone] Name, MD Rocky 230 [place], [place] [phone] Durable Medical Equipment Social History Tobacco Use [...] 12:00 PM EDT Tc from Jasmyne at [facility] requesting a new script for incontinence brief size XL, patient uses 2 a dayand is requesting 56 a month for 3 months. Goves size M/L 2 boxes a month for 3 months. Any furtherquestions please call [phone] or email: [email or web address]. documented in this encounter Plan of Treatment Upcoming Encounters Date Type Department Care Team (Late st Contact Info) Description 04/08/2025 10:00 AM EDT Telemedicine [facility] MEDICINE [address] [place] [address] Keri Guan RN 04/22/2025 10:15 AM EDT Office Visit [facility] MEDICINE [address] [place] [address] Name, MD Rocky [address] [place] [address] 08/19/2025 10:30 AM EST Office Visit [facility] OPTOMETRY [address] [place] [address] Dara Rock, OD [address] [place] [address] documented as of this encounter Visit Diagnoses Not on filedocumented in this encounter Additional Health Concerns Assessment Noted Time PHQ-9 Depression Total Score: 8 10/23/19 23 3:20 PM EDT documented as of this encounter Care Teams Dope Weigh Operator Relationship Specialty Start Date End Date Name, MD Rocky [address] [place] [address] PCP - General Family Medicine 12/03/16 Jim Ram FNP [address] [place] [address] Nurse Practitioner Family Medicine 07/08/23 documented as of this encounter
--- OUTSIDE RECORDS SUMMARY | 2025-03-30 16:59 | XMS_ITS | Encounter Summary ---
Author Organization [employer] Address [address] [place] [address] 7t [place] [address] Care Team Providers Care Anesthesia Associate Name Role Phone Name, Rocky CHAUDHARI Primary Care Provider [phone] Jim Ram Unavailable Unavailable Reason for Visit * Reason Comments Med Refill Encounter Details Date Type Department Care Team (Late st Contact Info) Description 10/25/2024 Refill [facility] MEDICINE [address] [place], [place] [phone] Name, MD Rocky [address] [place], [place] [phone] Major depressive disorder with psychotic features (CMS/HCC); [...] - 10/26/2024 1:21 PM EDT Tc from [facility] requesting med refill. documented in this encounter Plan of Treatment Upcoming Encounters Date Type Department Care Team (Late st Contact Info) Description 04/08/2025 10:00 AM EDT Telemedicine [facility] MEDICINE [address] [place] [address] [phone] Keri Guan RN 04/22/2025 10:15 AM EDT Office Visit [facility] MEDICINE [address] [place] [address] Name, MD Rocky [address] [place] [address] 08/19/2025 10:30 AM EST Office Visit [facility] OPTOMETRY [address] [place] [address] [phone] Dara Rock, OD 230 [place] [address] documented as of this encounter Visit Diagnoses Diagnosis Major depressive disorder with psychotic features (CMS/HCC) Chronic back pain, unspecified back location, unspecified back pain laterality documented in this encounter Additional Health Concerns Assessment Noted Time PHQ-9 Depression Total Score: 11 024 11:18 AM EDT documented as of this encounter Care Teams Anesthesia Associate Relationship Specialty Start Date End Date Name, MD Rocky [address] [place] [address] PCP - General Family Medicine 12/03/16 Jim Ram FNP [address] [place] [address] Nurse Practitioner Family Medicine 07/08/23 documented as of this encounter
--- OUTSIDE RECORDS SUMMARY | 2025-03-30 16:59 | XMS_ITS | Encounter Summary ---
Author Organization [employer] Address [address] [place] [address] 7t [place] [address] Care Team Providers Care Blanchard Grinder Operator Name Role Phone Name, Rocky CHAUDHARI Primary Care Provider [phone] Jim Ram Unavailable Unavailable Reason for Visit * Reason Comments Med Refill Encounter Details Date Type Department Care Team (Late st Contact Info) Description 10/23/2024 Refill [facility] MEDICINE 230 [place], [place] [phone] Name, MD Rocky [address] [place], [place] [phone] Major depressive disorder with psychotic features (CMS/HCC); [...] AM EDT Telemedicine [facility] MEDICINE [address] [place] [address] Keri Guan RN 04/22/2025 10:15 AM EDT Office Visit [facility] MEDICINE [address] [place] [address] Name, MD Rocky [address] [place] [address] 08/19/2025 10:30 AM EST Office Visit [facility] OPTOMETRY [address] [place], [place] [phone] Dara Rock, OD [address] [place] [address] documented as of this encounter Visit Diagnoses Diagnosis Major depressive disorder with psychotic features (CMS/HCC) Chronic back pain, unspecified back location, unspecified back pain laterality documented in this encounter Additional Health Concerns Assessment Noted Time PHQ-9 Depression Total Score: 11 024 11:18 AM EDT documented as of this encounter Care Teams Blanchard Grinder Operator Relationship Specialty Start Date End Date Name, MD Rocky [address] [place] [address] PCP - General Family Medicine 12/03/16 Jim Ram FNP [address] [place] [address] Nurse Practitioner Family Medicine 07/08/23 documented as of this encounter
--- OUTSIDE RECORDS SUMMARY | 2025-03-30 16:59 | XMS_ITS | Encounter Summary ---
Author Organization [employer] Address [address] [place] [address] 7 [place] [address] Care Team Providers Care Process Planner Name Role Phone Name, Rocky CHAUDHARI Primary Care Provider [phone] Jim Ram CLOTH SHRINKER Unavailable Unavailable Reason for Visit * Reason Comments Med Refill Encounter Details Date Type Department Care Team (Late Contact Info) Description 04/16/2023 Refill [facility] MEDICINE [address] [place] [address] [phone] Name, MD Rocky [address] [place], [place] [phone] Chronic back pain, unspecified back location, unspecified [...] Info) Description 04/08/2025 10:00 AM EDT Telemedicine [facility] MEDICINE 230 [place] [address] Keri Guan, JENNIFER 04/22/2025 10:15 AM EDT Office Visit [facility] MED[facility]INE [address] [place] [address] NameRocky MD 230 [place] [address] 08/19/2025 10:30 AM EST Office Visit [facility] OPTOMETRY [address] [place], [place] [phone] Pranav, Dara, OD 230 [place] [address] documented as of this encounter Visit Diagnoses Diagnosis Chronic back pain, unspecified back location, unspecified back pain laterality Multiple sclerosis (CMS/HCC) Multiple sclerosis documented in this encounter Additional Health Concerns Assessment Noted Time PHQ-9 Depression Total Score: 6 12/25/19 23 11:32 AM EDT documented as of this encounter Care Teams Process Planner Relationship Specialty Start Date End Date Name, MD Rocky [address] [place] [address] PCP - General Family Medicine 12/03/16 Jim Ram FNP [address] [place] [address] Nurse Practitioner Family Medicine 07/08/23 documented as of this encounter
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
--- OUTSIDE RECORDS SUMMARY | 2025-03-30 16:59 | XMS_ITS | Encounter Summary ---
Author Organization [employer] Address [address] [place] [address] 7t [place] [address] Care Team Providers Care Dental Laboratory Manager Name Role Phone Name, Rocky CHAUDHARI Primary Care Provider [phone] Jim Ram TENTS ASSEMBLER Unavailable Unavailable Reason for Visit * Reason Comments Med Refill Encounter Details Date Type Department Care Team ([facility] st Contact Info) Description 01/14/2025 Refill [facility] MEDICINE 230 [place], [place] [phone] Name, MD Rocky 230 [place], [place] [phone] Major depressive disorder with psychotic features (CMS/HCC) [...] the past 12 months, has t he [employer], gas, oil or water company threatened to [...] Info) Description 04/08/2025 10:00 AM EDT Telemedicine [facility] MEDICINE [address] [place] [address] Keri Guan RN 04/22/2025 10:15 AM EDT Office Visit [facility] MEDICINE [address] [place] [address] Name, MD Rocky 230 [place] [address] 08/19/2025 10:30 AM EST Office Visit [facility] OPTOMETRY [address] [place] [address] Dara Rock, TUSHAR 230 [place] [address] documented as of this encounter Visit Diagnoses Diagnosis Major depressive disorder with psychotic features (CMS/HCC) documented in this encounter Additional Health Concerns Assessment Noted Time PHQ-9 Depression Total Score: 11 024 11:18 AM EDT documented as of this encounter Care Teams Dental Laboratory Manager Relationship Specialty Start Date End Date Name, MD Rocky 230 [place] [address] PCP - General Family Medicine 12/03/16 Jim Ram FNP 230 [place] [address] Nurse Practitioner Family Medicine 07/08/23 documented as of this encounter
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
--- OUTSIDE RECORDS SUMMARY | 2025-03-30 16:59 | XMS_ITS | Encounter Summary ---
Author Organization [employer] Address [address] [place] [address] 7 [place] [address] Care Team Providers Care Quality Compliance Consultant Name Role Phone Name, Rocky CHAUDHARI Primary Care Provider [phone] Jim Ram KERFER MACHINE OPERATOR Unavailable Unavailable Encounter Details Date Type Department Care Team (Late st Contact Info) Description 09/12/2022 Abstract [facility] MEDICINE [address] [place] [address] [phone] Rocky Jain MD [address] [place] [address] [phone] Social History Tobacco Use Types Packs/Day Years [...] Info) Description 04/08/2025 10:00 AM EDT Telemedicine [address] [phone] Keri Guan RN 04/22/2025 10:15 AM EDT Office Visit [address] [phone] Rocky Jain MD [address] [place] [address] [phone] 08/19/2025 10:30 AM EST Office Visit [facility] OPTOMETRY [address] [place], [place] [phone] Dara Rock, TUSHAR 230 [place] [address] documented as of this encounter Visit Diagnoses Not on filedocumented in this encounter Additional Health Concerns Assessment Noted Time PHQ-9 Depression Total Score: 6 08/22/19 23 10:50 AM EST documented as of this encounter Care Teams Quality Compliance Consultant Relationship Specialty Start Date End Date Name, MD Rocky 230 [place], [place] [phone] PCP - General Family Medicine 12/03/16 Jim Ram FNP 230 [place] [address] Nurse Practitioner Family Medicine 07/08/23 documented as of this encounter
--- OUTSIDE RECORDS SUMMARY | 2025-03-30 16:59 | XMS_ITS | Encounter Summary ---
Author Organization [employer] Address [address] [place] [address] 7 [place] [address] Care Team Providers Care Care Analyst Name Role Phone Name, Rocky CHAUDHARI Primary Care Provider [phone] Jim Ram Unavailable Unavailable Reason for Visit * Reason Comments Med Refill Encounter Details Date Type Department Care Team (Late st Contact Info) Description 12/31/2022 Refill [facility] MED[facility]INE 230 [place], [place] [phone] Name, MD Rocky 230 [place], [place] [phone] Chronic back pain, unspecified back location, unspecified [...] Info) Description 04/08/2025 10:00 AM EDT Telemedicine [facility] MEDICINE 230 [place] [address] Keri Guan RN 04/22/2025 10:15 AM EDT Office Visit [facility] MED[facility]INE 230 [place] [address] Name, MD Rocky 230 [place] [address] 08/19/2025 10:30 AM EST Office Visit [facility] OPTOMETRY 267 [place], [place] [phone] PranavDara fernandez, OD 230 [place] [address] documented as of this encounter Visit Diagnoses Diagnosis Chronic back pain, unspecified back location, unspecified back pain laterality Multiple sclerosis (CMS/HCC) Multiple sclerosis documented in this encounter Additional Health Concerns Assessment Noted Time PHQ-9 Depression Total Score: 6 12/25/19 11:32 AM EDT documented as of this encounter Care Teams Care Analyst Relationship Specialty Start Date End Date Rocky Jain MD [address] [place] [address] PCP - General Family Medicine 12/03/16 Jim Ram FNP [address] [place] [address] Nurse Practitioner Family Medicine 07/08/23 documented as of this encounter
--- OUTSIDE RECORDS SUMMARY | 2025-03-30 16:59 | XMS_ITS | Encounter Summary ---
Author Organization [employer] Address [address] [place] [address] 7 [place] [address] Care Team Providers Care Informatica Architect Name Role Phone Name, Rocky CHAUDHARI Primary Care Provider [phone] Jim Ram Unavailable Unavailable Reason for Visit * Reason Onset Date Comments Med Refill 11/26/2024 Encounter Details Date Type Department Care Team (Late st Contact Info) Description 11/26/2024 Telephone [facility] MEDICINE 230 [place], [place] [phone] Name, MD Rocky 230 [place], [place] [phone] Med Refill Social History Tobacco Use Types [...] encounter Miscellaneous Notes * Telephone Encounter - Randi Bonds - 11/26/2024 11:47 AM EDT TC from pt requesting medication refill. Medications needing refill : clonazePAM (KlonoPIN) 1 MG tablet To be sent to: [facility]/pharmacy #[id number] - [place], [place] - [address] [place] [address] (Pharmacy) documented in this encounter Plan of Treatment Upcoming Encounters Date Type Department Care Team (Late st Contact Info) Description 04/08/2025 10:00 AM EDT Telemedicine [facility] MEDICINE [address] [place] [address] Keri Guan RN 04/22/2025 10:15 AM EDT Office Visit [facility] MEDICINE [address] [place] [address] Name, MD Rocky [address] [place] [address] 08/19/2025 10:30 AM EST Office Visit [facility] OPTOMETRY [address] [place] [address] Pranav, Megan, OD 230 [place] [address] documented as of this encounter Visit Diagnoses Not on filedocumented in this encounter Additional Health Concerns Assessment Noted Time PHQ-9 Depression Total Score: 11 024 11:18 AM EDT documented as of this encounter Care Teams Informatica Architect Relationship Specialty Start Date End Date Name, MD Rocky 230 [place] [address] PCP - General Family Medicine 12/03/16 Jim Ram FNP 230 [place] [address] Nurse Practitioner Family Medicine 07/08/23 documented as of this encounter
--- OUTSIDE RECORDS SUMMARY | 2025-03-30 16:59 | XMS_ITS | Encounter Summary ---
Author Organization [employer] Address [address] [place] [address] 7 [place] [address] Care Team Providers Care Court Reporter Name Role Phone Name, Rocky CHAUDHARI Primary Care Provider [phone] Jim Ram Unavailable Unavailable Reason for Visit * Reason Onset Date Comments Nurse Triage 10/25/2024 Encounter Details Date Type Department Care Team (Late st Contact Info) Description 10/25/2024 Telephone [facility] MEDICINE 230 [place], [place] [phone] Name, MD Rocky 230 [place], [place] [phone] Nurse Triage Social History Tobacco Use Types [...] If any more questions contact pt at [phone] documented in this encounter Plan of Treatment Upcoming Encounters Date Type Department Care Team (Late st Contact Info) Description 04/08/2025 10:00 AM EDT Telemedicine [facility] MEDICINE [address] [place] [address] Keri Guan RN 04/22/2025 10:15 AM EDT Office Visit [facility] MEDICINE 230 [place] [address] Name, MD Rocky 230 [place] [address] 08/19/2025 10:30 AM EST Office Visit [facility] OPTOMETRY [address] [place] [address] Dara Rock, TUSHAR 230 [place] [address] documented as of this encounter Visit Diagnoses Not on filedocumented in this encounter Additional Health Concerns Assessment Noted Time PHQ-9 Depression Total Score: 11 024 11:18 AM EDT documented as of this encounter Care Teams Court Reporter Relationship Specialty Start Date End Date Rocky Jain MD [address] [place] [address] PCP - General Family Medicine 12/03/16 Jim Ram FNP 230 [place] [address] Nurse Practitioner Family Medicine 07/08/23 documented as of this encounter
--- OUTSIDE RECORDS SUMMARY | 2025-03-30 16:59 | XMS_ITS | Encounter Summary ---
Author Organization [employer] Address [address] [place] [address] 7t [place] [address] Care Team Providers Care Assistant Professor Of Archaeology Name Role Phone Name, Rocky CHAUDHARI Primary Care Provider [phone] Jim Ram TRUCK OPERATOR Unavailable Unavailable Reason for Visit * Reason Comments Med Refill Encounter Details Date Type Department Care Team ([facility] st Contact Info) Description 01/15/2025 Refill [facility] MEDICINE 230 [place], [place] [phone] Name, MD Rocky 230 [place], [place] [phone] Major depressive disorder with psychotic features (CMS/HCC) [...] the past 12 months, has t he [employer], gas, oil or water company threatened to [...] Info) Description 04/08/2025 10:00 AM EDT Telemedicine [facility] MEDICINE [address] [place] [address] Keri Guan RN 04/22/2025 10:15 AM EDT Office Visit [facility] MEDICINE [address] [place] [address] Name, MD Rocky 230 [place] [address] 08/19/2025 10:30 AM EST Office Visit [facility] OPTOMETRY [address] [place] [address] Dara Rock, TUSHAR 230 [place] [address] documented as of this encounter Visit Diagnoses Diagnosis Major depressive disorder with psychotic features (CMS/HCC) documented in this encounter Additional Health Concerns Assessment Noted Time PHQ-9 Depression Total Score: 11 024 11:18 AM EDT documented as of this encounter Care Teams Assistant Professor Of Archaeology Relationship Specialty Start Date End Date Name, MD Rocky 230 [place] [address] PCP - General Family Medicine 12/03/16 Jim Ram FNP 230 [place] [address] Nurse Practitioner Family Medicine 07/08/23 documented as of this encounter
--- OUTSIDE RECORDS SUMMARY | 2025-03-30 16:59 | XMS_ITS | Encounter Summary ---
Author Organization [employer] Address [address] [place] [address] 7t [place] [address] Care Team Providers Care Hydrotechnical Specialist Name Role Phone Name, Rocky CHAUDHARI Primary Care Provider [phone] Jim Ram Unavailable Unavailable Reason for Visit * Reason Comments Med Refill Encounter Details Date Type Department Care Team (Late st Contact Info) Description 04/08/2024 Refill [facility] MEDICINE 230 [place], [place] [phone] Name, MD Rocky 230 [place], [place] [phone] Chronic back pain, unspecified back location, unspecified [...] Info) Description 04/08/2025 10:00 AM EDT Telemedicine [facility] MEDICINE [address] [place] [address] Keri Guan RN 04/22/2025 10:15 AM EDT Office Visit [facility] MEDICINE [address] [place] [address] Name, MD Rocky 230 [place] [address] 08/19/2025 10:30 AM EST Office Visit [facility] OPTOMETRY [address] [place] [address] Dara Rock, TUSHAR 230 [place] [address] documented as of this encounter Visit Diagnoses Diagnosis Chronic back pain, unspecified back location, unspecified back pain laterality documented in this encounter Additional Health Concerns Assessment Noted Time PHQ-9 Depression Total Score: 11 024 11:18 AM EDT documented as of this encounter Care Teams Hydrotechnical Specialist Relationship Specialty Start Date End Date Name, MD Rocky 230 [place] [address] PCP - General Family Medicine 12/03/16 Jim Ram FNP 230 [place] [address] Nurse Practitioner Family Medicine 07/08/23 documented as of this encounter
--- OUTSIDE RECORDS SUMMARY | 2025-03-30 16:59 | XMS_ITS | Encounter Summary ---
Author Organization [employer] Address [address] [place] [address] 7 [place] [address] Care Team Providers Care Product Safety Coordinator Name Role Phone Name, Rocky CHAUDHARI Primary Care Provider [phone] Jim Ram VMWARE SYSTEMS ADMINISTRATOR Unavailable Unavailable Encounter Details Date Type Department Care Team (Late st Contact Info) Description 05/05/2023 Abstract [facility] MEDICINE [address] [place] [address] Name, MD Rocky 230 [place] [address] Social History Tobacco Use Types Packs/Day Years [...] Telemedicine [facility] MEDICINE 230 [place], [place] [phone] Keri Guan RN 04/22/2025 10:15 AM EDT Office Visit [facility] MEDICINE 230 [place] [address] Name, MD Rocky 230 [place] [address] 08/19/2025 10:30 AM EST Office Visit [facility] OPTOMETRY [address] [place], [place] [phone] Pranav, Dara, OD 230 [place] [address] documented as of this encounter Procedures Procedure [...] documented as of this encounter Care Teams Product Safety Coordinator Relationship Specialty Start Date End Date Name, MD Rocky [place], [place] [phone] PCP - General Family Medicine 12/03/16 Jim Ram FNP [address] [place] [address] Nurse Practitioner Family Medicine 07/08/23 documented as of this encounter
--- OUTSIDE RECORDS SUMMARY | 2025-03-30 16:59 | XMS_ITS | Encounter Summary ---
Author Organization [employer] Address [address] [place] [address] 7 [place] [address] Care Team Providers Care Adoption Manager Name Role Phone Name, Rocky CHAUDHARI Primary Care Provider [phone] Jim Ram ASSEMBLER FAUCETS Unavailable Unavailable Encounter Details Date Type Department Care Team (Late st Contact Info) Description 09/16/[address] [facility] MEDICINE [address] [place] [address] [phone] Rocky Jain MD [address] [place] [address] [phone] Social History Tobacco Use Types Packs/Day Years [...] Info) Description 04/08/2025 10:00 AM EDT Telemedicine [address] [phone] Keri Guan RN 04/22/2025 10:15 AM EDT Office Visit [address] [phone] Rocky Jain MD [address] [place] [address] [phone] 08/19/2025 10:30 AM EST Office Visit [facility] OPTOMETRY [address] [place], [place] [phone] Dara Rock, TUSHAR 230 [place] [address] documented as of this encounter Visit Diagnoses Not on filedocumented in this encounter Additional Health Concerns Assessment Noted Time PHQ-9 Depression Total Score: 6 08/22/19 23 10:50 AM EST documented as of this encounter Care Teams Adoption Manager Relationship Specialty Start Date End Date Name, MD Rocky 230 [place], [place] [phone] PCP - General Family Medicine 12/03/16 Jim Ram FNP 230 [place] [address] Nurse Practitioner Family Medicine 07/08/23 documented as of this encounter
--- OUTSIDE RECORDS SUMMARY | 2025-03-30 16:59 | XMS_ITS | Encounter Summary ---
Author Organization [employer] Address [address] [place] [address] 7 [place] [address] Care Team Providers Care Optometric Technician Name Role Phone Name, Rocky CHAUDHARI Primary Care Provider [phone] Jim Ram Unavailable Unavailable Reason for Visit * Reason Onset Date Comments Med Refill 11/19/2024 Encounter Details Date Type Department Care Team (Late st Contact Info) Description 11/19/2024 Telephone [facility] MEDICINE [address] [place], [place] [phone] Name, MD Rocky [address] [place], [place] [phone] Med Refill Social History Tobacco Use Types [...] encounter Miscellaneous Notes * Telephone Encounter - Ronna Dos Santos RN - 11/19/2024 12:09 PM EDT Rx has already been sent to pharmacy with start date 11/20/24. * Telephone Encounter - Randi Bonds - 11/19/2024 8:47 AM EDT TC from pt requesting medication refill. Medications needing refill : oxyCODONE (Roxicodone) 15 MG immediate release tablet To be sent to: [facility]/pharmacy #[id number] - [address] documented in this encounter Plan of Treatment Upcoming Encounters Date Type Department Care Team (Late st Contact Info) Description 04/08/2025 10:00 AM EDT Telemedicine [facility] MEDICINE [address] [place] [phone] Keri Guan RN 04/22/2025 10:15 AM EDT Office Visit [facility] MEDICINE [address] [place] [address] Name, MD Rocky [address] [place] [address] 08/19/2025 10:30 AM EST Office Visit [facility] OPTOMETRY [address] [place] [address] Pranav, Dara, OD [address] [place] [address] documented as of this encounter Visit Diagnoses Not on filedocumented in this encounter Additional Health Concerns Assessment Noted Time PHQ-9 Depression Total Score: 11 024 11:18 AM EDT documented as of this encounter Care Teams Optometric Technician Relationship Specialty Start Date End Date Name, [place] [address] PCP - General Family Medicine 12/03/16 Jim Ram FNP [address] [place] [address] Nurse Practitioner Family Medicine 07/08/23 documented as of this encounter
[2025-03-30 17:15] VITALS: BP 112/58; PULSE 68; RESP 16; TEMP 36.7; O2SAT 98
== END 2025-03-30 17:16 | disposition home or self-care (01) ==
PROVIDERS: Emergency Provider Emergency Medicine; PCP Internal Medicine Geriatric Medicine
DX: M54.2 Cervicalgia (principal); S16.1XXA Strain of muscle, fascia and tendon at neck level, initial encounter; V29.408A Other motorcycle driver injured in collision with unspecified motor vehicles in traffic accident, initial encounter; Y93.9 Activity, unspecified; Y92.9 Unspecified place or not applicable; M25.562 Pain in left knee; R51.9 Headache, unspecified
CPT/HCPCS: 70450; 72125; 73564; 99282; 99284

== ENCOUNTER → 2025-03-30 12:56 | Outpatient (BNV) | payer OTHER, SELFPAY | PROVIDERS: Visit Provider Radiology Diagnostic Radiology | DX: M54.2 Cervicalgia (principal); S09.90XA Unspecified injury of head, initial encounter; M25.562 Pain in left knee | CPT/HCPCS: 70450; 72125; 73564 ==

== ENCOUNTER 2025-06-01 10:40 | Outpatient (AMB) | payer OTHER, SELFPAY ==
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
[2025-06-01 10:43] VITALS: BP 113/56; BMI 25.3
--- OUTSIDE RECORDS SUMMARY | 2025-06-01 13:13 | XMS_ITS | Encounter Summary ---
Author Organization [employer] Address [address] [place] [address] 7 [place] [address] Care Team Providers Care Extractor Machine Operator Name Role Phone Name, Rocky CHAUDHARI Primary Care Provider [phone] Jim Ram INFORMATION SYSTEMS DIRECTOR Unavailable Unavailable Reason for Visit * Reason Onset Date Comments Med Refill 04/02/2024 Encounter Details Date Type Department Care Team (Late st Contact Info) Description 04/02/2024 Refill [facility] MEDICINE [address] [place], [place] [phone] Name, MD Rocky [address] [place], [place] [phone] Chronic back pain, unspecified back location, unspecified [...] 200 MG capsule [facility] [place], [place] - [address] [place] [address] documented in this encounter Plan of Treatment Upcoming Encounters Date Type Department Care Team (Late st Contact Info) Description 07/08/2025 11:00 AM EST Telemedicine [facility] MEDICINE [address] [place] [phone] Keri Guan RN 07/20/2025 10:45 AM EST Office Visit [facility] MEDICINE [address] [place] [address] Name, MD Rocky [address] [place] [address] 08/19/2025 10:30 AM EST Office Visit [facility] OPTOMETRY [address] [place] [address] Pranav, Dara, OD [address] [place] [address] documented as of this encounter Visit Diagnoses Diagnosis Chronic back pain, unspecified back location, unspecified back pain laterality documented in this encounter Additional Health Concerns Assessment Noted Time PHQ-9 Depression Total Score: 11 024 11:18 AM EDT documented as of this encounter Care Teams Extractor Machine Operator Relationship Specialty Start Date End Date Name, [place] [address] PCP - General Family Medicine 12/03/16 [place] [address] Nurse Practitioner Family Medicine 07/08/23 documented as of this encounter
--- OUTSIDE RECORDS SUMMARY | 2025-06-01 13:13 | XMS_ITS | Encounter Summary ---
Author Organization [employer] Address [address] [place] [address] [address] [place] [address] Care Team Providers Care Tool Designer Name Role Phone Name, Rocky CHAUDHARI Primary Care Provider [phone] Jim Ram HOLE DIGGER TRUCK DRIVER Unavailable Unavailable Encounter Details Date Type Department Care Team (Late st Contact Info) Description 09/12/2022 Abstract [facility] MEDICINE [address] [place] [address] [phone] Rocky Jain MD [address] [place] [address] [phone] Social History Tobacco Use Types Packs/Day Years [...] Info) Description 07/08/2025 11:00 AM EST Telemedicine [address] [phone] Keri Guan, JENNIFER 07/20/2025 10:45 AM EST Office Visit [address] [phone] Rocky Jain MD [address] [place] [address] [phone] 08/19/2025 10:30 AM EST Office Visit [facility] OPTOMETRY [address] [place], [place] [phone] Dara Rock, TUSHAR [address] [place] [address] documented as of this encounter Visit Diagnoses Not on filedocumented in this encounter Additional Health Concerns Assessment Noted Time PHQ-9 Depression Total Score: 6 08/22/19 10:50 AM EST documented as of this encounter Care Teams Tool Designer Relationship Specialty Start Date End Date Name, MD Rcoky [address] [place], [place] [phone] PCP - General Family Medicine 12/03/16 Jim Ram FNP [address] [place] [address] Nurse Practitioner Family Medicine 07/08/23 documented as of this encounter
--- OUTSIDE RECORDS SUMMARY | 2025-06-01 13:13 | XMS_ITS | Encounter Summary ---
Author Organization [employer] Address [address] [place] [address] 7t [place] [address] Care Team Providers Care Wastewater Process Engineer Name Role Phone Name, Rocky CHAUDHARI Primary Care Provider [phone] Jim Ram URBAN GARDENING SPECIALIST Unavailable Unavailable Reason for Visit * Reason Comments Med Refill Encounter Details Date Type Department Care Team ([facility] st Contact Info) Description 08/02/2024 Refill [facility] MEDICINE [address] [place], [place] [phone] Name, MD Rocky [address] [place], [place] [phone] Major depressive disorder with psychotic features (CMS/HCC) [...] Info) Description 07/08/2025 11:00 AM EST Telemedicine [facility] MEDICINE [address] [place] [phone] Keri Guan RN 07/20/2025 10:45 AM EST Office Visit [facility] MEDICINE [address] [place] [phone] Name, MD Rocky [address] [place] [address] 08/19/2025 10:30 AM EST Office Visit [facility] OPTOMETRY [address] [place] [address] Dara Rock, TUSHAR [address] [place] [address] documented as of this encounter Visit Diagnoses Diagnosis Major depressive disorder with psychotic features (CMS/HCC) (HCC) documented in this encounter Additional Health Concerns Assessment Noted Time PHQ-9 Depression Total Score: 11 024 11:18 AM EDT documented as of this encounter Care Teams Wastewater Process Engineer Relationship Specialty Start Date End Date Name, MD Rocky [address] [place] [address] PCP - General Family Medicine 12/03/16 Jim Ram FNP [address] [place] [address] Nurse Practitioner Family Medicine 07/08/23 documented as of this encounter
--- OUTSIDE RECORDS SUMMARY | 2025-06-01 13:13 | XMS_ITS | Patient Health Record ---
Author Organization [facility] Address [address] [place] [phone] Care Team Providers Care Sandstone Inspector Repairer Name Role Phone Evelin Dumas MD Primary Care Provider Unavail able Patel Fierro Jr Unavailable [phone] Reason For Referral No Information Plan Of Treatment No Information
--- OUTSIDE RECORDS SUMMARY | 2025-06-01 13:13 | XMS_ITS | Encounter Summary ---
Author Organization [employer] Address [address] [place] [address] [address] [place] [address] Care Team Providers Care Deal Architect Name Role Phone Name, Rocky CHAUDHARI Primary Care Provider [phone] Jim Ram SENIOR TECHNICAL RECRUITER Unavailable Unavailable Reason for Visit * Reason Comments Med Refill Encounter Details Date Type Department Care Team ([facility] st Contact Info) Description 05/20/2023 Refill [facility] MEDICINE [address] [place], [place] [phone] Name, MD Rocky [address] [place], [place] [phone] Chronic back pain, unspecified back location, unspecified [...] Info) Description 07/08/2025 11:00 AM EST Telemedicine [facility] MEDICINE [address] [place] [phone] Keri Guan, JENNIFER 07/20/2025 10:45 AM EST Office Visit [facility] MEDICINE [address] [place] [phone] Rocky Jain MD [address] [place] [address] 08/19/2025 10:30 AM EST Office Visit [facility] OPTOMETRY [address] [place] [address] Dara Rock, OD [address] [place] [address] documented as of this encounter Visit Diagnoses Diagnosis Chronic back pain, unspecified back location, unspecified back pain laterality Multiple sclerosis documented in this encounter Additional Health Concerns Assessment Noted Time PHQ-9 Depression Total Score: 6 12/25/19 11:32 AM EDT documented as of this encounter Care Teams Deal Architect Relationship Specialty Start Date End Date Name, MD Rocky [address] [place] [address] PCP - General Family Medicine 12/03/16 Jim Ram FNP [address] [place] [address] Nurse Practitioner Family Medicine 07/08/23 documented as of this encounter
--- OUTSIDE RECORDS SUMMARY | 2025-06-01 13:13 | XMS_ITS | Encounter Summary ---
Author Organization [employer] Address [address] [place] [address] [address] [place] [address] Care Team Providers Care Aircraft Landing Gear Inspector Name Role Phone Name, Rocky CHAUDHARI Primary Care Provider [phone] Jim Ram AIR BRAKE ADJUSTER Unavailable Unavailable Reason for Visit * Reason Comments Med Refill Encounter Details Date Type Department Care Team ([facility] st Contact Info) Description 09/05/2023 Refill [facility] MED & PEDS [address] [place] [id number] Name, MD Rocky [address] [place], [place] [id number] Chronic back pain, unspecified back location, unspecified [...] Info) Description 07/08/2025 11:00 AM EST Telemedicine [facility] MEDICINE [address] [place] [phone] Keri Guan RN 07/20/2025 10:45 AM EST Office Visit [facility] MEDICINE [address] [place] [phone] Rocky Jain MD [address] [place] [phone] 08/19/2025 10:30 AM EST Office Visit [facility] OPTOMETRY [address] [place] [address] Pranav, Dara, OD [address] [place] [address] documented as of this encounter Visit Diagnoses Diagnosis Chronic back pain, unspecified back location, unspecified back pain laterality Multiple sclerosis documented in this encounter Additional Health Concerns Assessment Noted Time PHQ-9 Depression Total Score: 6 05/26/20 11:14 AM EDT documented as of this encounter Care Teams Aircraft Landing Gear Inspector Relationship Specialty Start Date End Date NameRocky MD [address] [place] [id number] PCP - General Family Medicine 12/03/16 Jim Ram FNP [address] [place] [address] Nurse Practitioner Family Medicine 07/08/23 documented as of this encounter
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
--- OUTSIDE RECORDS SUMMARY | 2025-06-01 13:13 | XMS_ITS | Encounter Summary ---
Author Organization [employer] Address [address] [place] [address] 7t [place] [address] Care Team Providers Care Multi Slide Machine Tender Name Role Phone Name, Rocky CHAUDHARI Primary Care Provider [phone] Jim Ram Unavailable Unavailable Encounter Details Date Type Department Care Team (Late st Contact Info) Description 11/10/2024 Orders Only [facility] MEDICINE [address] [place], [place] [phone] Patience Rodríguez NP 230 [place], [place] [phone] Right lower quadrant abdominal pain (Primary Dx) [...] Info) Description 07/08/2025 11:00 AM EST Telemedicine [facility] MEDICINE 230 [place] [address] Keri Guan RN 07/20/2025 10:45 AM EST Office Visit [facility] MEDICINE [address] [place] [address] Rocky Jain MD 230 [place] [address] 08/19/2025 10:30 AM EST Office Visit [facility] OPTOMETRY [address] [place] [address] Dara Rock, OD 230 [place] [address] documented as of this encounter Visit Diagnoses Diagnosis Right lower quadrant abdominal pain- Primary documented in this encounter Additional Health Concerns Assessment Noted Time PHQ-9 Depression Total Score: 11 024 11:18 AM EDT documented as of this encounter Care Teams Multi Slide Machine Tender Relationship Specialty Start Date End Date Rocky Jain MD 230 [place] [address] PCP - General Family Medicine 12/03/16 Jim Ram FNP 230 [place] [address] Nurse Practitioner Family Medicine 07/08/23 documented as of this encounter
--- OUTSIDE RECORDS SUMMARY | 2025-06-01 13:13 | XMS_ITS | Encounter Summary ---
Author Organization [employer] Address [address] [place] [address] 7t [place] [address] Care Team Providers Care Nurse Monitoring Name Role Phone Name, Rocky CHAUDHARI Primary Care Provider [phone] Jim Ram ROLL WEIGHER Unavailable Unavailable Reason for Visit * Reason Comments Med Refill Encounter Details Date Type Department Care Team (Late st Contact Info) Description 01/09/2024 Refill [facility] MED & PEDS [address] [place] [address] Name, MD Rocky 230 [place], [place] [phone] Social History Tobacco Use Types Packs/Day Years [...] Info) Description 07/08/2025 11:00 AM EST Telemedicine [facility] MED[facility] [address] [place] [address] Keri Guan RN 07/20/2025 10:45 AM EST Office Visit [facility] MEDICINE 230 [place] [address] Name, MD Rocky 230 [place] [address] 08/19/2025 10:30 AM EST Office Visit [facility] OPTOMETRY [address] [place] [address] Dara Rock, OD 230 [place] [address] documented as of this encounter Visit Diagnoses Not on filedocumented in this encounter Additional Health Concerns Assessment Noted Time PHQ-9 Depression Total Score: 5 11/24/19 24 11:19 AM EDT documented as of this encounter Care Teams Nurse Monitoring Relationship Specialty Start Date End Date NameRocky MD [address] [place] [address] PCP - General Family Medicine 12/03/16 Jim Ram FNP 230 [place] [address] Nurse Practitioner Family Medicine 07/08/23 documented as of this encounter
--- OUTSIDE RECORDS SUMMARY | 2025-06-01 13:13 | XMS_ITS | Encounter Summary ---
Author Organization [employer] Address [address] [place] [address] 7 [place] [address] Care Team Providers Care Slitting Machine Operator Helper Name Role Phone Name, Rocky CHAUDHARI Primary Care Provider [phone] Jim Ram BRICK LOADER Unavailable Unavailable Encounter Details Date Type Department Care Team (Late st Contact Info) Description 08/01/2022 Orders Only [facility] MEDICINE [address] [place] [address] Alexandrea Barnard, JENNIFER Social History Tobacco Use [...] Description 07/08/2025 11:00 AM EST Telemedicine [facility] MEDICINE [address] [place] [address] [phone] Keri Guan, RN 07/20/2025 10:45 AM EST Office Visit [facility] MEDICINE [address] [place] [address] [phone] Rocky Jain MD [address] [place] [address] 08/19/2025 10:30 AM EST Office Visit [facility] OPTOMETRY [address] [place] [address] Pranav Dara, OD 230 [place] [address] documented as of this encounter Visit Diagnoses Not on filedocumented in this encounter Additional Health Concerns Assessment Noted Time PHQ-9 Depression Total Score: 7 07/23/20 22 2:17 PM EST documented as of this encounter Care Teams Slitting Machine Operator Helper Relationship Specialty Start Date End Date Name, MD Rocky 230 [place] [address] PCP - General Family Medicine 12/03/16 Jim Ram FNP [address] [place] [address] Nurse Practitioner Family Medicine 07/08/23 documented as of this encounter
--- OUTSIDE RECORDS SUMMARY | 2025-06-01 13:13 | XMS_ITS | Encounter Summary ---
Author Organization [employer] Address [address] [place] [address] 7t [place] [address] Care Team Providers Care Wearing Apparel Presser Name Role Phone Name, Rocky CHAUDHARI Primary Care Provider [phone] Jim Ram Unavailable Unavailable Reason for Visit * Reason Comments Med Refill Encounter Details Date Type Department Care Team (Late st Contact Info) Description 07/29/2024 Refill [facility] MEDICINE 230 [place], [place] [phone] Name, MD Rocky 230 [place], [place] [phone] Chronic back pain, unspecified back location, unspecified [...] Info) Description 07/08/2025 11:00 AM EST Telemedicine [facility] MEDICINE [address] [place] [address] Keri Guan RN 07/20/2025 10:45 AM EST Office Visit [facility] MEDICINE [address] [place] [address] Name, MD Rocky 230 [place] [address] 08/19/2025 10:30 AM EST Office Visit [facility] OPTOMETRY [address] [place], [place] [phone] Dara Rock, TUSHRA 230 [place] [address] documented as of this encounter Visit Diagnoses Diagnosis Chronic back pain, unspecified back location, unspecified back pain laterality Major depressive disorder with psychotic features (CMS/HCC) (HCC) documented in this encounter Additional Health Concerns Assessment Noted Time PHQ-9 Depression Total Score: 11 024 11:18 AM EDT documented as of this encounter Care Teams Wearing Apparel Presser Relationship Specialty Start Date End Date Name, MD Rocky 230 [place] [address] PCP - General Family Medicine 12/03/16 Jim Ram FNP 230 [place] [address] Nurse Practitioner Family Medicine 07/08/23 documented as of this encounter
--- OUTSIDE RECORDS SUMMARY | 2025-06-01 13:13 | XMS_ITS | Encounter Summary ---
Author Organization [employer] Address [address] [place] [address] 7t [place] [address] Care Team Providers Care Lapel Baster Name Role Phone Name, Rocky CHAUDHARI Primary Care Provider [phone] Jim Ram Unavailable Unavailable Reason for Visit * Reason Comments Med Refill Encounter Details Date Type Department Care Team (Late st Contact Info) Description 08/27/2024 Refill [facility] MEDICINE 230 [place], [place] [phone] April Marti NP 230 [place], [place] [phone] Major depressive disorder with psychotic features (CMS/HCC) [...] Info) Description 07/08/2025 11:00 AM EST Telemedicine [facility] MEDICINE [address] [place] [address] Keri Guan RN 07/20/2025 10:45 AM EST Office Visit [facility] MEDICINE [address] [place] [address] Name, MD oRcky 230 [place] [address] 08/19/2025 10:30 AM EST Office Visit [facility] OPTOMETRY [address] [place] [address] Dara Rock, TUSHAR 230 [place] [address] documented as of this encounter Visit Diagnoses Diagnosis Major depressive disorder with psychotic features (CMS/HCC) (HCC) documented in this encounter Additional Health Concerns Assessment Noted Time PHQ-9 Depression Total Score: 11 024 11:18 AM EDT documented as of this encounter Care Teams Lapel Baster Relationship Specialty Start Date End Date Name, MD Rocky 230 [place] [address] PCP - General Family Medicine 12/03/16 Jim Ram FNP 230 [place] [address] Nurse Practitioner Family Medicine 07/08/23 documented as of this encounter
--- OUTSIDE RECORDS SUMMARY | 2025-06-01 13:13 | XMS_ITS | Encounter Summary ---
Author Organization [employer] Address [address] [place] [address] 7 [place] [address] Care Team Providers Care Mirror Specialist Name Role Phone Name, Rocky CHAUDHARI Primary Care Provider [phone] Jim Ram MEDICAL COST CONSULTANT Unavailable Unavailable Reason for Visit * Reason Onset Date Comments Call Back Request 11/18/2023 Verbal Orders 11/18/2023 Encounter Details Date Type Department Care Team (Late st Contact Info) Description 11/18/2023 Telephone [facility] MEDICINE 230 [place] [address] Name, MD Rocky 230 [place], [place] [phone] Call Back Request; Verbal Orders Social History [...] 11/21/2023 10:35 AM EDT T/C to [facility] [phone] for below message, No answer. LVM to call back on [phone]. * Telephone Encounter - Maureen King RN - 11/19/2023 2:39 PM EDT Please review and advise for verbal orders for Senior Living visits 2x a week for 9 weeks. Medication records affiliation was completed. * Telephone Encounter - Edwin Pugh - 11/18/2023 3:47 PM EDT Tc from [facility] calling to request verbal orders for Senior Living visits 2x a week for 9 weeks and would like a call back for medication records affiliations please call [facility] [phone] documented in this encounter Plan of Treatment Upcoming Encounters Date Type Department Care Team (Late st Contact Info) Description 07/08/2025 11:00 AM EST Telemedicine [facility] MEDICINE 230 [place] [address] Keri Guan, RN 07/20/2025 10:45 AM EST Office Visit [facility] MEDICINE 230 [place] [address] Name, MD Rocky 230 [place] [address] 08/19/2025 10:30 AM EST Office Visit [facility] OPTOMETRY [address] [place] [address] Dara Rock, TUSHAR 230 [place] [address] documented as of this encounter Visit Diagnoses Not on filedocumented in this encounter Additional Health Concerns Assessment Noted Time PHQ-9 Depression Total Score: 9 09/23/19 24 11:22 AM EST documented as of this encounter Care Teams Mirror Specialist Relationship Specialty Start Date End Date Name, MD Rocky [address] [place] [address] PCP - General Family Medicine 12/03/16 Jim Ram FNP [address] [place] [address] Nurse Practitioner Family Medicine 07/08/23 documented as of this encounter
--- OUTSIDE RECORDS SUMMARY | 2025-06-01 13:13 | XMS_ITS | Encounter Summary ---
Author Organization [employer] Address [address] [place] [address] 7t [place] [address] Care Team Providers Care Mechanical Assembler Name Role Phone Name, Rocky CHAUDHARI Primary Care Provider [phone] Jim Ram FILER REPAIRER Unavailable Unavailable Reason for Visit * Reason Comments Med Change Request Encounter Details Date Type Department Care Team ([facility] st Contact Info) Description 05/30/2025 Refill [facility] CHC MED & PEDS [address] [place] [phone] Name, MD Rocky 230 [place], [place] [phone] Major depressive disorder with psychotic features (CMS/HCC) (HCC) Social History Tobacco Use Types Packs/Day Years [...] Answer Date Recorded Patient Health Questionnaire-9 Score 13 05/11/2025 Patient Health Questionnaire-9 Score 13 05/11/2025 Last PHQ-9: Questionnaire Data Not on file [...] Date Recorded Patient Health Questionnaire-2 Score 3 05/11/2025 Comments Unknown Sex and Gender Information Value [...] Info) Description 07/08/2025 11:00 AM EST Telemedicine [facility] MEDICINE [address] [place] [address] Keri Guan RN 07/20/2025 10:45 AM EST Office Visit [facility] MEDICINE [address] [place] [address] Name, MD Rocky 230 [place] [address] 08/19/2025 10:30 AM EST Office Visit [facility] OPTOMETRY [address] [place] [address] Dara Rock, TUSHAR 230 [place] [address] documented as of this encounter Visit Diagnoses Diagnosis Major depressive disorder with psychotic features (CMS/HCC) (HCC) documented in this encounter Additional Health Concerns Assessment Noted Time PHQ-9 Depression Total Score: 13 025 11:10 AM EDT documented as of this encounter Care Teams Mechanical Assembler Relationship Specialty Start Date End Date Name, MD Rocky 230 [place] [address] PCP - General Family Medicine 12/03/16 Jim Ram FNP 230 [place] [address] Nurse Practitioner Family Medicine 07/08/23 documented as of this encounter
--- OUTSIDE RECORDS SUMMARY | 2025-06-01 13:13 | XMS_ITS | Encounter Summary ---
Author Organization [employer] Address [address] [place] [address] 7 [place] [address] Care Team Providers Care Maintenance Aide Name Role Phone Name, Rocky CHAUDHARI Primary Care Provider [phone] Jim Ram Unavailable Unavailable Reason for Visit * Reason Comments Med Change Request Encounter Details Date Type Department Care Team (Late st Contact Info) Description 03/04/2025 Refill [facility] MEDICINE 230 [place], [place] [phone] Name, MD Rocky 230 [place], [place] [phone] Age-related osteoporosis with current pathological fracture, initial [...] Description 07/08/2025 11:00 AM EST Telemedicine [facility] MEDICINE [address] [place] [address] Keri Guan RN 07/20/2025 10:45 AM EST Office Visit [facility] MEDICINE [address] [place] [address] Name, MD Rocky 230 [place] [address] 08/19/2025 10:30 AM EST Office Visit [facility] OPTOMETRY [address] [place] [address] Dara Rock, TUSHAR 230 [place] [address] documented as of this encounter Visit Diagnoses Diagnosis Age-related osteoporosis with current pathological fracture, initial encounter documented in this encounter Additional Health Concerns Assessment Noted Time PHQ-9 Depression Total Score: 11 024 11:18 AM EDT documented as of this encounter Care Teams Maintenance Aide Relationship Specialty Start Date End Date Name, MD Rocky 230 [place] [address] PCP - General Family Medicine 12/03/16 Jim Ram FNP [address] [place] [address] Nurse Practitioner Family Medicine 07/08/23 documented as of this encounter
--- OUTSIDE RECORDS SUMMARY | 2025-06-01 13:13 | XMS_ITS | Encounter Summary ---
Author Organization [employer] Address [address] [place] [address] 7 [place] [address] Care Team Providers Care Manager Drive Name Role Phone Name, Rocky CHAUDHARI Primary Care Provider [phone] Jim Ram EDGE STAINER MACHINE Unavailable Unavailable Reason for Visit * Reason Onset Date Comments Med Refill 07/01/2023 Encounter Details Date Type Department Care Team (Late st Contact Info) Description 07/01/2023 Telephone [facility] MEDICINE 230 [place], [place] [phone] Name, MD Rocky 230 [place], [place] [phone] Med Refill Social History Tobacco Use Types [...] 200 MG capsule to be sent to [facility] [place], [place] - [address] [place] [address] documented in this encounter Plan of Treatment Upcoming Encounters Date Type Department Care Team (Late st Contact Info) Description 07/08/2025 11:00 AM EST Telemedicine [facility] MEDICINE [address] [place] [address] Keri Guan RN 07/20/2025 10:45 AM EST Office Visit [facility] MEDICINE [address] [place] [address] Name, MD Rocky [address] [place] [address] 08/19/2025 10:30 AM EST Office Visit [facility] OPTOMETRY [address] [place] [address] Pranav, Dara, OD 230 [place] [address] documented as of this encounter Visit Diagnoses Not on filedocumented in this encounter Additional Health Concerns Assessment Noted Time PHQ-9 Depression Total Score: 6 05/26/20 23 11:14 AM EDT documented as of this encounter Care Teams Manager Drive Relationship Specialty Start Date End Date Name, MD Rocky 230 [place] [address] PCP - General Family Medicine 12/03/16 Jim Ram FNP 230 [place] [address] Nurse Practitioner Family Medicine 07/08/23 documented as of this encounter
--- OUTSIDE RECORDS SUMMARY | 2025-06-01 13:13 | XMS_ITS | Clinical Summary ---
Author Organization [facility] Address [address] [place] [address] 7[address] [place] [address] Care Team Providers Care Stretch Machine Operator Name Role Phone Name, Rocky CHAUDHARI Primary Care Provider [phone] Jim Ram Unavailable Unavailable Allergies Active Allergy Reactions Criticality Noted Date Comments Alendronate 09/20/2021 Other reaction(s): Epigastric discomfort Fingolimod High 10/05/2018 Other reaction(s): brain swelling Glatiramer 10/05/2018 Other reaction(s): Nausea / Vomiting Interferon Beta-1a 08/22/2022 Medications * This document contains information received from the source organization and may not represent a complete record from that organization. Dimethyl Fumarate 240 MG capsule delayed-release Take 1 capsule by mouth every 12 (twelve) hours. 019 Active famotidine (Pepcid) 40 MG tablet Take 1 tablet by mouth every 12 (twelve) hours. 020 Active Umeclidinium [place] (Incruse Ellipta) 62.5 MCG/ACT aerosol powder Inhale 1 puff at bed time. 021 Active dicyclomine (Bentyl) 20 MG tablet TAKE 1 TABLET BY MOUTH DAILY IN THE MORNING AFTER BOWEL MOVEMENT 023 Active Myrbetriq 50 MG 24 hr tablet Take 50 mg by mouth in the morning. 023 Active Creon 48440-210590 units capsule delayed-release particles capsule TAKE 1 CAPSULE FOUR TIMES DAILY WITH MEALS OR SNACKS 023 Active magnesium oxide (Mag-Ox) 400 (240 Mg) MG tablet Take 0.5 tablets by mouth Once per day. Active nitrofurantoin (Macrodantin) 100 MG capsule Take 1 capsule by mouth Once per day. After sexual activity for UTI prevention Active oxybutynin XL (Ditropan-XL) 10 MG 24 hr tablet Take 1 tablet by mouth Once per day. Active fluticasone-luly meterol (Advair HFA) 230-21 MCG/ACT inhalerIndicati ons:Pulmonary emphysema, unspecified emphysema type Inhale 2 puffs in the morning and at bedtime. Rinse mouth with water after use to reduce aftertaste and incidence of candidiasis. Do not swallow. 12 g 1 Active Diclofenac Sodium 1 % gelIndications: Chronic back pain, unspecified back location, unspecified back pain laterality APPLY 2 GRAMS TOPICALLY TO THE affected HIP TWICE DAILY 100 g 1 024 Active dextran 70-hypromellose (artificial tears) 0.1-0.3 % ophthalmic solution Administer 1 drop into both eyes 3 times daily. 15 mL 11 024 2024 Active triamcinolone (Kenalog) 0.1 % creamIndication s:Eczema intertrigo Apply topically if needed in the morning and at bedtime (itching and flaking for up to 14 days). 30 g 2 024 Active acetaminophen (Tylenol) 500 MG tabletIndicatio ns:Chronic low back pain, unspecified back pain laterality, unspecified whether sciatica present Take 2 tablets (1,000 mg) by mouth every 6 (six) hours if needed for mild pain. 112 tablet Active lansoprazole (Prevacid) [address] capsule TAKE 1 CAPSULE BY MOUTH TWICE A DAY 168 capsule 2 Active clindamycin (Cleocin T) 1 % lotion Apply topically 2 times daily. 60 mL 5 025 2025 Active Monomethyl Fumarate (Bafiertam) 95 MG capsule delayed-release Take by mouth. Active simethicone (Simethicone Ultra Strength) 180 MG capsuleIndicati ons:Chronic back pain, unspecified back location, unspecified back pain laterality TAKE 1 CAPSULE BY MOUTH TWICE DAILY AFTER MEALS AND AT BEDTIME 180 capsule 1 025 Active topiramate 50 MG tablet Take 1 tablet (50 mg) by mouth 2 times daily. 168 tablet 1 025 Active Aspirin Low Dose 81 MG EC tabletIndicatio ns:Chronic back pain, unspecified back location, unspecified back pain laterality TAKE 1 TABLET BY MOUTH ONCE DAILY 90 tablet 3 025 Active perphenazine 8 MG tabletIndicatio ns:Major depressive disorder with psychotic features (CMS/HCC) ([facility]) TAKE 1 TABLET BY MOUTH TWICE A DAY 180 tablet 3 025 Active albuterol 108 (90 Base) MCG/ACT inhalerIndicati ons:Pulmonary emphysema, unspecified emphysema type INHALE 2 PUFFS ORALLY EVERY 4-6 HOURS NEEDED 8.5 g 3 025 Active gabapentin (Neurontin) 300 MG capsuleIndicati ons:Chronic back pain, unspecified back location, unspecified back pain laterality,Weig ht gain TAKE 1 CAPSULE BY MOUTH 3 TIMES DAILY 90 capsule 11 025 Active sertraline (Zoloft) 100 MG tabletIndicatio ns:Major depressive disorder with psychotic features (CMS/HCC) ([facility]) TAKE 1 1/2 TABLETS BY MOUTH EVERY DAY 135 tablet 025 Active celecoxib (CeleBREX) 200 MG capsuleIndicati ons:Chronic back pain, unspecified back location, unspecified back pain laterality TAKE 1 CAPSULE BY MOUTH EVERY DAY NEEDED FOR PAIN 28 capsule 1 025 Active cholecalciferol (D-1000 Extra Strength) 25 MCG (1000 UT) tabletIndicatio ns:Age-related osteoporosis with current pathological fracture, initial encounter TAKE 1 TABLET BY MOUTH 2 TIMES DAILY 180 tablet 3 025 Active naloxone (Narcan) 4 mg/0.1 mL nasal sprayIndication s:Chronic, continuous use of opioids Administer 1 spray (4 mg) into affected nostril(s) if needed for opioid reversal. 2 each 1 025 Active prazosin (Minipress) 1 MG capsule Take 1 capsule (1 mg) by mouth at bedtime for 3 days, THEN 2 capsules (2 mg) at bedtime. 63 capsule 025 Active Methylcellulose , Laxative, (Citrucel) 500 MG tablet One tab 2-3 times a week for constipation 14 tablet 2 025 Active atorvastatin (Lipitor) 20 MG tabletIndicatio ns:High cholesterol TAKE 1 TABLET BY MOUTH EVERY DAY 84 tablet 3 025 Active clonazePAM (KlonoPIN) 1 MG tabletIndicatio ns:Major depressive disorder with psychotic features (CMS/HCC) (HCC) TAKE 1 TABLET BY MOUTH EVERY 8 HOURS NEEDED FOR ANXIETY. 84 tablet Active oxyCODONE (Roxicodone) 15 MG immediate release tabletIndicatio ns:Chronic back pain, unspecified back location, unspecified back pain laterality,Mult iple sclerosis Take 1 tablet (15 mg) by mouth every 8 (eight) hours if needed (severe pain) for up to 28 days. 84 tablet 025 2024 Active atorvastatin (Lipitor) 20 MG tabletIndicatio ns:High cholesterol TAKE 1 TABLET BY MOUTH EVERY DAY 90 tablet 1 025 2024 Discontinued clonazePAM (KlonoPIN) 1 MG tabletIndicatio ns:Major depressive disorder with psychotic features (CMS/HCC) (HCC) TAKE 1 TABLET BY MOUTH EVERY 8 HOURS NEEDED FOR ANXIETY. Do not start before April 05, 2025. 84 tablet 025 2024 Discontinued(R eorder (will not trigger notification to Pharmacy)) oxyCODONE (Roxicodone) 15 MG immediate release tabletIndicatio ns:Chronic back pain, unspecified back location, unspecified back pain laterality,Mult iple sclerosis Take 1 tablet (15 mg) by mouth every 8 (eight) hours if needed (severe pain) for up to 28 days. Do not start before April 11, 2025. 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 10/02 Long-term [...] hysterectomy 10/14/2022 Major depression with psychotic features (CMS/HC C) 08/22/2022 Cholelithiasis without obstruction 07/15/2022 Mixed incontinence 07/15/2022 Tubular adenoma 03/18/2022 Overview (10/14/2022): 03/2022 Repeat in 3 years recommended At [facility] Chronic back pain 11/06/2018 Mean red blood cell volume increased 11/06/2018 Other spondylosis with radiculopathy, lumbar reg ion 08/04/2018 06/11/2023 Other halfway (current) drug therapy 9 06/11/2023 Nicotine dependence, unspecified, uncomplicated 08/04/2018 06/11/2023 Age related osteoporosis 08/04/2018 023 Major depressive disorder, r ecurrent, severe with psychotic symptoms ([facility]) 07/21/2018 Assessment & Plan (01/26/2024 11:59 AM [...] medication management. She is also followed by STORE MANAGEMENT TRAINEE program. Any issues or concerns, contact [facility]. All her questions were answered and [...] Other amnesia 12/09/2016 Multiple sclerosis 12/09/2016 Paraparesis ([facility]/HCC) 12/09/2016 Emphysema, unspecified 12/09/2016 Epilepsy, unspecified, not i ntractable, without status epilepticus ([facility]) 12/09/2016 Prsnl hx of TIA (TIA), and cereb infrc w/o resid deficits 12/09/2016 06/11/2023 Resolved Problems Problem Noted Date Diagnosed Date Resolved Date Recurrent major depression i n partial remission 12/09/2016 08/22/2022 Encounters * This document contains information received from the source organization and may not represent a complete record from that organization. Date Type Department Care Team Description 05/30/2025 Refill [facility] [address] [place] [address] Rocky Jain MD Major depressive disorder with psychotic features (CMS/HCC) ([facility]) 05/10/2025 Refill [facility] MEDICINE [address] [place] [address] Rocky Jain MD Chronic back pain, unspecified back location, unspecified back pain laterality; Multiple sclerosis 05/05/2025 Refill [facility] [address] [place] [phone] Rokcy Jain MD Major depressive disorder with psychotic features (CMS/HCC) ([facility]) 05/04/2025 Travel 05/02/2025 Refill [facility] [address] [place] [phone] Rocky Jain MD High cholesterol 04/22/2025 10:15 AM EDT Office Visit [facility] [address] [place] [address] Rocky Jain MD Acute post-traumatic stress disorder (Primary Dx); Chronic anxiety; Major depression with psychotic features (CMS/HCC); Constipation, unspecified constipation type 04/22/2025 Travel 04/21/2025 Telephone [facility] [address] [place] [phone] Hamida Rivera MA chart prep 04/20/2025 9:30 AM EDT Telemedicine [facility] [address] [place] [phone] Keri Guan, RN prison (current) use of opiate analgesic; Long-term current use of benzodiazepine 04/20/2025 Refill [facility] [address] [place] [address] Keri Guan, journey lineman, continuous use of opioids 04/20/2025 Travel 04/08/2025 Refill [facility] [address] [place] [phone] Rocky Jain MD Chronic back pain, unspecified back location, unspecified back pain laterality; Age-related osteoporosis with current pathological fracture, initial encounter 04/08/2025 Telephone [facility] [address] [place] [address] Keri Guan, RN Pt cancelled STORE MANAGEMENT TRAINEE Renewal appt today 04/06/2025 Refill [facility] [address] [place] [address] Rocky Jain MD Major depressive disorder with psychotic features ([facility]) 04/05/2025 Refill [facility] [address] [place] [address] Rocky Jain MD Chronic back pain, unspecified back location, unspecified back pain laterality; Multiple sclerosis ([facility]) 04/01/2025 Refill [facility] [address] [place] [address] Rocky Jain MD Major depressive disorder with psychotic features ([facility]) 03/31/2025 Telephone [facility] [address] [place] [address] Rocky Jain MD 03/29/2025 Telephone [facility] [address] [place] [address] Rocky Jain MD Nurse Triage 03/11/2025 Refill [facility] [address] [place] [address] Rocky Jain MD Chronic back pain, unspecified back location, unspecified back pain laterality; Weight gain 03/10/2025 Refill [facility] [address] [place] [address] Rocky Jain MD Chronic back pain, unspecified back location, unspecified back pain laterality; Multiple sclerosis ([facility]) 03/07/2025 Refill [facility] [address] [place] [address] Rocky Jain MD Major depressive disorder with psychotic features ([facility]) 03/04/2025 Refill [facility] [address] [place] [address] Rocky Jain MD Age-related osteoporosis with current pathological fracture, initial encounter from Last 3 Months Immunizations Immunization Administration [...] Sign Reading Time Taken Comments Blood Pressure 108/52 04/22/2025 10:12 AM EDT Pulse 63 04/22/2025 10:12 AM EDT Temperature 36.8 C (98.3 F) 04/22/2025 10:12 AM EDT Respiratory Rate 12 04/22/2025 10:12 AM EDT Oxygen Saturation 99% 04/22/2025 10:12 AM EDT Inhaled Oxygen Concentration - - Weight 59.6 kg (131 lb 6.4 oz) 04/22/2025 10:12 AM EDT Height 154.9 cm (5' 1 ) 04/22/2025 10:12 AM EDT Body Mass Index 24.83 04/22/2025 10:12 AM EDT Plan of Treatment Upcoming Encounters Date Type Department Care Team (Late st Contact Info) Description 07/08/2025 11:00 AM EST Telemedicine [facility] [address] [place] [phone] Keri Guan RN 07/20/2025 10:45 AM EST Office Visit [facility] [address] [place] [address] Name, MD Rocky [address] [place] [address] 08/19/2025 10:30 AM EST Office Visit [facility] OPTOMETRY [address] [place] [address] Dara Rock, OD [address] [place] [address] Health Maintenance Due Date Last Done Comments CT Colonography 1966 FIT DNA/Cologuard 1966 FIT 1966 FOBT 1966 HIV Screening 1966 Sigmoidoscopy 1966 Alcohol/Substance Use Screening 1978 Hepatitis B Vaccines (1 of 3 - 19+ 3-dose series) 1985 Pneumococcal Vaccine: 50+ Years (3 of 3 - PCV20 or PCV21) 06/20/2021 06/20/2016, 03/29/2015, 03/29/2015 SDOH Screening 10/20/2024 10/21/2023 Pap Smear 11/26/2024 11/26/2021 Colonoscopy 03/13/2025 03/13/2022 Colorectal Cancer Screening 03/13/2025 Influenza Vaccine (#1) 2025 , 06/11/2023, 04/12/2022, Additional history exists Disability Screening 11/01/2025 11/01/2024 Depression Monitoring 11/09/2025 05/11/2025, 025 Tobacco Screening 04/22/2026 04/22/2025 Mammogram 05/06/2026 05/03/2024, 04/05, 05/03/2022 Cervical Cancer Screening 11/26/2026 HPV/Cotest 11/26/2026 11/26/2021 [...] Priority Date/Time Associated Diagnosis Comments MAMMOGRAPHY Routine 05/03/2024 LIPID PANEL, STANDARD Routine 10/14/2022 12:17 PM EDT Screening for diabetes mellitus On statin therapy COLONOSCOPY Routine 03/13/2022 THINPREP IMAGING PAP AND HPV MRNA E6/E7 WITH REFLEX TO HPV 16,18/45 Routine 11/26/2021 9:41 AM EDT HEPATITIS C ANTIBODY Routine 01/26/2015 from Last 3 Months or Most Recently Relevant to Health Maintenance Results * Mammography (05/03/2024) Mammogram Normal Normal, Abnormal, BIRADS 1 , BIRADS 2 Anatomical Region Laterality Modality Other 05/03/2024 us Rocky Jain MD HEALTH MAINTENANCE Final Result * (ABNORMAL) Lipid Panel, Standard (10/14/2022 12:17 PM EDT) Cholesterol, Total 143 <200 mg/dL [facility] HDL Cholesterol 46(L) > OR = 50 mg/dL [facility] Triglycerides 101 <150 mg/dL [facility] [place] [facility] LDL Cholesterol 79 mg/dL (calc) [facility] Comment: Reference range: <100 Desirable range <100 mg/dL for primary prevention; <70 mg/dL for patients with CHD or diabetic patients with > or = 2 CHD risk factors. LDL-C is now calculated using the Lenny calculation, which is a validated novel method providing better accuracy than the Friedewald equation in the estimation of LDL-C. Steve SS et al. MARY JO. 2013;310(19): 0758-4193 (http://education.[employer]/faq/PZO190) Chol/HDLC Ratio 3.1 <5.0 (calc) [facility] Non-HDL Cholesterol 97 <130 mg/dL (calc) [facility] Comment: For patients with diabetes plus 1 major ASCVD risk factor, treating to a non-HDL-C goal of <100 mg/dL (LDL-C of <70 mg/dL) is considered a therapeutic option. Blood Venous blood specimen / Unknown 10/14/2022 12:17 PM EDT 10/14/2022 12:18 PM EDT Narrative [facility] - 10/15/2022 1:11 AM EDT FASTING:NO FASTING: NO Rocky Jain MD LAB BLOOD ORDERABLES Final Resul t [facility] [address], [place] [address] [facility] [address] [place] [address] * (ABNORMAL) Hm Colonoscopy (03/13/2022) Colonoscopy Abnormal( A) Normal Comment:repeat 3 years Historical Provider HEALTH MAINTENANCE Final Result * THINPREP TIS PAP AND HPV mRNA E6/E7 WITH REFLEX TO HPV 16,18/45 (11/26/2021 9:41 AM EDT) Clinical Information: S/P HYST [facility] COMMENT SEE COMMENT [facility]OUNDAT[facility] ON [...] computer assisted technology. [facility] Dentist Attendant: SEE COMMENT [facility] Comment: [facility], CT(ASCP) CT screening location: [place] [address] HPV nRNA E6/E7 Not Detected Not Detected [facility] Comment: Methodology: Yeast Pusher-Mediated Amplification This assay detects E6/E7 viral messenger RNA (mRNA) from 14 high-risk HPV types (16,18,31,33,35,39,45,51,52,56,58,59,66,68). The analytical performance characteristics of this assay have been determined by [facility]. The modifications have not been cleared or approved by the FDA. This assay has been validated pursuant to the CLIA regulations and is used for clinical purposes. For additional information, please refer to http://education.[employer] Touch/faq/QXG883g6 (This link if provided for information/ educational [...] Result [facility] [address] [place] [address], * HM Hepatitis C Antibody (01/26/2015) Hepatitis C Antibody Nonreactive Blood Rocky Jain MD HEALTH MAINTENANCE Final Result from Last 3 Months or Most Recently Relevant to Health Maintenance Insurance [facility] < 65 Care Teams Stretch Machine Operator Relationship Specialty Start Date End Date Name, MD Rocky [address] [place] [address] PCP - General Family Medicine 12/03/16 Jim Ram FNP [address] [place] [address] Nurse Practitioner Family Medicine 07/08/23
--- OUTSIDE RECORDS SUMMARY | 2025-06-01 13:14 | XMS_ITS | Encounter Summary ---
Author Organization [facility] Address [address] [place] [address] [address] [place] [address] Care Team Providers Care Truck Repair Service Estimator Name Role Phone Name, Rocky CHAUDHARI Primary Care Provider [phone] Jim Ram Unavailable Unavailable Reason for Visit * Reason Onset Date Comments Med Refill 11/26/2024 Encounter Details Date Type Department Care Team (Late st Contact Info) Description 11/26/2024 Telephone [facility] MED[facility] [address] [place], [place] [phone] Name, MD Rocky [address] [place], [place] [phone] Med Refill Social History Tobacco Use Types [...] 1 MG tablet To be sent to: [facility]/pharmacy #[id number] - [place], [place] - [address] [place] [address] (Pharmacy) documented in this encounter Plan of Treatment Upcoming Encounters Date Type Department Care Team (Late st Contact Info) Description 07/08/2025 11:00 AM EST Telemedicine [facility] MEDICINE [address] [place] [phone] Keri Guan RN 07/20/2025 10:45 AM EST Office Visit [facility] MED[facility] [address] [place] [phone] Name, MD Rocky [address] [place] [address] 08/19/2025 10:30 AM EST Office Visit [facility] OPTOMETRY [address] [place] [address] Pranav, Dara, OD [address] [place] [address] documented as of this encounter Visit Diagnoses Not on filedocumented in this encounter Additional Health Concerns Assessment Noted Time PHQ-9 Depression Total Score: 11 024 11:18 AM EDT documented as of this encounter Care Teams Truck Repair Service Estimator Relationship Specialty Start Date End Date Name, MD Rocky [address] [place] [address] PCP - General Family Medicine 12/03/16 Jim Ram FNP [address] [place] [address] Nurse Practitioner Family Medicine 07/08/23 documented as of this encounter
--- OUTSIDE RECORDS SUMMARY | 2025-06-01 13:14 | XMS_ITS | Encounter Summary ---
Author Organization [facility] Address [address] [place] [address] [address] [place] [address] Care Team Providers Care Middle School Librarian Name Role Phone Name, Rocky CHAUDHARI Primary Care Provider [phone] Jim Ram Unavailable Unavailable Encounter Details Date Type Department Care Team (Late st Contact Info) Description 11/15/2024 Orders Only [facility] [address] [place], [place] [phone] Patience Rodríguez NP [address] [place], [place] [phone] Other constipation (Primary Dx) Social History Tobacco [...] the past 12 months, has t he [employer]metric[employer], gas, oil or water company threatened to [...] Info) Description 07/08/2025 11:00 AM EST Telemedicine [facility] MED[facility]INE [address] [place] [phone] Keri Guan RN 07/20/2025 10:45 AM EST Office Visit [facility] MED[facility]INE [address] [place] [address] Rocky Jain MD [address] [place] [address] 08/19/2025 10:30 AM EST Office Visit [facility] OPTOMETRY [address] [place] [address] Dara Rock, OD [address] [place] [address] documented as of this encounter Visit Diagnoses Diagnosis Other constipation- Primary documented in this encounter Additional Health Concerns Assessment Noted Time PHQ-9 Depression Total Score: 11 024 11:18 AM EDT documented as of this encounter Care Teams Middle School Librarian Relationship Specialty Start Date End Date Rocky Jain MD [address] [place] [address] PCP - General Family Medicine 12/03/16 Jim Ram FNP [address] [place] [address] Nurse Practitioner Family Medicine 07/08/23 documented as of this encounter
--- OUTSIDE RECORDS SUMMARY | 2025-06-01 13:14 | XMS_ITS | Encounter Summary ---
Author Organization [facility] Address [address] [place] [address] [address] [place] [address] Care Team Providers Care Shadowgraph Operator Name Role Phone Name, Rocky CHAUDHARI Primary Care Provider [phone] Jim Ram Unavailable Unavailable Reason for Visit * Reason Onset Date Comments Medication Question 06/30/2024 Encounter Details Date Type Department Care Team (Late st Contact Info) Description 06/30/2024 Telephone [facility] MED[facility] [address] [place], [place] [phone] Name, MD Rocky [address] [place], [place] [phone] Medication Question Social History Tobacco Use Types [...] Instructions If any questions Contact pt at [phone] documented in this encounter Plan of Treatment Upcoming Encounters Date Type Department Care Team (Late st Contact Info) Description 07/08/2025 11:00 AM EST Telemedicine [facility] MED[facility]INE [address] [place] [phone] Keri Guan RN 07/20/2025 10:45 AM EST Office Visit [facility] MED[facility] [address] [place] [phone] Name, MD Rocky [address] [place] [address] 08/19/2025 10:30 AM EST Office Visit [facility] OPTOMETRY [address] [place] [address] Dara Rock OD [address] [place] [address] documented as of this encounter Visit Diagnoses Not on filedocumented in this encounter Additional Health Concerns Assessment Noted Time PHQ-9 Depression Total Score: 11 024 11:18 AM EDT documented as of this encounter Care Teams Shadowgraph Operator Relationship Specialty Start Date End Date Name, MD Rocky [address] [place] [address] PCP - General Family Medicine 12/03/16 Jim Ram FNP [address] [place] [address] Nurse Practitioner Family Medicine 07/08/23 documented as of this encounter
--- OUTSIDE RECORDS SUMMARY | 2025-06-01 13:14 | XMS_ITS | Encounter Summary ---
Author Organization [employer] Address [address] [place] [address] 7t [place] [address] Care Team Providers Care Preschool Teacher'S Assistant Name Role Phone Name, Rocky CHAUDHARI Primary Care Provider [phone] Jim Ram POWER PLANT MANAGER Unavailable Unavailable Reason for Visit * Reason Comments Med Refill Encounter Details Date Type Department Care Team ([facility] st Contact Info) Description 01/15/2025 Refill [facility] 230 [place], [place] [phone] Name, MD Rocky 230 [place], [place] [phone] Major depressive disorder with psychotic features (CMS/HCC) [...] Info) Description 07/08/2025 11:00 AM EST Telemedicine [facility] [address] [place] [address] Keri Guan RN 07/20/2025 10:45 AM EST Office Visit [facility] [address] [place] [address] Name, MD Rocky 230 [place] [address] 08/19/2025 10:30 AM EST Office Visit [facility] [address] [place] [address] Dara Rock, TUSHAR 230 [place] [address] documented as of this encounter Visit Diagnoses Diagnosis Major depressive disorder with psychotic features (CMS/HCC) (HCC) documented in this encounter Additional Health Concerns Assessment Noted Time PHQ-9 Depression Total Score: 11 024 11:18 AM EDT documented as of this encounter Care Teams Preschool Teacher'S Assistant Relationship Specialty Start Date End Date Name, MD Rocky 230 [place] [address] PCP - General Family Medicine 12/03/16 Jim Ram FNP 230 [place] [address] Nurse Practitioner Family Medicine 07/08/23 documented as of this encounter
--- OUTSIDE RECORDS SUMMARY | 2025-06-01 13:14 | XMS_ITS | Encounter Summary ---
Author Organization [employer] Address [address] [place] [address] 7t [place] [address] Care Team Providers Care Retail Shift Supervisor Name Role Phone Name, Rocky CHAUDHARI Primary Care Provider [phone] Jim Ram Unavailable Unavailable Reason for Visit * Reason Comments Med Refill Encounter Details Date Type Department Care Team (Late st Contact Info) Description 10/23/2024 Refill [facility] 230 [place], [place] [phone] Name, MD Rocky 230 [place], [place] [phone] Major depressive disorder with psychotic features (CMS/HCC); [...] Info) Description 07/08/2025 11:00 AM EST Telemedicine [facility] [address] [place] [address] Keri Guan RN 07/20/2025 10:45 AM EST Office Visit [facility] [address] [place] [address] Name, MD Rocky 230 [place] [address] 08/19/2025 10:30 AM EST Office Visit [facility] [address] [place], [place] [phone] Dara Rock, TUSHAR 230 [place] [address] documented as of this encounter Visit Diagnoses Diagnosis Major depressive disorder with psychotic features (CMS/HCC) (HCC) Chronic back pain, unspecified back location, unspecified back pain laterality documented in this encounter Additional Health Concerns Assessment Noted Time PHQ-9 Depression Total Score: 11 024 11:18 AM EDT documented as of this encounter Care Teams Retail Shift Supervisor Relationship Specialty Start Date End Date Name, MD Rocky 230 [place] [address] PCP - General Family Medicine 12/03/16 Jim Ram FNP 230 [place] [address] Nurse Practitioner Family Medicine 07/08/23 documented as of this encounter
--- OUTSIDE RECORDS SUMMARY | 2025-06-01 13:14 | XMS_ITS | Encounter Summary ---
Author Organization [employer] Address [address] [place] [address] 7 [place] [address] Care Team Providers Care Aerospace Mechanic Name Role Phone Name, Rocky CHAUDHARI Primary Care Provider [phone] Jim Ram Unavailable Unavailable Reason for Visit * Reason Comments Med Refill Encounter Details Date Type Department Care Team (Late st Contact Info) Description 12/31/2022 Refill [facility] MEDICINE 230 [place], [place] [phone] Name, MD Rocky 230 [place], [place] [phone] Chronic back pain, unspecified back location, unspecified [...] Description 07/08/2025 11:00 AM EST Telemedicine [facility] MEDICINE 230 [place] [address] Keri Guan RN 07/20/2025 10:45 AM EST Office Visit [facility] MEDICINE 230 [place] [address] Name, MD Rocky 230 [place], [place] 08/19/2025 10:30 AM EST Office Visit [facility] OPTOMETRY 267 [place] [address] Pranav, Dara, OD 230 [place] [address] documented as of this encounter Visit Diagnoses Diagnosis Chronic back pain, unspecified back location, unspecified back pain laterality Multiple sclerosis documented in this encounter Additional Health Concerns Assessment Noted Time PHQ-9 Depression Total Score: 6 12/25/19 11:32 AM EDT documented as of this encounter Care Teams Aerospace Mechanic Relationship Specialty Start Date End Date Rocky Jain MD [address] [place] [address] PCP - General Family Medicine 12/03/16 Jim Ram FNP [address] [place] [address] Nurse Practitioner Family Medicine 07/08/23 documented as of this encounter
--- OUTSIDE RECORDS SUMMARY | 2025-06-01 13:14 | XMS_ITS | Encounter Summary ---
Author Organization [employer] Address [address] [place] [address] 7t [place] [address] Care Team Providers Care Fifth Hand Name Role Phone Name, Rocky CHAUDHARI Primary Care Provider [phone] Jim Ram Unavailable Unavailable Reason for Visit * Reason Comments Med Refill Encounter Details Date Type Department Care Team (Late st Contact Info) Description 10/25/2024 Refill [facility] MED[facility] 230 [facility], [place] [phone] Name, MD Rocky 230 [place], [place] [phone] Major depressive disorder with psychotic features (CMS/HCC); [...] - 10/26/2024 1:21 PM EDT Tc from [facility] requesting med refill. documented in this encounter Plan of Treatment Upcoming Encounters Date Type Department Care Team (Late st Contact Info) Description 07/08/2025 11:00 AM EST Telemedicine [facility] MEDICINE [address] [place] [address] Keri Guan RN 07/20/2025 10:45 AM EST Office Visit [facility] MEDICINE [address] [place] [address] [phone] Name, MD Rocky 230 [place] [address] 08/19/2025 10:30 AM EST Office Visit [facility] OPTOMETRY [address] [place] [address] [phone] Dara Rock, OD 230 [place] [address] documented as of this encounter Visit Diagnoses Diagnosis Major depressive disorder with psychotic features (CMS/HCC) (HCC) Chronic back pain, unspecified back location, unspecified back pain laterality documented in this encounter Additional Health Concerns Assessment Noted Time PHQ-9 Depression Total Score: 11 024 11:18 AM EDT documented as of this encounter Care Teams Fifth Hand Relationship Specialty Start Date End Date Name, MD Rocky 230 [place] [address] PCP - General Family Medicine 12/03/16 Jim Ram FNP 230 [place] [address] Nurse Practitioner Family Medicine 07/08/23 documented as of this encounter
--- OUTSIDE RECORDS SUMMARY | 2025-06-01 13:14 | XMS_ITS | Encounter Summary ---
Author Organization [employer] Address [address] [place] [address] 7t [place] [address] Care Team Providers Care Hearing Aid Repairer Name Role Phone Name, Rocky CHAUDHARI Primary Care Provider [phone] Jim Ram BRONZE CHASER Unavailable Unavailable Reason for Visit * Reason Comments Med Refill Encounter Details Date Type Department Care Team (Late st Contact Info) Description 01/14/2025 Refill [facility] MEDICINE 230 [place], [place] [phone] Name, MD Rocky 230 [place], [place] [phone] Major depressive disorder with psychotic features (CMS/HCC) [...] Info) Description 07/08/2025 11:00 AM EST Telemedicine [facility] MEDICINE [address] [place] [address] Keri Guan RN 07/20/2025 10:45 AM EST Office Visit [facility] MED[facility] [address] [place] [address] Name, MD Rocky 230 [place] [address] 08/19/2025 10:30 AM EST Office Visit [facility] OPTOMETRY 267 [place] [address] Dara Rock, TUSHAR 230 [place] [address] documented as of this encounter Visit Diagnoses Diagnosis Major depressive disorder with psychotic features (CMS/HCC) (HCC) documented in this encounter Additional Health Concerns Assessment Noted Time PHQ-9 Depression Total Score: 11 024 11:18 AM EDT documented as of this encounter Care Teams Hearing Aid Repairer Relationship Specialty Start Date End Date Name, MD Rocky 230 [place] [address] PCP - General Family Medicine 12/03/16 Jim Ram FNP 230 [place] [address] Nurse Practitioner Family Medicine 07/08/23 documented as of this encounter
--- OUTSIDE RECORDS SUMMARY | 2025-06-01 13:14 | XMS_ITS | Encounter Summary ---
Author Organization [employer] Address [address] [place] [address] 7 [place] [address] Care Team Providers Care Juvenile Court Judge Name Role Phone Name, Rocky CHAUDHARI Primary Care Provider [phone] Jim Ram CUSTOMER SOLUTIONS ARCHITECT Unavailable Unavailable Encounter Details Date Type Department Care Team (Late st Contact Info) Description 05/05/2023 Abstract [facility] MEDICINE [address] [place] [address] Name, MD Rocky 230 [place] [address] Social History Tobacco Use Types Packs/Day Years [...] Info) Description 07/08/2025 11:00 AM EST Telemedicine [facility]INE 230 [place], [place] [phone] Keri Guan RN 07/20/2025 10:45 AM EST Office Visit [facility] 230 [facility] [place] [address] Name, MD Rocky 230 [place], [place] [phone] 08/19/2025 10:30 AM EST Office Visit [facility] OPTOMETRY [address] [place], [place] [phone] Pranav, Dara, OD 230 [place], [place] [phone] documented as of this encounter Procedures Procedure Name Priority Date/Time Associated Diagnosis Comments MAMMOGRAPHY Routine 04/30/2023 11:35 AM EDT documented in this encounter Results * Mammography (04/30/2023 11:35 AM EDT) Mammogram Bi-rads 2 Benign Comment:Bi-rads 2 Benign, re peat 1 year Anatomical Region Laterality Modality Other Rocky Jian MD HEALTH MAINTENANCE Final Result documented in this encounter Visit Diagnoses Not on filedocumented in this encounter Additional Health Concerns Assessment Noted Time PHQ-9 Depression Total Score: 6 12/25/19 11:32 AM EDT documented as of this encounter Care Teams Juvenile Court Judge Relationship Specialty Start Date End Date Name, MD Rocky Camelia [place], [place] [phone] PCP - General Family Medicine 12/03/16 Jim Ram FNP [address] [place] [address] Nurse Practitioner Family Medicine 07/08/23 documented as of this encounter
--- OUTSIDE RECORDS SUMMARY | 2025-06-01 13:14 | XMS_ITS | Encounter Summary ---
Author [employer] Preferred Language en Marital Status Single Adventism Affiliation Unknown Race White Ethnic Group Unknown Author Organization [employer] Address [address] [place] [address] 7t [place] [address] Care Team Providers Care Carbon Furnace Operator Name Role Phone Name, Rocky CHAUDHARI Primary Care Provider [phone] Jim Ram Unavailable Unavailable Reason for Visit * Reason Comments Med Refill Encounter Details Date Type Department Care Team (Late st Contact Info) Description 04/08/2024 Refill [facility] MEDICINE 230 [place], [place] [phone] Name, MD Rocky 230 [place], [place] [phone] Chronic back pain, unspecified back location, unspecified [...] Info) Description 07/08/2025 11:00 AM EST Telemedicine [facility] MEDICINE [address] [place] [address] Keri Guan RN 07/20/2025 10:45 AM EST Office Visit [facility] MEDICINE [address] [place] [address] Name, MD Rocky 230 [place] [address] 08/19/2025 10:30 AM EST Office Visit [facility] OPTOMETRY [address] [place] [address] Dara Rock, TUSHAR 230 [place] [address] documented as of this encounter Visit Diagnoses Diagnosis Chronic back pain, unspecified back location, unspecified back pain laterality documented in this encounter Additional Health Concerns Assessment Noted Time PHQ-9 Depression Total Score: 11 024 11:18 AM EDT documented as of this encounter Care Teams Carbon Furnace Operator Relationship Specialty Start Date End Date Name, MD Rocky 230 [place] [address] PCP - General Family Medicine 12/03/16 Jim Ram FNP 230 [place] [address] Nurse Practitioner Family Medicine 07/08/23 documented as of this encounter
--- OUTSIDE RECORDS SUMMARY | 2025-06-01 13:14 | XMS_ITS | Encounter Summary ---
Author Organization [employer] Address [address] [place] [address] 7t [place] [address] Care Team Providers Care Assembler Semiconductor Name Role Phone Name, Rocky CHAUDHARI Primary Care Provider [phone] Jim aRm Unavailable Unavailable Reason for Visit * Reason Comments Med Refill Encounter Details Date Type Department Care Team (Late st Contact Info) Description 10/22/2024 Refill [facility] MEDICINE 230 [place], [place] [phone] Name, MD Rocky 230 [place], [place] [phone] Chronic back pain, unspecified back location, unspecified [...] Description 07/08/2025 11:00 AM EST Telemedicine [facility] MEDICINE [address] [place] [address] Keri Guan RN 07/20/2025 10:45 AM EST Office Visit [facility] MEDICINE [address] [place] [address] Name, MD Rocky 230 [place] [address] 08/19/2025 10:30 AM EST Office Visit [facility] OPTOMETRY [address] [place] [address] Dara Rock, TUSHAR 230 [place] [address] documented as of this encounter Visit Diagnoses Diagnosis Chronic back pain, unspecified back location, unspecified back pain laterality documented in this encounter Additional Health Concerns Assessment Noted Time PHQ-9 Depression Total Score: 11 024 11:18 AM EDT documented as of this encounter Care Teams Assembler Semiconductor Relationship Specialty Start Date End Date Name, MD Rocky 230 [place] [address] PCP - General Family Medicine 12/03/16 Jim Ram FNP 230 [place] [address] Nurse Practitioner Family Medicine 07/08/23 documented as of this encounter
--- OUTSIDE RECORDS SUMMARY | 2025-06-01 13:14 | XMS_ITS | Encounter Summary ---
Author Organization [employer] Address [address] [place] [address] 7t [place] [address] Care Team Providers Care Watch Dial Printer Name Role Phone Name, Rocky CHAUDHARI Primary Care Provider [phone] Jim Rma GLASS GRINDER Unavailable Unavailable Encounter Details Date Type Department Care Team ([facility] Contact Info) Description 01/22/2023 Abstract [facility] MEDICINE 230 [place], [place] [phone] Name, MD Rocky 230 [place] [address] Social History Tobacco Use Types Packs/Day Years [...] Upcoming Encounters Date Type Department Care Team ([facility] Contact Info) Description 07/08/2025 11:00 AM EST Telemedicine [facility] MEDICINE 230 [place] [address] Keri Guan, RN 07/20/2025 10:45 AM EST Office Visit [facility] MEDICINE 230 [place] [address] Name, MD Rocky 230 [place] [address] 08/19/2025 10:30 AM EST Office Visit [facility] OPTOMETRY [address] [place] [address] Dara Rock, OD 230 [place] [address] documented as of this encounter Visit Diagnoses Not on filedocumented in this encounter Additional Health Concerns Assessment Noted Time PHQ-9 Depression Total Score: 6 12/25/19 23 11:32 AM EDT documented as of this encounter Care Teams Watch Dial Printer Relationship Specialty Start Date End Date Name, [place] [address] PCP - General Family Medicine 12/03/16 Jim Ram FNP [address] [place] [address] Nurse Practitioner Family Medicine 07/08/23 documented as of this encounter
--- OUTSIDE RECORDS SUMMARY | 2025-06-01 13:14 | XMS_ITS | Encounter Summary ---
Author Organization [employer] Address [address] [facility] [facility] 7t [place] [address] Care Team Providers Care Mutuel Department Manager Name Role Phone Name, Rocky CHAUDHARI Primary Care Provider [phone] Jim Ram COMPENSATION ADMINISTRATOR Unavailable Unavailable Reason for Visit * Reason Onset Date Comments Call Back Request 10/15/2024 POt to bring in police report of oxycodone theft 10/15/2024 Encounter Details Date Type Department Care Team (Late st Contact Info) Description 10/15/2024 Telephone [facility] MEDICINE 230 [place] [address] Name, MD Rocky 230 [place], [place] [phone] Call Back Request; POt to bring in [...] to pt, she would need to provide [facility] a copy of the police report before any consideration of early refill of her oxycodone. Pt states she will bring paperwork Friday or Friday. * Telephone Encounter - Neptali Wilder - 10/15/2024 3:21 PM EDT Tc from pt requesting a call back to Speak with Keri regarding something that was Mentioned in the Morning. Contact pt at [phone] documented in this encounter Plan of Treatment Upcoming Encounters Date Type Department Care Team (Late st Contact Info) Description 07/08/2025 11:00 AM EST Telemedicine [facility] MEDICINE [address] [place] [address] Keri Guan RN 07/20/2025 10:45 AM EST Office Visit [facility] MEDICINE 230 [place] [address] Name, MD Rocky 230 [place] [address] 08/19/2025 10:30 AM EST Office Visit [facility] OPTOMETRY [address] [place] [address] Dara Rock, TUSHAR 230 [place] [address] documented as of this encounter Visit Diagnoses Not on filedocumented in this encounter Additional Health Concerns Assessment Noted Time PHQ-9 Depression Total Score: 11 024 11:18 AM EDT documented as of this encounter Care Teams Mutuel Department Manager Relationship Specialty Start Date End Date Name, MD Rocky 230 [place] [address] PCP - General Family Medicine 12/03/16 Jim Ram FNP 230 [place] [address] Nurse Practitioner Family Medicine 07/08/23 documented as of this encounter
--- OUTSIDE RECORDS SUMMARY | 2025-06-01 13:14 | XMS_ITS | Encounter Summary ---
Author Organization [employer] Address [address] [place] [address] 7 [place] [address] Care Team Providers Care Hand Hardener Name Role Phone Name, Rocky CHAUDHARI Primary Care Provider [phone] Jim Ram Unavailable Unavailable Reason for Visit * Reason Comments Med Refill Encounter Details Date Type Department Care Team (Late Contact Info) Description 04/16/2023 Refill [facility] MEDICINE [address] [place] [address] [phone] Name, MD Rocky 230 [place], [place] [phone] Chronic back pain, unspecified back location, unspecified [...] Department Care Team (Late Contact Info) Description 07/08/2025 11:00 AM EST Telemedicine [facility] MEDICINE 230 [place] [address] Keri Guan RN 07/20/2025 10:45 AM EST Office Visit [facility] MEDICINE 230 [place] [address] Rocky Jain MD 230 [place] [address] 08/19/2025 10:30 AM EST Office Visit [facility] OPTOMETRY [address] [place] [address] Pranav, Dara, OD 230 [place] [address] documented as of this encounter Visit Diagnoses Diagnosis Chronic back pain, unspecified back location, unspecified back pain laterality Multiple sclerosis documented in this encounter Additional Health Concerns Assessment Noted Time PHQ-9 Depression Total Score: 6 12/25/19 23 11:32 AM EDT documented as of this encounter Care Teams Hand Hardener Relationship Specialty Start Date End Date NameRocky MD [address] [place] [address] PCP - General Family Medicine 12/03/16 Jim Ram FNP [address] [place] [address] Nurse Practitioner Family Medicine 07/08/23 documented as of this encounter
--- OUTSIDE RECORDS SUMMARY | 2025-06-01 13:14 | XMS_ITS | Encounter Summary ---
Author Organization [employer] Address [address] [place] [address] 7 [place] [address] Care Team Providers Care Molder Feeder Name Role Phone Name, Rocky CHAUDHARI Primary Care Provider [phone] Jim Ram CALENDER LET OFF HELPER Unavailable Unavailable Encounter Details Date Type Department Care Team (Late st Contact Info) Description 09/16/2022 Abstract [facility] MEDICINE [address] [place] [address] [phone] Rocky Jain MD [address] [place] [address] [phone] Social History Tobacco Use Types Packs/Day Years [...] Info) Description 07/08/2025 11:00 AM EST Telemedicine [address] [phone] Keri Guan, JENNIFER 07/20/2025 10:45 AM EST Office Visit [address] [phone] Rocky Jain MD [address] [place] [address] [phone] 08/19/2025 10:30 AM EST Office Visit [facility] OPTOMETRY [address] [place], [place] [phone] Dara Rock, TUSHAR 230 [place] [address] documented as of this encounter Visit Diagnoses Not on filedocumented in this encounter Additional Health Concerns Assessment Noted Time PHQ-9 Depression Total Score: 6 08/22/19 10:50 AM EST documented as of this encounter Care Teams Molder Feeder Relationship Specialty Start Date End Date Name, MD Rocky 230 [place], [place] [phone] PCP - General Family Medicine 12/03/16 Jim Ram FNP 230 [place] [address] Nurse Practitioner Family Medicine 07/08/23 documented as of this encounter
--- OUTSIDE RECORDS SUMMARY | 2025-06-01 13:14 | XMS_ITS | Encounter Summary ---
Author Organization [employer] Address [address] [place] [address] 7 [place] [address] Care Team Providers Care Product Management Internship Name Role Phone Name, Rocky CHAUDHARI Primary Care Provider [phone] Jim Ram Unavailable Unavailable Reason for Visit * Reason Onset Date Comments Nurse Triage 10/25/2024 Encounter Details Date Type Department Care Team (Late st Contact Info) Description 10/25/2024 Telephone [facility] MEDICINE 230 [place], [place] [phone] Name, MD Rocky 230 [place], [place] [phone] Nurse Triage Social History Tobacco Use Types [...] If any more questions contact pt at [phone] documented in this encounter Plan of Treatment Upcoming Encounters Date Type Department Care Team (Late st Contact Info) Description 07/08/2025 11:00 AM EST Telemedicine [facility] MEDICINE [address] [place] [address] Keri Guan, JENNIFER 07/20/2025 10:45 AM EST Office Visit [facility] MEDICINE 230 [place] [address] Name, MD Rocky 230 [place] [address] 08/19/2025 10:30 AM EST Office Visit [facility] OPTOMETRY [address] [place] [address] Dara Rock, TUSHAR 230 [place] [address] documented as of this encounter Visit Diagnoses Not on filedocumented in this encounter Additional Health Concerns Assessment Noted Time PHQ-9 Depression Total Score: 11 024 11:18 AM EDT documented as of this encounter Care Teams Product Management Internship Relationship Specialty Start Date End Date NameRocky MD [address] [place] [address] PCP - General Family Medicine 12/03/16 Jim Ram FNP 230 [place] [address] Nurse Practitioner Family Medicine 07/08/23 documented as of this encounter
--- OUTSIDE RECORDS SUMMARY | 2025-06-01 13:14 | XMS_ITS | Encounter Summary ---
Author Organization [employer] Address [address] [place] [address] 7 [place] [address] Care Team Providers Care Inclusion Intern Name Role Phone Name, Rocky CHAUDHARI Primary Care Provider [phone] Jim Ram Unavailable Unavailable Reason for Visit * Reason Onset Date Comments Med Refill 11/19/2024 Encounter Details Date Type Department Care Team (Late st Contact Info) Description 11/19/2024 Telephone [facility] MEDICINE 230 [place], [place] [phone] Name, MD Rocky 230 [place], [place] [phone] Med Refill Social History Tobacco Use Types [...] immediate release tablet To be sent to: [facility]/pharmacy #[id number] - [id number] documented in this encounter Plan of Treatment Upcoming Encounters Date Type Department Care Team (Late st Contact Info) Description 07/08/2025 11:00 AM EST Telemedicine [facility] MEDICINE [address] [place] [address] Keri Guan RN 07/20/2025 10:45 AM EST Office Visit [facility] MEDICINE [address] [place] [address] Name, MD Rocky [address] [place] [address] 08/19/2025 10:30 AM EST Office Visit [facility] OPTOMETRY [address] [place] [address] Pranav, Dara, OD 230 [place] [address] documented as of this encounter Visit Diagnoses Not on filedocumented in this encounter Additional Health Concerns Assessment Noted Time PHQ-9 Depression Total Score: 11 024 11:18 AM EDT documented as of this encounter Care Teams Inclusion Intern Relationship Specialty Start Date End Date Name, MD Rocky [address] [place] [address] PCP - General Family Medicine 12/03/16 Jim Ram FNP [address] [place] [address] Nurse Practitioner Family Medicine 07/08/23 documented as of this encounter
--- OUTSIDE RECORDS SUMMARY | 2025-06-01 13:14 | XMS_ITS | Encounter Summary ---
Author Organization [employer] Address [address] [place] [address] 7 [place] [address] Care Team Providers Care Boat Cleaner Name Role Phone Name, Rocky CHAUDHARI Primary Care Provider [phone] Jim Ram Unavailable Unavailable Reason for Visit * Reason Onset Date Comments Durable Medical Equipment 12/03/2022 Encounter Details Date Type Department Care Team (Late st Contact Info) Description 12/03/2022 Telephone [facility] MEDICINE 230 [place], [place] [phone] Name, MD Rocky 230 [place], [place] [phone] Durable Medical Equipment Social History Tobacco Use [...] for 3 months. Any furtherquestions please call [phone] or email: [email or web address]. documented in this encounter Plan of Treatment Upcoming Encounters Date Type Department Care Team (Late st Contact Info) Description 07/08/2025 11:00 AM EST Telemedicine [facility] MEDICINE [address] [place] [address] Keri Guan, JENNIFER 07/20/2025 10:45 AM EST Office Visit [facility] MEDICINE [address] [place] [address] Name, MD Rocky 230 [place] [address] 08/19/2025 10:30 AM EST Office Visit [facility] OPTOMETRY [address] [place] [address] Dara Rock, OD 230 [place] [address] documented as of this encounter Visit Diagnoses Not on filedocumented in this encounter Additional Health Concerns Assessment Noted Time PHQ-9 Depression Total Score: 8 10/23/19 23 3:20 PM EDT documented as of this encounter Care Teams Boat Cleaner Relationship Specialty Start Date End Date Name, MD Rocky [address] [place] [address] PCP - General Family Medicine 12/03/16 Jim Ram FNP [address] [place] [address] Nurse Practitioner Family Medicine 07/08/23 documented as of this encounter
== END 2025-06-01 11:22 | disposition home or self-care (01) ==
LOC: HO.HGI 10:40
PROVIDERS: PCP Internal Medicine Geriatric Medicine; Visit Provider Nurse Practitioner
DX: K58.2 Mixed irritable bowel syndrome (principal); K80.20 Calculus of gallbladder without cholecystitis without obstruction; K31.84 Gastroparesis; Z86.0100 Personal history of colon polyps, unspecified; R13.10 Dysphagia, unspecified; K21.9 Gastro-esophageal reflux disease without esophagitis
CPT/HCPCS: 99213

== ENCOUNTER → 2025-06-01 10:40 | Outpatient (BNVA) | payer OTHER, SELFPAY | PROVIDERS: PCP Internal Medicine Geriatric Medicine; Visit Provider Nurse Practitioner | DX: Z01.818 Encounter for other preprocedural examination (principal); D12.6 Benign neoplasm of colon, unspecified; K58.2 Mixed irritable bowel syndrome; K80.20 Calculus of gallbladder without cholecystitis without obstruction; K31.84 Gastroparesis; K21.9 Gastro-esophageal reflux disease without esophagitis; R13.10 Dysphagia, unspecified | CPT/HCPCS: 99212 ==

== ENCOUNTER 2025-06-22 10:15 | Outpatient (REF) | payer OTHER, SELFPAY ==
--- NOTE | ~2025-06-22 | CT_ITS ---
EXAMINATION: CT LUNG SCREENING HISTORY: F17.210 - Nicotine dependence, cigarettes, uncomplicated TECHNIQUE: Low dose axial images were obtained from the sternal notch to upper abdomen without IV contrast per standard departmental protocol. Sagittal and coronal reformatted images were also obtained and reviewed. One or more of the following techniques was used for dose reduction: Automated exposure control, adjustment of the mA and/or kV according to patient size, use of iterative reconstruction technique. DLP: 43 mGy-cm COMPARISON: Comparison is made with the prior examination dated 05/31/2024. FINDINGS: Lung nodules: There is a 2 mm nodule in the right upper lobe (series 9). No additional pulmonary nodules are identified. Emphysema: mild Coronary Calcification: none Aortic Arch Calcification: moderate Potentially Significant Incidentals : none Additional Chest Findings: There is no pleural or pericardial effusion. No mediastinal or axillary lymphadenopathy is identified. Multiple thoracic compression fractures are again noted. The patient is status post mid thoracic kyphoplasty. Visualized upper abdomen: The visualized portions of the liver, spleen, and adrenals have an unremarkable unenhanced appearance. CT/CT lung screening IMPRESSION: No suspicious pulmonary nodules are identified. LUNG-RADS ASSESSMENT: Lung-RADS 2: Benign MANAGEMENT: Continue annual screening with LDCT in 12 months Category S: N/A Electronically signed by: Lopez Matta MD 06/22/2025 10:54 AM [facility]
--- OUTSIDE RECORDS SUMMARY | 2025-06-22 19:37 | XMS_ITS | Continuity of Care Document ---
Author Name [employer] Medical Address [address] [place] [address] Organization Unknown Address [address] [place] [address] Medications No known medications Problems No known problems
--- OUTSIDE RECORDS SUMMARY | 2025-06-22 19:37 | XMS_ITS | Encounter Summary ---
Author Organization [employer] Address [address] [place] [address] 7t [place] [address] Care Team Providers Care Geek Squad Manager Name Role Phone Name, Rocky CHAUDHARI Primary Care Provider [phone] Jim Ram Unavailable Unavailable Encounter Details Date Type Department Care Team (Late st Contact Info) Description 11/10/[address] [facility] MEDICINE [address] [place], [place] [phone] Patience Rodríguez NP 230 [place], [place] [phone] Right lower quadrant abdominal pain (Primary Dx) [...] Info) Description 07/08/2025 11:[address] [facility] MEDICINE [address] [place] [address] Keri Guan RN 07/20/2025 10:45 AM EST Office Visit [facility] MEDICINE [address] [place] [address] Rocky Jain MD 230 [place] [address] 08/19/2025 10:30 AM EST Office Visit [facility] OPTOMETRY [address] [place] [address] Dara Rock, OD 230 [place] [address] documented as of this encounter Visit Diagnoses Diagnosis Right lower quadrant abdominal pain- Primary documented in this encounter Additional Health Concerns Assessment Noted Time PHQ-9 Depression Total Score: 11 024 11:18 AM EDT documented as of this encounter Care Teams Geek Squad Manager Relationship Specialty Start Date End Date Rocky Jain MD 230 [place] [address] PCP - General Family Medicine 12/03/16 Jim Ram FNP [address] [place] [address] Nurse Practitioner Family Medicine 07/08/23 documented as of this encounter
--- OUTSIDE RECORDS SUMMARY | 2025-06-22 19:37 | XMS_ITS | Encounter Summary ---
Author Organization [employer] Address [address] [place] [address] 7t [place] [address] Care Team Providers Care Bridge Repairer Name Role Phone Name, Rocky CHAUDHARI Primary Care Provider [phone] Jim Ram SOUNDING DEVICE OPERATOR Unavailable Unavailable Reason for Visit * Reason Comments Med Change Request Encounter Details Date Type Department Care Team ([facility] st Contact Info) Description 05/30/2025 Refill [facility] MED & PEDS [address] [place] [phone] Name, MD Rocky 230 [place], [place] [phone] Major depressive disorder with psychotic features (CMS/HCC) [...] Info) Description 07/08/2025 11:00 AM EST Telemedicine [facility] MEDICINE [address] [place] [address] Keri Guan RN 07/20/2025 10:45 AM EST Office Visit [facility] MEDICINE [address] [place] [address] Name, MD Rocky 230 [place] [address] 08/19/2025 10:30 AM EST Office Visit [facility] OPTOMETRY [address] [place] [address] Dara Rock, TUSHAR 230 [place] [address] documented as of this encounter Visit Diagnoses Diagnosis Major depressive disorder with psychotic features (CMS/HCC) (HCC) documented in this encounter Additional Health Concerns Assessment Noted Time PHQ-9 Depression Total Score: 13 025 11:10 AM EDT documented as of this encounter Care Teams Bridge Repairer Relationship Specialty Start Date End Date Name, MD Rocky 230 [place] [address] PCP - General Family Medicine 12/03/16 Jim Ram FNP 230 [place] [address] Nurse Practitioner Family Medicine 07/08/23 documented as of this encounter
--- OUTSIDE RECORDS SUMMARY | 2025-06-22 19:37 | XMS_ITS | Encounter Summary ---
Author Organization [employer] Address [address] [place] [address] 7 [place] [address] Care Team Providers Care Paperhanger Name Role Phone Name, Rocky CHAUDHARI Primary Care Provider [phone] Jim Ram GUARD MANAGER Unavailable Unavailable Reason for Visit * Reason Onset Date Comments Med Refill 07/01/2023 Encounter Details Date Type Department Care Team (Late st Contact Info) Description 07/01/2023 Telephone [facility] MEDICINE 230 [place], [place] [phone] Name, MD Rocky 230 [place], [place] [phone] Med Refill Social History Tobacco Use Types [...] 200 MG capsule to be sent to [facility] - [place], [place] - [address] [place] [address] documented in this encounter Plan of Treatment Upcoming Encounters Date Type Department Care Team (Late st Contact Info) Description 07/08/2025 11:00 AM EST Telemedicine [facility] MEDICINE [address] [place] [address] Keri Guan RN 07/20/2025 10:45 AM EST Office Visit [facility] MEDICINE [address] [place] [address] Name, MD Rocky [address] [place] [address] 08/19/2025 10:30 AM EST Office Visit [facility] OPTOMETRY [address] [place] [address] Pranav, Dara, OD 230 [place] [address] documented as of this encounter Visit Diagnoses Not on filedocumented in this encounter Additional Health Concerns Assessment Noted Time PHQ-9 Depression Total Score: 6 05/26/20 23 11:14 AM EDT documented as of this encounter Care Teams Paperhanger Relationship Specialty Start Date End Date Name, MD Rocky 230 [place] [address] PCP - General Family Medicine 12/03/16 Jim Ram FNP 230 [place] [address] Nurse Practitioner Family Medicine 07/08/23 documented as of this encounter
--- OUTSIDE RECORDS SUMMARY | 2025-06-22 19:37 | XMS_ITS | Encounter Summary ---
Author Organization [employer] Address [address] [place] [address] 7t [place] [address] Care Team Providers Care Carver Hand Name Role Phone Name, Rocky CHAUDHARI Primary Care Provider [phone] Jim Ram Unavailable Unavailable Encounter Details Date Type Department Care Team (Late st Contact Info) Description 06/22/2025 Orders Only [facility] External Provider, [facility] Social History Tobacco Use Types Packs/Day Years [...] EST Telemedicine [facility] MEDICINE 230 [place] [address] Keri Guan RN 07/20/2025 10:45 AM EST Office Visit [facility] MEDICINE 230 [place] [address] Name, MD Rocky [address] [place] [address] 08/19/2025 10:30 AM EST Office Visit [facility] OPTOMETRY [address] [place] [address] Dara Rock, OD 230 [place] [address] documented as of this encounter Procedures Procedure Name Priority Date/Time Associated Diagnosis Comments LDCT LUNG SCREENING Routine 06/22/2025 1 0:28 AM EST documented in this encounter Results * CT Lung Screening Low dose (06/22/2025 10:28 AM EST) Anatomical Region Laterality Modality Lung Computed Tomogra phy 06/22/2025 10:2 8 AM EST Narrative 06/22/2025 10:[address] [address] [address] Scan Report Signed Patient: Eva Edgar MR#: [id number] : 1965 Acct:[id number] Age/Sex: 59 / F ADM Date: 06/22/25 Loc: .CT Attending Dr: Mary Kate Zendejsa PA-C Ordering Physician: Mary Kate Zendejas PA-C Date of Service: 06/22/25 Procedure(s): CT lung screening Accession Number(s): [id number] cc: Mary Kate Zendejas PA-C; Name,Rocky CHAUDHARI Report Number: [id number]: Total DLP = 43.00 mGy-cm Reason for Exam: F17.210 - Nicotine dependence, cigarettes, uncomplicated EXAMINATION: CT LUNG SCREENING HISTORY: F17.210 - Nicotine dependence, cigarettes, uncomplicated TECHNIQUE: Low dose axial images were obtained from the sternal notch to upper abdomen without IV contrast per standard departmental protocol. Sagittal and coronal reformatted images were also obtained and reviewed. One or more of the following techniques was used for dose reduction: Automated exposure control, adjustment of the mA and/or kV according to patient size, use of iterative reconstruction technique. DLP: 43 mGy-cm COMPARISON: Comparison is made with the prior examination dated 05/31/2024. FINDINGS: Lung nodules: There is a 2 mm nodule in the right upper lobe (series 9). No additional pulmonary nodules are identified. Emphysema: mild Coronary Calcification: none Aortic Arch Calcification: moderate Potentially Significant Incidentals : none Additional Chest Findings: There is no pleural or pericardial effusion. No mediastinal or axillary lymphadenopathy is identified. Multiple thoracic compression fractures are again noted. The patient is status post mid thoracic kyphoplasty. Visualized upper abdomen: The visualized portions of the liver, spleen, and adrenals have an unremarkable unenhanced appearance. CT/CT lung screening IMPRESSION: No suspicious pulmonary nodules are identified. LUNG-RADS ASSESSMENT: Lung-RADS 2: Benign MANAGEMENT: Continue annual screening with LDCT in 12 months Category S: N/A Electronically signed by: Lopez Matta MD 06/22/2025 10:54 AM [facility] Dictated By: Lopez Matta MD Signed By: <Electronically signed by Lopez Matta MD in OV> 06/22/25 1054 DD/ 1028 TD/TT: 06/22/25 1036 Board Saw Runner: Procedure Note Donotuseinterpreter, Image - 06/22/[address] [place] [address] [address] Scan Report Signed Patient: Eva Edgar QMR#: [id number] : 1965Acct:[id number] Age/Sex: 59 / FADM Date: 06/22/25 Loc: HO.CT Attending Dr: Mary Kate Zendejas PA-C Ordering Physician: Mary Kate Zendejas PA-C Date of Service: 06/22/25 Procedure(s): CT lung screening Accession Number(s): [id number] cc: Mary Kate Zendejas PA-C; Name,Rocky CHAUDHARI Report Number: [id number]: Total DLP = 43.00 mGy-cm Reason for Exam: F17.210 - Nicotine dependence, cigarettes, uncomplicated EXAMINATION: CT LUNG SCREENING HISTORY: F17.210 - Nicotine dependence, cigarettes, uncomplicated TECHNIQUE: Low dose axial images were obtained from the sternal notch to upper abdomen without IV contrast per standard departmental protocol. Sagittal and coronal reformatted images were also obtained and reviewed. One or more of the following techniques was used for dose reduction: Automated exposure control, adjustment of the mA and/or kV according to patient size, use of iterative reconstruction technique. DLP: 43 mGy-cm COMPARISON: Comparison is made with the prior examination dated 05/31/2024. FINDINGS: Lung nodules: There is a 2 mm nodule in the right upper lobe (series 9). No additional pulmonary nodules are identified. Emphysema: mild Coronary Calcification: none Aortic Arch Calcification: moderate Potentially Significant Incidentals : none Additional Chest Findings: There is no pleural or pericardial effusion. No mediastinal or axillary lymphadenopathy is identified. Multiple thoracic compression fractures are again noted. The patient is status post mid thoracic kyphoplasty. Visualized upper abdomen: The visualized portions of the liver, spleen, and adrenals have an unremarkable unenhanced appearance. CT/CT lung screening IMPRESSION: No suspicious pulmonary nodules are identified. LUNG-RADS ASSESSMENT: Lung-RADS 2: Benign MANAGEMENT: Continue annual screening with LDCT in 12 months Category S: N/A Electronically signed by: Lopez Matta MD 06/22/2025 10:54 AM EST Dictated By: Lopez Matta MD Signed By: <Electronically signed by Lopez Matta MD in OV> 06/22/25 1054 DD/ 1028 TD/TT: 06/22/25 1036 Board Saw Runner: [facility] External Provider IMG CT PROCEDURES Edited Result - Final documented in this encounter Visit Diagnoses Not on filedocumented in this encounter Additional Health Concerns Assessment Noted Time PHQ-9 Depression Total Score: 13 025 11:10 AM EDT documented as of this encounter Care Teams Carver Hand Relationship Specialty Start Date End Date Name, MD Rocky [address] [place] [address] PCP - General Family Medicine 12/03/16 Jim Ram FNP [address] [place] [address] Nurse Practitioner Family Medicine 07/08/23 documented as of this encounter
--- OUTSIDE RECORDS SUMMARY | 2025-06-22 19:37 | XMS_ITS | Encounter Summary ---
Author Organization [employer] Address [address] [place] [address] 7t [place] [address] Care Team Providers Care Vacuum Metalizer Operator Name Role Phone Name, Rocky CHAUDHARI Primary Care Provider [phone] Jim Ram J2EE DEVELOPER Unavailable Unavailable Reason for Visit * Reason Comments Med Refill Encounter Details Date Type Department Care Team ([facility] st Contact Info) Description 05/20/2023 Refill [facility] MEDICINE 230 [place], [place] [phone] Name, MD Rocky 230 [place], [place] [phone] Chronic back pain, unspecified back location, unspecified [...] Info) Description 07/08/2025 11:00 AM EST Telemedicine [facility] MEDICINE [address] [place] [address] Keri Guan, JENNIFER 07/20/2025 10:45 AM EST Office Visit [facility] MEDICINE [address] [place] [address] Rocky Jain MD 230 [place] [address] 08/19/2025 10:30 AM EST Office Visit [facility] OPTOMETRY [address] [place] [address] Dara Rock, OD 230 [place] [address] documented as of this encounter Visit Diagnoses Diagnosis Chronic back pain, unspecified back location, unspecified back pain laterality Multiple sclerosis documented in this encounter Additional Health Concerns Assessment Noted Time PHQ-9 Depression Total Score: 6 12/25/19 11:32 AM EDT documented as of this encounter Care Teams Vacuum Metalizer Operator Relationship Specialty Start Date End Date Name, MD Rocky 230 [place] [address] PCP - General Family Medicine 12/03/16 Jim Ram FNP [address] [place] [address] Nurse Practitioner Family Medicine 07/08/23 documented as of this encounter
--- OUTSIDE RECORDS SUMMARY | 2025-06-22 19:37 | XMS_ITS | Encounter Summary ---
Author Organization [employer] Address [address] [place] [address] 7t [place] [address] Care Team Providers Care Fence Erector Name Role Phone Name, Rocky CHAUDHARI Primary Care Provider [phone] Jim Ram SOLAR CONSULTANT Unavailable Unavailable Reason for Visit * Reason Comments Med Refill Encounter Details Date Type Department Care Team ([facility] st Contact Info) Description 09/05/2023 Refill [facility] CHC MED & PEDS [address] [place] [phone] Name, MD Rocky 230 [place], [place] [phone] Chronic back pain, unspecified back location, unspecified [...] EST Telemedicine [facility] MEDICINE [address] [place] [address] Keri Guan RN 07/20/2025 10:45 AM EST Office Visit [facility] MEDICINE [address] [place] [address] Rocky Jain MD [address] [place] [address] 08/19/2025 10:30 AM EST Office Visit [facility] OPTOMETRY [address] [place] [address] Pranav, Dara, OD 230 [place] [address] documented as of this encounter Visit Diagnoses Diagnosis Chronic back pain, unspecified back location, unspecified back pain laterality Multiple sclerosis documented in this encounter Additional Health Concerns Assessment Noted Time PHQ-9 Depression Total Score: 6 05/26/20 11:14 AM EDT documented as of this encounter Care Teams Fence Erector Relationship Specialty Start Date End Date NameRocky MD [address] [place] [address] PCP - General Family Medicine 12/03/16 Jim Ram FNP [address] [place] [address] Nurse Practitioner Family Medicine 07/08/23 documented as of this encounter
--- OUTSIDE RECORDS SUMMARY | 2025-06-22 19:38 | XMS_ITS | Encounter Summary ---
Author Organization [email or web address] Address [address] [place] [address] 7 [place] [address] Care Team Providers Care Accredited Pharmacy Technician Name Role Phone Name, Rocky CHAUDHARI Primary Care Provider [phone] Jim Ram WARP TYING MACHINE TENDER Unavailable Unavailable Reason for Visit * Reason Onset Date Comments Call Back Request 11/18/2023 Verbal Orders 11/18/2023 Encounter Details Date Type Department Care Team (Late st Contact Info) Description 11/18/[address] [facility] MEDICINE [address] [place] [address] Name, MD Rocky [address] [place], [place] [phone] Call Back Request; Verbal Orders Social History [...] 11/21/2023 10:35 AM EDT T/C to Saima [phone] for below message, No answer. LVM to call back on [phone]. * Telephone Encounter - Maureen King RN [...] medication records affiliations please call Saima aviles [phone] documented in this encounter Plan of Treatment Upcoming Encounters Date Type Department Care Team (Late st Contact Info) Description 07/08/2025 11:00 AM EST Telemedicine [facility] MEDICINE [address] [place] [address] Keri Guan, RN 07/20/2025 10:45 AM EST Office Visit [facility] MEDICINE [address] [place] [address] Name, MD Rocky [address] [place] [address] 08/19/2025 10:30 AM EST Office Visit [facility] OPTOMETRY [address] [place] [address] Dara Rock, TUSHAR 230 [place] [address] documented as of this encounter Visit Diagnoses Not on filedocumented in this encounter Additional Health Concerns Assessment Noted Time PHQ-9 Depression Total Score: 9 09/23/19 24 11:22 AM EST documented as of this encounter Care Teams Accredited Pharmacy Technician Relationship Specialty Start Date End Date Name, MD Rocky [address] [place] [address] PCP - General Family Medicine 12/03/16 Jim Ram FNP [address] [place] [address] Nurse Practitioner Family Medicine 07/08/23 documented as of this encounter
--- OUTSIDE RECORDS SUMMARY | 2025-06-22 19:38 | XMS_ITS | Encounter Summary ---
Author Organization [employer] Address [address] [place] [address] 7t [place] [address] Care Team Providers Care Php Programmer Name Role Phone Name, Rocky CHAUDHARI Primary Care Provider [phone] Jim Ram OIM CONSULTANT Unavailable Unavailable Reason for Visit * Reason Comments Med Refill Encounter Details Date Type Department Care Team ([facility] st Contact Info) Description 01/15/2025 Refill [facility] MEDICINE 230 [place], [place] [phone] Name, MD Rocky 230 [place], [place] [phone] Major depressive disorder with psychotic features (CMS/HCC) [...] Description 07/08/2025 11:00 AM EST Telemedicine [facility] MEDICINE [address] [place] [address] Keri Guan RN 07/20/2025 10:45 AM EST Office Visit [facility] MEDICINE [address] [place] [address] Name, MD Rocky [address] [place] [address] 08/19/2025 10:30 AM EST Office Visit [facility] OPTOMETRY [address] [place] [address] Dara Rock, TUSHAR 230 [place] [address] documented as of this encounter Visit Diagnoses Diagnosis Major depressive disorder with psychotic features (CMS/HCC) (HCC) documented in this encounter Additional Health Concerns Assessment Noted Time PHQ-9 Depression Total Score: 11 024 11:18 AM EDT documented as of this encounter Care Teams Php Programmer Relationship Specialty Start Date End Date Name, MD Rocky [address] [place] [address] PCP - General Family Medicine 12/03/16 Jim Ram FNP [address] [place] [address] Nurse Practitioner Family Medicine 07/08/23 documented as of this encounter
--- OUTSIDE RECORDS SUMMARY | 2025-06-22 19:38 | XMS_ITS | Encounter Summary ---
Author Organization [employer] Address [address] [place] [address] 7t [place] [address] Care Team Providers Care Twist Maker Name Role Phone Name, Rocky CHAUDHARI Primary Care Provider [phone] Jim Ram SAMPLE SHOE INSPECTOR AND REWORKER Unavailable Unavailable Reason for Visit * Reason Comments Med Refill Encounter Details Date Type Department Care Team (Late st Contact Info) Description 01/09/2024 Refill [facility] [address] [id number] Name, MD Rocky [address] [place], [place] [phone] Social History Tobacco Use Types Packs/Day Years [...] Description 07/08/2025 11:00 AM EST Telemedicine [facility] [address] [place] [address] Keri Guan RN 07/20/2025 10:45 AM EST Office Visit [facility] [address] [place] [address] Name, MD Rocky [address] [place] [address] 08/19/2025 10:30 AM EST Office Visit [facility] OPTOMET[facility] [address] [place] [address] Dara Rock, OD [address] [place] [address] documented as of this encounter Visit Diagnoses Not on filedocumented in this encounter Additional Health Concerns Assessment Noted Time PHQ-9 Depression Total Score: 5 11/24/19 24 11:19 AM EDT documented as of this encounter Care Teams Twist Maker Relationship Specialty Start Date End Date NameRocky MD [address] [place] [phone] PCP - General Family Medicine 12/03/16 Jim Ram FNP [address] [place] [address] Nurse Practitioner Family Medicine 07/08/23 documented as of this encounter
--- OUTSIDE RECORDS SUMMARY | 2025-06-22 19:38 | XMS_ITS | Patient Health Record ---
Author Organization [facility] Address [address] [place] [id number] Care Team Providers Care Resource Development Director Name Role Phone Evelin Dumas MD Primary Care Provider Unavail able Patel Fierro Jr Unavailable Reason For Referral No Information Plan Of Treatment No Information
--- OUTSIDE RECORDS SUMMARY | 2025-06-22 19:38 | XMS_ITS | Encounter Summary ---
Author Organization [employer] Address [address] [place] [address] 7t [place] [address] Care Team Providers Care Special Service Representative Name Role Phone Name, Rocky CHAUDHARI Primary Care Provider [phone] Jim Ram RACETRACK STEWARD Unavailable Unavailable Reason for Visit * Reason Comments Med Refill Encounter Details Date Type Department Care Team ([facility] st Contact Info) Description 08/02/2024 Refill [facility] [address] [place], [place] [phone] Name, MD Rocky [address] [place], [place] [phone] Major depressive disorder with psychotic features (CMS/HCC) [...] AM EST Telemedicine [facility] [address] [place] [address] Keri Guan RN 07/20/2025 10:45 AM EST Office Visit [facility] [address] [place] [phone] Name, MD Rocky [address] [place] [address] 08/19/2025 10:30 AM EST Office Visit [facility] OPTOMETRY [address] [place] [address] Dara Rock, TUSHAR [address] [place] [address] documented as of this encounter Visit Diagnoses Diagnosis Major depressive disorder with psychotic features (CMS/HCC) (HCC) documented in this encounter Additional Health Concerns Assessment Noted Time PHQ-9 Depression Total Score: 11 024 11:18 AM EDT documented as of this encounter Care Teams Special Service Representative Relationship Specialty Start Date End Date Name, MD Rocky [address] [place] [address] PCP - General Family Medicine 12/03/16 Jim Ram FNP [address] [place] [address] Nurse Practitioner Family Medicine 07/08/23 documented as of this encounter
--- OUTSIDE RECORDS SUMMARY | 2025-06-22 19:38 | XMS_ITS | Encounter Summary ---
Author Organization [employer] Address [address] [place] [address] 7 [place] [address] Care Team Providers Care Buckle Sorter Name Role Phone Name, Rocky CHAUDHARI Primary Care Provider [phone] Jim Ram Unavailable Unavailable Reason for Visit * Reason Onset Date Comments Med Refill 11/26/2024 Encounter Details Date Type Department Care Team (Late st Contact Info) Description 11/26/2024 Telephone [facility] MEDICINE [address] [place], [place] [phone] Name, MD Rocky [address] [place], [place] [phone] Med Refill Social History Tobacco Use Types [...] 1 MG tablet To be sent to: [facility]/pharmacy #[id number] - [place], [place] - [address] [place] [address] (Pharmacy) documented in this encounter Plan of Treatment Upcoming Encounters Date Type Department Care Team (Late st Contact Info) Description 07/08/2025 11:00 AM EST Telemedicine [facility] MED[facility]INE [address] [place] [phone] Keri Guna RN 07/20/2025 10:45 AM EST Office Visit [facility] [address] [place] [phone] Name, MD Rocky [address] [place] [address] 08/19/2025 10:30 AM EST Office Visit [facility] OPTOMETRY [address] [place] [address] Pranav, Dara, OD [address] [place] [address] documented as of this encounter Visit Diagnoses Not on filedocumented in this encounter Additional Health Concerns Assessment Noted Time PHQ-9 Depression Total Score: 11 024 11:18 AM EDT documented as of this encounter Care Teams Buckle Sorter Relationship Specialty Start Date End Date Name, MD Rocky [address] [place] [address] PCP - General Family Medicine 12/03/16 Jim Ram FNP [address] [place] [address] Nurse Practitioner Family Medicine 07/08/23 documented as of this encounter
--- OUTSIDE RECORDS SUMMARY | 2025-06-22 19:38 | XMS_ITS | Encounter Summary ---
Author Organization [employer] Address [address] [place] [address] 7t [place] [address] Care Team Providers Care Travertine Installer Name Role Phone Name, Rocky CHAUDHARI Primary Care Provider [phone] Jim Ram Unavailable Unavailable Reason for Visit * Reason Comments Med Refill Encounter Details Date Type Department Care Team (Late st Contact Info) Description 07/29/2024 Refill [facility] [address] [place], [place] [phone] Name, MD Rocky [address] [place], [place] [phone] Chronic back pain, unspecified back location, unspecified [...] 07/08/2025 11:00 AM EST Telemedicine [facility] [address] [place] [address] Keri Guan RN 07/20/2025 10:45 AM EST Office Visit [facility] [address] [place] [phone] Name, MD Rocky [address] [place] [address] 08/19/2025 10:30 AM EST Office Visit [facility] [address] [place], [place] [phone] Dara Rock, TUSHAR [address] [place] [address] documented as of this encounter Visit Diagnoses Diagnosis Chronic back pain, unspecified back location, unspecified back pain laterality Major depressive disorder with psychotic features (CMS/HCC) (HCC) documented in this encounter Additional Health Concerns Assessment Noted Time PHQ-9 Depression Total Score: 11 024 11:18 AM EDT documented as of this encounter Care Teams Travertine Installer Relationship Specialty Start Date End Date Name, MD Rocky [address] [place] [address] PCP - General Family Medicine 12/03/16 Jim Ram FNP [address] [place] [address] Nurse Practitioner Family Medicine 07/08/23 documented as of this encounter
--- OUTSIDE RECORDS SUMMARY | 2025-06-22 19:38 | XMS_ITS | Encounter Summary ---
Author Organization [employer] Address [address] [place] [address] [address] [place] [address] Care Team Providers Care Smoking Pipe Maker Name Role Phone Name, Rocky CHAUDHARI Primary Care Provider Jim Ram Unavailable Unavailable Reason for Visit * Reason Onset Date Comments Med Refill 11/19/2024 Encounter Details Date Type Department Care Team (Late st Contact Info) Description 11/19/2024 Telephone [facility] MEDICINE [address] [place], [place] [phone] Name, MD Rocky [address] [place], [place] [phone] Med Refill Social History Tobacco Use Types [...] immediate release tablet To be sent to: [facility]/pharmacy #[id number] - [address] documented in this encounter Plan of Treatment Upcoming Encounters Date Type Department Care Team (Late st Contact Info) Description 07/08/2025 11:00 AM EST Telemedicine [facility] MEDICINE [address] [place] [address] Keri Guan RN 07/20/2025 10:45 AM EST Office Visit [facility] MED[facility]INE [address] [place] [address] Name, MD Rcoky [address] [place] [address] 08/19/2025 10:30 AM EST Office Visit [facility] OPTOMETRY [address] [place] [address] Pranav, Dara, OD [address] [place] [address] documented as of this encounter Visit Diagnoses Not on filedocumented in this encounter Additional Health Concerns Assessment Noted Time PHQ-9 Depression Total Score: 11 024 11:18 AM EDT documented as of this encounter Care Teams Smoking Pipe Maker Relationship Specialty Start Date End Date Name, MD Rocky [address] [place] [phone] PCP - General Family Medicine 12/03/16 Jim Ram FNP [address] [place] [address] Nurse Practitioner Family Medicine 07/08/23 documented as of this encounter
--- OUTSIDE RECORDS SUMMARY | 2025-06-22 19:38 | XMS_ITS | Clinical Summary ---
Author Organization [employer] Address [address] [place] [address] [address] [place] [address] Care Team Providers Care Filer And Sander Name Role Phone Name, Rocky CHAUDHARI Primary Care Provider [phone] Jim Ram Unavailable Unavailable Allergies Active Allergy [...] every 12 (twelve) hours. 020 Active Umeclidinium Henrietta (Incruse Ellipta) 62.5 MCG/ACT aerosol powder Inhale 1 puff at bed time. 021 Active dicyclomine (Bentyl) 20 MG tablet TAKE 1 TABLET BY MOUTH DAILY IN THE MORNING AFTER BOWEL MOVEMENT 023 Active Myrbetriq 50 MG 24 hr tablet Take 50 mg by mouth in the morning. 023 Active Creon 95282-163284 units capsule delayed-release particles capsule TAKE 1 CAPSULE FOUR TIMES DAILY WITH MEALS OR SNACKS 023 Active magnesium oxide (Mag-Ox) 400 (240 Mg) MG tablet Take 0.5 tablets by mouth Once per day. 024 Active nitrofurantoin (Macrodantin) 100 MG capsule Take 1 capsule by mouth Once per day. After sexual activity for UTI prevention Active oxybutynin XL (Ditropan-XL) 10 MG 24 hr tablet Take 1 tablet by mouth Once per day. 024 Active fluticasone-luly meterol (Advair HFA) 230-21 MCG/ACT inhalerIndicati ons:Pulmonary emphysema, unspecified emphysema type Inhale 2 puffs in the morning and at bedtime. Rinse mouth with water after use to reduce aftertaste and incidence of candidiasis. Do not swallow. 12 g 1 024 Active Diclofenac Sodium 1 % gelIndications: Chronic back pain, unspecified back location, unspecified back pain laterality APPLY 2 GRAMS TOPICALLY TO THE affected HIP TWICE DAILY 100 g 1 024 Active triamcinolone (Kenalog) 0.1 % creamIndication s:Eczema [...] if needed for mild pain. 112 tablet 024 Active lansoprazole (Prevacid) [address] capsule TAKE 1 CAPSULE BY MOUTH TWICE A DAY 168 capsule 2 025 Active clindamycin (Cleocin T) 1 % lotion Apply topically 2 times daily. 60 mL 5 025 2025 Active Monomethyl Fumarate (Bafiertam) 95 MG capsule delayed-release Take by mouth. Active simethicone (Simethicone Ultra Strength) 180 MG capsuleIndicati ons:Chronic back pain, unspecified back location, unspecified back pain laterality TAKE 1 CAPSULE BY MOUTH TWICE DAILY AFTER MEALS AND AT BEDTIME 180 capsule 1 025 Active Aspirin Low Dose 81 MG EC tabletIndicatio ns:Chronic back pain, unspecified back location, unspecified back pain laterality TAKE 1 TABLET BY MOUTH ONCE DAILY 90 tablet 3 025 Active perphenazine 8 MG tabletIndicatio ns:Major depressive disorder with psychotic features (CMS/HCC) ([facility]) TAKE 1 TABLET BY MOUTH TWICE A [...] depressive disorder with psychotic features (CMS/HCC) ([facility]) TAKE 1 1/2 TABLETS BY MOUTH EVERY DAY 135 tablet 025 Active cholecalciferol (D-1000 Extra Strength) 25 [...] depressive disorder with psychotic features (CMS/HCC) ([facility]) TAKE 1 TABLET BY MOUTH EVERY 8 HOURS NEEDED FOR ANXIETY. Do not start before June 03, 2025. 84 tablet 025 Active celecoxib (CeleBREX) 200 MG capsuleIndicati ons:Chronic back pain, unspecified back location, unspecified back pain laterality TAKE 1 CAPSULE BY MOUTH EVERY DAY NEEDED FOR PAIN 28 capsule 1 Active topiramate 50 MG tablet TAKE 1 TABLET BY MOUTH TWICE A DAY 56 tablet 5 Active oxyCODONE (Roxicodone) 15 MG immediate release tabletIndicatio ns:Chronic back pain, unspecified back location, unspecified back pain laterality,Mult iple sclerosis Take 1 tablet (15 mg) by mouth every 8 (eight) hours if needed (severe pain) for up to 28 days. Do not start before June 09, 2025. 84 tablet 025 2024 Active dextran 70-hypromellose (artificial tears) 0.1-0.3 % ophthalmic solution Administer 1 drop into both eyes 3 times daily. 15 mL 11 024 2024 topiramate 50 MG tablet Take 1 tablet (50 mg) by mouth 2 times daily. 168 tablet 1 025 2024 Discontinued celecoxib (CeleBREX) 200 MG capsuleIndicati ons:Chronic back pain, unspecified back location, unspecified back pain laterality TAKE 1 CAPSULE BY MOUTH EVERY DAY NEEDED FOR PAIN 28 capsule 1 025 2024 Discontinued clonazePAM (KlonoPIN) 1 MG tabletIndicatio ns:Major depressive disorder with psychotic features (CMS/HCC) (HCC) TAKE 1 TABLET BY MOUTH EVERY 8 HOURS NEEDED FOR ANXIETY. 84 tablet 025 2024 Discontinued(R eorder (will not trigger notification to Pharmacy)) oxyCODONE (Roxicodone) 15 MG immediate release tabletIndicatio ns:Chronic back pain, unspecified back location, unspecified back pain laterality,Mult iple sclerosis Take 1 tablet (15 mg) by mouth every 8 (eight) hours if needed (severe pain) for up to 28 days. 84 tablet 025 2024 Discontinued(R eorder (will not trigger notification to Pharmacy)) Active Problems Problem Noted Date Diagnosed Date Moderate episode of recurren t major depressive disorder (CMS/HCC) 05/11/2025 roasterman (current) use of opiate analgesic 10/02 Long-term [...] 03/2022 Repeat in 3 years recommended At [facility] Chronic back pain 11/06/2018 Mean red blood cell volume increased 11/06/2018 Other spondylosis with radiculopathy, lumbar reg ion 08/04/2018 06/11/2023 Other watermelon inspector (current) drug therapy 9 06/11/2023 Nicotine dependence, unspecified, uncomplicated 08/04/2018 06/11/2023 Age related osteoporosis 08/04/2018 023 Major depressive disorder, r ecurrent, severe with psychotic symptoms ([facility]/HCC) 07/21/2018 Assessment & Plan (01/26/2024 11:59 AM [...] medication management. She is also followed by [facility] program. Any issues or concerns, contact [facility]. All her questions were answered and [...] Other amnesia 12/09/2016 Multiple sclerosis 12/09/2016 Paraparesis (CMS/HCC) 12/09/2016 Emphysema, unspecified 12/09/2016 Epilepsy, unspecified, not i ntractable, without status epilepticus ([facility]) 12/09/2016 Prsnl hx of TIA (TIA), and cereb infrc w/o resid deficits 12/09/2016 06/11/2023 Resolved Problems Problem Noted Date Diagnosed Date Resolved Date Recurrent major depression i n partial remission 12/09/2016 08/22/2022 Encounters * This document contains information received from the source organization and may not represent a complete record from that organization. Date Type Department Care Team Description 06/22/2025 Orders Only [facility] External Provider, [facility] 06/07/[address] [facility] MEDICINE [address] [place] [address] Rocky Jain MD Chronic back pain, unspecified back location, unspecified back pain laterality; Multiple sclerosis 06/03/[address] [facility] [address] [place] [address] Rocky Jain MD Chronic back pain, unspecified back location, unspecified back pain laterality 06/02/[address] [facility] [address] [place] [address] Rocky Jain MD Major depressive disorder with psychotic features ([facility]) ([facility]) 05/30/[address] [facility] [address] [place] [address] Rocky Jain MD Major depressive disorder with psychotic features ([facility]) ([facility]) 05/10/[address] [facility] [address] [place] [address] Rocky Jain MD Chronic back pain, unspecified back location, unspecified back pain laterality; Multiple sclerosis 05/05/[address] [facility] [address] [place] [address] Rocky Jain MD Major depressive disorder with psychotic features ([facility]) ([facility]) 05/04/2025 Travel 05/02/[address] [facility] [address] [place] [address] Rocky Jain MD High cholesterol 04/22/2025 10:15 AM EDT Office Visit [facility] [address] [place] [address] Rocky Jain MD Acute post-traumatic stress disorder (Primary Dx); Chronic anxiety; Major depression with psychotic features (CMS/HCC); Constipation, unspecified constipation type 04/22/2025 Travel 04/21/[address] [facility] [address] [place] [address] [place] chart prep 04/20/2025 9:30 AM EDT Telemedicine [facility] [address] [place] [address] Keri Guan, RN roasterman (current) use of opiate analgesic; Long-term current use of benzodiazepine 04/20/[address] [facility] [address] [place] [address] Keri Guan, manager relationship, continuous use of opioids 04/20/2025 Travel 04/08/[address] [facility] [address] [place] [phone] Rocky Jain MD Chronic back pain, unspecified back location, unspecified back pain laterality; Age-related osteoporosis with current pathological fracture, initial encounter 04/08/[address] [facility] [address] [place] [address] Keri Guan, JENNIFER Pt cancelled [facility] Renewal appt today 04/06/[address] [facility] [address] [place] [address] Rocky Jain MD Major depressive disorder with psychotic features (CMS/HCC) 04/05/[address] [facility] [address] [place] [address] Rocky Jain MD Chronic back pain, unspecified back location, unspecified back pain laterality; Multiple sclerosis (CMS/HCC) 04/01/[address] [facility] [address] [place] [address] Rocky Jain MD Major depressive disorder with psychotic features (CMS/HCC) 03/31/[address] [facility] [address] [place] [phone] Rocky Jain MD 03/29/[address] [facility] [address] [place] [address] Rocky Jain MD Nurse Triage from Last 3 Months Immunizations Immunization Administration [...] Info) Description 07/08/2025 11:00 AM EST Telemedicine [facility] [address] [place] [address] Keri Guan RN 07/20/2025 10:45 AM EST Office Visit [facility] [address] [place] [address] [place] [phone] Name, MD Rocky [address] [place], [place] [phone] 08/19/2025 10:30 AM EST Office Visit [facility] OPTOMETRY [address] [place], [place] [phone] Pranav, Dara, OD [address] [place], [place] [phone] Health Maintenance Due Date Last Done Comments CT Colonography 1966 FIT DNA/Cologuard 1966 FIT 1966 FOBT 1965 HIV Screening 1965 Sigmoidoscopy 1966 Alcohol/Substance Use Screening 1978 Hepatitis B Vaccines (1 of 3 - 19+ 3-dose series) 1985 RSV Patients and Patients Aged 60 years or older (1 - Risk 50-74 years 1-dose series) 2016 Pneumococcal Vaccine: 50+ Years (3 of 3 - PCV20 or PCV21) 06/20/2021 06/20/2016, 03/29/2015, 03/29/2015 SDOH Screening 10/20/2024 10/21/2023 Pap Smear 11/26/2024 11/26/2021 Colonoscopy 03/13/2025 03/13/2022 Colorectal Cancer Screening 03/13/2025 COVID-19 Vaccine ( season) 2025 06/04/2024, 06/11/2023, 06/26/2022, Additional history exists Influenza Vaccine (#1) 2025 , 06/11/2023, 04/12/2022, Additional history exists Disability Screening 11/01/2025 11/01/2024 Depression Monitoring 11/09/2025 05/11/2025, 025 Tobacco Screening 04/22/2026 04/22/2025 Mammogram 05/06/2026 05/03/2024, 04/05, 05/03/2022 Cervical Cancer Screening 11/26/2026 HPV/Cotest 11/26/2026 11/26/2021 Lipid Panel 10/15/2027 10/14/2022, 10/23/2021 DTaP/Tdap/Td Vaccines (3 - Td or Tdap) 06/17/2031 06/17/2021, 12/27/2016 Hepatitis C Screening Completed 01/26/2015 Zoster Vaccines Completed 12/24/2022, 10/22/2022 HIB Vaccines Aged Out No longer eligi [...] SCREENING Routine 06/22/2025 1 0:28 AM EST MAMMOGRAPHY Routine 05/03/2024 LIPID PANEL, STANDARD Routine 10/14/2022 12:17 PM EDT Screening for diabetes mellitus On statin therapy COLONOSCOPY Routine 03/13/2022 THINPREP IMAGING PAP AND HPV MRNA E6/E7 WITH REFLEX TO HPV 16,18/45 Routine 11/26/2021 9:41 AM EDT HEPATITIS C ANTIBODY Routine 01/26/2015 from Last 3 Months or Most Recently Relevant to Health Maintenance Results * CT Lung Screening Low dose (06/22/2025 10:28 AM EST) Anatomical Region Laterality Modality Lung Computed Tomogra phy 06/22/2025 10:2 8 AM EST Narrative 06/22/2025 10:[address] [address] [address] Scan Report Signed Patient: Eva Edgar MR#: [id number] : 1965 Acct:[id number] Age/Sex: 59 / F ADM Date: 06/22/25 Loc: HO.CT Attending Dr: Mary Kate Zendejas PA-C Ordering Physician: Mary Kate Zendejas PA-C Date of Service: 06/22/25 Procedure(s): CT lung screening Accession Number(s): [id number] cc: Mary Kate Zendejas PA-C; Name,Rocky CHAUDHARI Report Number: [id number]: Total DLP = 43.00 mGy-cm Reason for [...] by: Lopez Matta MD 06/22/2025 10:54 AM [facility] Dictated By: Lopez Matta MD Signed By: <Electronically signed by Lopez Matta MD in OV> 06/22/25 1054 DD/ 1028 TD/TT: 06/22/25 1036 Light Adjuster: Procedure Note Donotuseinterpreter, Image - 06/22/[address] [address] [address] Scan Report Signed Patient: Eva Edgar QMR#: [id number] : 1965Acct:[id number] Age/Sex: 59 / FADM Date: 06/22/25 Loc: HO.CT Attending Dr: Mary Kate Zendejas PA-C Ordering Physician: Mary Kate Zendejas PA-C Date of Service: 06/22/25 Procedure(s): CT lung screening Accession Number(s): [id number] cc: Mary Kate Zendejas PA-C; Name,Rocky CHAUDHARI Report Number: [id number]: Total DLP = 43.00 mGy-cm Reason for [...] by: Lopez Matta MD 06/22/2025 10:54 AM [facility] Dictated By: Lopez Matta MD Signed By: <Electronically signed by Lopez Matta MD in OV> 06/22/25 1054 DD/ 1028 TD/TT: 06/22/25 1036 Light Adjuster: [facility] External Provider IMG CT PROCEDURES Edited Result - Final * Mammography (05/03/2024) Pathologist [facility] Mammogram Normal Normal, Abnormal, BIRADS 1 , BIRADS 2 Anatomical Region Laterality Modality Other 05/03/2024 Rocky Jain MD [facility] Final Result * (ABNORMAL) Lipid Panel, Standard (10/14/2022 12:17 PM EDT) Pathologist [facility] Cholesterol, Total 143 <200 mg/dL [facility] [place] Number 100 HDL Cholesterol 46(L) > OR = 50 mg/dL [facility] [place] Number 100 Triglycerides 101 <150 mg/dL [facility] [place] Number 100 LDL Cholesterol 79 mg/dL (calc) [facility] [place] Number 100 Comment: Reference range: <100 Desirable range <100 mg/dL for primary prevention; <70 mg/dL for patients with CHD or diabetic patients with > or = 2 CHD risk factors. LDL-C is now calculated using the Lenny calculation, which is a validated novel method providing better accuracy than the Friedewald equation in the estimation of LDL-C. Steve PEREIRA et al. MARY JO. 2013;310(19): 8585-3300 (http://education.ObjectVideo.[employer]/faq/GDY753) Chol/HDLC Ratio 3.1 <5.0 (calc) [facility] [place] Number 100 Non-HDL Cholesterol 97 <130 mg/dL (calc) [facility] [place] Number 100 Comment: For patients with diabetes plus 1 major ASCVD risk factor, treating to a non-HDL-C goal of <100 mg/dL (LDL-C of <70 mg/dL) is considered a therapeutic option. Blood Venous blood specimen / Unknown 10/14/2022 12:17 PM EDT 10/14/2022 12:18 PM EDT Narrative [facility] - 10/15/2022 1:11 AM EDT FASTING:NO FASTING: NO Rocky Jain MD LAB BLOOD ORDERABLES Final Resul t [address], [place] [address] [facility] [place] Number [address] [place] [id number] * (ABNORMAL) Hm Colonoscopy (03/13/2022) Colonoscopy Abnormal( [...] computer assisted technology. [facility] Dining Room Server: SEE COMMENT [facility] Comment: [facility], CT(ASCP) CT screening location: [address] [address] HPV nRNA E6/E7 Not Detected Not Detected [facility] Comment: Methodology: Development And Planning Engineer-Mediated Amplification This assay detects E6/E7 viral messenger RNA (mRNA) from 14 high-risk HPV types (16,18,31,33,35,39,45,51,52,56,58,59,66,68). The analytical performance characteristics of this assay have been determined by [facility]. The modifications have not been cleared or approved by the FDA. This assay has been validated pursuant to the CLIA regulations and is used for clinical purposes. For additional information, please refer to http://education.MaxTradeIn.com/faq/JZI111e2 (This link if provided for information/ educational [...] Result [facility] [address] * HM Hepatitis C Antibody (01/26/2015) Hepatitis C Antibody Nonreactive Blood Rocky Jain MD HEALTH MAINTENANCE Final Result from Last 3 Months or Most Recently Relevant to Health Maintenance Insurance [facility] ONE CARE < [address] [place] [id number] * Guarantor: Eva Edgar Account Type Relation to Patient Date of Phone Billing Address Personal/Family Self [address] [place] Care Teams Filer And Sander Relationship Specialty Start Date End Date Name, MD Rocky [address] [place] [address] PCP - General Family Medicine 12/03/16 Jim Ram FNP [address] [place] [phone] Nurse Practitioner Family Medicine 07/08/23
--- OUTSIDE RECORDS SUMMARY | 2025-06-22 19:38 | XMS_ITS | Encounter Summary ---
Author Organization [employer] Address [address] [place] [address] [address] [place] [address] Care Team Providers Care Lingo Cleaner Name Role Phone Name, Rocky CHAUDHARI Primary Care Provider [phone] Jim Ram Unavailable Unavailable Reason for Visit * Reason Comments Med Refill Encounter Details Date Type Department Care Team (Late st Contact Info) Description 08/27/2024 Refill [facility] MEDICINE [address] [place], [place] [phone] April Marti NP [address] [place], [place] [phone] Major depressive disorder with psychotic features (CMS/HCC) [...] Description 07/08/2025 11:00 AM EST Telemedicine [facility] MEDICINE [address] [place] [phone] Keri Guan RN 07/20/2025 10:45 AM EST Office Visit [facility] MEDICINE [address] [place] [address] Name, MD Rocky [address] [place] [address] 08/19/2025 10:30 AM EST Office Visit [facility] OPTOMETRY [address] [place] [address] Daar Rock, TUSHAR [address] [place] [address] documented as of this encounter Visit Diagnoses Diagnosis Major depressive disorder with psychotic features (CMS/HCC) (HCC) documented in this encounter Additional Health Concerns Assessment Noted Time PHQ-9 Depression Total Score: 11 024 11:18 AM EDT documented as of this encounter Care Teams Lingo Cleaner Relationship Specialty Start Date End Date Name, MD Rocky [address] [place] [address] PCP - General Family Medicine 12/03/16 Jim Ram FNP [address] [place] [address] Nurse Practitioner Family Medicine 07/08/23 documented as of this encounter
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
--- OUTSIDE RECORDS SUMMARY | 2025-06-22 19:38 | XMS_ITS | Encounter Summary ---
Author Organization [employer] Address [address] [place] [address] 7t [place] [address] Care Team Providers Care Food Counter Attendant Name Role Phone Name, Rocky CHAUDHARI Primary Care Provider [phone] Jim Ram CORPORATE RECEPTIONIST Unavailable Unavailable Reason for Visit * Reason Comments Med Refill Encounter Details Date Type Department Care Team ([facility] st Contact Info) Description 01/14/2025 Refill [facility] MEDICINE [address] [place], [place] [phone] Name, MD Rocky [address] [place], [place] [phone] Major depressive disorder with psychotic features (CMS/HCC) [...] Info) Description 07/08/2025 11:00 AM EST Telemedicine [facility] MED[facility]INE [address] [place] [address] Keri Guan RN 07/20/2025 10:45 AM EST Office Visit [facility] [address] [place] [address] Name, MD Rocky [address] [place] [address] 08/19/2025 10:30 AM EST Office Visit [facility] OPTOMETRY [address] [place] [address] Dara Rock, TUSHAR 230 [place] [address] documented as of this encounter Visit Diagnoses Diagnosis Major depressive disorder with psychotic features (CMS/HCC) (HCC) documented in this encounter Additional Health Concerns Assessment Noted Time PHQ-9 Depression Total Score: 11 024 11:18 AM EDT documented as of this encounter Care Teams Food Counter Attendant Relationship Specialty Start Date End Date Name, MD Rocky [address] [place] [address] PCP - General Family Medicine 12/03/16 Jim Ram FNP [address] [place] [address] Nurse Practitioner Family Medicine 07/08/23 documented as of this encounter
--- OUTSIDE RECORDS SUMMARY | 2025-06-22 19:38 | XMS_ITS | Encounter Summary ---
Author Organization [employer] Address [address] [place] [address] 7t [place] [address] Care Team Providers Care Optical Engineering Technician Name Role Phone Name, Rocky CHAUDHARI Primary Care Provider [phone] Jim Ram Unavailable Unavailable Encounter Details Date Type Department Care Team (Late st Contact Info) Description 11/15/2024 Orders Only [facility] MEDICINE 230 [place], [place] [phone] Patience Rodríguez NP [address] [place], [place] [phone] Other constipation (Primary Dx) Social History Tobacco [...] the past 12 months, has t he [employer], gas, oil or water company threatened to [...] Info) Description 07/08/2025 11:00 AM EST Telemedicine [facility]INE [address] [place] [address] Keri Guan RN 07/20/2025 10:45 AM EST Office Visit [facility] MED[facility]INE [address] [place] [address] Rocky Jain MD 230 [place] [address] 08/19/2025 10:30 AM EST Office Visit [facility] OPTOMETRY [address] [place] [address] Dara Rock, OD [address] [place] [address] documented as of this encounter Visit Diagnoses Diagnosis Other constipation- Primary documented in this encounter Additional Health Concerns Assessment Noted Time PHQ-9 Depression Total Score: 11 024 11:18 AM EDT documented as of this encounter Care Teams Optical Engineering Technician Relationship Specialty Start Date End Date Rocky Jain MD [address] [place] [address] PCP - General Family Medicine 12/03/16 Jim Ram FNP [address] [place] [address] Nurse Practitioner Family Medicine 07/08/23 documented as of this encounter
--- OUTSIDE RECORDS SUMMARY | 2025-06-22 19:39 | XMS_ITS | Encounter Summary ---
Author Organization [employer] Address [address] [place] [address] 7 [place] [address] Care Team Providers Care Dialysis Nurse Name Role Phone Name, Rocky CHAUDHARI Primary Care Provider [phone] Jim Ram SENIOR POLICY ANALYST Unavailable Unavailable Encounter Details Date Type Department Care Team (Late st Contact Info) Description 09/12/2022 Abstract [facility] MEDICINE [address] [place] [address] [phone] Rocky Jain MD [address] [place] [address] [phone] Social History Tobacco Use Types Packs/Day Years [...] Info) Description 07/08/2025 11:00 AM EST Telemedicine [address] [phone] Keri Guan, JENNIFER 07/20/2025 10:45 AM EST Office Visit [address] [phone] Rocky Jain MD [address] [place] [address] [phone] 08/19/2025 10:30 AM EST Office Visit [facility] OPTOMETRY [address] [place], [place] [phone] Dara Rock, TUSHAR 230 [place] [address] documented as of this encounter Visit Diagnoses Not on filedocumented in this encounter Additional Health Concerns Assessment Noted Time PHQ-9 Depression Total Score: 6 08/22/19 10:50 AM EST documented as of this encounter Care Teams Dialysis Nurse Relationship Specialty Start Date End Date Name, MD Rocky 230 [place], [place] [phone] PCP - General Family Medicine 12/03/16 Jim Ram FNP [address] [place] [address] Nurse Practitioner Family Medicine 07/08/23 documented as of this encounter
--- OUTSIDE RECORDS SUMMARY | 2025-06-22 19:39 | XMS_ITS | Encounter Summary ---
Author Organization [employer] Address [address] [place] [address] 7 [place] [address] Care Team Providers Care Electrician Apprentice Name Role Phone Name, Rocky CHAUDHARI Primary Care Provider [phone] Jim Ram Unavailable Unavailable Reason for Visit * Reason Comments Med Refill Encounter Details Date Type Department Care Team (Late st Contact Info) Description 12/31/2022 Refill [facility] MEDICINE 230 [place], [place] [phone] Name, MD Rocky 230 [place], [place] [phone] Chronic back pain, unspecified back location, unspecified [...] Info) Description 07/08/2025 11:00 AM EST Telemedicine [facility] MEDICINE 230 [place] [address] Keri Guan RN 07/20/2025 10:45 AM EST Office Visit [facility] MEDICINE [address] [place] [address] Name, MD Rocky [address] [place], [place] 08/19/2025 10:30 AM EST Office Visit [facility] OPTOMETRY [address] [place] [address] Pranav, Dara, OD 230 [place] [address] documented as of this encounter Visit Diagnoses Diagnosis Chronic back pain, unspecified back location, unspecified back pain laterality Multiple sclerosis documented in this encounter Additional Health Concerns Assessment Noted Time PHQ-9 Depression Total Score: 6 12/25/19 11:32 AM EDT documented as of this encounter Care Teams Electrician Apprentice Relationship Specialty Start Date End Date Rocky Jain MD [address] [place] [address] PCP - General Family Medicine 12/03/16 Jim Ram FNP [address] [place] [address] Nurse Practitioner Family Medicine 07/08/23 documented as of this encounter
--- OUTSIDE RECORDS SUMMARY | 2025-06-22 19:39 | XMS_ITS | Encounter Summary ---
Author Organization [employer] Address [address] [place] [address] 7 [place] [address] Care Team Providers Care Balance Clerk Name Role Phone Name, Rocky CHAUDHARI Primary Care Provider [phone] Jim Ram Unavailable Unavailable Reason for Visit * Reason Comments Med Refill Encounter Details Date Type Department Care Team (Late Contact Info) Description 04/16/2023 Refill [facility] MEDICINE [address] [place] [address] [phone] Name, MD Rocky 230 [place], [place] [phone] Chronic back pain, unspecified back location, unspecified [...] EST Telemedicine [facility] MEDICINE [address] [place] [address] Keri Guan RN 07/20/2025 10:45 AM EST Office Visit [facility] MEDICINE [address] [place] [address] Rocky Jain MD 230 [place] [address] 08/19/2025 10:30 AM EST Office Visit [facility] OPTOMETRY [address] [place] [address] Pranav, Dara, OD 230 [place] [address] documented as of this encounter Visit Diagnoses Diagnosis Chronic back pain, unspecified back location, unspecified back pain laterality Multiple sclerosis documented in this encounter Additional Health Concerns Assessment Noted Time PHQ-9 Depression Total Score: 6 12/25/19 23 11:32 AM EDT documented as of this encounter Care Teams Balance Clerk Relationship Specialty Start Date End Date NameRocky MD [address] [place] [address] PCP - General Family Medicine 12/03/16 Jim Ram FNP [address] [place] [address] Nurse Practitioner Family Medicine 07/08/23 documented as of this encounter
--- OUTSIDE RECORDS SUMMARY | 2025-06-22 19:39 | XMS_ITS | Encounter Summary ---
Author Organization [employer] Address [address] [place] [address] 7t [place] [address] Care Team Providers Care Archery Equipment Repairer Name Role Phone Name, Rocky CHAUDHARI Primary Care Provider [phone] Jim Ram Unavailable Unavailable Reason for Visit * Reason Comments Med Refill Encounter Details Date Type Department Care Team (Late st Contact Info) Description 10/25/2024 Refill [facility] MEDICINE 230 [place], [place] [phone] Name, MD Rocky 230 [place], [place] [phone] Major depressive disorder with psychotic features (CMS/HCC); [...] - 10/26/2024 1:21 PM EDT Tc from [facility] requesting med refill. documented in this encounter Plan of Treatment Upcoming Encounters Date Type Department Care Team (Late st Contact Info) Description 07/08/2025 11:00 AM EST Telemedicine [facility] MEDICINE [address] [place] [address] Keri Guan RN 07/20/2025 10:45 AM EST Office Visit [facility] MEDICINE [address] [place] [address] [phone] Name, MD Rocky 230 [place] [address] 08/19/2025 10:30 AM EST Office Visit [facility] OPTOMETRY [address] [place] [address] [phone] Dara Rock, OD 230 [place] [address] documented as of this encounter Visit Diagnoses Diagnosis Major depressive disorder with psychotic features (CMS/HCC) (HCC) Chronic back pain, unspecified back location, unspecified back pain laterality documented in this encounter Additional Health Concerns Assessment Noted Time PHQ-9 Depression Total Score: 11 024 11:18 AM EDT documented as of this encounter Care Teams Archery Equipment Repairer Relationship Specialty Start Date End Date Name, MD Rocky 230 [place] [address] PCP - General Family Medicine 12/03/16 Jim Ram FNP [address] [place] [address] Nurse Practitioner Family Medicine 07/08/23 documented as of this encounter
--- OUTSIDE RECORDS SUMMARY | 2025-06-22 19:39 | XMS_ITS | Encounter Summary ---
Author Organization [employer] Address [address] [place] [address] 7 [place] [address] Care Team Providers Care Retaining Room Cutter Name Role Phone Name, Rocky CHAUDHARI Primary Care Provider [phone] Jim Ram Unavailable Unavailable Reason for Visit * Reason Onset Date Comments Durable Medical Equipment 12/03/2022 Encounter Details Date Type Department Care Team (Late st Contact Info) Description 12/03/2022 Telephone [facility] MEDICINE 230 [place], [place] [phone] Name, MD Rocky [address] [place], [place] [phone] Durable Medical Equipment Social History Tobacco Use [...] generated for signature * Telephone Encounter - Yisle Lilly - 12/03/2022 12:00 PM EDT Tc from Jasmyne at [facility] requesting a new script for incontinence brief size XL, patient uses 2 a dayand is requesting 56 a month for 3 months. Goves size M/L 2 boxes a month for 3 months. Any furtherquestions please call [phone] or email: . documented in this encounter Plan of Treatment Upcoming Encounters Date Type Department Care Team (Late st Contact Info) Description 07/08/2025 11:00 AM EST Telemedicine [facility] MEDICINE [address] [place] [address] Keri Guan, JENNIFER 07/20/2025 10:45 AM EST Office Visit [facility] MEDICINE [address] [place] [address] Name, MD Rocky [address] [place] [address] 08/19/2025 10:30 AM EST Office Visit [facility] OPTOMETRY [address] [place] [address] Dara Rock, OD 230 [place] [address] documented as of this encounter Visit Diagnoses Not on filedocumented in this encounter Additional Health Concerns Assessment Noted Time PHQ-9 Depression Total Score: 8 10/23/19 23 3:20 PM EDT documented as of this encounter Care Teams Retaining Room Cutter Relationship Specialty Start Date End Date Name, MD Rocky [address] [place] [address] PCP - General Family Medicine 12/03/16 Jim Ram FNP [address] [place] [address] Nurse Practitioner Family Medicine 07/08/23 documented as of this encounter
--- OUTSIDE RECORDS SUMMARY | 2025-06-22 19:39 | XMS_ITS | Encounter Summary ---
Author Organization [employer] Address [address] [place] [address] 7t [place] [address] Care Team Providers Care Patternmaker Apprentice Wood Name Role Phone Name, Rocky CHAUDHARI Primary Care Provider [phone] Jim Ram ALUMINUM SHEET CUTTER Unavailable Unavailable Encounter Details Date Type Department Care Team ([facility] Contact Info) Description 01/22/2023 Abstract [facility] MEDICINE 230 [place], [place] [phone] Name, MD Rocky 230 [place] [address] Social History Tobacco Use Types Packs/Day Years [...] Upcoming Encounters Date Type Department Care Team ([facility] Contact Info) Description 07/08/2025 11:00 AM EST Telemedicine [facility] MEDICINE 230 [place] [address] Keri Guan, RN 07/20/2025 10:45 AM EST Office Visit [facility] MEDICINE 230 [place] [address] Name, MD Rocky [address] [place] [address] 08/19/2025 10:30 AM EST Office Visit [facility] OPTOMETRY [address] [place] [address] Dara Rock, OD 230 [place] [address] documented as of this encounter Visit Diagnoses Not on filedocumented in this encounter Additional Health Concerns Assessment Noted Time PHQ-9 Depression Total Score: 6 12/25/19 23 11:32 AM EDT documented as of this encounter Care Teams Patternmaker Apprentice Wood Relationship Specialty Start Date End Date Name, [place] [address] PCP - General Family Medicine 12/03/16 Jim Ram FNP [address] [place] [address] Nurse Practitioner Family Medicine 07/08/23 documented as of this encounter
--- OUTSIDE RECORDS SUMMARY | 2025-06-22 19:39 | XMS_ITS | Encounter Summary ---
Author Organization [employer] Address [address] [place] [address] 7 [place] [address] Care Team Providers Care Data Analysis Intern Name Role Phone Name, Rocky CHAUDHARI Primary Care Provider [phone] Jim Ram Unavailable Unavailable Reason for Visit * Reason Onset Date Comments Nurse Triage 10/25/2024 Encounter Details Date Type Department Care Team (Late st Contact Info) Description 10/25/2024 Telephone [facility] MEDICINE 230 [place], [place] [phone] Name, MD Rocky [address] [place], [place] [phone] Nurse Triage Social History Tobacco Use Types [...] If any more questions contact pt at [phone] documented in this encounter Plan of Treatment Upcoming Encounters Date Type Department Care Team (Late st Contact Info) Description 07/08/2025 11:00 AM EST Telemedicine [facility] MEDICINE [address] [place] [address] Keir Guan, JENNIFER 07/20/2025 10:45 AM EST Office Visit [facility] MEDICINE 230 [place] [address] Name, MD Rocky [address] [place] [address] 08/19/2025 10:30 AM EST Office Visit [facility] OPTOMETRY [address] [place] [address] Dara Rock, TUSHAR 230 [place] [address] documented as of this encounter Visit Diagnoses Not on filedocumented in this encounter Additional Health Concerns Assessment Noted Time PHQ-9 Depression Total Score: 11 024 11:18 AM EDT documented as of this encounter Care Teams Data Analysis Intern Relationship Specialty Start Date End Date NameRocky MD [address] [place] [address] PCP - General Family Medicine 12/03/16 Jim Ram FNP [address] [place] [address] Nurse Practitioner Family Medicine 07/08/23 documented as of this encounter
--- OUTSIDE RECORDS SUMMARY | 2025-06-22 19:39 | XMS_ITS | Encounter Summary ---
Author Organization [employer] Address [address] [place] [address] 7t [place] [address] Care Team Providers Care Door Person Name Role Phone Name, Rocky CHAUDHARI Primary Care Provider [phone] Jim Ram Unavailable Unavailable Reason for Visit * Reason Comments Med Refill Encounter Details Date Type Department Care Team (Late st Contact Info) Description 10/22/2024 Refill [facility] MEDICINE 230 [place], [place] [phone] Name, MD Rocky 230 [place], [place] [phone] Chronic back pain, unspecified back location, unspecified [...] Info) Description 07/08/2025 11:00 AM EST Telemedicine [facility] MEDICINE [address] [place] [address] Keri Guan RN 07/20/2025 10:45 AM EST Office Visit [facility] MEDICINE [address] [place] [address] Name, MD Rocky 230 [place] [address] 08/19/2025 10:30 AM EST Office Visit [facility] OPTOMETRY [address] [place] [address] Dara Rock, TUSHAR 230 [place] [address] documented as of this encounter Visit Diagnoses Diagnosis Chronic back pain, unspecified back location, unspecified back pain laterality documented in this encounter Additional Health Concerns Assessment Noted Time PHQ-9 Depression Total Score: 11 024 11:18 AM EDT documented as of this encounter Care Teams Door Person Relationship Specialty Start Date End Date Name, MD Rocky [address] [place] [address] PCP - General Family Medicine 12/03/16 Jim Ram FNP [address] [place] [address] Nurse Practitioner Family Medicine 07/08/23 documented as of this encounter
--- OUTSIDE RECORDS SUMMARY | 2025-06-22 19:39 | XMS_ITS | Encounter Summary ---
Author Organization [employer] Address [address] [place] [address] 7 [place] [address] Care Team Providers Care Assembler Billiard Table Name Role Phone Name, Rocky CHAUDHARI Primary Care Provider [phone] Jim Ram SENIOR PHP WEB DEVELOPER Unavailable Unavailable Encounter Details Date Type Department Care Team (Late st Contact Info) Description 08/01/2022 Orders Only [facility] MEDICINE [address] [place] [address] Alexandrea Barnard, EJNNIFER Social History Tobacco Use Types Packs/Day Years [...] Description 07/08/2025 11:00 AM EST Telemedicine [facility] MEDICINE [address] [place] [address] [phone] Keri Guan, RN 07/20/2025 10:45 AM EST Office Visit [facility] MEDICINE [address] [place] [address] [phone] Rocky Jain MD [address] [place] [address] 08/19/2025 10:30 AM EST Office Visit [facility] OPTOMETRY [address] [place] [address] Pranav Dara, OD 230 [place] [address] documented as of this encounter Visit Diagnoses Not on filedocumented in this encounter Additional Health Concerns Assessment Noted Time PHQ-9 Depression Total Score: 7 07/23/20 22 2:17 PM EST documented as of this encounter Care Teams Assembler Billiard Table Relationship Specialty Start Date End Date Name, MD Rocky 230 [place] [address] PCP - General Family Medicine 12/03/16 Jim Ram FNP [address] [place] [address] Nurse Practitioner Family Medicine 07/08/23 documented as of this encounter
--- OUTSIDE RECORDS SUMMARY | 2025-06-22 19:39 | XMS_ITS | Encounter Summary ---
Author Organization [employer] Address [address] [place] [address] 7t [place] [address] Care Team Providers Care Interventional Radiology Technologist Name Role Phone Name, Rocky CHAUDHARI Primary Care Provider [phone] Jim Ram Unavailable Unavailable Reason for Visit * Reason Comments Med Refill Encounter Details Date Type Department Care Team (Late st Contact Info) Description 04/08/2024 Refill [facility] MEDICINE 230 [place], [place] [phone] Name, MD Rocky 230 [place], [place] [phone] Chronic back pain, unspecified back location, unspecified [...] 07/08/2025 11:00 AM EST Telemedicine [facility] MEDICINE [address] [place] [address] Keri Guan RN 07/20/2025 10:45 AM EST Office Visit [facility] MEDICINE [address] [place] [address] Name, MD Rocky 230 [place] [address] 08/19/2025 10:30 AM EST Office Visit [facility] OPTOMETRY [address] [place] [address] Dara Rock, TUSHAR 230 [place] [address] documented as of this encounter Visit Diagnoses Diagnosis Chronic back pain, unspecified back location, unspecified back pain laterality documented in this encounter Additional Health Concerns Assessment Noted Time PHQ-9 Depression Total Score: 11 024 11:18 AM EDT documented as of this encounter Care Teams Interventional Radiology Technologist Relationship Specialty Start Date End Date Name, MD Rocky 230 [place] [address] PCP - General Family Medicine 12/03/16 Jim Ram FNP 230 [place] [address] Nurse Practitioner Family Medicine 07/08/23 documented as of this encounter
--- OUTSIDE RECORDS SUMMARY | 2025-06-22 19:39 | XMS_ITS | Encounter Summary ---
Author Organization [employer] Address [address] [place] [address] 7 [place] [address] Care Team Providers Care Veterinary Dentist Name Role Phone Name, Rocky CHAUDHARI Primary Care Provider [phone] Jim Ram MALT HOUSE SUPERVISOR Unavailable Unavailable Encounter Details Date Type Department Care Team (Late st Contact Info) Description 05/05/2023 Abstract [facility] [address] [place] [address] Name, MD Rocky [address] [place] [address] Social History Tobacco Use Types Packs/Day Years [...] 07/08/2025 11:00 AM EST Telemedicine [facility] 230 [place], [place] [phone] Krei Guan RN 07/20/2025 10:45 AM EST Office Visit [facility] 230 [facility] [place] [address] Name, MD Rocky [address] [place], [place] [phone] 08/19/2025 10:30 AM EST Office Visit [facility] [address] [place], [place] [phone] Pranav, Dara, OD 230 [place], [place] [phone] documented as of this encounter Procedures Procedure [...] documented as of this encounter Care Teams Veterinary Dentist Relationship Specialty Start Date End Date Name, MD Rocky Camelia [place], [place] [phone] PCP - General Family Medicine 12/03/16 Jim Ram FNP [address] [place] [address] Nurse Practitioner Family Medicine 07/08/23 documented as of this encounter
--- OUTSIDE RECORDS SUMMARY | 2025-06-22 19:39 | XMS_ITS | Encounter Summary ---
Author Organization [employer] Address [address] [place] [address] 7 [place] [address] Care Team Providers Care Bark Grinder Name Role Phone Name, Rocky CAHUDHARI Primary Care Provider [phone] Jim Ram Unavailable Unavailable Reason for Visit * Reason Comments Med Change Request Encounter Details Date Type Department Care Team (Late st Contact Info) Description 03/04/2025 Refill [facility] 230 [place], [place] [phone] Name, MD Rocky [address] [place], [place] [phone] Age-related osteoporosis with current pathological fracture, initial [...] Info) Description 07/08/2025 11:00 AM EST Telemedicine [facility] [address] [place] [address] Keri Guan RN 07/20/2025 10:45 AM EST Office Visit [facility] [address] [place] [address] Name, MD Rocky [address] [place] [address] 08/19/2025 10:30 AM EST Office Visit [facility] [address] [place] [address] Dara Rock, TUSHAR 230 [place] [address] documented as of this encounter Visit Diagnoses Diagnosis Age-related osteoporosis with current pathological fracture, initial encounter documented in this encounter Additional Health Concerns Assessment Noted Time PHQ-9 Depression Total Score: 11 024 11:18 AM EDT documented as of this encounter Care Teams Bark Grinder Relationship Specialty Start Date End Date Name, MD Rocky [address] [place] [address] PCP - General Family Medicine 12/03/16 Jim Ram FNP [address] [place] [address] Nurse Practitioner Family Medicine 07/08/23 documented as of this encounter
--- OUTSIDE RECORDS SUMMARY | 2025-06-22 19:39 | XMS_ITS | Encounter Summary ---
Author Organization [employer] Address [address] [place] [address] 7 [place] [address] Care Team Providers Care Quality Control Inspector Heading Name Role Phone Name, Rocky CHAUDHARI Primary Care Provider [phone] Jim Ram DIRECTOR DIGITAL Unavailable Unavailable Encounter Details Date Type Department Care Team (Late st Contact Info) Description 09/16/2022 Abstract [facility] [address] [place] [address] [phone] Rocky Jain MD [address] [place] [address] [phone] Social History Tobacco Use Types Packs/Day Years [...] Info) Description 07/08/2025 11:00 AM EST Telemedicine [address] [phone] Keri Guan, JENNIFER 07/20/2025 10:45 AM EST Office Visit [address] [phone] Rocky Jain MD [address] [place] [address] [phone] 08/19/2025 10:30 AM EST Office Visit [facility] [address] [place], [place] [phone] Dara Rock, TUSHAR 230 [place] [address] documented as of this encounter Visit Diagnoses Not on filedocumented in this encounter Additional Health Concerns Assessment Noted Time PHQ-9 Depression Total Score: 6 08/22/19 10:50 AM EST documented as of this encounter Care Teams Quality Control Inspector Heading Relationship Specialty Start Date End Date Name, MD Rocky 230 [place], [place] [phone] PCP - General Family Medicine 12/03/16 Jim Ram FNP [address] [place] [address] Nurse Practitioner Family Medicine 07/08/23 documented as of this encounter
--- OUTSIDE RECORDS SUMMARY | 2025-06-22 19:39 | XMS_ITS | Encounter Summary ---
Author Organization [employer] Address [address] [facility] 7t [place] [address] Care Team Providers Care Gravity Prospector Name Role Phone Name, Rocky CHAUDHARI Primary Care Provider [phone] Jim Ram VACUUM METALIZER OPERATOR Unavailable Unavailable Reason for Visit * Reason Onset Date Comments Call Back Request 10/15/2024 POt to bring in police report of oxycodone theft 10/15/2024 Encounter Details Date Type Department Care Team (Late st Contact Info) Description 10/15/2024 Telephone [facility] 230 [place] [address] Name, MD Rocky 230 [place], [place] [phone] Call Back Request; POt to bring in [...] to pt, she would need to provide [facility] a copy of the police report before any consideration of early refill of her oxycodone. Pt states she will bring paperwork Friday or Friday. * Telephone Encounter - Neptali Wilder - 10/15/2024 3:21 PM EDT Tc from pt requesting a call back to Speak with Keri regarding something that was Mentioned in the Morning. Contact pt at [phone] documented in this encounter Plan of Treatment Upcoming Encounters Date Type Department Care Team (Late st Contact Info) Description 07/08/2025 11:00 AM EST Telemedicine [facility] [address] [place] [address] Keri Guan RN 07/20/2025 10:45 AM EST Office Visit [facility] 230 [place] [address] Name, MD Rocky [address] [place] [address] 08/19/2025 10:30 AM EST Office Visit [facility] [address] [place] [address] Dara Rock, TUSHAR 230 [place] [address] documented as of this encounter Visit Diagnoses Not on filedocumented in this encounter Additional Health Concerns Assessment Noted Time PHQ-9 Depression Total Score: 11 024 11:18 AM EDT documented as of this encounter Care Teams Gravity Prospector Relationship Specialty Start Date End Date Name, MD Rocky 230 [place] [address] PCP - General Family Medicine 12/03/16 Jim Ram FNP [address] [place] [address] Nurse Practitioner Family Medicine 07/08/23 documented as of this encounter
--- OUTSIDE RECORDS SUMMARY | 2025-06-22 19:39 | XMS_ITS | Encounter Summary ---
Author Organization [employer] Address [address] [place] [address] 7 [place] [address] Care Team Providers Care Manager Secondary Name Role Phone Name, Rocky CHAUDHARI Primary Care Provider [phone] Jim Ram AUTO FORMER MACHINE OPERATOR Unavailable Unavailable Reason for Visit * Reason Onset Date Comments Med Refill 04/02/2024 Encounter Details Date Type Department Care Team (Late st Contact Info) Description 04/02/2024 Refill [facility] 230 [place], [place] [phone] Name, MD Rocky [address] [place], [place] [phone] Chronic back pain, unspecified back location, unspecified [...] 200 MG capsule [facility] [place], [place] - [address] [place] [address] documented in this encounter Plan of Treatment Upcoming Encounters Date Type Department Care Team (Late st Contact Info) Description 07/08/2025 11:00 AM EST Telemedicine [facility] [address] [place] [address] Keri Guan RN 07/20/2025 10:45 AM EST Office Visit [facility] [address] [place] [address] Name, MD Rocky [address] [place] [address] 08/19/2025 10:30 AM EST Office Visit [facility] [address] [place] [address] Pranav, Dara, OD [address] [place] [address] documented as of this encounter Visit Diagnoses Diagnosis Chronic back pain, unspecified back location, unspecified back pain laterality documented in this encounter Additional Health Concerns Assessment Noted Time PHQ-9 Depression Total Score: 11 024 11:18 AM EDT documented as of this encounter Care Teams Manager Secondary Relationship Specialty Start Date End Date Name, [place] [address] PCP - General Family Medicine 12/03/16 [place] [address] Nurse Practitioner Family Medicine 07/08/23 documented as of this encounter
--- OUTSIDE RECORDS SUMMARY | 2025-06-22 19:39 | XMS_ITS | Encounter Summary ---
Author Organization [employer] Address [address] [place] [address] 7 [place] [address] Care Team Providers Care Pit Crew Support Worker Name Role Phone Name, Rocky CHAUDHARI Primary Care Provider [phone] Jim Ram Unavailable Unavailable Reason for Visit * Reason Onset Date Comments Medication Question 06/30/2024 Encounter Details Date Type Department Care Team (Late st Contact Info) Description 06/30/2024 Telephone [facility] [address] [place], [place] [phone] Name, MD Rocky [address] [place], [place] [phone] Medication Question Social History Tobacco Use Types [...] Instructions If any questions Contact pt at [phone] documented in this encounter Plan of Treatment Upcoming Encounters Date Type Department Care Team (Late st Contact Info) Description 07/08/2025 11:00 AM EST Telemedicine [facility] [address] [place] [address] Keri Guan RN 07/20/2025 10:45 AM EST Office Visit [facility] [address] [place] [address] Name, MD Rocky [address] [place] [address] 08/19/2025 10:30 AM EST Office Visit [facility] [address] [place] [address] Dara Rock OD [address] [place] [address] documented as of this encounter Visit Diagnoses Not on filedocumented in this encounter Additional Health Concerns Assessment Noted Time PHQ-9 Depression Total Score: 11 024 11:18 AM EDT documented as of this encounter Care Teams Pit Crew Support Worker Relationship Specialty Start Date End Date Name, MD Rocky [address] [place] [address] PCP - General Family Medicine 12/03/16 Jim Ram FNP [address] [place] [address] Nurse Practitioner Family Medicine 07/08/23 documented as of this encounter
--- OUTSIDE RECORDS SUMMARY | 2025-06-22 19:39 | XMS_ITS | Encounter Summary ---
Author Organization [employer] Address [address] [place] [address] 7t [place] [address] Care Team Providers Care Bellows Charger Assembler Name Role Phone Name, Rocky CHAUDHARI Primary Care Provider [phone] Jim Ram Unavailable Unavailable Reason for Visit * Reason Comments Med Refill Encounter Details Date Type Department Care Team (Late st Contact Info) Description 10/23/2024 Refill [facility] 230 [place], [place] [phone] Name, MD Rocky [address] [place], [place] [phone] Major depressive disorder with psychotic features (CMS/HCC); [...] 11:00 AM EST Telemedicine [facility] [address] [place] [address] Keri Guan RN 07/20/2025 10:45 AM EST Office Visit [facility] [address] [place] [address] Name, MD Rocky [address] [place] [address] 08/19/2025 10:30 AM EST Office Visit [facility] [address] [place], [place] [phone] Dara Rock, TUSHAR 230 [place] [address] documented as of this encounter Visit Diagnoses Diagnosis Major depressive disorder with psychotic features (CMS/HCC) (HCC) Chronic back pain, unspecified back location, unspecified back pain laterality documented in this encounter Additional Health Concerns Assessment Noted Time PHQ-9 Depression Total Score: 11 024 11:18 AM EDT documented as of this encounter Care Teams Bellows Charger Assembler Relationship Specialty Start Date End Date Name, MD Rocky [address] [place] [address] PCP - General Family Medicine 12/03/16 Jim Ram FNP [address] [place] [address] Nurse Practitioner Family Medicine 07/08/23 documented as of this encounter
== END 2025-06-22 10:16 | disposition home or self-care (01) ==
LOC: HO.CT 10:15
PROVIDERS: PCP Internal Medicine Geriatric Medicine; Visit Provider Physician Assistant Medical
DX: Z12.2 Encounter for screening for malignant neoplasm of respiratory organs (principal); F17.210 Nicotine dependence, cigarettes, uncomplicated
CPT/HCPCS: 71271

== ENCOUNTER → 2025-06-22 10:17 | Outpatient (BNV) | payer OTHER, SELFPAY | PROVIDERS: PCP Internal Medicine Geriatric Medicine; Visit Provider Radiology Diagnostic Radiology | DX: F17.210 Nicotine dependence, cigarettes, uncomplicated (principal) | CPT/HCPCS: 71271 ==